=== PATIENT | male | born 1970 | race Caucasian/White ===

== ENCOUNTER 2016-10-04 16:53 | Inpatient (IN) | payer SELFPAY ==
[~2016-10-04] VITALS: Ht 177.8 cm; Wt 76.5 kg
[~2016-10-04 16:53] MED LIST: LISI20 PO
[2016-10-04 17:05] VITALS: PULSE 91; RESP 19; TEMP 97.4; O2SAT 97
--- NOTE | 2016-10-04 17:16 | PD ---
HPI Chief Complaint: Pain: Acute or Chronic Time Seen by Provider: 17:10 Travel History International Travel<30 days: No Contact w/Intl Traveler<30days: No History of Present Illness HPI 45yo M with PMH of HTN presents to the ED with c/o back pain, dark color urine, dysuria, foul smelling urine for a few days. Denies any fever, chest pain, sob , n/v, focal weakness or numbness. State the pain is bilateral, lower back, squeezing like and nonradiating. Pt took percocet yesterday without improvement. Pt states he did have chills and used to do IV drugs although he states it has been a few years since he did IV drugs. PFSH Past Medical History Arthritis: No Asthma: No Autoimmune Disease: No Blood Disorders: No Anxiety: Yes Depression: Yes Heart Rhythm Problems: No Cancer: No Cardiovascular Problems: Yes (HTN--NOT TAKING MED) High Cholesterol: No Congestive Heart Failure: No Cerebrovascular Accident: Yes Diabetes: No Diminished Hearing: No Endocrine: No Gastrointestinal Disorders: No GERD: No Genitourinary: No Headaches: Yes Hiatal Hernia: No Hypertension: Yes Immune Disorder: No Implanted Vascular Access Dvce: No Kidney Stones: No Musculoskeletal: No Neurologic: Yes (July 2014 Cerebral Hemorrhage) Psychiatric: Yes Reproductive: No Respiratory: No Immunizations Current: Yes Migraines: Yes Renal Failure: No Seizures: Yes Sleep Apnea: No Ulcer: No Past Surgical History Abdominal Surgery: No Cardiac Surgery: No Ear Surgery: Yes (RIGHT EAR) Endocrine Surgery: No Eye Surgery: No Genitourinary Surgery: No Gynecologic Surgery: No Neurologic Surgery: No Oral Surgery: No Thoracic Surgery: No Tonsillectomy: Yes Other Surgery: Yes (right ear) Social History Alcohol Use: Yes Tobacco Use: Yes (1 PACK A DAY) Substance Use: Yes (crack, heroin, meth, dilaudid, thc) Allergies-Medications (Allergen,Severity, Reaction): Coded Allergies: No Known Allergies (Verified , 10/04/16) Reported Meds & Prescriptions Reported Meds & Active Scripts Active Reported Lisinopril 20 Mg Tab 20 Mg PO BID Review of Systems Except as stated in HPI: all other systems reviewed are Neg Physical Exam Narrative GENERAL: 45yo M in moderate distress. SKIN: Focused skin assessment warm/dry. HEAD: Atraumatic. Normocephalic. EYES: Pupils equal and round. No scleral icterus. No injection or drainage. ENT: No nasal bleeding or discharge. Mucous membranes pink and moist. NECK: Trachea midline. No JVD. CARDIOVASCULAR: Regular rate and rhythm. No murmur appreciated. RESPIRATORY: No accessory muscle use. Clear to auscultation. Breath sounds equal bilaterally. GASTROINTESTINAL: Abdomen soft, non-tender, nondistended. No rebound tenderness or guarding. BACK: +Diffuse TTP TT11-L5. No erythema. Mild swelling in lower back. Tenderness is more on paraspinal muscles. MUSCULOSKELETAL: No obvious deformities. No clubbing. No cyanosis. No edema. NEUROLOGICAL: Awake and alert. No obvious cranial nerve deficits. Motor grossly within normal limits. Sensation equal in bilateral lower extremities. Normal speech. PSYCHIATRIC: Appropriate mood and affect; insight and judgment normal. Data Data Last Documented VS Vital Signs Date Time Temp Pulse Resp B/P Pulse Ox O2 Delivery O2 Flow Rate FiO2 10/04/16 19:39 Room Air 10/04/16 19:19 72 22 153/105 99 10/04/16 17:24 97.4 Orders Basic Metabolic Panel (Bmp) (10/04/16 17:16) Complete Blood Count With Diff (10/04/16 17:16) Prothrombin Time / Inr (Pt) (10/04/16 17:16) Act Partial Throm Time (Ptt) (10/04/16 17:16) Urinalysis - C+S If Indicated (10/04/16 17:16) Ct Abd/Pel W Iv Contrast(Rout) (10/04/16 17:16) Iv Access Insert/Monitor (10/04/16 17:16) Ecg Monitoring (10/04/16 17:16) Oximetry (10/04/16 17:16) Sodium Chloride 0.9% Flush (Ns Flush) (10/04/16 17:30) Morphine Inj (Morphine Inj) (10/04/16 17:30) Hydralazine Inj (Apresoline Inj) (10/04/16 18:15) Iohexol 350 Inj (Omnipaque 350 Inj) (10/04/16 18:58) Mri L Spine W&W/O Contrast (10/04/16 ) Morphine Inj (Morphine Inj) (10/04/16 19:45) Gadodiamide Pf Inj (Omniscan Pf Inj) (10/04/16 20:16) Lactic Acid Sepsis Protocol (10/04/16 21:28) Blood Culture (10/04/16 21:28) Vancomycin Inj (Vancomycin Inj) (10/04/16 21:28) Piperacil-Tazo 4.5 Gm Premix (Zosyn 4.5 (10/04/16 21:28) Consult Neurosurgery (10/04/16 ) (Hub Use Only)Inp Phy Cons/Ref (10/04/16 ) Admit Order (Ed Use Only) (10/04/16 21:49) Labs Laboratory Tests Test 10/04/16 10/04/16 17:20 17:50 White Blood Count 13.0 TH/MM3 Red Blood Count 4.85 MIL/MM3 Hemoglobin 14.2 GM/DL Hematocrit 41.9 % Mean Corpuscular Volume 86.3 FL Mean Corpuscular Hemoglobin 29.3 PG Mean Corpuscular Hemoglobin 34.0 % Concent Red Cell Distribution Width 13.4 % Platelet Count 310 TH/MM3 Mean Platelet Volume 9.1 FL Neutrophils (%) (Auto) 68.8 % Lymphocytes (%) (Auto) 20.8 % Monocytes (%) (Auto) 8.6 % Eosinophils (%) (Auto) 0.9 % Basophils (%) (Auto) 0.9 % Neutrophils # (Auto) 8.9 TH/MM3 Lymphocytes # (Auto) 2.7 TH/MM3 Monocytes # (Auto) 1.1 TH/MM3 Eosinophils # (Auto) 0.1 TH/MM3 Basophils # (Auto) 0.1 TH/MM3 CBC Comment DIFF FINAL Differential Comment Prothrombin Time 11.1 SEC Prothromb Time International 1.0 RATIO Ratio Activated Partial 28.2 SEC Thromboplast Time Sodium Level 136 MEQ/L Potassium Level 4.1 MEQ/L Chloride Level 102 MEQ/L Carbon Dioxide Level 26.8 MEQ/L Anion Gap 7 MEQ/L Blood Urea Nitrogen 15 MG/DL Creatinine 1.20 MG/DL Estimat Glomerular Filtration 65 ML/MIN Rate Random Glucose 115 MG/DL Calcium Level 8.9 MG/DL Urine Color DARK-YELLOW Urine Turbidity HAZY Urine pH 5.5 Urine Specific [place] 1.039 Urine Protein 30 mg/dL Urine Glucose (UA) NEG mg/dL Urine Ketones NEG mg/dL Urine Occult Blood NEG Urine Nitrite NEG Urine Bilirubin SMALL Urine Urobilinogen 4.0 MG/DL Urine Leukocyte Esterase NEG Urine WBC 3 /hpf Urine Mucus MOD /lpf Microscopic Urinalysis Comment CULT NOT INDICATED MDM Medical Decision Making Medical Screen Exam Complete: Yes Emergency Medical Condition: Yes Differential Diagnosis Nephrolithiasis vs. pyelonephritis vs. UTI vs. epidural abscess (unlikely but since pt was an IVDA and in a lot of pain, will do MRI) Narrative Course 45yo M with urinary complaints and back pain. He is in a lot of pain so morphine 4mg IV given. Pt reevaluated and still in pain so another dose of morphine ordered Labs reviewed, mild leukocytosis at 13. BMP unremarkable. UA showed no leukocyte or blood. Sign out to next team to follow up CT a/p and MRI LS. Diagnosis Primary Impression: Back pain Qualified Code: M54.5 - Acute bilateral low back pain without sciatica Mary Mora DO Oct 04, 2016 17:16
[2016-10-04 17:18] VITALS: BP 175/118; PULSE 90; RESP 19; TEMP 97.4; O2SAT 97
[2016-10-04] MEDS ORDERED: LISI-515 PO (17:18)
[2016-10-04 17:24] VITALS: BP 175/118; PULSE 90; RESP 19; TEMP 97.4; O2SAT 97
[2016-10-04] MEDS ORDERED: SODIUM CHLORIDE 0.9% FLUSH 10 ML FLUSH IV FLUSH PRN (17:30)
[2016-10-04] MEDS ORDERED: MORPHINE SULFATE 4 MG/ML INJ IV PUSH ONE ×2 (17:30→19:45)
[2016-10-04 18:03] LABS: APTT (PATIENT) 28.2 SEC (24.3-30.1); PROTHROMBIN TIME - PATIENT 11.1 SEC (9.8-11.6)
[2016-10-04 18:15] LABS: AUTOMATED NEUTROPHIL # 8.9 TH/MM3 (1.8-7.7); BASOPHIL # 0.1 TH/MM3 (0-0.2); BASOPHIL % 0.9 % (0.0-2.0); EOSINOPHIL # 0.1 TH/MM3 (0-0.4); EOSINOPHIL % 0.9 % (0.0-4.0); HEMATOCRIT 41.9 % (39.0-51.0); HEMO FLAGS DIFF FINAL; LYMPH % 20.8 % (9.0-44.0); LYMPHOCYTE # 2.7 TH/MM3 (1.0-4.8); MEAN CELL VOLUME 86.3 FL (80.0-100.0); MEAN CORPUSCULAR HEMOGLOBIN 29.3 PG (27.0-34.0); MONO % 8.6 % (0.0-8.0); NEUT % 68.8 % (16.0-70.0); PLATELET COUNT 310 TH/MM3 (150-450); RED BLOOD COUNT 4.85 MIL/MM3 (4.50-5.90); RED CELL DISTRIBUTION WIDTH 13.4 % (11.6-17.2)
[2016-10-04] MEDS ORDERED: hydrALAZINE HCL 20 MG/ML VIAL IV PUSH ONE (18:15)
[2016-10-04 18:16] LABS: BICARBONATE 26.8 MEQ/L (21.0-32.0); POTASSIUM 4.1 MEQ/L (3.5-5.1)
[2016-10-04 18:29] LABS: BLOOD, URINE NEG (NEG); COMMENT (UR) CULT NOT INDICATED; CULTURE IF INDICATED CULT NOT INDICATED; GLUCOSE,URINE NEG (NEG); KETONE, URINE NEG (NEG); MUCUS URINE MOD /lpf (OCC); NITRITE,URINE NEG (NEG); PH, URINE 5.5 (5.0-8.5)
[2016-10-04 18:33] LABS: URINE COLOR DARK-YELLOW (YELLW/STRAW)
[2016-10-04 18:40] VITALS: BP 160/103
[2016-10-04] MEDS ORDERED: IOHEXOL 350 MG/ML 10 ML VIAL (for RAD DIAG) IV ONE (18:58)
[2016-10-04 19:19] VITALS: BP 153/105; PULSE 72; RESP 22; O2SAT 99
--- NOTE | 2016-10-04 19:20 | RADRPT ---
EXAM DATE/TIME: 10/04/2016 18:49 [facility] COMPARISON: No previous studies available for comparison. INDICATIONS : Severe back pain, dicoloration of urine IV CONTRAST: 96 cc IV ORAL CONTRAST: No oral contrast ingested. RADIATION DOSE: 7.81 CTDIvol (mGy) ; Patient positioning MEDICAL HISTORY : Cerebrovascular disease. Seizures. Hypertension. SURGICAL HISTORY : ENCOUNTER: Initial ACUITY: 1 day PAIN SCALE: 10/10 LOCATION: Bilateral lower back TECHNIQUE: Volumetric scanning of the abdomen and pelvis was performed. Using automated exposure control and ad justment of the mA and/or kV according to patient size, radiation dose was kept as low as reasonably achievable to obtain optimal diagnostic quality images. DICOM format image data is available electro nically for review and comparison. FINDINGS: There is atelectasis at both lung bases. No significant abnormality in the liver, spleen, adrenals, k idneys or pancreas. There is mild biliary ductal dilatation. There is no bowel obstruction. No free air or significant free fluid. Bladder wall is thickened somew hat diffusely which could be characteristic of a cystitis. No pelvic mass or adenopathy. No acute bon y abnormality. CONCLUSION: Diffuse thickening of the bladder wall. Differential diagnosis includes cystitis. Otherwise no acute findings within the abdomen and pelvis. Leroy Quintero MD on October 04, 2016 at 19:11 Board Certified Radiologist. This report was verified electronically.
[2016-10-04] MEDS ORDERED: GADODIAMIDE PF 287 MG/ML 20 ML VIAL (for RAD MRI) IV ONE (20:16)
--- NOTE | 2016-10-04 21:11 | RADRPT ---
EXAM DATE/TIME: 10/04/2016 19:56 [facility] COMPARISON: No previous studies available for comparison. INDICATIONS : Lumbar spine tenderness. CONTRAST: 15 cc Omniscan (gadodiamide) IV MEDICAL HISTORY : Hypertension. CVA SURGICAL HISTORY : None. ENCOUNTER: Initial ACUITY: 1 day PAIN SCORE: 7/10 LOCATION: Paraspinal TECHNIQUE: Multiplanar multisequence MRI of the lumbar spine was performed with and without contrast. FINDINGS: There is abnormal enhancing soft tissue around the spinous process of L3 and L4 but predominantly at L3. The enhancing and edematous soft tissue has an AP diameter of up to about 4 cm and a transverse d iameter of about 12 mm on each side of the spinous process. There is no significant loculated fluid t o suggest significant abscess or drainable abscess formation. This is presumably an inflammatory phle gmonous mass and possibly an early paraspinous abscess. There is also some associated dural enhanceme nt on the dorsal aspect of L3-4 with no epidural abscess or compression on the thecal sac is present at this time. The patient would be at risk of developing epidural abscess should be inflammatory proc ess worsen or continue. There are edematous changes in the overlying subcutaneous tissues as well luis enrique racteristic of a cellulitis. No significant abnormality at Q18-H2-Q7-Y6-R1 to the disc interspaces. At L4-5 there is a mild broad-based posterior disc protrusion and facet arthropathy with mild central canal and lateral recess stenosis and mild foraminal encroachment. At L5-S1 there is a broad-based disc bulge and mild protrusion. Conus intact. No fracture or spondylolisthesis. CONCLUSION: 1. Abnormal enhancing and edematous tissue around the spinous processes of L3 and L4 extending into t he subcutaneous tissues. There is also some enhancement of the dorsal dural surface at L3-4 but witho ut epidural abscess or thecal sac compression at this time. The findings probably represent a phlegmo nous mass and could represent early changes of a paraspinous abscess. 2. Mild central canal stenosis at L4-5 secondary to disc protrusion and facet arthropathy. 3. Mild disc bulge or protrusion at L5-S1 without significant stenosis. Leroy Quintero MD on October 04, 2016 at 20:55 Board Certified Radiologist. This report was verified electronically.
[2016-10-04] MEDS ORDERED: VANCOMYCIN INJ 1,000 MG in SODIUM CHLOR 0.9% 250 ML INJ 250 ML IV STA (21:28)
[2016-10-04] MEDS ORDERED: PIPERACIL-TAZO 4.5 GM PREMIX 100 ML IV STA (21:28)
--- NOTE | 2016-10-04 21:58 | PD ---
Physical Exam Date Seen by Provider: Oct 04, 2016 Time Seen by Provider: 19:00 Narrative Case is signed out to me by Dr. Mora at 7 PM, please see previous notes for further details. Awaiting MRI for evaluation of back pain. Laboratory Tests Test 10/04/16 10/04/16 17:20 17:50 White Blood Count 13.0 TH/MM3 (4.0-11.0) Monocytes (%) (Auto) 8.6 % (0.0-8.0) Neutrophils # (Auto) 8.9 TH/MM3 (1.8-7.7) Monocytes # (Auto) 1.1 TH/MM3 (0-0.9) Estimat Glomerular Filtration 65 ML/MIN (>89) Rate Random Glucose 115 MG/DL (74-106) Urine Color DARK-YELLOW (YELLW/STRAW) Urine Turbidity HAZY (CLEAR) Urine Specific [place] 1.039 (1.002-1.035) Urine Protein 30 mg/dL (NEG-TRACE) Urine Bilirubin SMALL (NEG) Urine Urobilinogen 4.0 MG/DL (LESS THAN 2.0) Urine Mucus MOD /lpf (OCC) Last 24 hours Impressions Abdomen/Pelvis CT 10/04/16 1716 Signed Impressions: Service Date/Time: Tuesday, October 04, 2016 18:49 - CONCLUSION: Diffuse thickening of the bladder wall. Differential diagnosis includes cystitis. Otherwise no acute findings within the abdomen and pelvis. Leroy Quintero MD Lumbar Spine MRI 10/04/16 0000 Signed Impressions: Service Date/Time: Tuesday, October 04, 2016 19:56 - CONCLUSION: 1. Abnormal enhancing and edematous tissue around the spinous processes of L3 and L4 extending into the subcutaneous tissues. There is also some enhancement of the dorsal dural surface at L3-4 but without epidural abscess or thecal sac compression at this time. The findings probably represent a phlegmonous mass and could represent early changes of a paraspinous abscess. 2. Mild central canal stenosis at L4-5 secondary to disc protrusion and facet arthropathy. 3. Mild disc bulge or protrusion at L5-S1 without significant stenosis. Leroy Quintero MD MRI is showing signs of a possible paraspinous abscess. At this point, IV antibiotics was initiated after cultures was done. Case was discussed with neurosurgery Dr. Machuca who states that he does not feel that the patient needs neurosurgical treatment at this time but will consult on the patient. He also recommends ID consultation for this patient and medical admission. Case was discussed with Dr. Frost for admission. Data Data Last Documented VS Vital Signs Date Time Temp Pulse Resp B/P Pulse Ox O2 Delivery O2 Flow Rate FiO2 10/04/16 19:39 Room Air 10/04/16 19:19 72 22 153/105 99 10/04/16 17:24 97.4 Orders Basic Metabolic Panel (Bmp) (10/04/16 17:16) Complete Blood Count With Diff (10/04/16 17:16) Prothrombin Time / Inr (Pt) (10/04/16 17:16) Act Partial Throm Time (Ptt) (10/04/16 17:16) Urinalysis - C+S If Indicated (10/04/16 17:16) Ct Abd/Pel W Iv Contrast(Rout) (10/04/16 17:16) Iv Access Insert/Monitor (10/04/16 17:16) Ecg Monitoring (10/04/16 17:16) Oximetry (10/04/16 17:16) Sodium Chloride 0.9% Flush (Ns Flush) (10/04/16 17:30) Morphine Inj (Morphine Inj) (10/04/16 17:30) Hydralazine Inj (Apresoline Inj) (10/04/16 18:15) Iohexol 350 Inj (Omnipaque 350 Inj) (10/04/16 18:58) Mri L Spine W&W/O Contrast (10/04/16 ) Morphine Inj (Morphine Inj) (10/04/16 19:45) Gadodiamide Pf Inj (Omniscan Pf Inj) (10/04/16 20:16) Lactic Acid Sepsis Protocol (10/04/16 21:28) Blood Culture (10/04/16 21:28) Vancomycin Inj (Vancomycin Inj) (10/04/16 21:28) Piperacil-Tazo 4.5 Gm Premix (Zosyn 4.5 (10/04/16 21:28) Consult Neurosurgery (10/04/16 ) (Hub Use Only)Inp Phy Cons/Ref (10/04/16 ) Admit Order (Ed Use Only) (10/04/16 21:49) Labs Laboratory Tests Test 10/04/16 10/04/16 17:20 17:50 White Blood Count 13.0 TH/MM3 Red Blood Count 4.85 MIL/MM3 Hemoglobin 14.2 GM/DL Hematocrit 41.9 % Mean Corpuscular Volume 86.3 FL Mean Corpuscular Hemoglobin 29.3 PG Mean Corpuscular Hemoglobin 34.0 % Concent Red Cell Distribution Width 13.4 % Platelet Count 310 TH/MM3 Mean Platelet Volume 9.1 FL Neutrophils (%) (Auto) 68.8 % Lymphocytes (%) (Auto) 20.8 % Monocytes (%) (Auto) 8.6 % Eosinophils (%) (Auto) 0.9 % Basophils (%) (Auto) 0.9 % Neutrophils # (Auto) 8.9 TH/MM3 Lymphocytes # (Auto) 2.7 TH/MM3 Monocytes # (Auto) 1.1 TH/MM3 Eosinophils # (Auto) 0.1 TH/MM3 Basophils # (Auto) 0.1 TH/MM3 CBC Comment DIFF FINAL Differential Comment Prothrombin Time 11.1 SEC Prothromb Time International 1.0 RATIO Ratio Activated Partial 28.2 SEC Thromboplast Time Sodium Level 136 MEQ/L Potassium Level 4.1 MEQ/L Chloride Level 102 MEQ/L Carbon Dioxide Level 26.8 MEQ/L Anion Gap 7 MEQ/L Blood Urea Nitrogen 15 MG/DL Creatinine 1.20 MG/DL Estimat Glomerular Filtration 65 ML/MIN Rate Random Glucose 115 MG/DL Calcium Level 8.9 MG/DL Urine Color DARK-YELLOW Urine Turbidity HAZY Urine pH 5.5 Urine Specific [place] 1.039 Urine Protein 30 mg/dL Urine Glucose (UA) NEG mg/dL Urine Ketones NEG mg/dL Urine Occult Blood NEG Urine Nitrite NEG Urine Bilirubin SMALL Urine Urobilinogen 4.0 MG/DL Urine Leukocyte Esterase NEG Urine WBC 3 /hpf Urine Mucus MOD /lpf Microscopic Urinalysis Comment CULT NOT INDICATED MDM Medical Record Reviewed: Yes Supervised Visit with TOYIN: No Diagnosis Primary Impression: Abscess of paraspinous muscles Admitting Information Admitting Physician Requests: Admit Myesha Cardenas MD Oct 04, 2016 21:58
[2016-10-04] MEDS ORDERED: LACTULOSE SYRUP 20 GM/30 ML CUP PO PRN (22:00)
[2016-10-04] MEDS ORDERED: NALOXONE HCL 0.4 MG/ML AMP IV PRN (22:00)
[2016-10-04] MEDS ORDERED: MAGNESIUM HYDROXIDE SUSP 30 ML CUP PO PRN (22:00)
[2016-10-04] MEDS ORDERED: BISACODYL 10 MG SUPP RECTAL PRN (22:00)
[2016-10-04] MEDS ORDERED: SENNOSIDES 8.6 MG TAB PO PRN (22:00)
[2016-10-04] MEDS ORDERED: Vancomycin Consult Pharmacy 1 EA OTHER SCH (22:00)
[2016-10-04] MEDS ORDERED: ONDANSETRON HCL 4 MG/2 ML VIAL IVP PRN (22:00)
[2016-10-04] MEDS: HEPARIN SODIUM - SQ 10,000 UNITS/ML VIAL SQ SCH (22:00)
[2016-10-04] MEDS ORDERED: ACETAMINOPHEN 325 MG TAB PO PRN (22:00)
[2016-10-04] MEDS: ACETAMINOPHEN/HYDROcodone 325 MG/10 MG TAB PO PRN (22:14)
[2016-10-05] MEDS: SODIUM CHLOR 0.9% 1000 ML INJ 1,000 ML IV SCH ×3 (01:38→21:24)
[2016-10-05 02:46] VITALS: BP 130/79; PULSE 69; RESP 20; TEMP 98.6; O2SAT 100
[2016-10-05] MEDS: ACETAMINOPHEN/HYDROcodone 325 MG/10 MG TAB PO PRN ×2 (03:17→08:08)
[2016-10-05] MEDS ORDERED: MORPHINE SULFATE 4 MG/ML INJ IV PRN (04:00)
[2016-10-05] MEDS: PIPERACIL-TAZO 3.375 GM PREMIX 50 ML IV SCH ×4 (05:34→23:58)
[2016-10-05 08:00] VITALS: BP 133/83; PULSE 68; RESP 16; TEMP 98.5; O2SAT 96
[2016-10-05] MEDS: DOCUSATE SODIUM 50 MG/SENNA 8.6 MG TAB PO SCH ×2 (08:08→21:14)
[2016-10-05] MEDS: SODIUM CHLORIDE 0.9% FLUSH 10 ML FLUSH IV FLUSH SCH ×2 (09:00→21:00)
[2016-10-05] MEDS: VANCOMYCIN INJ 1,250 MG in SODIUM CHLOR 0.9% 250 ML INJ 250 ML IV SCH ×2 (09:13→21:15)
[2016-10-05] MEDS: HEPARIN SODIUM - SQ 10,000 UNITS/ML VIAL SQ SCH ×2 (09:41→21:14)
[2016-10-05 11:31] LABS: AUTOMATED NEUTROPHIL # 6.7 TH/MM3 (1.8-7.7); BASOPHIL # 0.1 TH/MM3 (0-0.2); BASOPHIL % 0.8 % (0.0-2.0); EOSINOPHIL # 0.2 TH/MM3 (0-0.4); EOSINOPHIL % 2.2 % (0.0-4.0); HEMATOCRIT 37.4 % (39.0-51.0); HEMO FLAGS DIFF FINAL; LYMPH % 21.2 % (9.0-44.0); LYMPHOCYTE # 2.2 TH/MM3 (1.0-4.8); MEAN CELL VOLUME 86.1 FL (80.0-100.0); MEAN CORPUSCULAR HEMOGLOBIN 29.5 PG (27.0-34.0); MEAN CORPUSCULAR HGB CONC 34.2 % (32.0-36.0); MONO % 10.5 % (0.0-8.0); NEUT % 65.3 % (16.0-70.0); PLATELET COUNT 252 TH/MM3 (150-450); RED BLOOD COUNT 4.34 MIL/MM3 (4.50-5.90); RED CELL DISTRIBUTION WIDTH 13.6 % (11.6-17.2); WHITE BLOOD COUNT 10.3 TH/MM3 (4.0-11.0)
[2016-10-05] MEDS: MORPHINE SULFATE 4 MG/ML INJ IV PRN ×2 (11:48→14:40)
[2016-10-05 11:54] LABS: BICARBONATE 30.7 MEQ/L (21.0-32.0); POTASSIUM 3.8 MEQ/L (3.5-5.1)
[2016-10-05 12:00] VITALS: BP 134/78; PULSE 65; RESP 20; TEMP 99.1; O2SAT 96
--- NOTE | 2016-10-05 13:37 | MH ---
cc: PRAMOD GOODMAN DATE OF ADMISSION: 10/04/2016 DATE OF 1970 RECENT TRAVEL: Travel in the last 30 days, none. HISTORY OF PRESENT ILLNESS This is a pleasant 45-year-old white male who had been in his usual state of health up until about a week ago. He started noticing some lower back pain that was uncontrolled to the point that he could not sleep and was having trouble with any daily activities. He has swelling and edema very painful to light touch but no obvious sore or deformity noted. He describes pain as a squeezing sensation, non radiating and one of the most painful things that he has ever experienced. The patient has not been able to complete his daily activities. He has noted some fevers, chills and sweats, that have worsened over the past few days. The patient has no shortness of breath. No headaches has not eaten or drank very much fluids and has had a decreased appetite over the past few days. MEDICAL HISTORY Anxiety, hypertension, although not taking medication now. Cerebrovascular accident a year and half ago Headaches. PAST SURGICAL HISTORY Right ear tonsillectomy. ALLERGIES None known MEDICATIONS Lisinopril SOCIAL HISTORY Previous alcohol use but has quit approximately 6 years ago, tobacco a pack a day since his young teenage years. SUBSTANCE ABUSE Currently smokes a little marijuana has had a polysubstance abuse in the past but states he has not used any of those medications or smoke any medications in a few years. He says he currently lives with a girl friend that he has been with for nine years. 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 REVIEW OF SYSTEMS A 12-point review was obtained positives noted in history of present illness which chiefly are his lower back pain. There is swelling and edema but no open sore noted. PHYSICAL EXAMINATION: VITAL SIGNS: Temperature is 98.5, Pulse 68, respirations 20, blood pressure 130/79 and 133/83. O2 sat high blood pressure on his initial admission was 175/118 but has come down over the last 12 hours. O2 sat 96 currently on room air. PHYSICAL EXAMINATION IN GENERAL: Slim but well nourished, white male looks a little older than his stated age, resting in the bed. He does have positive facial grimace and is actively having pain in his lower back. SKIN: Skin is warm and dry. HEAD, EYES, EARS, NOSE, AND THROAT: Atraumatic, normocephalic. Pupils equal, round, reactive to light and accommodation, no scleral icterus, no drainage. NECK: The neck is supple. Oral cavity is pink and moist. CARDIOVASCULAR SYSTEM: Rhythm is regular. No murmurs, rubs or gallops. RESPIRATORY: Essentially clear to auscultation. No wheezes or rhonchi. ABDOMEN: The abdomen is flat, soft, nontender, nondistended. BACK: Diffuse edema. No erythema. There is obvious swelling in the lumbar area. NEUROLOGICALLY: He is awake, alert, mildly nervous over his current condition and pain. Speech is clear hand clipper machine are equal PSYCHIATRIC: Appropriate mood and affect. Insight and judgment normal. DIAGNOSTIC DATA/ LABORATORY DATA WBC count 13, hemoglobin of 14.2, hematocrit 41.9 diff shows positive monocyte percentage at 8.6, PT/INR is one. Chemistry sodium 136, potassium 4.1, chloride 102, carbon dioxide 26.8, amnion gap seven, BUN 15, creatinine 1.2, GFR of 65, random glucose 115, lactic acid 1.5, calcium 8.9. His urine shows dark yellow hazy Urine 5.5, pH specific gravity 1.039, positive for proteins 30, positive for small amount of bilirubin, urobilinogen is 4, leukocyte esterase is negative along with glucose, ketones, occult blood and nitrites. There is a moderate amount of the mucous, culture is not indicated. IMAGING STUDIES: The imaging studies show a lumbar spine MRI to have abnormal enhancing and edematous tissue around the L3-L4 extending into the subcutaneous Tissue. There is some enhancement in the dorsal dural space of L3 and L4, but without epidural abscess or thecal sac compression. These findings represent some type of Phlegmonous mass and could represent early changes of a paraspinous abscess. Mild central canal stenosis at L4, l5 secondary to disc protrusion, mild disc bulge, or protrusion at L5, S1 without significant stenosis. Abdomen pelvic CT, diffuse thickening of the bladder wall. Differential includes discitis. No other acute findings. ASSESSMENT: 1. Possible abscess of the paraspinal muscles. 2. Cystitis 3. Hypertension 4. Hypertensive urgency on admission which is now resolved. 5. History of intracerebral hemorrhage. 6. Depressive disorder. 7. Anxiety. 8. Leukocytosis. PLAN: 1. Our plan is to monitor his vital signs q. four and as needed 2. IV access for any medications 3. p.r.n. medications if his blood pressure is above 180/95. Patient has been started on Vancomycin and Zosyn IV. 4. Blood cultures are pending. 5. Pain management. 6. We consulted neurosurgery for their expert opinion. 7. Bowel regimen will be monitored and we will continue to follow. Katiana Goodman MD DICTATED BY: MING Patel/dianelys /10:55 AM /1:16 PM
--- NOTE | 2016-10-05 14:30 | MB ---
cc: PRAMOD GOODMAN DATE OF CONSULTATION: 10/05/2016 REQUESTING PHYSICIAN: Dr. Goodman. REASON FOR CONSULTATION: 45-year-old gentleman who presented to the emergency room yesterday with back pain as well as dark foul smelling urine for the past several days. Per emergency room history and had no complaints of fever, chest pain or shortness of breath at the time of admission. No complaints of lower extremity pain or weakness. No bowel dysfunction. The patient does have chronic hesitancy in urinating from a prostate enlargement. The patient does have history in the past of IV drug abuse but states he has not used IV drugs and several years. Workup included MRI of the lumbar spine which I reviewed. This study shows signal changes in the paraspinal musculature around the L3 spinous process consistent with probable evolving infectious process. No large fluid collection noted which would be amendable to drainage. There does appear to be some cellulitic change within the left paraspinal muscle consistent with Phlegmon and early abscess formation. No evidence of epidural fluid or abscess. No canal stenosis. PAST MEDICAL HISTORY: The patient's past medical history significant for history of depression, hypertension, history of previous CVA. SOCIAL HISTORY The patient smokes a pack of cigarettes per day, has history of illicit drug use including crack cocaine, heroin, crystal meth dilaudid, and marijuana. He does admits to frequent and daily alcohol use. CURRENT MEDICATIONS Lisinopril. ALLERGIES None known. REVIEW OF SYSTEMS Review of systems is pertinent as stated in HPI, otherwise negative. PHYSICAL EXAMINATION: IN GENERAL: Well-developed male who is lying in bed in mild distress even without movements. HEAD, EYES, EARS, NOSE, AND THROAT: Head is atraumatic, normocephalic. Pupils are equal, reactive to light. Extraocular movements are intact. NECK: Neck is supple. Full range of motion. No posterior tenderness. The patient has diffuse tenderness in the lumbosacral region and evidence of redness and swelling consistent with cellulitis of the paraspinal musculature mid lumbar region. NEUROLOGIC EXAMINATION Mental status is normal all he is oriented x3. Speech is intact. Cranial nerves II-XII intact. Motor function 5/5 throughout. Sensory intact to light touch and pain sensation throughout. Reflexes hypoactive and symmetric. Gait was not tested. ASSESSMENT Lumbar paraspinal soft tissue infection with evidence of early phlegmon abscess formation. RECOMMENDATIONS Blood cultures should have been performed in the emergency room and it is not will need to be performed now. Although the patient's urine. Dark and fall smelling his initial UA showed no white count. Infectious disease; should be consulted for the soft tissue infection. No indication for neurosurgical intervention at this time. Neurosurgery will sign off. Please reconsult as needed. Thank you MD CHARLOTTE Flowers/dianelys /10:44 AM /2:12 PM
[2016-10-05 16:00] VITALS: BP 136/94; PULSE 80; RESP 20; TEMP 99; O2SAT 97
--- NOTE | 2016-10-05 16:48 | HHI.PR ---
Objective Objective Results - Vital Signs Date Time Temp Pulse Resp B/P Pulse Ox O2 Delivery O2 Flow Rate FiO2 10/05/16 16:00 99.0 80 20 136/94 97 10/05/16 12:00 99.1 65 20 134/78 96 10/05/16 08:00 98.5 68 16 133/83 96 10/05/16 02:46 98.6 69 20 130/79 100 10/04/16 19:39 Room Air 10/04/16 19:19 72 22 153/105 99 Room Air 10/04/16 18:40 160/103 10/04/16 17:24 97.4 90 19 175/118 97 Room Air 10/04/16 17:18 97.4 90 19 175/118 97 Room Air 10/04/16 17:12 90 19 10/04/16 17:05 97.4 91 19 97 Result Diagram: 10/05/16 1029 10/05/16 1029 Other Results Laboratory Tests Test 10/04/16 10/04/16 10/04/16 10/05/16 17:20 17:50 23:10 10:29 White Blood Count 13.0 10.3 Red Blood Count 4.85 4.34 Hemoglobin 14.2 12.8 Hematocrit 41.9 37.4 Mean Corpuscular Volume 86.3 86.1 Mean Corpuscular Hemoglobin 29.3 29.5 Mean Corpuscular Hemoglobin 34.0 34.2 Concent Red Cell Distribution Width 13.4 13.6 Platelet Count 310 252 Mean Platelet Volume 9.1 9.1 Neutrophils (%) (Auto) 68.8 65.3 Lymphocytes (%) (Auto) 20.8 21.2 Monocytes (%) (Auto) 8.6 10.5 Eosinophils (%) (Auto) 0.9 2.2 Basophils (%) (Auto) 0.9 0.8 Neutrophils # (Auto) 8.9 6.7 Lymphocytes # (Auto) 2.7 2.2 Monocytes # (Auto) 1.1 1.1 Eosinophils # (Auto) 0.1 0.2 Basophils # (Auto) 0.1 0.1 CBC Comment DIFF FINAL DIFF FINAL Differential Comment Prothrombin Time 11.1 Prothromb Time International 1.0 Ratio Activated Partial 28.2 Thromboplast Time Sodium Level 136 139 Potassium Level 4.1 3.8 Chloride Level 102 103 Carbon Dioxide Level 26.8 30.7 Anion Gap 7 5 Blood Urea Nitrogen 15 12 Creatinine 1.20 0.83 Estimat Glomerular Filtration 65 100 Rate Random Glucose 115 87 Calcium Level 8.9 8.5 Urine Color DARK-YELLOW Urine Turbidity HAZY Urine pH 5.5 Urine Specific [place] 1.039 Urine Protein 30 Urine Glucose (UA) NEG Urine Ketones NEG Urine Occult Blood NEG Urine Nitrite NEG Urine Bilirubin SMALL Urine Urobilinogen 4.0 Urine Leukocyte Esterase NEG Urine WBC 3 Urine Mucus MOD Microscopic Urinalysis Comment CULT NOT INDICATED Lactic Acid Level 1.5 Date/Time Procedure Status Source Growth 10/04/16 23:10 Aerobic Blood Culture - Preliminary Resulted Blood Peripheral NO GROWTH IN 1 DAY 10/04/16 23:10 Anaerobic Blood Culture - Preliminary Resulted Blood Peripheral NO GROWTH IN 1 DAY Physical Exam Physical Exam PHYSICAL EXAMINATION GENERAL: This is a well-developed, well-nourished male who appears to be in no acute distress. He is alert and awake, []. HEAD: Normocephalic without any lesion or mass noted. Facial features appear symmetric. EYES: Perrla, Normal eye movement, [] Icterus. [] Conj congestion. OROPHARYNGEAL: Oropharynx without erythema or edema. MOUTH/THROAT: Tongue midline []. Buccal mucosa is moist []. NECK: Supple. No nuchal rigidity or lymphadenopathy. Trachea midline without deviation. Thyroid not palpable, no bruits appreciated. CARDIAC: Regular rhythm, regular rate, S1 and S2 are heard. Murmur []; no gallops or rubs. LUNGS: Clear to auscultation bilaterally. [] wheeze, [] rhonchi or [] rale. No use of accessory muscles on inspiration or expiration. ABDOMEN: Soft, nontender, no organomegaly or masses. Bowel sounds are heard in all four quadrants. No rebound. No guarding. EXTREMITIES: [] edema. Pulses equal bilateral. [] cyanosis. NEUROLOGICAL: Patient mood and affect appropriate. Cranial nerves II through XII grossly intact. Muscle strength 5/5 in the upper and lower extremities bilaterally. Deep tendon reflexes are 2+ in the upper and lower extremities bilaterally. SKIN:Warm and moist PSYCH: Mood and affect appropriate A/P Assessment and Plan patient seen and examined Please refer to admission H & P for details check urine drug screen Appreciate NSR input, no plan for surgery continue vanco, Zosyn, consult ID, monitor cultures pain control: d/c Morphine (per patient not helping), switch to scheduled percocet and prn dilaudid 1 mg i/v q3H prn pain h/o drug abuse. Admits to daily marijuana, but no IVDA in last 1 year labs in am plan of care discussed with patient and nursing staff no family at bedside discussed with Katiana Vásquez MD Oct 05, 2016 16:48
[2016-10-05] MEDS: HYDROmorphone HCL PF 1 MG/ML VIAL IV PUSH PRN ×2 (17:32→22:47)
[2016-10-05] MEDS: ACETAMINOPHEN/HYDROcodone 325 MG/10 MG TAB PO SCH ×2 (18:00→21:16)
[2016-10-05 20:18] LABS: AMPHETAMINE, URINE NEG (NEG); BARBITURATES, URINE NEG (NEG); COCAINE, URINE POS (NEG)
[2016-10-05 20:59] VITALS: BP 232/115; PULSE 89; RESP 18; TEMP 98.8; O2SAT 100
[2016-10-05] MEDS: REMOVE OLD NICODERM (NICOTINE) PATCH T-DERMAL SCH (21:00)
[2016-10-05 21:12] VITALS: BP 168/96
[2016-10-05] MEDS: LISINOPRIL 20 MG TAB PO SCH (21:14)
[2016-10-05] MEDS: ZOLPIDEM TARTRATE 5 MG TAB PO PRN (23:57)
[2016-10-06] VITALS (7 sets, daily range): BP systolic 100–196; BP diastolic 58–95; PULSE 52–89; RESP 18; TEMP 97.3–98.2; O2SAT 92–100
[2016-10-06] MEDS: ACETAMINOPHEN/HYDROcodone 325 MG/10 MG TAB PO SCH ×6 (01:42→22:00)
[2016-10-06] MEDS: SODIUM CHLOR 0.9% 1000 ML INJ 1,000 ML IV SCH ×2 (03:19→23:37)
[2016-10-06] MEDS: HYDROmorphone HCL PF 1 MG/ML VIAL IV PUSH PRN ×4 (03:20→19:44)
[2016-10-06] MEDS: PIPERACIL-TAZO 3.375 GM PREMIX 50 ML IV SCH ×2 (05:50→12:02)
[2016-10-06 07:34] LABS: AUTOMATED NEUTROPHIL # 5.3 TH/MM3 (1.8-7.7); BASOPHIL # 0.1 TH/MM3 (0-0.2); BASOPHIL % 1.1 % (0.0-2.0); EOSINOPHIL # 0.2 TH/MM3 (0-0.4); EOSINOPHIL % 2.1 % (0.0-4.0); HEMATOCRIT 36.7 % (39.0-51.0); HEMO FLAGS DIFF FINAL; LYMPH % 31.6 % (9.0-44.0); MEAN CELL VOLUME 88.3 FL (80.0-100.0); MEAN CORPUSCULAR HEMOGLOBIN 29.4 PG (27.0-34.0); MEAN CORPUSCULAR HGB CONC 33.3 % (32.0-36.0); MONO % 9.4 % (0.0-8.0); NEUT % 55.8 % (16.0-70.0); PLATELET COUNT 272 TH/MM3 (150-450); RED BLOOD COUNT 4.16 MIL/MM3 (4.50-5.90); RED CELL DISTRIBUTION WIDTH 13.7 % (11.6-17.2); WHITE BLOOD COUNT 9.5 TH/MM3 (4.0-11.0)
[2016-10-06 07:55] LABS: POTASSIUM 4.2 MEQ/L (3.5-5.1)
[2016-10-06] MEDS ORDERED: PHARMACY ORDERED LAB ONE (08:45)
[2016-10-06] MEDS: VANCOMYCIN INJ 1,250 MG in SODIUM CHLOR 0.9% 250 ML INJ 250 ML IV SCH (08:55)
[2016-10-06] MEDS: NICOTINE 14 MG/24 HR PATCH T-DERMAL SCH (08:55)
[2016-10-06] MEDS: DOCUSATE SODIUM 50 MG/SENNA 8.6 MG TAB PO SCH ×2 (08:56→19:44)
[2016-10-06] MEDS: SODIUM CHLORIDE 0.9% FLUSH 10 ML FLUSH IV FLUSH SCH ×2 (08:57→19:46)
[2016-10-06] MEDS: HEPARIN SODIUM - SQ 10,000 UNITS/ML VIAL SQ SCH ×2 (09:07→19:45)
[2016-10-06 09:08] LABS: INDIRECT BILIRUBIN 0.4 MG/DL (0.0-0.8); TOTAL BILIRUBIN ADULT 0.5 MG/DL (0.2-1.0)
--- NOTE | 2016-10-06 09:49 | HHI.PR ---
Subjective Remarks Awake anxious sitting up in bed Planning constant pain Still has edematous tissue lower right back region (Lee Ann Mcneal) Objective Objective Results - Vital Signs Date Time Temp Pulse Resp B/P Pulse Ox O2 Delivery O2 Flow Rate FiO2 10/06/16 08:00 98.1 52 18 100/58 92 Manual Cuff/Palpation 10/06/16 04:00 97.9 60 18 124/69 96 10/06/16 00:40 97.9 89 18 139/79 100 10/05/16 21:12 168/96 10/05/16 20:59 98.8 89 18 232/115 100 10/05/16 16:00 99.0 80 20 136/94 97 10/05/16 12:00 99.1 65 20 134/78 96 I/O 10/05/16 10/05/16 10/05/16 10/06/16 10/06/16 10/06/16 07:00 15:00 23:00 07:00 15:00 23:00 Intake Total 858 ml Balance 858 ml Intake IV Total 858 ml # Voids 3 5 # Bowel Movements 0 (Lee Ann Mcneal) Result Diagram: 10/06/16 0644 10/06/16 0644 ROS General: Fatigue, Weakness, Other (10 point ROS done positives noted) Neuro/MS: Other (anxiety complained of increased pain) Skin: Other (soft tissue swelling lower back right side) (Lee Ann Mcneal ) Physical Exam Physical Exam PHYSICAL EXAMINATION GENERAL: This is a well-developed, well-nourished male who appears to be in no acute distress. He is alert and awake, anxious HEAD: Normocephalic without any lesion or mass noted. Facial features appear symmetric. OROPHARYNGEAL: Oropharynx without erythema or edema. NECK: Supple. No nuchal rigidity or lymphadenopathy. Trachea midline without deviation. CARDIAC: Regular rhythm, regular rate, S1 and S2 are heard. LUNGS: Clear to auscultation bilaterally No use of accessory muscles on inspiration or expiration. ABDOMEN: Soft, nontender, no organomegaly or masses. Bowel sounds are heard in all four quadrants. No rebound. No guarding. EXTREMITIES: no edema. Pulses equal bilateral. NEUROLOGICAL: Patient mood and affect appropriate. No focal deficit SKIN:Warm and moist (Lee Ann Mcneal) A/P Assessment and Plan Vital signs reviewed, temp 99, pulse labile between 50s and 80s, no complaints of dizziness or symptoms, BP labile systolic 100 at 8:00 this morning, back up within normal range Labs reviewed, leukocytosis resolved, hemoglobin 12.2 stable, CRP positive 1. Possible abscess of the paraspinal muscles. Continues to complain of constant pain in the lower lumbar region right side , very sore to touch, continue Zosyn antibiotic therapy 2. Cystitis No complaints of burning on urination, and tinea monitor labs 3. Hypertension 4. Hypertensive urgency on admission which is now resolved. 5. History of intracerebral hemorrhage. Patient is alert and oriented, monitor for any acute changes 6. Depressive disorder. Anxiety now secondary to pain Drug screen positive for cocaine, appears very anxious today, seizure precautions could be secondary to cocaine withdrawal 7. Anxiety. Supportive care, medical management 8. Leukocytosis. Resolved, continue to monitor labs, and pain IV fluids at 100 cc an hour for now (Lee Ann Mcneal) Assessment and Plan patient seen and examined decrease i/v dilaudid to q6h prn pain continue po percocet q4h as needed discussed with Dr Slater: d/c Zosyn, ? wbc scan monitor cultures discussed with patient and nursing staff discussed with Lee Ann LAI (Katiana Robison MD) Lee Ann Mcneal Oct 06, 2016 09:49 Katiana Robison MD Oct 06, 2016 15:56
[2016-10-06] MEDS: LISINOPRIL 20 MG TAB PO SCH ×2 (12:00→19:44)
--- NOTE | 2016-10-06 15:30 | PD.ID.CON ---
History of Present Illness Service ID Consult Requested By Reason for Consult Evaluation and Mment of possible paraspinal abscess and infectious myositis. Primary Care Physician Simone Corley, Diagnoses: History of Present Illness is a 45 y/o CM with PMHx of drug abuse (denies IVDA), HTN not on meds , ? CVA a year back who now presents with lower back pain which started a week prior to admission. He started noticing some lower back pain that was uncontrolled to the point that he could not sleep and was having trouble with any daily activities. He has swelling and edema very painful to light touch but no obvious sore or deformity noted. He describes pain as a squeezing sensation, non radiating and one of the most painful things that he has ever experienced. The patient has not been able to complete his daily activities. He has noted some fevers, chills and sweats, that have worsened over the past few days. The patient has no shortness of breath. No headaches has not eaten or drank very much fluids and has had a decreased appetite over the past few days. Denies IVDA Denies any trauma to the back. Reports skin lesions. ID consulted for evaluation and Mment of possible paraspinal abscess and infectious myositis. Review of Systems ROS Limitations: Poor Historian Constitutional: COMPLAINS OF: Fever, Chills Past Family Social History Allergies: Coded Allergies: No Known Allergies (Verified , 10/04/16) Past Medical History Anxiety, hypertension Cerebrovascular accident a year and half ago Headaches. Past Surgical History Right ear tonsillectomy. Reported Medications Reported Meds & Active Scripts Active Reported Lisinopril 20 Mg Tab 20 Mg PO BID Active Ordered Medications Current Medications Medications (Trade) Dose Ordered Sig/Emerita Route Start Time Stop Time Status Last Admin (NS 1000 ml Inj) 1,000 ml @ 100 mls/hr Q10H IV 10/04/16 22:00 10/06/16 03:19 (NS Flush) 2 ml UNSCH PRN IV FLUSH 10/04/16 22:00 (NS Flush) 2 ml BID IV FLUSH 10/05/16 09:00 10/06/16 08:57 (Tylenol) 650 mg Q4H PRN PO 10/04/16 22:00 (Zofran Inj) 4 mg Q6H PRN IVP 10/04/16 22:00 (Heparin Inj) 5,000 units Q12H SQ 10/04/16 22:00 10/06/16 09:07 (Narcan Inj) 0.4 mg UNSCH PRN IV 10/04/16 22:00 (Maribel-Colace) 1 tab BID PO 10/05/16 09:00 10/06/16 08:56 (Milk Of Magnesia Liq) 30 ml Q12H PRN PO 10/04/16 22:00 (Senokot) 17.2 mg Q12H PRN PO 10/04/16 22:00 (Dulcolax Supp) 10 mg DAILY PRN RECTAL 10/04/16 22:00 Lactulose 30 ml 30 ml DAILY PRN PO 10/04/16 22:00 (Vancomycin Consult Pharmacy) 0 ml @ 0 mls/hr UNSCH OTHER 10/04/16 22:00 (Prinivil) 20 mg BID PO 10/05/16 21:00 10/06/16 12:00 ([place] 10-325 Mg) 1 tab Q4H PO 10/05/16 18:00 10/06/16 12:04 (Ambien) 5 mg HS PRN PO 10/05/16 16:45 10/05/16 23:57 (Habitrol 14 Mg Patch.24 Hr) 1 patch DAILY T-DERMAL 10/06/16 09:00 10/06/16 08:55 Miscellaneous Information 1 HS T-DERMAL 10/05/16 21:00 Hydromorphone HCl 1 mg 1 mg Q4HR PRN IV PUSH 10/06/16 12:00 10/06/16 13:33 (Vancomycin Inj/ NS 500 ml Inj) 515 ml @ 257.5 mls/ hr Q12H IV 10/06/16 21:00 Miscellaneous Information SPECIFIC LAB TO BE ... ONCE ONCE .XX 10/08/16 08:45 10/08/16 08:46 Family History reviewed and NC to current problems. Social History Previous alcohol use but has quit approximately 6 years ago, tobacco a pack a day since his young teenage years. Currently smokes a little marijuana has had a polysubstance abuse in the past but states he has not used any of those medications or smoke any medications in a few years. He says he currently lives with a girl friend that he has been with for nine years. He does work and assist with a wedding planning republican, and set up. Physical Exam Vital Signs Vital Signs Date Time Temp Pulse Resp B/P Pulse Ox O2 Delivery O2 Flow Rate FiO2 10/06/16 13:44 162/85 10/06/16 12:00 97.5 52 18 136/84 99 10/06/16 08:00 98.1 52 18 100/58 92 Manual Cuff/Palpation 10/06/16 04:00 97.9 60 18 124/69 96 10/06/16 00:40 97.9 89 18 139/79 100 10/05/16 21:12 168/96 10/05/16 20:59 98.8 89 18 232/115 100 10/05/16 16:00 99.0 80 20 136/94 97 Physical Exam GENERAL: This is a well-nourished, well-developed patient, in no apparent distress. SKIN: Multiple skin lesions all over the body. HEAD: Atraumatic. Normocephalic. No temporal or scalp tenderness. EYES: Pupils equal round and reactive. Extraocular motions intact. No scleral icterus. No injection or drainage. ENT: Nose without bleeding, purulent drainage or septal hematoma. Throat without erythema, tonsillar hypertrophy or exudate. Uvula midline. Airway patent. NECK: Trachea midline. Supple, nontender, no meningeal signs. CARDIOVASCULAR: Regular rate and rhythm without murmurs, gallops, or rubs. RESPIRATORY: Clear to auscultation. Breath sounds equal bilaterally. No wheezes , rales, or rhonchi. GASTROINTESTINAL: Abdomen soft, non-tender, nondistended. Paraspinal and midline tenderness in lower lumbar region. MUSCULOSKELETAL: Extremities without clubbing, cyanosis, or edema. NEUROLOGICAL: Awake and alert. Grossly non focal Psych: cooperative IV line sites with no e.o infection. Laboratory Laboratory Tests Test 10/05/16 10/06/16 10/06/16 18:30 06:44 09:26 Urine Opiates Screen POS Urine Barbiturates Screen NEG Urine Amphetamines Screen NEG Urine Benzodiazepines Screen NEG Urine Cocaine Screen POS Urine Cannabinoids Screen POS White Blood Count 9.5 Red Blood Count 4.16 Hemoglobin 12.2 Hematocrit 36.7 Mean Corpuscular Volume 88.3 Mean Corpuscular Hemoglobin 29.4 Mean Corpuscular Hemoglobin 33.3 Concent Red Cell Distribution Width 13.7 Platelet Count 272 Mean Platelet Volume 8.6 Neutrophils (%) (Auto) 55.8 Lymphocytes (%) (Auto) 31.6 Monocytes (%) (Auto) 9.4 Eosinophils (%) (Auto) 2.1 Basophils (%) (Auto) 1.1 Neutrophils # (Auto) 5.3 Lymphocytes # (Auto) 3.0 Monocytes # (Auto) 0.9 Eosinophils # (Auto) 0.2 Basophils # (Auto) 0.1 CBC Comment DIFF FINAL Differential Comment Sodium Level 139 Potassium Level 4.2 Chloride Level 105 Carbon Dioxide Level 29.0 Anion Gap 5 Blood Urea Nitrogen 7 Creatinine 0.85 Estimat Glomerular Filtration 97 Rate Random Glucose 82 Calcium Level 8.5 Total Bilirubin 0.5 Direct Bilirubin 0.1 Indirect Bilirubin 0.4 Aspartate Amino Transf 20 (AST/SGOT) Alanine Aminotransferase 35 (ALT/SGPT) Alkaline Phosphatase 77 C-Reactive Protein 5.05 Total Protein 6.7 Albumin 2.5 Vancomycin Level Trough 8.3 Date/Time Procedure Status Source Growth 10/04/16 23:10 Aerobic Blood Culture - Preliminary Resulted Blood Peripheral NO GROWTH IN 2 DAYS 10/04/16 23:10 Anaerobic Blood Culture - Preliminary Resulted Blood Peripheral NO GROWTH IN 2 DAYS Result Diagram: 10/06/16 0644 10/06/16 0644 Imaging Reported Meds & Active Scripts Active Reported Lisinopril 20 Mg Tab 20 Mg PO BID Assessment and Plan Assessment and Plan ? Paraspinal abscess ? Infectious Myositis. H/o Drug abuse but denies IVDA Consented to HIV and Hepatitis testing. HTN not compliant with meds. Counseled to be compliant. Recs will d.w Radiology WBC Ceretec Scan ordered. DC Zosyn IV Continue Vanco IV Follow cultures Follow clinically. 2D ECHO Hepatitis profile HIV antibody screen. d.w and pt. Will likely need IV antibiotics on discharge. Zena Slater MD Oct 06, 2016 15:30
[2016-10-06] MEDS: REMOVE OLD NICODERM (NICOTINE) PATCH T-DERMAL SCH (19:45)
[2016-10-06] MEDS: VANCOMYCIN 1,500 MG/NS 500 ML IV SCH ×2 (19:48)
[2016-10-06] MEDS: ZOLPIDEM TARTRATE 5 MG TAB PO PRN (21:44)
[2016-10-07] VITALS (9 sets, daily range): BP systolic 158–194; BP diastolic 88–111; PULSE 55–89; RESP 16–20; TEMP 97.6–99.6; O2SAT 78–100
[2016-10-07] MEDS: ACETAMINOPHEN/HYDROcodone 325 MG/10 MG TAB PO SCH ×5 (00:32→22:15)
[2016-10-07] MEDS: HYDROmorphone HCL PF 1 MG/ML VIAL IV PUSH PRN ×4 (02:15→22:13)
[2016-10-07] MEDS: DOCUSATE SODIUM 50 MG/SENNA 8.6 MG TAB PO SCH ×2 (08:32→22:52)
[2016-10-07] MEDS: LISINOPRIL 20 MG TAB PO SCH ×2 (08:33→22:15)
[2016-10-07] MEDS: SODIUM CHLORIDE 0.9% FLUSH 10 ML FLUSH IV FLUSH SCH ×2 (08:34→22:17)
[2016-10-07] MEDS: NICOTINE 14 MG/24 HR PATCH T-DERMAL SCH (08:34)
[2016-10-07] MEDS: VANCOMYCIN 1,500 MG/NS 500 ML IV SCH ×4 (08:38→22:18)
[2016-10-07] MEDS: HEPARIN SODIUM - SQ 10,000 UNITS/ML VIAL SQ SCH ×2 (08:46→22:15)
[2016-10-07] MEDS: SODIUM CHLOR 0.9% 1000 ML INJ 1,000 ML IV SCH ×2 (08:51→22:15)
--- NOTE | 2016-10-07 12:35 | HHI.PR ---
Subjective Subjective Remarks c/o significant back pain, 12/17 Dilaudid only helping for 1 hour and PO not decreasing pain no fever no paresthesia c/o urinary hesitancy and weak urine stream, has enlarged prostrate but not on meds no cp no sob very anxious, tearful, concerned about diagnosis and asking if he will be out of hospital by Review of Systems Constitutional Constitutional Remarks 12 point ros completed, negative except as noted above Vitals/Results Intake & Output 10/06/16 10/06/16 10/07/16 14:59 22:59 06:59 Intake Total 640 ml 585 ml Output Total 350 ml Balance 640 ml 235 ml Intake IV Total 640 ml 585 ml Output Urine Total 350 ml Vital Signs Vital Signs Date Time Temp Pulse Resp B/P Pulse Ox O2 Delivery O2 Flow Rate FiO2 10/07/16 12:29 98.0 72 18 175/98 99 10/07/16 08:19 98.3 57 18 158/93 100 10/07/16 06:34 18 10/07/16 04:00 99.6 89 18 168/88 78 10/07/16 02:56 18 10/07/16 00:42 98.0 59 16 169/103 99 10/07/16 00:30 98.1 55 18 179/92 99 10/06/16 20:00 98.2 75 18 196/94 96 10/06/16 16:00 97.3 69 18 164/95 99 10/06/16 13:44 162/85 CBC/BMP: 10/06/16 0644 10/06/16 0644 Physical Exam General General Appearance: Well Developed, Well Nourished, Anxious, Painful Eyes Eye Exam: Pupils Equal, Pupils Reactive Ears & Nose Ears & Nose Exam: Nasal Mucosa [place] Throat Throat Exam: Oral Mucosa [place] & Moist Neck Neck Exam: Neck Supple, Trachea Midline Pulmonary Resp Exam: Clear Bilaterally, No Distress Cardiology CV Exam: Regular, Good Perfusion Gastrointestinal/Abdomen GI Exam: Soft, Non-Tender, Bowel Sounds Present, Non-Distended Musculoskeletal MS Remarks lumbar area noted with mild swelling, tender to palpation Integumentary Skin Exam: Warm, Dry Extremeties Extremities Exam: No Edema, Pedal Pulses Palpable Neurologic Neuro Exam: Alert, Awake, Oriented, Speech Clear, Moving All Extremities, No Focal Deficits Psychiatric Psych Exam: Appropriate Responses VTE Prophylaxis VTE Prophylaxis Device: SCDs Assessment/Plan Problem List: (1) Back pain (2) Abscess of paraspinous muscles (3) Hypertension (4) Polysubstance dependence (5) Hypertensive urgency (6) Depressive disorder Assessment/Plan Possible abscess of the paraspinal muscles Leukocytosis, WBC trending down, no fever continue with abx appreciate ID input poss ? Paraspinal abscess vs ? Infectious Myositis. H/o Drug abuse but denies IVDA Consented to HIV and Hepatitis testing, currently pending, f/u results WBC Ceretec Scan ordered. neurosurgery following as well, no interventions planned at this time HTN, non compliant, initially uncontrolled still not optimal, continue Lisinopril PRN Clonidine HR 50-60's asymptomatic Hx IVDU Polysubstance abuse, denies recent IVDU Cystitis c/o urinary hesitancy, weak stream, poss Hx enlarged prostrate-no OP treatment continue abx add Flomax 0.4 mg po daily Remains with significant back pain on [place] 10/325 q 4PRN and Dilaudid may need to change PO Dilaudid History of intracerebral hemorrhage avoid anticoagulation for DVT prophylaxis Depressive disorder anxious, concerned about dx and no insurance will add Xanax PRN SCDs for DVT prophylaxis continue with present tx D/W RN D/W pt D/W Dr. Pino This patient was seen by myself and Dr. Pino, this note is written on his behalf. Problem Qualifiers (1) Back pain: Qualified Code: M54.5 - Acute bilateral low back pain without sciatica (2) Hypertension: Qualified Code: I10 - Essential hypertension Yulissa Arora [facility] Oct 07, 2016 12:35
[2016-10-07] MEDS ORDERED: TAMSULOSIN HCL 0.4 MG CAP PO ONE (13:00)
--- NOTE | 2016-10-07 18:32 | ECHRPT ---
Indication: endocarditis CONCLUSIONS The left ventricular systolic function is low normal with an estimated ejection fraction in the rang e of 50- 55%. Mild concentric left ventricular hypertrophy. One view in the subcostal shows a possible echodensity with non-cardiac motion, can not rule out vegetation. There is mild tricuspid valve regurgitation. BP: / HR: Rhythm: MEASUREMENTS (Male / Female) Normal Values Technical Quality: 2D ECHO LV Diastolic Diameter PLAX 4.4 cm 4.2 - 5.9 / 3.9 - 5.3 cm LV Systolic Diameter PLAX 3.4 cm IVS Diastolic Thickness 1.5 cm 0.6 - 1.0 / 0.6 - 0.9 cm LVPW Diastolic Thickness 1.4 cm 0.6 - 1.0 / 0.6 - 0.9 cm LV Relative Wall Thickness 0.7 RV Internal Dim ED PLAX 2.5 cm M-MODE Aortic Root Diameter MM 3.3 cm LA Systolic Diameter MM 3.5 cm LA Ao Ratio MM 1.1 AV Cusp Separation MM 2.5 cm DOPPLER Mitral E Point Velocity 80.5 cm/s Mitral A Point Velocity 73.1 cm/s Mitral E to A Ratio 1.1 LV E' Lateral Velocity 7.6 cm/s Mitral E to LV E' Lateral Ratio 10.6 LV E' Septal Velocity 7.8 cm/s Mitral E to LV E' Septal Ratio 10.3 TR Peak Velocity 251.0 cm/s TR Peak Gradient 25.2 mmHg FINDINGS LEFT VENTRICLE Normal left ventricular size. Mild concentric left ventricular hypertrophy. The left ventricular systolic function is low normal with an estimated ejection fraction in the rang e of 50- 55%. RIGHT VENTRICLE The right ventricular size is normal. LEFT ATRIUM The left atrial size is normal. RIGHT ATRIUM The right atrial size is normal. ATRIAL SEPTUM The interatrial septum not well visualized. AORTA The aortic root and proximal ascending aorta are not well visualized. MITRAL VALVE Structurally normal mitral valve. No mitral valve regurgitation. No mitral valve stenosis. AORTIC VALVE Probably trileaflet aortic valve. No aortic valve regurgitation. No aortic valve stenosis. TRICUSPID VALVE Structurally normal tricuspid valve. One view in the subcostal shows a possible echodensity with non-cardiac motion, can not rule out vegetation. There is mild tricuspid valve regurgitation. The estimated pulmonary arterial pressure is 25__ mmHg. PULMONARY VALVE The pulmonary valve is not well visualized. Vincent G. Atkins DO (Electronically Signed) Final Date:07 October 2016 18:32
[2016-10-07] MEDS: REMOVE OLD NICODERM (NICOTINE) PATCH T-DERMAL SCH (21:00)
[2016-10-07] MEDS: ZOLPIDEM TARTRATE 5 MG TAB PO PRN (22:52)
[2016-10-08] VITALS (9 sets, daily range): BP systolic 145–183; BP diastolic 78–105; PULSE 53–80; RESP 17–20; TEMP 95.3–98.7; O2SAT 96–100
[2016-10-08] MEDS: ACETAMINOPHEN/HYDROcodone 325 MG/10 MG TAB PO SCH ×6 (02:05→23:36)
[2016-10-08] MEDS: HYDROmorphone HCL PF 1 MG/ML VIAL IV PUSH PRN ×4 (05:07→23:37)
[2016-10-08] MEDS: SODIUM CHLOR 0.9% 1000 ML INJ 1,000 ML IV SCH ×2 (06:00→16:42)
[2016-10-08] MEDS: HEPARIN SODIUM - SQ 10,000 UNITS/ML VIAL SQ SCH ×2 (08:43→22:29)
[2016-10-08] MEDS: NICOTINE 14 MG/24 HR PATCH T-DERMAL SCH (08:43)
[2016-10-08] MEDS: TAMSULOSIN HCL 0.4 MG CAP PO SCH (08:43)
[2016-10-08] MEDS: LISINOPRIL 20 MG TAB PO SCH ×2 (08:43→22:29)
[2016-10-08] MEDS ORDERED: PHARMACY ORDERED LAB ONE (08:45)
[2016-10-08] MEDS: SODIUM CHLORIDE 0.9% FLUSH 10 ML FLUSH IV FLUSH SCH ×2 (08:49→22:30)
[2016-10-08] MEDS: DOCUSATE SODIUM 50 MG/SENNA 8.6 MG TAB PO SCH ×2 (09:00→22:29)
--- NOTE | 2016-10-08 10:12 | RADRPT ---
EXAM DATE/TIME: 10/07/2016 12:40 [facility] COMPARISON: No previous studies available for comparison. INDICATIONS : Abscess in back and fever for 10 days. DOSE: 20.2 mCi Tc99m Ceretec labeled white blood cells IV PLANAR IMAGIN min, 3 hrs, 20 hrs MEDICAL HISTORY : Hypertension. Stroke Smoker. SURGICAL HISTORY : Ear reattached. ENCOUNTER: Initial ACUITY: 1 week PAIN SCALE: 4/10 LOCATION: Back. TECHNIQUE: Following the in vitro labeling of autologous white cells and reinjection, whole body scan was perfor med at specified times. FINDINGS: There is no abnormal biodistribution of radiotracer. CONCLUSION: Normal examination. Leroy Quintero MD on October 08, 2016 at 10:06 Board Certified Radiologist. This report was verified electronically.
[2016-10-08] MEDS: VANCOMYCIN 1,500 MG/NS 500 ML IV SCH ×4 (10:51→22:30)
--- NOTE | 2016-10-08 14:02 | HHI.IDPN ---
Subjective Subjective Remarks is a 45 y/o CM with PMHx of drug abuse (denies IVDA), HTN not on meds , ? CVA a year back who now presents with lower back pain which started a week prior to admission. He started noticing some lower back pain that was uncontrolled to the point that he could not sleep and was having trouble with any daily activities. He has swelling and edema very painful to light touch but no obvious sore or deformity noted. He describes pain as a squeezing sensation, non radiating and one of the most painful things that he has ever experienced. The patient has not been able to complete his daily activities. He has noted some fevers, chills and sweats, that have worsened over the past few days. The patient has no shortness of breath. No headaches has not eaten or drank very much fluids and has had a decreased appetite over the past few days. Denies IVDA Denies any trauma to the back. Reports skin lesions. ID consulted for evaluation and Mment of possible paraspinal abscess and infectious myositis. Antibiotics Vanco IV Lines Line sites with no e/o infection Past Medical History Anxiety, hypertension Cerebrovascular accident a year and half ago Headaches. Right ear tonsillectomy. Allergies: Coded Allergies: No Known Allergies (Verified , 10/04/16) Objective . Vital Signs Date Time Temp Pulse Resp B/P Pulse Ox O2 Delivery O2 Flow Rate FiO2 10/08/16 12:44 97.6 78 18 166/93 100 10/08/16 12:06 13 10/08/16 08:08 98.0 53 17 148/87 98 10/08/16 05:49 18 10/08/16 04:00 95.3 65 18 151/100 99 10/08/16 00:00 98.7 80 18 163/104 98 10/07/16 22:09 98.1 75 18 170/109 97 10/07/16 22:00 75 194/111 10/07/16 20:00 97.6 63 20 179/103 98 10/07/16 10/07/16 10/08/16 15:00 23:00 07:00 Output Total 1500 ml Balance -1500 ml Output Urine Total 1500 ml # Bowel Movements 1 Imaging Last Impressions Tumor Localization 10/07/16 0000 Signed Impressions: Service Date/Time: Friday, October 07, 2016 12:40 - CONCLUSION: Normal examination. Leroy Quintero MD Abdomen/Pelvis CT 10/04/16 1716 Signed Impressions: Service Date/Time: Tuesday, October 04, 2016 18:49 - CONCLUSION: Diffuse thickening of the bladder wall. Differential diagnosis includes cystitis. Otherwise no acute findings within the abdomen and pelvis. Leroy Quintero MD Lumbar Spine MRI 10/04/16 0000 Signed Impressions: Service Date/Time: Tuesday, October 04, 2016 19:56 - CONCLUSION: 1. Abnormal enhancing and edematous tissue around the spinous processes of L3 and L4 extending into the subcutaneous tissues. There is also some enhancement of the dorsal dural surface at L3-4 but without epidural abscess or thecal sac compression at this time. The findings probably represent a phlegmonous mass and could represent early changes of a paraspinous abscess. 2. Mild central canal stenosis at L4-5 secondary to disc protrusion and facet arthropathy. 3. Mild disc bulge or protrusion at L5-S1 without significant stenosis. Leroy Quintero MD Physical Exam GENERAL: This is a well-nourished, well-developed patient, in no apparent distress. SKIN: Multiple skin lesions all over the body. HEAD: Atraumatic. Normocephalic. No temporal or scalp tenderness. EYES: Pupils equal round and reactive. Extraocular motions intact. No scleral icterus. No injection or drainage. ENT: Nose without bleeding, purulent drainage or septal hematoma. Throat without erythema, tonsillar hypertrophy or exudate. Uvula midline. Airway patent. NECK: Trachea midline. Supple, nontender, no meningeal signs. CARDIOVASCULAR: Regular rate and rhythm without murmurs, gallops, or rubs. RESPIRATORY: Clear to auscultation. Breath sounds equal bilaterally. No wheezes , rales, or rhonchi. GASTROINTESTINAL: Abdomen soft, non-tender, nondistended. Paraspinal and midline tenderness in lower lumbar region. MUSCULOSKELETAL: Extremities without clubbing, cyanosis, or edema. NEUROLOGICAL: Awake and alert. Grossly non focal Psych: cooperative IV line sites with no e.o infection. Assessment & Plan Remarks MRSA bacteremia likely secondary to possible endocarditis and paraspinal abscess. Paraspinal abscess Infectious Myositis. Hep B and C positive H/o Drug abuse but denies IVDA Consented to HIV and Hepatitis testing. HTN not compliant with meds. Counseled to be compliant. Recs WBC Ceretec Scan negative but was on antibiotics. Continue Vanco IV (target 15-20) Follow cultures. Follow clinically. 2D ECHO. olga CURTIS. Will likely need IV antibiotics on discharge. Plan on Telavancin IV in infusion clinic. Will provide DC recs in am with plan for first infusion in clinic tomorrow. d/w . Zena Slater MD Oct 08, 2016 14:01
--- NOTE | 2016-10-08 14:13 | HHI.PR ---
Subjective Subjective Remarks pain not relieved wants more pain medicine no fever no cp no sob no diarrhea (Ho Aroraana Tien. PICKING TABLE WORKER) Review of Systems Constitutional Constitutional Remarks 12 point ros completed, negative except as noted above (Yulissa Arora PICKING TABLE WORKER) Vitals/Results Intake & Output 10/07/16 10/07/16 10/08/16 15:00 23:00 07:00 Output Total 1500 ml Balance -1500 ml Output Urine Total 1500 ml # Bowel Movements 1 Vital Signs Vital Signs Date Time Temp Pulse Resp B/P Pulse Ox O2 Delivery O2 Flow Rate FiO2 10/08/16 12:44 97.6 78 18 166/93 100 10/08/16 12:06 13 10/08/16 08:08 98.0 53 17 148/87 98 10/08/16 05:49 18 10/08/16 04:00 95.3 65 18 151/100 99 10/08/16 00:00 98.7 80 18 163/104 98 10/07/16 22:09 98.1 75 18 170/109 97 10/07/16 22:00 75 194/111 10/07/16 20:00 97.6 63 20 179/103 98 (Ho Aroraana Tien. PICKING TABLE WORKER) CBC/BMP: 10/06/16 0644 10/06/16 0644 Lab Results Laboratory Tests Test 10/08/16 09:45 Vancomycin Level Trough 15.6 MCG/ML (Ho Aroraana G. PICKING TABLE WORKER) Physical Exam General General Appearance: Well Developed, Well Nourished, Anxious, Painful (Yulissa Arora G. PICKING TABLE WORKER) Eyes Eye Exam: Pupils Equal, Pupils Reactive (Yulissa Arora G. PICKING TABLE WORKER) Ears & Nose Ears & Nose Exam: Nasal Mucosa Wye (Yulissa Arora G. PICKING TABLE WORKER) Throat Throat Exam: Oral Mucosa Wye & Moist (Yulissa Arora G. PICKING TABLE WORKER) Neck Neck Exam: Neck Supple, Trachea Midline (Yulissa Arora G. PICKING TABLE WORKER) Pulmonary Resp Exam: Clear Bilaterally, No Distress (Yulissa Arora G. PICKING TABLE WORKER) Cardiology CV Exam: Regular, Good Perfusion (Yulissa Arora G. PICKING TABLE WORKER) Gastrointestinal/Abdomen GI Exam: Soft, Non-Tender, Bowel Sounds Present, Non-Distended (Yulissa Arora G. PICKING TABLE WORKER) Musculoskeletal MS Remarks lumbar area noted with mild swelling, tender to palpation (Yulissa Arora ) Integumentary Skin Exam: Warm, Dry (Yulissa Arora) Extremeties Extremities Exam: No Edema, Pedal Pulses Palpable (Yulissa Arora) Neurologic Neuro Exam: Alert, Awake, Oriented, Speech Clear, Moving All Extremities, No Focal Deficits (Yulissa Arora) Psychiatric Psych Exam: Appropriate Responses (Yulissa Arora) VTE Prophylaxis VTE Prophylaxis Device: SCDs (Yulissa Arora) Assessment/Plan Problem List: (1) Back pain (2) Abscess of paraspinous muscles (3) Hypertension (4) Polysubstance dependence (5) Hypertensive urgency (6) Depressive disorder Assessment/Plan Possible abscess of the paraspinal muscles Leukocytosis, WBC trending down, no fever continue with abx appreciate ID input poss ? Paraspinal abscess vs ? Infectious Myositis. H/o Drug abuse but denies IVDA. Consented to HIV and Hepatitis testing, currently pending, f/u results neurosurgery following as well, no interventions planned at this time Echo done + vegetation, card consulted WBC scan neg. pt. was on abx further rec per ID HTN, non compliant, initially uncontrolled still not optimal, continue Lisinopril PRN Clonidine HR 50-60's asymptomatic Hx IVDU Polysubstance abuse, denies recent IVDU Cystitis c/o urinary hesitancy, weak stream, poss Hx enlarged prostrate-no OP treatment continue abx conitnue Flomax 0.4 mg po daily Remains with significant back pain continue Littcarr 10/325 q 4PRN and Dilaudid History of intracerebral hemorrhage avoid anticoagulation for DVT prophylaxis Depressive disorder, anxiety continuE Xanax PRN SCDs for DVT prophylaxis continue with present tx D/W RN D/W pt D/W Dr. Pino D/W Dr. Slater This patient was seen by myself and Dr. Pino, this note is written on his behalf. (Yulissa Arora) Assessment/Plan pt seen and examined as above labs reviewed dw pt \dw ID dw gill net stringer about plan of care (Elkin Pino MD) Problem Qualifiers (1) Back pain: Qualified Code: M54.5 - Acute bilateral low back pain without sciatica (2) Hypertension: Qualified Code: I10 - Essential hypertension Yulissa Arora Oct 08, 2016 14:13 Elkin Pino MD Oct 08, 2016 14:25
--- NOTE | 2016-10-08 16:42 | MB ---
cc: DOLORES COOL MD DATE OF CONSULTATION 10/08/16 REASON FOR CONSULTATION Echo density on surface echo HISTORY OF PRESENT ILLNESS Mr. Lewis is a 45-year-old man who presented with back pain and was found to have a paraspinal abscess. Echocardiogram was obtained and showed an EF of 50-55%. There was will also a possible echo density with noncardiac motion. Cardiology was subsequently requested to evaluate the patient. The patient today does complain of ongoing back pain. He has no cardiac complaints at this time. PAST MEDICAL HISTORY 1. Polysubstance abuse, 2. Hypertension 3. Cerebrovascular accident. ALLERGIES NO KNOWN DRUG ALLERGIES. MEDICATIONS Current per record. Outpatient - The patient was not taking. SOCIAL HISTORY The patient does have a history of polysubstance abuse. REVIEW OF SYSTEMS Except as mentioned in the HPI, all 12 systems are negative. FAMILY HISTORY Noncontributory. PHYSICAL EXAMINATION VITAL SIGNS: On physical examination vital signs 97.6, 78, 18, 166/93. GENERAL: He is a thin man who is in no apparent distress. NECK: Free from JVD. LUNGS: Bilaterally clear to auscultation. CARDIOVASCULAR: He has a normal S1-S2. No rubs or gallops are appreciated. ABDOMEN: The abdomen is soft. EXTREMITIES: Free from edema. CARDIOLOGY STUDIES Echocardiogram - I did review the echo. There is a 1-2 mm mobile echo density on the mitral leaflet. I do believe this is consistent with endocarditis. IMPRESSION 1. Echo density - The reading physician did indicate an echo density, possibly consistent with endocarditis. With my review, I do believe that this is consistent with endocarditis. Given his clinical history and after discussion with Dr. Slater, the patient will be treated for endocarditis and she does not believe a BERNICE is warranted at this time. I concur as the patient is stable and there is no signs of any significant valvular dysfunction. I will be available on a p.r.n. basis. 2. IV drug use - the patient was counseled to abstain. Melissa Pulido/ /1:42 PM /4:34 PM
[2016-10-08] MEDS: cloNIDine HCL 0.1 MG TAB PO PRN (18:45)
[2016-10-08] MEDS: REMOVE OLD NICODERM (NICOTINE) PATCH T-DERMAL SCH (21:00)
[2016-10-08] MEDS: ALPRAZolam 0.25 MG TAB PO PRN (22:29)
[2016-10-08] MEDS: ZOLPIDEM TARTRATE 5 MG TAB PO PRN (23:36)
[2016-10-09] VITALS (7 sets, daily range): BP systolic 143–183; BP diastolic 75–91; PULSE 46–75; RESP 18; TEMP 97.3–98.1; O2SAT 95–99
[2016-10-09] MEDS: SODIUM CHLOR 0.9% 1000 ML INJ 1,000 ML IV SCH ×2 (02:00→13:03)
[2016-10-09] MEDS: ACETAMINOPHEN/HYDROcodone 325 MG/10 MG TAB PO SCH ×3 (03:29→13:03)
[2016-10-09] MEDS: HYDROmorphone HCL PF 1 MG/ML VIAL IV PUSH PRN ×3 (06:02→21:28)
[2016-10-09] MEDS: TAMSULOSIN HCL 0.4 MG CAP PO SCH (08:42)
[2016-10-09] MEDS: NICOTINE 14 MG/24 HR PATCH T-DERMAL SCH (08:42)
[2016-10-09] MEDS: LISINOPRIL 20 MG TAB PO SCH ×2 (08:42→21:20)
[2016-10-09] MEDS: ALPRAZolam 0.25 MG TAB PO PRN ×2 (08:42→21:28)
[2016-10-09] MEDS: DOCUSATE SODIUM 50 MG/SENNA 8.6 MG TAB PO SCH ×2 (08:43→21:19)
[2016-10-09] MEDS: VANCOMYCIN 1,500 MG/NS 500 ML IV SCH ×4 (08:46→21:33)
[2016-10-09] MEDS: SODIUM CHLORIDE 0.9% FLUSH 10 ML FLUSH IV FLUSH SCH ×2 (09:00→21:33)
[2016-10-09] MEDS: HEPARIN SODIUM - SQ 10,000 UNITS/ML VIAL SQ SCH ×2 (10:00→21:20)
--- NOTE | 2016-10-09 13:31 | HHI.PR ---
Subjective Remarks Patient continues to complain of posterior back pain. No erythema at site but there is edema. Imaging had shown indurated tissue but no focal abscess at that point. Echocardiogram suggests infective endocarditis and cardiology and infectious disease physicians agree with this diagnosis. Patient is being set up for IV antibiotic treatments. He still complains of lower back pain. Objective Vital Signs Date Time Temp Pulse Resp B/P Pulse Ox O2 Delivery O2 Flow Rate FiO2 10/09/16 12:09 97.7 72 18 145/88 99 10/09/16 08:10 97.3 53 18 143/75 98 Manual Cuff/Auscultation 10/09/16 06:39 18 10/09/16 06:02 58 10/09/16 04:29 18 10/09/16 04:15 53 146/90 10/09/16 04:00 97.7 46 18 146/88 95 10/08/16 23:49 97.7 55 19 145/90 98 10/08/16 20:00 97.6 68 18 155/90 96 10/08/16 19:41 160/100 10/08/16 16:38 160/78 Automatic Cuff 10/08/16 16:26 98.7 69 20 183/105 99 I/O 10/08/16 10/08/16 10/08/16 10/09/16 10/09/16 10/09/16 07:00 15:00 23:00 07:00 15:00 23:00 Intake Total 1250 ml Output Total 1 ml Balance 1250 ml -1 ml Intake Oral 1250 ml Stool Total 1 ml # Voids 3 3 Result Diagram: 10/06/16 0644 10/09/16 0822 Objective Remarks GENERAL: NAD, A&Ox3 HEAD: Normocephalic. NECK: Supple, trachea midline. No lymphadenopathy. EYES: No scleral icterus. No injection or drainage. CARDIOVASCULAR: Regular rate and rhythm without murmurs, gallops, or rubs. RESPIRATORY: Breath sounds equal bilaterally. No accessory muscle use. GASTROINTESTINAL: Abdomen soft, non-tender, nondistended. MUSCULOSKELETAL: No cyanosis, or edema. Edematous bulge at lumbar spine that is tender. No erythema. SKIN: Warm and dry. NEURO: No focal neurological deficitis. 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 Infective endocarditis History of IV drug abuse Patient counseled to abstain from IV drug abuse Infectious disease following IV antibiotic treatments in planning phase Hypertension Likely in part secondary to drug withdrawal and pain Monitor Presently stabilized Lumbar spine edema Cellulitis versus abscess Continue antibiotics Follow clinically for improvement DVT prophylaxis Lovenox Discharge planning Possible discharge with PICC line for outpatient IV antibiotics Carlitos Ryan MD Oct 09, 2016 13:31
[2016-10-09] MEDS: ACETAMINOPHEN/HYDROcodone 325 MG/10 MG TAB PO PRN ×2 (17:39→23:36)
[2016-10-09] MEDS ORDERED: SOLU250I IV PUSH (19:52)
[2016-10-09] MEDS ORDERED: EPIN1INJ21 IV PUSH (19:52)
[2016-10-09] MEDS ORDERED: EPIN1INJ21 SQ (19:52)
[2016-10-09] MEDS ORDERED: VIBA750I IV (19:53)
--- NOTE | 2016-10-09 20:06 | HHI.FF ---
cc: Brittany Lindo MD Infusion Therapy Location of Infusion Therapy: Ambulatory Infusion Therapy Order Patient Information Appointment Date: Oct 10, 2016 Patient Weight 74.1 kg Diagnosis: Diagnosis Endocarditis Infective Myositis Suspect MRSA as patient treated with IV antibiotics and oral Bactrim prior to admission. Coded Allergies: No Known Allergies (Verified , 10/04/16) Administer Medication Telavancin 10 mg/kg IV every 24 hours Start Treatment: Oct 10, 2016 Stop Treatment: Nov 19, 2016 Additional Information Venous access: PICC Line Additional Instructions [x] Peripheral flush and dressing changes per protocol [x] Implanted port and central transfer and line up worker: * Implanted port: 10 ml Normal Saline followed by 5 ml Heparin 100 units/ml Heparin flush after each use and monthly to maintain. [] May leave port accessed during therapy. [] May leave peripheral site accessed for duration of therapy. [x] If patient has SOB or respiratory distress, check oxygen saturation. If less than 90% or clinical signs of respiratory distress, administer oxygen at 2 L/min. via nasal cannula and notify physician. [x] Anaphylaxis/Reaction orders: * Stop infusion. * Keep IV line open with saline flush. * Notify physician. * Monitor vital signs every 15 minutes until symptoms resolve. * Check Oxygen saturation; Oxygen at 2 L/min. via nasal cannula if less than 90% or clinical signs of respiratory distress. * Administer diphenhydramine (Benadryl) 25 mg IV STAT, (unless patient has received as pre-med). May repeat once, if necessary. * Solu-Cortef 250 mg IVP over 30-60 seconds, use 100 mg vials for each dissolution. * Epinephrine (1mg/1 ml) 0.3 mg subcutaneously or IVP now with any signs of respiratory distress. * Check with physician for new additional pre-med orders if patient is re- challenged or re-treated. [x] May remove PICC line when treatment complete, after confirming with Physician. [x] If the patient is admitted to the hospital, the ED, or transferred via [facility] , complete transfer form including medication reconciliation order sheet. Laboratory Tests Weekly Labs: CBC w/diff, Creatinine (Two times a week Mon, Fridays.), CRP, LFT' s (Hepatic function test) Additional Information Please draw weekly labs, fax to numbers below ad call with abnormals, change in clinical condition or problems to: Dr.Reba Lindo or or covering ID Physician Follow up appt: Patient to schedule follow up appt with Dr.Reba Lindo within 2 weeks post discharge. Follow up with PCP Follow up with other MDs as planned. Counseling: Counseled about medication side effects Counseled about PICC line care and hand hygiene. Zena Slater MD Oct 09, 2016 20:06
[2016-10-09] MEDS: REMOVE OLD NICODERM (NICOTINE) PATCH T-DERMAL SCH (21:00)
[2016-10-09] MEDS: MORPHINE SULFATE 15 MG CONTROLLED RELEASE TAB PO SCH (21:20)
[2016-10-09] MEDS: ZOLPIDEM TARTRATE 5 MG TAB PO PRN (23:36)
[2016-10-10] VITALS (7 sets, daily range): BP systolic 138–178; BP diastolic 69–108; PULSE 56–83; RESP 16–20; TEMP 97.2–98.1; O2SAT 97–99
[2016-10-10] MEDS: HYDROmorphone HCL PF 1 MG/ML VIAL IV PUSH PRN ×5 (02:47→22:57)
[2016-10-10] MEDS: SODIUM CHLORIDE 0.9% FLUSH 10 ML FLUSH IV FLUSH PRN ×2 (02:47→06:30)
[2016-10-10] MEDS: SODIUM CHLOR 0.9% 1000 ML INJ 1,000 ML IV SCH ×3 (04:11→17:43)
[2016-10-10] MEDS: DOCUSATE SODIUM 50 MG/SENNA 8.6 MG TAB PO SCH ×2 (08:06→21:43)
[2016-10-10] MEDS: TAMSULOSIN HCL 0.4 MG CAP PO SCH (08:06)
[2016-10-10] MEDS: LISINOPRIL 20 MG TAB PO SCH ×2 (08:06→21:43)
[2016-10-10] MEDS: MORPHINE SULFATE 15 MG CONTROLLED RELEASE TAB PO SCH ×2 (08:06→21:43)
[2016-10-10] MEDS: VANCOMYCIN 1,500 MG/NS 500 ML IV SCH ×4 (08:09→21:53)
[2016-10-10] MEDS: ALPRAZolam 0.25 MG TAB PO PRN ×2 (08:10→21:43)
[2016-10-10 08:56] LABS: AUTOMATED NEUTROPHIL # 2.7 TH/MM3 (1.8-7.7); BASOPHIL # 0.3 TH/MM3 (0-0.2); BASOPHIL % 4.6 % (0.0-2.0); EOSINOPHIL # 0.2 TH/MM3 (0-0.4); EOSINOPHIL % 3.3 % (0.0-4.0); HEMATOCRIT 38.8 % (39.0-51.0); HEMO FLAGS DIFF FINAL; LYMPH % 36.9 % (9.0-44.0); LYMPHOCYTE # 2.1 TH/MM3 (1.0-4.8); MEAN CELL VOLUME 87.6 FL (80.0-100.0); MEAN CORPUSCULAR HEMOGLOBIN 29.2 PG (27.0-34.0); MEAN CORPUSCULAR HGB CONC 33.4 % (32.0-36.0); MONO % 6.9 % (0.0-8.0); NEUT % 48.3 % (16.0-70.0); PLATELET COUNT 334 TH/MM3 (150-450); RED BLOOD COUNT 4.43 MIL/MM3 (4.50-5.90); RED CELL DISTRIBUTION WIDTH 13.7 % (11.6-17.2); WHITE BLOOD COUNT 5.7 TH/MM3 (4.0-11.0)
[2016-10-10] MEDS: SODIUM CHLORIDE 0.9% FLUSH 10 ML FLUSH IV FLUSH SCH ×2 (09:00→21:00)
[2016-10-10 09:31] LABS: ALT (GPT) 53 U/L (12-78); ANION GAP 7 MEQ/L (5-15); AST (GOT) 26 U/L (15-37); BICARBONATE 29.1 MEQ/L (21.0-32.0); BLOOD UREA NITROGEN 7 MG/DL (7-18); CHLORIDE 105 MEQ/L (98-107); GLOMERULAR FILTRATION RATE 126 ML/MIN (>89); POTASSIUM 4.1 MEQ/L (3.5-5.1); SODIUM (NA) 141 MEQ/L (136-145)
[2016-10-10 09:45] LABS: ALKALINE PHOSPHATASE 88 U/L (45-117); TOTAL BILIRUBIN ADULT 0.2 MG/DL (0.2-1.0)
[2016-10-10] MEDS: NICOTINE 14 MG/24 HR PATCH T-DERMAL SCH (10:27)
[2016-10-10] MEDS: HEPARIN SODIUM - SQ 10,000 UNITS/ML VIAL SQ SCH ×2 (10:30→21:43)
[2016-10-10] MEDS: cloNIDine HCL 0.1 MG TAB PO PRN (12:58)
--- NOTE | 2016-10-10 13:09 | HHI.PR ---
Subjective Remarks Pain control is improved with long-acting morphine. Today we discussed potential options for discharge. Patient is apprehensive about discharge as he doesn't trust himself to not relapsed back into IV drug abuse. Patient PICC line may be a risk. Additionally discharge with narcotics would be a risk. He is presently on narcotics and needs them to treat infection of his lower back any cessation of narcotics will need to be weaned to prevent withdrawals as patient is narcotic dependent. Objective Vital Signs Date Time Temp Pulse Resp B/P Pulse Ox O2 Delivery O2 Flow Rate FiO2 10/10/16 12:57 178/108 10/10/16 12:00 97.5 70 16 169/104 97 10/10/16 08:00 98.1 60 16 149/87 97 10/10/16 04:00 97.3 56 20 172/96 99 10/10/16 00:00 97.4 83 18 167/76 98 10/09/16 20:00 98.1 75 18 183/91 99 10/09/16 16:00 97.6 73 18 158/90 98 I/O 10/09/16 10/09/16 10/09/16 10/10/16 10/10/16 10/10/16 07:00 15:00 23:00 07:00 15:00 23:00 Intake Total 960 ml Balance 960 ml Intake Oral 960 ml # Voids 3 4 8 # Bowel Movements 0 Result Diagram: 10/10/1682210/10/1623 Objective Remarks GENERAL: NAD, A&Ox3 HEAD: Normocephalic. NECK: Supple, trachea midline. No lymphadenopathy. EYES: No scleral icterus. No injection or drainage. CARDIOVASCULAR: Regular rate and rhythm without murmurs, gallops, or rubs. RESPIRATORY: Breath sounds equal bilaterally. No accessory muscle use. GASTROINTESTINAL: Abdomen soft, non-tender, nondistended. MUSCULOSKELETAL: No cyanosis, or edema. Edematous bulge at lumbar spine that is tender. No erythema. SKIN: Warm and dry. NEURO: No focal neurological deficitis. 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 Monitor lower back for signs of any worsening infection. Follow CBC and BMP. Monitor for any fevers. Infective endocarditis History of IV drug abuse Patient counseled to abstain from IV drug abuse Infectious disease following IV antibiotic treatments in planning phase Hypertension Likely in part secondary to drug withdrawal and pain Monitor Presently stabilized Lumbar spine edema Cellulitis versus abscess Continue antibiotics Follow clinically for improvement DVT prophylaxis Lovenox Discharge planning Possible discharge with PICC line for outpatient IV antibiotics Carlitos Ryan MD Oct 10, 2016 13:09
[2016-10-10] MEDS: REMOVE OLD NICODERM (NICOTINE) PATCH T-DERMAL SCH (21:00)
--- NOTE | 2016-10-10 21:03 | HHI.IDPN ---
Subjective Subjective Remarks is a 45 y/o CM with PMHx of drug abuse (denies IVDA), HTN not on meds , ? CVA a year back who now presents with lower back pain which started a week prior to admission. He started noticing some lower back pain that was uncontrolled to the point that he could not sleep and was having trouble with any daily activities. He has swelling and edema very painful to light touch but no obvious sore or deformity noted. He describes pain as a squeezing sensation, non radiating and one of the most painful things that he has ever experienced. The patient has not been able to complete his daily activities. He has noted some fevers, chills and sweats, that have worsened over the past few days. The patient has no shortness of breath. No headaches has not eaten or drank very much fluids and has had a decreased appetite over the past few days. Denies IVDA Denies any trauma to the back. Reports skin lesions. ID consulted for evaluation and Mment of possible paraspinal abscess and infectious myositis. Antibiotics Vanco IV Lines Line sites with no e/o infection Past Medical History Anxiety, hypertension Cerebrovascular accident a year and half ago Headaches. Right ear tonsillectomy. Allergies: Coded Allergies: No Known Allergies (Verified , 10/04/16) Objective . Vital Signs Date Time Temp Pulse Resp B/P Pulse Ox O2 Delivery O2 Flow Rate FiO2 10/10/16 16:00 97.3 64 16 139/69 98 10/10/16 12:57 178/108 10/10/16 12:00 97.5 70 16 169/104 97 10/10/16 08:00 98.1 60 16 149/87 97 10/10/16 04:00 97.3 56 20 172/96 99 10/10/16 00:00 97.4 83 18 167/76 98 10/09/16 10/09/16 10/10/16 15:00 23:00 07:00 Intake Total 960 ml Balance 960 ml Intake Oral 960 ml # Voids 4 8 # Bowel Movements 0 . Laboratory Tests Test 10/10/16 08:23 White Blood Count 5.7 TH/MM3 Red Blood Count 4.43 MIL/MM3 Hemoglobin 12.9 GM/DL Hematocrit 38.8 % Mean Corpuscular Volume 87.6 FL Mean Corpuscular Hemoglobin 29.2 PG Mean Corpuscular Hemoglobin 33.4 % Concent Red Cell Distribution Width 13.7 % Platelet Count 334 TH/MM3 Mean Platelet Volume 8.4 FL Neutrophils (%) (Auto) 48.3 % Lymphocytes (%) (Auto) 36.9 % Monocytes (%) (Auto) 6.9 % Eosinophils (%) (Auto) 3.3 % Basophils (%) (Auto) 4.6 % Neutrophils # (Auto) 2.7 TH/MM3 Lymphocytes # (Auto) 2.1 TH/MM3 Monocytes # (Auto) 0.4 TH/MM3 Eosinophils # (Auto) 0.2 TH/MM3 Basophils # (Auto) 0.3 TH/MM3 CBC Comment DIFF FINAL Differential Comment Laboratory Tests Test 10/09/16 10/10/16 08:22 08:23 Creatinine 0.61 MG/DL 0.68 MG/DL Estimat Glomerular Filtration 143 ML/MIN 126 ML/MIN Rate Sodium Level 141 MEQ/L Potassium Level 4.1 MEQ/L Chloride Level 105 MEQ/L Carbon Dioxide Level 29.1 MEQ/L Anion Gap 7 MEQ/L Blood Urea Nitrogen 7 MG/DL Random Glucose 83 MG/DL Calcium Level 8.8 MG/DL Total Bilirubin 0.2 MG/DL Aspartate Amino Transf 26 U/L (AST/SGOT) Alanine Aminotransferase 53 U/L (ALT/SGPT) Alkaline Phosphatase 88 U/L Total Protein 7.2 GM/DL Albumin 2.6 GM/DL Imaging Last Impressions Tumor Localization 10/07/16 0000 Signed Impressions: Service Date/Time: Friday, October 07, 2016 12:40 - CONCLUSION: Normal examination. Leroy Quintero MD Abdomen/Pelvis CT 10/04/16 1716 Signed Impressions: Service Date/Time: Tuesday, October 04, 2016 18:49 - CONCLUSION: Diffuse thickening of the bladder wall. Differential diagnosis includes cystitis. Otherwise no acute findings within the abdomen and pelvis. Leroy Quintero MD Lumbar Spine MRI 10/04/16 0000 Signed Impressions: Service Date/Time: Tuesday, October 04, 2016 19:56 - CONCLUSION: 1. Abnormal enhancing and edematous tissue around the spinous processes of L3 and L4 extending into the subcutaneous tissues. There is also some enhancement of the dorsal dural surface at L3-4 but without epidural abscess or thecal sac compression at this time. The findings probably represent a phlegmonous mass and could represent early changes of a paraspinous abscess. 2. Mild central canal stenosis at L4-5 secondary to disc protrusion and facet arthropathy. 3. Mild disc bulge or protrusion at L5-S1 without significant stenosis. Leroy Quintero MD Physical Exam GENERAL: This is a well-nourished, well-developed patient, in no apparent distress. SKIN: Multiple skin lesions all over the body. HEAD: Atraumatic. Normocephalic. No temporal or scalp tenderness. EYES: Pupils equal round and reactive. Extraocular motions intact. No scleral icterus. No injection or drainage. ENT: Nose without bleeding, purulent drainage or septal hematoma. Throat without erythema, tonsillar hypertrophy or exudate. Uvula midline. Airway patent. NECK: Trachea midline. Supple, nontender, no meningeal signs. CARDIOVASCULAR: Regular rate and rhythm without murmurs, gallops, or rubs. RESPIRATORY: Clear to auscultation. Breath sounds equal bilaterally. No wheezes , rales, or rhonchi. GASTROINTESTINAL: Abdomen soft, non-tender, nondistended. Paraspinal and midline tenderness in lower lumbar region. MUSCULOSKELETAL: Extremities without clubbing, cyanosis, or edema. NEUROLOGICAL: Awake and alert. Grossly non focal Psych: cooperative IV line sites with no e.o infection. Assessment & Plan Remarks MRSA bacteremia likely secondary to possible endocarditis and paraspinal abscess. Paraspinal abscess Infectious Myositis. Hep B and C positive H/o Drug abuse but denies IVDA Consented to HIV and Hepatitis testing. HTN not compliant with meds. Counseled to be compliant. Recs WBC Ceretec Scan negative but was on antibiotics. Continue Vanco IV (target 15-20) Follow cultures. Follow clinically. 2D ECHO. olga Arora [employer]. Will likely need IV antibiotics on discharge. Plan on Telavancin IV in infusion clinic. Will provide DC recs in am with plan for first infusion in clinic. d/w . Zena Slater MD Oct 10, 2016 21:03
[2016-10-10] MEDS: ACETAMINOPHEN/HYDROcodone 325 MG/10 MG TAB PO PRN (22:56)
[2016-10-10] MEDS: ZOLPIDEM TARTRATE 5 MG TAB PO PRN (22:57)
[2016-10-11] VITALS: BP_SYST 116; BP_SYST 139; BP_DIAS 67; BP_DIAS 71; PULSE 63; RESP 18; TEMP 98; O2SAT 90; O2SAT 98
[2016-10-11 04:00] VITALS: BP 146/86; PULSE 65; RESP 18; TEMP 97.2; O2SAT 99
[2016-10-11] MEDS: SODIUM CHLOR 0.9% 1000 ML INJ 1,000 ML IV SCH ×2 (04:00→14:04)
[2016-10-11] MEDS: HYDROmorphone HCL PF 1 MG/ML VIAL IV PUSH PRN ×3 (05:23→18:06)
[2016-10-11] MEDS: ALPRAZolam 0.25 MG TAB PO PRN ×3 (05:23→21:18)
[2016-10-11 08:00] VITALS: BP 154/89; PULSE 54; RESP 16; TEMP 97.5; O2SAT 99
[2016-10-11] MEDS ORDERED: PHARMACY ORDERED LAB ONE (08:45)
[2016-10-11] MEDS: MORPHINE SULFATE 15 MG CONTROLLED RELEASE TAB PO SCH (08:56)
[2016-10-11] MEDS: LISINOPRIL 20 MG TAB PO SCH ×2 (08:56→21:20)
[2016-10-11] MEDS: DOCUSATE SODIUM 50 MG/SENNA 8.6 MG TAB PO SCH ×2 (08:56→21:18)
[2016-10-11] MEDS: TAMSULOSIN HCL 0.4 MG CAP PO SCH (08:57)
[2016-10-11] MEDS: NICOTINE 14 MG/24 HR PATCH T-DERMAL SCH (08:57)
[2016-10-11] MEDS: HEPARIN SODIUM - SQ 10,000 UNITS/ML VIAL SQ SCH ×2 (08:57→21:20)
[2016-10-11] MEDS: SODIUM CHLORIDE 0.9% FLUSH 10 ML FLUSH IV FLUSH SCH ×2 (08:58→21:00)
[2016-10-11] MEDS: VANCOMYCIN 1,500 MG/NS 500 ML IV SCH ×4 (09:43→21:21)
[2016-10-11 12:00] VITALS: BP 150/77; PULSE 71; RESP 18; TEMP 97.8; O2SAT 97
[2016-10-11] MEDS: ACETAMINOPHEN/HYDROcodone 325 MG/10 MG TAB PO PRN ×2 (12:30→16:43)
--- NOTE | 2016-10-11 14:18 | HHI.IDPN ---
Subjective Subjective Remarks is a 45 y/o CM with PMHx of drug abuse (denies IVDA), HTN not on meds , ? CVA a year back who now presents with lower back pain which started a week prior to admission. He started noticing some lower back pain that was uncontrolled to the point that he could not sleep and was having trouble with any daily activities. He has swelling and edema very painful to light touch but no obvious sore or deformity noted. He describes pain as a squeezing sensation, non radiating and one of the most painful things that he has ever experienced. The patient has not been able to complete his daily activities. He has noted some fevers, chills and sweats, that have worsened over the past few days. The patient has no shortness of breath. No headaches has not eaten or drank very much fluids and has had a decreased appetite over the past few days. Notes reviewed C/O back pain, some improvement with pain meds No rash No diarrhea No N/V temps ok Antibiotics Vanco IV Lines Line sites with no e/o infection Past Medical History Anxiety, hypertension Cerebrovascular accident a year and half ago Headaches. Right ear tonsillectomy. Allergies: Coded Allergies: No Known Allergies (Verified , 10/04/16) Objective . Vital Signs Date Time Temp Pulse Resp B/P Pulse Ox O2 Delivery O2 Flow Rate FiO2 10/11/16 12:00 97.8 71 18 150/77 97 10/11/16 08:00 97.5 54 16 154/89 99 10/11/16 04:00 97.2 65 18 146/86 99 10/11/16 00:00 98.0 63 18 139/67 98 10/10/16 20:00 97.2 71 18 138/78 97 10/10/16 16:00 97.3 64 16 139/69 98 10/10/16 10/10/16 10/11/16 15:00 23:00 07:00 Intake Total 960 ml Output Total 300 ml Balance 660 ml Intake Oral 960 ml Output Urine Total 300 ml # Voids 5 # Bowel Movements 0 . Laboratory Tests Test 10/10/16 08:23 White Blood Count 5.7 TH/MM3 Red Blood Count 4.43 MIL/MM3 Hemoglobin 12.9 GM/DL Hematocrit 38.8 % Mean Corpuscular Volume 87.6 FL Mean Corpuscular Hemoglobin 29.2 PG Mean Corpuscular Hemoglobin 33.4 % Concent Red Cell Distribution Width 13.7 % Platelet Count 334 TH/MM3 Mean Platelet Volume 8.4 FL Neutrophils (%) (Auto) 48.3 % Lymphocytes (%) (Auto) 36.9 % Monocytes (%) (Auto) 6.9 % Eosinophils (%) (Auto) 3.3 % Basophils (%) (Auto) 4.6 % Neutrophils # (Auto) 2.7 TH/MM3 Lymphocytes # (Auto) 2.1 TH/MM3 Monocytes # (Auto) 0.4 TH/MM3 Eosinophils # (Auto) 0.2 TH/MM3 Basophils # (Auto) 0.3 TH/MM3 CBC Comment DIFF FINAL Differential Comment Laboratory Tests Test 10/10/16 10/11/16 08:23 09:00 Sodium Level 141 MEQ/L Potassium Level 4.1 MEQ/L Chloride Level 105 MEQ/L Carbon Dioxide Level 29.1 MEQ/L Anion Gap 7 MEQ/L Blood Urea Nitrogen 7 MG/DL Creatinine 0.68 MG/DL 0.75 MG/DL Estimat Glomerular Filtration 126 ML/MIN 113 ML/MIN Rate Random Glucose 83 MG/DL Calcium Level 8.8 MG/DL Total Bilirubin 0.2 MG/DL Aspartate Amino Transf 26 U/L (AST/SGOT) Alanine Aminotransferase 53 U/L (ALT/SGPT) Alkaline Phosphatase 88 U/L Total Protein 7.2 GM/DL Albumin 2.6 GM/DL Imaging Last Impressions Tumor Localization 10/07/16 0000 Signed Impressions: Service Date/Time: Friday, October 07, 2016 12:40 - CONCLUSION: Normal examination. Leroy Quintero MD Abdomen/Pelvis CT 10/04/16 1716 Signed Impressions: Service Date/Time: Tuesday, October 04, 2016 18:49 - CONCLUSION: Diffuse thickening of the bladder wall. Differential diagnosis includes cystitis. Otherwise no acute findings within the abdomen and pelvis. Leroy Quintero MD Lumbar Spine MRI 10/04/16 0000 Signed Impressions: Service Date/Time: Tuesday, October 04, 2016 19:56 - CONCLUSION: 1. Abnormal enhancing and edematous tissue around the spinous processes of L3 and L4 extending into the subcutaneous tissues. There is also some enhancement of the dorsal dural surface at L3-4 but without epidural abscess or thecal sac compression at this time. The findings probably represent a phlegmonous mass and could represent early changes of a paraspinous abscess. 2. Mild central canal stenosis at L4-5 secondary to disc protrusion and facet arthropathy. 3. Mild disc bulge or protrusion at L5-S1 without significant stenosis. Leroy Quintero MD Physical Exam GENERAL: This is a well-nourished, well-developed patient, in no apparent distress. SKIN: Multiple skin lesions all over the body. HEAD: Atraumatic. Normocephalic. No temporal or scalp tenderness. EYES: Pupils equal round and reactive. Extraocular motions intact. No scleral icterus. No injection or drainage. ENT: Nose without bleeding, purulent drainage or septal hematoma. Throat without erythema, tonsillar hypertrophy or exudate. Uvula midline. Airway patent. NECK: Trachea midline. Supple, nontender, no meningeal signs. CARDIOVASCULAR: Regular rate and rhythm without murmurs, gallops, or rubs. RESPIRATORY: Clear to auscultation. Breath sounds equal bilaterally. No wheezes , rales, or rhonchi. GASTROINTESTINAL: Abdomen soft, non-tender, nondistended. Paraspinal and midline tenderness in lower lumbar region. MUSCULOSKELETAL: Extremities without clubbing, cyanosis, or edema. NEUROLOGICAL: Awake and alert. Grossly non focal Psych: cooperative IV line sites with no e.o infection. Assessment & Plan Remarks MRSA bacteremia likely secondary to possible endocarditis and paraspinal abscess. Paraspinal abscess Infectious Myositis. Hep B and C positive H/o Drug abuse but denies IVDA Consented to HIV and Hepatitis testing. HTN not compliant with meds. Counseled to be compliant. Recs WBC Ceretec Scan negative but was on antibiotics. Continue Vanco IV (target 15-20) Follow cultures. Follow clinically. Monitor progress Current plan regarding Telavancin - put on hold Spoke with [facility]OUT Spoke with Mary Ledesma MD Oct 11, 2016 14:18
--- NOTE | 2016-10-11 14:50 | HHI.PR ---
Subjective Remarks No new complaints from the patient. Pain control improved with long-acting treatment. Plan to transition to long-acting treatments as his primary pain treatment. An wintertime. Objective Vital Signs Date Time Temp Pulse Resp B/P Pulse Ox O2 Delivery O2 Flow Rate FiO2 10/11/16 12:00 97.8 71 18 150/77 97 10/11/16 08:00 97.5 54 16 154/89 99 10/11/16 04:00 97.2 65 18 146/86 99 10/11/16 00:00 98.0 63 18 139/67 98 10/10/16 20:00 97.2 71 18 138/78 97 10/10/16 16:00 97.3 64 16 139/69 98 I/O 10/10/16 10/10/16 10/10/16 10/11/16 10/11/16 10/11/16 06:59 14:59 22:59 06:59 14:59 22:59 Intake Total 960 ml 960 ml Output Total 300 ml Balance 660 ml 960 ml Intake Oral 960 ml 960 ml Output Urine Total 300 ml # Voids 8 5 3 # Bowel Movements 0 Result Diagram: 10/10/16 0823 10/11/16 0900 Objective Remarks GENERAL: NAD, A&Ox3 HEAD: Normocephalic. NECK: Supple, trachea midline. No lymphadenopathy. EYES: No scleral icterus. No injection or drainage. CARDIOVASCULAR: Regular rate and rhythm without murmurs, gallops, or rubs. RESPIRATORY: Breath sounds equal bilaterally. No accessory muscle use. GASTROINTESTINAL: Abdomen soft, non-tender, nondistended. MUSCULOSKELETAL: No cyanosis, or edema. Edematous bulge at lumbar spine that is tender. No erythema. SKIN: Warm and dry. NEURO: No focal neurological deficitis. 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 Monitor lower back for signs of any worsening infection. No acute distress when seen. Pain control improved with long-acting treatments. Infective endocarditis History of IV drug abuse Patient counseled to abstain from IV drug abuse Infectious disease following IV antibiotic treatments in planning phase Hypertension Likely in part secondary to drug withdrawal and pain Monitor Presently stabilized Lumbar spine edema Cellulitis versus abscess Continue antibiotics Follow clinically for improvement DVT prophylaxis Lovenox Discharge planning Possible discharge with PICC line for outpatient IV antibiotics Carlitos Ryan MD Oct 11, 2016 14:50
[2016-10-11 16:00] VITALS: BP 143/94; PULSE 71; RESP 18; TEMP 98.3; O2SAT 97
[2016-10-11 20:00] VITALS: BP_SYST 165; BP_SYST 191; BP_DIAS 91; BP_DIAS 96; PULSE 72; PULSE 81; RESP 18; TEMP 97.3; TEMP 98.1; O2SAT 97; O2SAT 98
[2016-10-11] MEDS: REMOVE OLD NICODERM (NICOTINE) PATCH T-DERMAL SCH (21:00)
[2016-10-11] MEDS: MORPHINE SULFATE 30 MG CONTROLLED RELEASE TAB PO SCH (21:27)
[2016-10-11] MEDS: ZOLPIDEM TARTRATE 5 MG TAB PO PRN (21:27)
[2016-10-12] VITALS: BP 156/84; PULSE 68; RESP 18; TEMP 97; O2SAT 98
[2016-10-12] MEDS ORDERED: HYDROmorphone HCL PF 1 MG/ML VIAL IV PUSH ONE (03:00)
[2016-10-12 04:00] VITALS: BP 131/75; PULSE 56; RESP 18; TEMP 97.8; O2SAT 99
[2016-10-12 08:00] VITALS: BP 182/120; PULSE 72; RESP 16; TEMP 98.1; O2SAT 100
[2016-10-12] MEDS: SODIUM CHLORIDE 0.9% FLUSH 10 ML FLUSH IV FLUSH SCH ×2 (09:00→21:00)
[2016-10-12] MEDS: TAMSULOSIN HCL 0.4 MG CAP PO SCH (09:28)
[2016-10-12] MEDS: MORPHINE SULFATE 30 MG CONTROLLED RELEASE TAB PO SCH ×2 (09:29→21:25)
[2016-10-12] MEDS: DOCUSATE SODIUM 50 MG/SENNA 8.6 MG TAB PO SCH ×2 (09:29→21:25)
[2016-10-12] MEDS: LISINOPRIL 20 MG TAB PO SCH ×2 (09:29→21:25)
[2016-10-12] MEDS: NICOTINE 14 MG/24 HR PATCH T-DERMAL SCH (09:44)
[2016-10-12] MEDS: HEPARIN SODIUM - SQ 10,000 UNITS/ML VIAL SQ SCH ×2 (09:46→21:26)
[2016-10-12] MEDS: VANCOMYCIN 1,500 MG/NS 500 ML IV SCH ×4 (09:49→21:31)
[2016-10-12 12:00] VITALS: BP 182/105; PULSE 76; RESP 16; TEMP 98.6; O2SAT 96
[2016-10-12] MEDS: ALPRAZolam 0.25 MG TAB PO PRN ×2 (12:31→20:05)
--- NOTE | 2016-10-12 13:41 | HHI.PR ---
Subjective Remarks Patient weaned from Dilaudid, [place], and 50 mg MS Contin twice a day to 30 mg MS Contin twice a day. This is not holding his pain. Part of this may be pain and part of this may be withdrawal. Short-acting when necessary for breakthrough added back. Patient has no new complaints. No fevers. Objective Vital Signs Date Time Temp Pulse Resp B/P Pulse Ox O2 Delivery O2 Flow Rate FiO2 10/12/16 08:00 98.1 72 16 182/120 100 10/12/16 04:00 97.8 56 18 131/75 99 10/12/16 00:00 97.0 68 18 156/84 98 10/11/16 20:00 97.3 72 18 165/91 97 10/11/16 16:00 98.3 71 18 143/94 97 I/O 10/11/16 10/11/16 10/11/16 10/12/16 10/12/16 10/12/16 06:59 14:59 22:59 06:59 14:59 22:59 Intake Total 960 ml 600 ml Balance 960 ml 600 ml Intake Oral 960 ml 600 ml # Voids 3 5 Result Diagram: 10/10/16 0823 10/11/16 0900 Objective Remarks GENERAL: NAD, A&Ox3 HEAD: Normocephalic. NECK: Supple, trachea midline. No lymphadenopathy. EYES: No scleral icterus. No injection or drainage. CARDIOVASCULAR: Regular rate and rhythm without murmurs, gallops, or rubs. RESPIRATORY: Breath sounds equal bilaterally. No accessory muscle use. GASTROINTESTINAL: Abdomen soft, non-tender, nondistended. MUSCULOSKELETAL: No cyanosis, or edema. Edematous bulge at lumbar spine that is tender. No erythema. SKIN: Warm and dry. NEURO: No focal neurological deficitis. 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 No worsening signs of infection of lower back. Pain medications adjusted. Patient is now on MS Contin 30 mg by mouth twice a day. She is on Percocet 5 mg by mouth every 4 hours when necessary for breakthrough pain. Infective endocarditis History of IV drug abuse Patient counseled to abstain from IV drug abuse Infectious disease following IV antibiotic treatments in planning phase Hypertension Likely in part secondary to drug withdrawal and pain Monitor Presently stabilized Lumbar spine edema Cellulitis versus abscess Continue antibiotics Follow clinically for improvement DVT prophylaxis Lovenox Discharge planning Possible discharge with PICC line for outpatient IV antibiotics Carlitos Ryan MD Oct 12, 2016 13:41
[2016-10-12] MEDS: oxyCODONE/ACETAMINOPHEN 5 MG/325 MG TAB PO PRN ×2 (15:18→20:05)
[2016-10-12] MEDS: cloNIDine HCL 0.1 MG TAB PO PRN (15:23)
[2016-10-12 16:00] VITALS: BP 187/106; PULSE 71; RESP 16; TEMP 99.3; O2SAT 97
[2016-10-12 20:00] VITALS: BP 177/97; PULSE 60; RESP 20; TEMP 97.3; O2SAT 98
[2016-10-12] MEDS: SODIUM CHLOR 0.9% 1000 ML INJ 1,000 ML IV SCH ×2 (20:00)
[2016-10-12] MEDS: REMOVE OLD NICODERM (NICOTINE) PATCH T-DERMAL SCH (21:00)
[2016-10-12] MEDS: ZOLPIDEM TARTRATE 5 MG TAB PO PRN (21:25)
[2016-10-13] VITALS (7 sets, daily range): BP systolic 137–184; BP diastolic 87–102; PULSE 53–71; RESP 17–18; TEMP 97.6–99; O2SAT 97–99
[2016-10-13] MEDS: oxyCODONE/ACETAMINOPHEN 5 MG/325 MG TAB PO PRN ×5 (00:38→18:03)
[2016-10-13] MEDS: SODIUM CHLOR 0.9% 1000 ML INJ 1,000 ML IV SCH (00:38)
[2016-10-13] MEDS: SODIUM CHLORIDE 0.9% FLUSH 10 ML FLUSH IV FLUSH SCH ×2 (09:00→20:26)
[2016-10-13] MEDS: VANCOMYCIN 1,500 MG/NS 500 ML IV SCH ×4 (09:40→20:27)
[2016-10-13] MEDS: NICOTINE 14 MG/24 HR PATCH T-DERMAL SCH (09:41)
[2016-10-13] MEDS: DOCUSATE SODIUM 50 MG/SENNA 8.6 MG TAB PO SCH ×2 (09:43→20:26)
[2016-10-13] MEDS: ALPRAZolam 0.25 MG TAB PO PRN ×2 (09:43→16:17)
[2016-10-13] MEDS: TAMSULOSIN HCL 0.4 MG CAP PO SCH (09:43)
[2016-10-13] MEDS: LISINOPRIL 20 MG TAB PO SCH ×2 (09:43→20:26)
[2016-10-13] MEDS: MORPHINE SULFATE 30 MG CONTROLLED RELEASE TAB PO SCH ×2 (09:43→20:26)
[2016-10-13] MEDS: HEPARIN SODIUM - SQ 10,000 UNITS/ML VIAL SQ SCH ×2 (09:57→20:25)
--- NOTE | 2016-10-13 10:12 | HHI.PR ---
Subjective Remarks Pain better controlled with breakthrough pain treatments. No new complaints. No fevers. Objective Vital Signs Date Time Temp Pulse Resp B/P Pulse Ox O2 Delivery O2 Flow Rate FiO2 10/13/16 08:20 98.2 66 18 159/91 98 10/13/16 05:33 97.6 64 17 138/90 97 10/13/16 01:11 97.8 53 17 156/99 97 10/12/16 20:00 97.3 60 20 177/97 98 10/12/16 16:00 99.3 71 16 187/106 97 10/12/16 12:00 98.6 76 16 182/105 96 I/O 10/12/16 10/12/16 10/12/16 10/13/16 10/13/16 10/13/16 07:00 15:00 23:00 07:00 15:00 23:00 Intake Total 600 ml 480 ml 1746 ml 1062 ml Balance 600 ml 480 ml 1746 ml 1062 ml Intake Oral 600 ml 480 ml 300 ml 240 ml IV Total 1446 ml 822 ml # Voids 5 5 1 2 Result Diagram: 10/10/16 0823 10/11/16 0900 Objective Remarks GENERAL: NAD, A&Ox3 HEAD: Normocephalic. NECK: Supple, trachea midline. No lymphadenopathy. EYES: No scleral icterus. No injection or drainage. CARDIOVASCULAR: Regular rate and rhythm without murmurs, gallops, or rubs. RESPIRATORY: Breath sounds equal bilaterally. No accessory muscle use. GASTROINTESTINAL: Abdomen soft, non-tender, nondistended. MUSCULOSKELETAL: No cyanosis, or edema. Edematous bulge at lumbar spine that is tender. No erythema. SKIN: Warm and dry. NEURO: No focal neurological deficitis. 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 No worsening signs of infection of lower back. Better pain control today. Patient is on 30 mg of MS Contin twice a day and 5 mg Percocets every 4 hours for breakthrough. Weaned from narcotics is planned for every 3-4 days. Step one his Percocet will be weaned from every 4 hours to every 6 hours. Next step Percocet will be discontinued. For the next step MS Contin will be changed to 15 mg every 8 hours, followed by 15 mg every 12 hours followed by 50 mg every 24 hours followed by cessation of all narcotics. Infective endocarditis History of IV drug abuse Patient counseled to abstain from IV drug abuse Infectious disease following IV antibiotic treatments in planning phase Hypertension Likely in part secondary to drug withdrawal and pain Monitor Presently stabilized Lumbar spine edema Cellulitis versus abscess Continue antibiotics Follow clinically for improvement DVT prophylaxis Lovenox Discharge planning Possible discharge with PICC line for outpatient IV antibiotics Carlitos Ryan MD Oct 13, 2016 10:12 am
[2016-10-13] MEDS: REMOVE OLD NICODERM (NICOTINE) PATCH T-DERMAL SCH (20:32)
[2016-10-14] MEDS: ALPRAZolam 0.25 MG TAB PO PRN ×3 (00:20→16:39)
[2016-10-14] MEDS: ZOLPIDEM TARTRATE 5 MG TAB PO PRN ×2 (00:20→21:52)
[2016-10-14] MEDS: oxyCODONE/ACETAMINOPHEN 5 MG/325 MG TAB PO PRN ×4 (00:21→14:55)
[2016-10-14 00:30] VITALS: BP 151/87; PULSE 67; RESP 17; TEMP 97.7; O2SAT 97
[2016-10-14 04:25] VITALS: BP 147/93; PULSE 65; RESP 17; TEMP 97.7; O2SAT 97
[2016-10-14 08:00] VITALS: BP 153/94; PULSE 63; RESP 18; TEMP 97.5; O2SAT 99
[2016-10-14] MEDS: SODIUM CHLORIDE 0.9% FLUSH 10 ML FLUSH IV FLUSH SCH ×2 (09:00→21:52)
[2016-10-14] MEDS: NICOTINE 14 MG/24 HR PATCH T-DERMAL SCH (09:34)
[2016-10-14] MEDS: VANCOMYCIN 1,500 MG/NS 500 ML IV SCH ×4 (09:34→21:58)
[2016-10-14] MEDS: TAMSULOSIN HCL 0.4 MG CAP PO SCH (09:37)
[2016-10-14] MEDS: LISINOPRIL 20 MG TAB PO SCH ×2 (09:38→21:52)
[2016-10-14] MEDS: MORPHINE SULFATE 30 MG CONTROLLED RELEASE TAB PO SCH ×2 (09:39→21:52)
[2016-10-14] MEDS: HEPARIN SODIUM - SQ 10,000 UNITS/ML VIAL SQ SCH ×2 (09:40→21:53)
[2016-10-14] MEDS: DOCUSATE SODIUM 50 MG/SENNA 8.6 MG TAB PO SCH ×2 (09:40→21:00)
[2016-10-14 12:00] VITALS: BP 130/85; PULSE 68; RESP 18; TEMP 97.7; O2SAT 97
[2016-10-14 16:00] VITALS: BP 130/74; PULSE 67; RESP 17; TEMP 97.4; O2SAT 97
--- NOTE | 2016-10-14 17:45 | HHI.PR ---
Subjective Remarks No new complaints today. Pain control. He thinks that his spinal abscess/ cellulitis inflammation is shrinking. Objective Vital Signs Date Time Temp Pulse Resp B/P Pulse Ox O2 Delivery O2 Flow Rate FiO2 10/14/16 16:00 97.4 67 17 130/74 97 10/14/16 12:00 97.7 68 18 130/85 97 10/14/16 08:00 97.5 63 18 153/94 99 10/14/16 04:25 97.7 65 17 147/93 97 10/14/16 00:30 97.7 67 17 151/87 97 10/13/16 20:30 98.6 70 17 184/90 98 10/13/16 18:00 160/88 I/O 10/13/16 10/13/16 10/13/16 10/14/16 10/14/16 10/14/16 07:00 15:00 23:00 07:00 15:00 23:00 Intake Total 1062 ml 917 ml 980 ml 1200 ml Output Total 500 ml Balance 1062 ml -500 ml 917 ml 980 ml 1200 ml Intake Oral 240 ml 480 ml 1200 ml IV Total 822 ml 917 ml 500 ml Output Urine Total 500 ml # Voids 2 5 6 # Bowel Movements 1 1 0 Result Diagram: 10/10/16 0823 10/13/16 1116 Objective Remarks GENERAL: NAD, A&Ox3 HEAD: Normocephalic. NECK: Supple, trachea midline. No lymphadenopathy. EYES: No scleral icterus. No injection or drainage. CARDIOVASCULAR: Regular rate and rhythm without murmurs, gallops, or rubs. RESPIRATORY: Breath sounds equal bilaterally. No accessory muscle use. GASTROINTESTINAL: Abdomen soft, non-tender, nondistended. MUSCULOSKELETAL: No cyanosis, or edema. Edematous bulge at lumbar spine that is tender. No erythema. SKIN: Warm and dry. NEURO: No focal neurological deficitis. 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 No worsening signs of infection of lower back. Better pain control today. Patient is on 30 mg of MS Contin twice a day and 5 mg Percocets every 4 hours for breakthrough. Wean Plan: 10/16/16 - Percocet will be weaned from every 4 hours to every 6 hours. 10/19/16 - Percocet will be discontinued. On MS Contin 30mg Q12 hours 10/22/16 - MS Contin will be changed to 15 mg every 8 hours 10/25/16 - MS Contin will be changed to 15 mg every 12 hours 10/28/16 - MS Contin will be changed to 15 mg every 24 hours 10/31/16 - Cessation of all narcotics. Infective endocarditis History of IV drug abuse Patient counseled to abstain from IV drug abuse Infectious disease following IV antibiotic treatments in planning phase Hypertension Likely in part secondary to drug withdrawal and pain Monitor Presently stabilized Lumbar spine edema Cellulitis versus abscess Continue antibiotics Follow clinically for improvement DVT prophylaxis Lovenox Discharge planning Possible discharge with PICC line for outpatient IV antibiotics Carlitos Ryan MD Oct 14, 2016 17:45
[2016-10-14 20:00] VITALS: BP 148/95; PULSE 69; RESP 18; TEMP 97.9; O2SAT 97
[2016-10-14] MEDS: REMOVE OLD NICODERM (NICOTINE) PATCH T-DERMAL SCH (21:00)
[2016-10-15] VITALS: BP 165/87; PULSE 65; RESP 18; TEMP 97.4; O2SAT 98
[2016-10-15] MEDS: oxyCODONE/ACETAMINOPHEN 5 MG/325 MG TAB PO PRN ×4 (03:38→18:04)
[2016-10-15 04:00] VITALS: BP 139/72; PULSE 54; RESP 18; TEMP 97.4; O2SAT 95
[2016-10-15 08:00] VITALS: BP 147/79; PULSE 53; RESP 20; TEMP 97.6; O2SAT 99
[2016-10-15] MEDS: VANCOMYCIN 1,500 MG/NS 500 ML IV SCH ×4 (08:40→23:18)
[2016-10-15] MEDS: DOCUSATE SODIUM 50 MG/SENNA 8.6 MG TAB PO SCH ×2 (08:40→23:12)
[2016-10-15] MEDS: TAMSULOSIN HCL 0.4 MG CAP PO SCH (08:40)
[2016-10-15] MEDS: MORPHINE SULFATE 30 MG CONTROLLED RELEASE TAB PO SCH ×2 (08:41→23:12)
[2016-10-15] MEDS: LISINOPRIL 20 MG TAB PO SCH ×2 (08:41→23:12)
[2016-10-15] MEDS: NICOTINE 14 MG/24 HR PATCH T-DERMAL SCH (08:41)
[2016-10-15] MEDS: SODIUM CHLORIDE 0.9% FLUSH 10 ML FLUSH IV FLUSH SCH ×2 (08:41→23:18)
[2016-10-15] MEDS: ALPRAZolam 0.25 MG TAB PO PRN ×3 (09:16→23:12)
[2016-10-15] MEDS: HEPARIN SODIUM - SQ 10,000 UNITS/ML VIAL SQ SCH ×2 (09:16→23:13)
[2016-10-15 12:45] VITALS: BP 139/86; PULSE 56; RESP 20; TEMP 97.7; O2SAT 97
[2016-10-15 16:29] VITALS: BP 143/76; PULSE 60; RESP 20; TEMP 97.9; O2SAT 98
--- NOTE | 2016-10-15 16:32 | HHI.PR ---
Subjective Remarks No new complaints. No diarrhea. No nausea. Objective Vital Signs Date Time Temp Pulse Resp B/P Pulse Ox O2 Delivery O2 Flow Rate FiO2 10/15/16 16:29 97.9 60 20 143/76 98 10/15/16 12:45 97.7 56 20 139/86 97 10/15/16 08:00 97.6 53 20 147/79 99 10/15/16 04:00 97.4 54 18 139/72 95 10/15/16 00:00 97.4 65 18 165/87 98 10/14/16 20:00 97.9 69 18 148/95 97 I/O 10/14/16 10/14/16 10/14/16 10/15/16 10/15/16 10/15/16 07:00 15:00 23:00 07:00 15:00 23:00 Intake Total 980 ml 1200 ml 500 ml Balance 980 ml 1200 ml 500 ml Intake Oral 480 ml 1200 ml IV Total 500 ml 500 ml # Voids 5 6 11 # Bowel Movements 1 0 1 Result Diagram: 10/13/16 1116 Objective Remarks GENERAL: NAD, A&Ox3 HEAD: Normocephalic. NECK: Supple, trachea midline. No lymphadenopathy. EYES: No scleral icterus. No injection or drainage. CARDIOVASCULAR: Regular rate and rhythm without murmurs, gallops, or rubs. RESPIRATORY: Breath sounds equal bilaterally. No accessory muscle use. GASTROINTESTINAL: Abdomen soft, non-tender, nondistended. MUSCULOSKELETAL: No cyanosis, or edema. Edematous bulge at lumbar spine that is tender. No erythema. SKIN: Warm and dry. NEURO: No focal neurological deficitis. 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 No worsening signs of infection of lower back. Better pain control present through time. Patient is on 30 mg of MS Contin twice a day and 5 mg Percocets every 4 hours for breakthrough. Wean Plan: 10/16/16 - Percocet will be weaned from every 4 hours to every 6 hours. 10/19/16 - Percocet will be discontinued. On MS Contin 30mg Q12 hours 10/22/16 - MS Contin will be changed to 15 mg every 8 hours 10/25/16 - MS Contin will be changed to 15 mg every 12 hours 10/28/16 - MS Contin will be changed to 15 mg every 24 hours 10/31/16 - Cessation of all narcotics. Infective endocarditis History of IV drug abuse Patient counseled to abstain from IV drug abuse Infectious disease following IV antibiotic treatments in planning phase Hypertension Likely in part secondary to drug withdrawal and pain Monitor Presently stabilized Lumbar spine edema Cellulitis versus abscess Continue antibiotics Follow clinically for improvement DVT prophylaxis Lovenox Discharge planning Possible discharge with PICC line for outpatient IV antibiotics Carlitos Ryan MD Oct 15, 2016 16:32
[2016-10-15 20:00] VITALS: BP 141/89; PULSE 72; RESP 18; TEMP 97.5; O2SAT 96
[2016-10-15] MEDS: REMOVE OLD NICODERM (NICOTINE) PATCH T-DERMAL SCH (23:13)
[2016-10-16 00:30] VITALS: BP 151/96; PULSE 68; RESP 17; TEMP 97.9; O2SAT 99
[2016-10-16] MEDS: oxyCODONE/ACETAMINOPHEN 5 MG/325 MG TAB PO PRN ×5 (00:54→23:57)
[2016-10-16] MEDS: ZOLPIDEM TARTRATE 5 MG TAB PO PRN ×2 (00:54→20:36)
[2016-10-16 04:30] VITALS: BP 149/90; PULSE 64; RESP 18; TEMP 98.8; O2SAT 99
[2016-10-16] MEDS: ALPRAZolam 0.25 MG TAB PO PRN ×3 (06:42→18:10)
[2016-10-16 08:00] VITALS: BP 130/64; PULSE 56; RESP 18; TEMP 97.5; O2SAT 97
[2016-10-16] MEDS: NICOTINE 14 MG/24 HR PATCH T-DERMAL SCH (08:20)
[2016-10-16] MEDS: DOCUSATE SODIUM 50 MG/SENNA 8.6 MG TAB PO SCH ×2 (08:20→20:36)
[2016-10-16] MEDS: VANCOMYCIN 1,500 MG/NS 500 ML IV SCH ×4 (08:20→20:36)
[2016-10-16] MEDS: LISINOPRIL 20 MG TAB PO SCH ×2 (08:20→20:36)
[2016-10-16] MEDS: MORPHINE SULFATE 30 MG CONTROLLED RELEASE TAB PO SCH ×2 (08:20→20:36)
[2016-10-16] MEDS: TAMSULOSIN HCL 0.4 MG CAP PO SCH (08:20)
[2016-10-16] MEDS: SODIUM CHLORIDE 0.9% FLUSH 10 ML FLUSH IV FLUSH SCH ×2 (08:21→20:38)
[2016-10-16] MEDS: HEPARIN SODIUM - SQ 10,000 UNITS/ML VIAL SQ SCH ×3 (10:00→20:37)
[2016-10-16 10:47] LABS: MEAN CELL VOLUME 87.7 FL (80.0-100.0); MEAN CORPUSCULAR HEMOGLOBIN 29.4 PG (27.0-34.0); MEAN CORPUSCULAR HGB CONC 33.5 % (32.0-36.0); PLATELET COUNT 310 TH/MM3 (150-450); RED BLOOD COUNT 4.34 MIL/MM3 (4.50-5.90); RED CELL DISTRIBUTION WIDTH 14.2 % (11.6-17.2); REVIEW FLAG FINAL; WHITE BLOOD COUNT 5.4 TH/MM3 (4.0-11.0)
[2016-10-16 11:18] LABS: BICARBONATE 29.3 MEQ/L (21.0-32.0); POTASSIUM 3.8 MEQ/L (3.5-5.1)
[2016-10-16 12:00] VITALS: BP 131/74; PULSE 68; RESP 18; TEMP 98.1; O2SAT 99
--- NOTE | 2016-10-16 12:48 | HHI.IDPN ---
Subjective Subjective Remarks is a 45 y/o CM with PMHx of drug abuse (denies IVDA), HTN not on meds , ? CVA a year back who now presents with lower back pain which started a week prior to admission. He started noticing some lower back pain that was uncontrolled to the point that he could not sleep and was having trouble with any daily activities. He has swelling and edema very painful to light touch but no obvious sore or deformity noted. He describes pain as a squeezing sensation, non radiating and one of the most painful things that he has ever experienced. The patient has not been able to complete his daily activities. He has noted some fevers, chills and sweats, that have worsened over the past few days. The patient has no shortness of breath. No headaches has not eaten or drank very much fluids and has had a decreased appetite over the past few days. Notes reviewed Temps ok No other complaint except his back pain - pain meds being decreased and he is getting more pain especially when he moves around, ok when in bed No rash No diarrhea No N/V Labs ok Antibiotics Vanco IV Lines Line sites with no e/o infection Past Medical History Anxiety, hypertension Cerebrovascular accident a year and half ago Headaches. Right ear tonsillectomy. Allergies: Coded Allergies: No Known Allergies (Verified , 10/04/16) Objective . Vital Signs Date Time Temp Pulse Resp B/P Pulse Ox O2 Delivery O2 Flow Rate FiO2 10/16/16 12:00 98.1 68 18 131/74 99 10/16/16 08:00 97.5 56 18 130/64 97 10/16/16 04:30 98.8 64 18 149/90 99 10/16/16 00:30 97.9 68 17 151/96 99 10/15/16 20:00 97.5 72 18 141/89 96 10/15/16 16:29 97.9 60 20 143/76 98 10/15/16 10/15/16 10/16/16 15:00 23:00 07:00 Intake Total 1060 ml 900 ml 2000 ml Balance 1060 ml 900 ml 2000 ml Intake Oral 560 ml 900 ml 2000 ml IV Total 500 ml # Voids 3 0 6 # Bowel Movements 0 0 . Laboratory Tests Test 10/16/16 10:00 White Blood Count 5.4 TH/MM3 Red Blood Count 4.34 MIL/MM3 Hemoglobin 12.7 GM/DL Hematocrit 38.0 % Mean Corpuscular Volume 87.7 FL Mean Corpuscular Hemoglobin 29.4 PG Mean Corpuscular Hemoglobin 33.5 % Concent Red Cell Distribution Width 14.2 % Platelet Count 310 TH/MM3 Mean Platelet Volume 8.4 FL Laboratory Tests Test 10/16/16 10:00 Sodium Level 138 MEQ/L Potassium Level 3.8 MEQ/L Chloride Level 102 MEQ/L Carbon Dioxide Level 29.3 MEQ/L Anion Gap 7 MEQ/L Blood Urea Nitrogen 13 MG/DL Creatinine 0.76 MG/DL Estimat Glomerular Filtration 111 ML/MIN Rate Random Glucose 110 MG/DL Calcium Level 8.8 MG/DL Imaging Last Impressions Tumor Localization 10/07/16 0000 Signed Impressions: Service Date/Time: Friday, October 07, 2016 12:40 - CONCLUSION: Normal examination. Leroy Quintero MD Abdomen/Pelvis CT 10/04/16 1716 Signed Impressions: Service Date/Time: Tuesday, October 04, 2016 18:49 - CONCLUSION: Diffuse thickening of the bladder wall. Differential diagnosis includes cystitis. Otherwise no acute findings within the abdomen and pelvis. Leroy Quintero MD Lumbar Spine MRI 10/04/16 0000 Signed Impressions: Service Date/Time: Tuesday, October 04, 2016 19:56 - CONCLUSION: 1. Abnormal enhancing and edematous tissue around the spinous processes of L3 and L4 extending into the subcutaneous tissues. There is also some enhancement of the dorsal dural surface at L3-4 but without epidural abscess or thecal sac compression at this time. The findings probably represent a phlegmonous mass and could represent early changes of a paraspinous abscess. 2. Mild central canal stenosis at L4-5 secondary to disc protrusion and facet arthropathy. 3. Mild disc bulge or protrusion at L5-S1 without significant stenosis. Leroy Quintero MD Physical Exam GENERAL: awake and alert, NAD SKIN: No rash HEAD: Atraumatic. Normocephalic. No temporal or scalp tenderness. EYES: Pupils equal round and reactive. Extraocular motions intact. No scleral icterus. No injection or drainage. ENT: Nose without bleeding, purulent drainage or septal hematoma. Throat without erythema. NECK: Trachea midline. Supple, nontender, no meningeal signs. CARDIOVASCULAR: Regular rate and rhythm without murmurs, gallops, or rubs. RESPIRATORY: Clear to auscultation. Breath sounds equal bilaterally. No wheezes , rales, or rhonchi. GASTROINTESTINAL: Abdomen soft, non-tender, nondistended. Paraspinal and midline tenderness in lower lumbar region, and there is a prominent area, not red or indurated MUSCULOSKELETAL: Extremities without clubbing, cyanosis, or edema. NEUROLOGICAL: Awake and alert. Grossly non focal Psych: cooperative IV line sites with no e.o infection. Assessment & Plan Remarks MRSA bacteremia likely secondary to possible endocarditis and paraspinal abscess. Paraspinal abscess Infectious Myositis. Hep B and C positive H/o Drug abuse but denies IVDA Consented to HIV and Hepatitis testing. HTN not compliant with meds. Counseled to be compliant. Recs Continue Vanco IV (target 15-20) Follow clinically. Monitor progress Current plan regarding Telavancin - put on hold Main issue is pain control Explained plan with patient D/W RN D/W Mary Zamora MD Oct 16, 2016 12:48
--- NOTE | 2016-10-16 13:41 | HHI.PR ---
Subjective Remarks Patient reports he continues to have back pain but admits it has not gotten worse. We discussed the need to continue to wean off Narcotics for eventual discharge. He is agreeable. Objective Vitals Vital Signs Date Time Temp Pulse Resp B/P Pulse Ox O2 Delivery O2 Flow Rate FiO2 10/16/16 12:00 98.1 68 18 131/74 99 10/16/16 08:00 97.5 56 18 130/64 97 10/16/16 04:30 98.8 64 18 149/90 99 10/16/16 00:30 97.9 68 17 151/96 99 10/15/16 20:00 97.5 72 18 141/89 96 10/15/16 16:29 97.9 60 20 143/76 98 I/O 10/15/16 10/15/16 10/15/16 10/16/16 10/16/16 10/16/16 07:00 15:00 23:00 07:00 15:00 23:00 Intake Total 1060 ml 900 ml 2000 ml Balance 1060 ml 900 ml 2000 ml Intake Oral 560 ml 900 ml 2000 ml IV Total 500 ml # Voids 11 3 0 6 # Bowel Movements 1 0 0 Result Diagram: 10/16/16 1000 10/16/16 1000 Objective Remarks GENERAL: This is a well-nourished, well-developed patient, in no apparent distress. CARDIOVASCULAR: Regular rate and rhythm without murmurs, gallops, or rubs. RESPIRATORY: Clear to auscultation. Breath sounds equal bilaterally. No wheezes , rales, or rhonchi. GASTROINTESTINAL: Abdomen soft, non-tender, nondistended. Normal active bowel sounds MUSCULOSKELETAL: No cyanosis, or edema. Edematous bulge at lumbar spine that is tender. 1/2 original size per the patient. No erythema. NEURO: No focal neurological deficitis. A/P Problem List: (1) Back pain ICD Code: M54.9 Status: Acute (2) Abscess of paraspinous muscles ICD Code: M62.89 Status: Acute (3) Hypertension ICD Code: I10 Status: Acute (4) Polysubstance dependence ICD Code: F19.20 Status: Chronic (5) Hypertensive urgency ICD Code: I10 Status: Acute (6) Depressive disorder ICD Code: F32.9 Status: Acute Assessment and Plan 45-year-old male admitted secondary to lower back pain and possible abscess diagnosed with infective endocarditis based on echocardiogram findings and leukocytosis. No worsening signs of infection of lower back. Better pain control present through time. Patient is on 30 mg of MS Contin twice a day and 5 mg Percocets every 4 hours for breakthrough. Wean Plan: May change based on response and eventual timing of discharge. Patient aware of this. 10/16/16 - Percocet will be weaned from every 4 hours to every 6 hours. Done today 10/19/16 - Percocet will be discontinued. On MS Contin 30mg Q12 hours 10/22/16 - MS Contin will be changed to 15 mg every 8 hours 10/25/16 - MS Contin will be changed to 15 mg every 12 hours 10/28/16 - MS Contin will be changed to 15 mg every 24 hours 10/31/16 - Cessation of all narcotics. Infective endocarditis History of IV drug abuse Patient counseled to abstain from IV drug abuse Infectious disease following, considering outpatient treatment with [facility]. Hypertension Likely in part secondary to drug withdrawal and pain Monitor Presently stable Lumbar spine edema: Improving Cellulitis versus abscess Continue antibiotics Follow clinically for improvement DVT prophylaxis Lovenox Problem Qualifiers (1) Back pain: Qualified Code: M54.5 - Acute bilateral low back pain without sciatica (2) Hypertension: Qualified Code: I10 - Essential hypertension Robyn Smith MD Oct 16, 2016 13:41
[2016-10-16 16:00] VITALS: BP 128/76; PULSE 72; RESP 17; TEMP 98; O2SAT 100
[2016-10-16 20:00] VITALS: BP 165/95; PULSE 75; RESP 20; TEMP 100.3; O2SAT 93
[2016-10-16] MEDS: REMOVE OLD NICODERM (NICOTINE) PATCH T-DERMAL SCH (20:37)
[2016-10-17] VITALS: BP 191/94; PULSE 64; RESP 20; TEMP 97.6; O2SAT 96
[2016-10-17] MEDS: ALPRAZolam 0.25 MG TAB PO PRN ×2 (00:04→07:59)
[2016-10-17 04:00] VITALS: BP 132/81; PULSE 58; RESP 20; TEMP 98; O2SAT 97
[2016-10-17] MEDS: oxyCODONE/ACETAMINOPHEN 5 MG/325 MG TAB PO PRN (07:59)
[2016-10-17] MEDS ORDERED: ALPR.25 PO (12:56)
== END 2016-10-17 09:22 | disposition left against medical advice (07) | DRG 94 ==
LOC: NEPE 16:53 → NEDA 21:51 → N05B 10-05 00:47
PROVIDERS: ADMIT Family Medicine; ATTEND Family Medicine
DX: G06.1 Intraspinal abscess and granuloma (principal); I33.0 Acute and subacute infective endocarditis; F19.239 Other psychoactive substance dependence with withdrawal, unspecified; M60.08 Infective myositis, other site; I10 Essential (primary) hypertension; F41.9 Anxiety disorder, unspecified; F12.90 Cannabis use, unspecified, uncomplicated; I16.0 Hypertensive urgency; F32.9 Major depressive disorder, single episode, unspecified; R39.11 Hesitancy of micturition; F17.210 Nicotine dependence, cigarettes, uncomplicated; N40.1 Benign prostatic hyperplasia with lower urinary tract symptoms; B95.62 Methicillin resistant Staphylococcus aureus infection as the cause of diseases classified elsewhere; Z91.14 Patient's other noncompliance with medication regimen; Z86.73 Personal history of transient ischemic attack (TIA), and cerebral infarction without residual deficits
CPT/HCPCS: 72158; 74177; 76937; 78806; 80048; 80053; 80074; 80076; 80202; 80307; 81001; 82565; 83605; 85025; 85027; 85610; 85730; 86140; 86703; 87040; 93306; 96374; 96375; 96376; A9569; A9579; J0360; J1170; J1644; J2270; J2543; J3370; J7030; J7040; J7050; Q9967

== ENCOUNTER 2016-10-17 12:35 | Inpatient (IN) | payer SELFPAY ==
[~2016-10-17] VITALS: Ht 177.8 cm; Wt 82.0 kg
[~2016-10-17 12:35] MED LIST changes: +EPIN1INJ21 IV PUSH; +EPIN1INJ21 SQ; +LISI-515 PO; -LISI20 PO; +SOLU250I IV PUSH; +VIBA750I IV
[2016-10-17 12:37] VITALS: BP 136/98; PULSE 83; RESP 20; TEMP 97.5; O2SAT 97
[2016-10-17] MEDS ORDERED: ALPR.25 PO (12:56)
[2016-10-17 12:59] VITALS: BP 126/84; PULSE 76; RESP 19; O2SAT 96
[2016-10-17] MEDS ORDERED: VANCOMYCIN INJ 1,150 MG in SODIUM CHLOR 0.9% 250 ML INJ 250 ML IV ONE (13:00)
[2016-10-17] MEDS ORDERED: ONDANSETRON HCL 4 MG/2 ML VIAL IVP PRN (13:45)
[2016-10-17] MEDS ORDERED: ACETAMINOPHEN 325 MG TAB PO PRN (13:45)
[2016-10-17] MEDS ORDERED: NALOXONE HCL 0.4 MG/ML AMP IV PRN (13:45)
[2016-10-17] MEDS ORDERED: BISACODYL 10 MG SUPP RECTAL PRN (13:45)
[2016-10-17] MEDS ORDERED: SENNOSIDES 8.6 MG TAB PO PRN (13:45)
[2016-10-17] MEDS ORDERED: Vancomycin Consult Pharmacy 1 EA OTHER SCH (13:45)
[2016-10-17] MEDS ORDERED: MAGNESIUM HYDROXIDE SUSP 30 ML CUP PO PRN (13:45)
[2016-10-17 13:55] LABS: AUTOMATED NEUTROPHIL # 4.9 TH/MM3 (1.8-7.7); BASOPHIL # 0.1 TH/MM3 (0-0.2); BASOPHIL % 1.3 % (0.0-2.0); EOSINOPHIL # 0.1 TH/MM3 (0-0.4); EOSINOPHIL % 1.4 % (0.0-4.0); HEMATOCRIT 41.8 % (39.0-51.0); HEMO FLAGS DIFF FINAL; LYMPH % 27.8 % (9.0-44.0); LYMPHOCYTE # 2.2 TH/MM3 (1.0-4.8); MEAN CELL VOLUME 87.5 FL (80.0-100.0); MEAN CORPUSCULAR HGB CONC 33.2 % (32.0-36.0); MONO % 8.4 % (0.0-8.0); NEUT % 61.1 % (16.0-70.0); PLATELET COUNT 361 TH/MM3 (150-450); RED BLOOD COUNT 4.78 MIL/MM3 (4.50-5.90); RED CELL DISTRIBUTION WIDTH 14.1 % (11.6-17.2); WHITE BLOOD COUNT 7.9 TH/MM3 (4.0-11.0)
[2016-10-17 14:00] LABS: BICARBONATE 28.9 MEQ/L (21.0-32.0); POTASSIUM 4.4 MEQ/L (3.5-5.1)
--- NOTE | 2016-10-17 14:12 | PD ---
HPI Chief Complaint: Cardiac Complaint Time Seen by Provider: 12:46 Travel History International Travel<30 days: No Contact w/Intl Traveler<30days: No Traveled to known affect area: No History of Present Illness HPI 45-year-old male who returns to emergency room for admission and for abscess the paraspinous muscle, infective endocarditis with history of IVDA. Patient was admitted to the hospital on October 04, 2016 for treatment of endocarditis as well as paraspinous muscle abscess. He left the hospital AGAINST MEDICAL ADVICE today as he told me that he was being evicted from his apartment and needed to move his belongings. Reports that he did tell staff that he would return to the hospital immediately after he took care of his apartment. Patient reports that he did not receive his dose of IV antibiotics this morning. Patient here for readmission to the hospital. PFSH Past Medical History Arthritis: No Asthma: No Autoimmune Disease: No Blood Disorders: No Anxiety: Yes Depression: No Heart Rhythm Problems: No Cancer: No Cardiovascular Problems: Yes High Cholesterol: No Congestive Heart Failure: No Cerebrovascular Accident: Yes (2X HEM STROKE JULY 2014) Diabetes: No Diminished Hearing: No Endocrine: No Gastrointestinal Disorders: No GERD: No Genitourinary: No Headaches: Yes Hiatal Hernia: No Hypertension: Yes Immune Disorder: No Implanted Vascular Access Dvce: No Kidney Stones: No Musculoskeletal: No Neurologic: Yes (July 2014 Cerebral Hemorrhage) Psychiatric: Yes Reproductive: No Respiratory: No Immunizations Current: Yes Migraines: Yes (FELL OUT OF A TREE 1985) Renal Failure: No Seizures: Yes (JULY 2016) Sleep Apnea: No Ulcer: No Past Surgical History Abdominal Surgery: No Cardiac Surgery: No Ear Surgery: Yes (RIGHT EAR) Endocrine Surgery: No Eye Surgery: No Genitourinary Surgery: No Gynecologic Surgery: No Neurologic Surgery: No Oral Surgery: Yes (TONSILECTOMY 1976) Thoracic Surgery: No Tonsillectomy: Yes Other Surgery: Yes (EAR REATTACHED 1991) Social History Alcohol Use: Yes Tobacco Use: Yes (1 PACK A DAY) Substance Use: Yes Allergies-Medications (Allergen,Severity, Reaction): Coded Allergies: No Known Allergies (Verified , 10/17/16) Reported Meds & Prescriptions Reported Meds & Active Scripts Active Vibativ Inj (Telavancin) 750 Mg Inj 750 Mg IV Q24H 42 Days Epinephrine Inj 1 Mg/Ml Inj 0.3 Mg SQ ONCE PRN Give with any signs of respiratory distress. Epinephrine Inj 1 Mg/Ml Inj 0.3 Mg IV PUSH ONCE PRN Solu-Cortef Inj (Hydrocortisone Sodium Succinate) 250 Mg Inj 250 Mg IV PUSH ONCE PRN Give over 30-60 seconds. Reported Xanax (Alprazolam) 0.25 Mg Tab 0.25 Mg PO Q6H PRN Lisinopril 20 Mg Tab 20 Mg PO BID Review of Systems General / Constitutional: No: Fever Eyes: No: Visual changes HENT: No: Headaches Cardiovascular: No: Chest Pain or Discomfort Respiratory: No: Shortness of Breath Gastrointestinal: No: Abdominal Pain Genitourinary: No: Dysuria Musculoskeletal: Positive: Pain (back pain) Skin: No Rash Neurologic: No: Weakness Psychiatric: No: Depression Endocrine: No: Polydipsia Hematologic/Lymphatic: No: Easy Bruising Physical Exam Narrative GENERAL: NAD, nontoxic SKIN: Focused skin assessment warm/dry. HEAD: Atraumatic. Normocephalic. EYES: Pupils equal and round. No scleral icterus. No injection or drainage. ENT: No nasal bleeding or discharge. Mucous membranes pink and moist. NECK: Trachea midline. No JVD. CARDIOVASCULAR: Regular rate and rhythm. No murmur appreciated. RESPIRATORY: No accessory muscle use. Clear to auscultation. Breath sounds equal bilaterally. GASTROINTESTINAL: Abdomen soft, non-tender, nondistended. Hepatic and splenic margins not palpable. MUSCULOSKELETAL: No obvious deformities. No clubbing. No cyanosis. No edema. NEUROLOGICAL: Awake and alert. No obvious cranial nerve deficits. Motor grossly within normal limits. Normal speech. PSYCHIATRIC: Appropriate mood and affect; insight and judgment normal. Data Data Last Documented VS Vital Signs Date Time Temp Pulse Resp B/P Pulse Ox O2 Delivery O2 Flow Rate FiO2 10/17/16 12:59 76 19 126/84 96 Room Air 10/17/16 12:37 97.5 Orders Vancomycin Inj (Vancomycin Inj) (10/17/16 13:00) Basic Metabolic Panel (Bmp) (10/17/16 12:55) Complete Blood Count With Diff (10/17/16 12:55) Iv Access Insert/Monitor (10/17/16 12:55) Drug Screen, Random Urine (10/17/16 12:55) Admit Order (Ed Use Only) (10/17/16 13:23) Labs Laboratory Tests Test 10/17/16 13:15 White Blood Count 7.9 TH/MM3 Red Blood Count 4.78 MIL/MM3 Hemoglobin 13.9 GM/DL Hematocrit 41.8 % Mean Corpuscular Volume 87.5 FL Mean Corpuscular Hemoglobin 29.0 PG Mean Corpuscular Hemoglobin 33.2 % Concent Red Cell Distribution Width 14.1 % Platelet Count 361 TH/MM3 Mean Platelet Volume 8.0 FL Neutrophils (%) (Auto) 61.1 % Lymphocytes (%) (Auto) 27.8 % Monocytes (%) (Auto) 8.4 % Eosinophils (%) (Auto) 1.4 % Basophils (%) (Auto) 1.3 % Neutrophils # (Auto) 4.9 TH/MM3 Lymphocytes # (Auto) 2.2 TH/MM3 Monocytes # (Auto) 0.7 TH/MM3 Eosinophils # (Auto) 0.1 TH/MM3 Basophils # (Auto) 0.1 TH/MM3 CBC Comment DIFF FINAL Differential Comment Sodium Level 138 MEQ/L Potassium Level 4.4 MEQ/L Chloride Level 103 MEQ/L Carbon Dioxide Level 28.9 MEQ/L Anion Gap 6 MEQ/L Blood Urea Nitrogen 18 MG/DL Creatinine 0.85 MG/DL Estimat Glomerular Filtration 97 ML/MIN Rate Random Glucose 83 MG/DL Calcium Level 9.1 MG/DL [facility] Medical Decision Making Medical Screen Exam Complete: Yes Emergency Medical Condition: Yes Interpretation(s) Vital Signs Date Time Temp Pulse Resp B/P Pulse Ox O2 Delivery O2 Flow Rate FiO2 10/17/16 12:59 76 19 126/84 96 Room Air 10/17/16 12:48 19 Room Air 10/17/16 12:37 97.5 83 20 136/98 97 Room Air Differential Diagnosis differential includes paraspinous muscle abscess, IVDA, infective endocarditis Narrative Course Patient returns to the ER for readmission to the hospital for treatment of endocarditis and paraspinous muscle abscess. IV dose of vancomycin administered patient in ER. Case reviewed with Dr. Smith who accepts pt to service Diagnosis Primary Impression: Abscess of paraspinous muscles Additional Impressions: Infective endocarditis Qualified Code: I33.0 - Bacterial endocarditis, unspecified chronicity IVDU (intravenous drug user) Admitting Information Admitting Physician Requests: Admit Loretta Palma DO Oct 17, 2016 14:12
[2016-10-17] MEDS: HEPARIN SODIUM - SQ 10,000 UNITS/ML VIAL SQ SCH ×2 (14:15→20:32)
[2016-10-17] MEDS: oxyCODONE/ACETAMINOPHEN 5 MG/325 MG TAB PO PRN ×2 (16:30→21:13)
[2016-10-17 16:39] VITALS: BP 132/75; PULSE 88; RESP 16; O2SAT 98
[2016-10-17] MEDS ORDERED: ENOXAPARIN SODIUM 40 MG/0.4 ML SYRINGE SQ SCH (16:45)
--- NOTE | 2016-10-17 16:45 | HHI.HP ---
[facility] Simone Corley, DO Admission Diagnosis Endocarditis, paraspinal muscle abscess Diagnoses: Chief Complaint: Back pain, left AMA this morning. 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 Patient was being treated with IV vancomycin. He left the hospital AGAINST MEDICAL ADVICE earlier this morning. He reports he had to leave to take out his belongings from his residence because he was getting evicted. He came back with complaint of persistent low back pain. He denies any drug use since leaving the hospital. Review of Systems Constitutional: DENIES: Fever, Chills Musculoskeletal: COMPLAINS OF: Back pain Integumentary: DENIES: Rash Except as stated in HPI: all other systems reviewed are Neg Past Family Social History Past Medical History Anxiety Hypertension but does not take any medications IV drug use ? History of hemorrhagic stroke Past Surgical History Right ear surgery Tonsillectomy Reported Medications Reported Meds & Active Scripts Active Vibativ Inj (Telavancin) 750 Mg Inj 750 Mg IV Q24H 42 Days Epinephrine Inj 1 Mg/Ml Inj 0.3 Mg SQ ONCE PRN Give with any signs of respiratory distress. Epinephrine Inj 1 Mg/Ml Inj 0.3 Mg IV PUSH ONCE PRN Solu-Cortef Inj (Hydrocortisone Sodium Succinate) 250 Mg Inj 250 Mg IV PUSH ONCE PRN Give over 30-60 seconds. Reported Xanax (Alprazolam) 0.25 Mg Tab 0.25 Mg PO Q6H PRN Lisinopril 20 Mg Tab 20 Mg PO BID Allergies: Coded Allergies: No Known Allergies (Verified , 10/17/16) Family History Reviewed and noncontributory. Social History Patient smoked marijuana and one pack of cigarettes per day. Known history of IV drug use. He denies any use since he was admitted to the hospital. Occasional alcohol. Physical Exam Vital Signs Vital Signs Date Time Temp Pulse Resp B/P Pulse Ox O2 Delivery O2 Flow Rate FiO2 10/17/16 12:59 76 19 126/84 96 Room Air 10/17/16 12:48 19 Room Air 10/17/16 12:37 97.5 83 20 136/98 97 Room Air Physical Exam GENERAL: This is a well-nourished, well-developed patient, in no apparent distress. SKIN: No rashes, ecchymoses or lesions. Cool and dry. HEAD: Atraumatic. Normocephalic. No temporal or scalp tenderness. EYES: Pupils equal round and reactive. Extraocular motions intact. No scleral icterus. No injection or drainage. ENT: Nose without bleeding, purulent drainage or septal hematoma. Throat without erythema, tonsillar hypertrophy or exudate. Uvula midline. Airway patent. NECK: Trachea midline. No JVD or lymphadenopathy. Supple, nontender, no meningeal signs. CARDIOVASCULAR: Regular rate and rhythm without murmurs, gallops, or rubs. RESPIRATORY: Clear to auscultation. Breath sounds equal bilaterally. No wheezes , rales, or rhonchi. GASTROINTESTINAL: Abdomen soft, non-tender, nondistended. No hepato-splenomegaly , or palpable masses. No guarding. MUSCULOSKELETAL: Complains of tenderness to palpation over the paraspinal muscles in the lumbar region. NEUROLOGICAL: Awake and alert. Cranial nerves II through XII intact. Motor and sensory grossly within normal limits. Five out of 5 muscle strength in all muscle groups. Normal speech. Laboratory Laboratory Tests Test 10/17/16 10/17/16 13:15 14:00 White Blood Count 7.9 Red Blood Count 4.78 Hemoglobin 13.9 Hematocrit 41.8 Mean Corpuscular Volume 87.5 Mean Corpuscular Hemoglobin 29.0 Mean Corpuscular Hemoglobin 33.2 Concent Red Cell Distribution Width 14.1 Platelet Count 361 Mean Platelet Volume 8.0 Neutrophils (%) (Auto) 61.1 Lymphocytes (%) (Auto) 27.8 Monocytes (%) (Auto) 8.4 Eosinophils (%) (Auto) 1.4 Basophils (%) (Auto) 1.3 Neutrophils # (Auto) 4.9 Lymphocytes # (Auto) 2.2 Monocytes # (Auto) 0.7 Eosinophils # (Auto) 0.1 Basophils # (Auto) 0.1 CBC Comment DIFF FINAL Differential Comment Sodium Level 138 Potassium Level 4.4 Chloride Level 103 Carbon Dioxide Level 28.9 Anion Gap 6 Blood Urea Nitrogen 18 Creatinine 0.85 Estimat Glomerular Filtration 97 Rate Random Glucose 83 Calcium Level 9.1 Urine Opiates Screen POS Urine Barbiturates Screen NEG Urine Amphetamines Screen NEG Urine Benzodiazepines Screen POS Urine Cocaine Screen NEG Urine Cannabinoids Screen NEG Result Diagram: 10/17/16 1315 10/17/16 1315 Assessment and Plan Assessment and Plan 45-year-old male admitted secondary to lower back pain and paraspinal abscess diagnosed with infective endocarditis based on echocardiogram findings and leukocytosis. No worsening signs of infection of lower back. Better pain control present through time. Patient was on 30 mg of MS Contin twice a day and 5 mg Percocets every 6 hours for breakthrough. He left the hospital AGAINST MEDICAL ADVICE this morning and return this afternoon because he reportedly had 2 take out his belongings from the residence he was being evicted from. Infective endocarditis History of IV drug abuse - Reconsult infectious disease. Previously was considering outpatient treatment with dominance. Patient counseled to abstain from IV drug abuse - Restart vancomycin. Wean Plan: May change based on response and eventual timing of discharge. Patient aware of this. 10/17/16 - Percocet every 6 hours as needed for breakthrough. 10/19/16 - Percocet will be discontinued. On MS Contin 30mg Q12 hours 10/22/16 - MS Contin will be changed to 15 mg every 8 hours 10/25/16 - MS Contin will be changed to 15 mg every 12 hours 10/28/16 - MS Contin will be changed to 15 mg every 24 hours 10/31/16 - Cessation of all narcotics. Hypertension Noncompliant. Stable Continue lisinopril Lumbar spine edema: Improving Continue antibiotics Follow clinically for improvement Noncompliance: - Patient left the hospital AMA on 10/17 in the morning and returned the same day in the afternoon. He denies using drugs during that time. She was strongly counseled to comply with medical treatment. DVT prophylaxis Lovenox Discussed Condition With Dr. Palma Physician Certification 2 Midnight Certification Type: Admission for Inpatient Services Order for Inpatient Services The services are ordered in accordance with Medicare regulations or non- Medicare payer requirements, as applicable. In the case of services not specified as inpatient-only, they are appropriately provided as inpatient services in accordance with the 2-midnight benchmark. Estimated LOS (days): 5 days is the estimated time the patient will need to remain in the hospital, assuming treatment plan goals are met and no additional complications. Post-Hospital Plan: Home Robyn Smith MD Oct 17, 2016 16:45
[2016-10-17 18:50] VITALS: BP 138/72; PULSE 86; RESP 16; O2SAT 98
[2016-10-17 19:42] VITALS: BP 152/74
[2016-10-17 20:00] VITALS: BP 161/90; PULSE 60; RESP 20; TEMP 97.4; O2SAT 96
[2016-10-17] MEDS: LISINOPRIL 20 MG TAB PO SCH (20:32)
[2016-10-17] MEDS: ALPRAZolam 0.25 MG TAB PO PRN (20:32)
[2016-10-17] MEDS: DOCUSATE SODIUM 50 MG/SENNA 8.6 MG TAB PO SCH (20:32)
[2016-10-17] MEDS: MORPHINE SULFATE 30 MG CONTROLLED RELEASE TAB PO SCH (20:32)
[2016-10-17] MEDS: SODIUM CHLORIDE 0.9% FLUSH 10 ML FLUSH IV FLUSH SCH (20:33)
[2016-10-17] MEDS ORDERED: VANCOMYCIN INJ 1,500 MG in SODIUM CHLORID 0.9% 500 ML INJ 500 ML IV SCH (21:00)
[2016-10-17] MEDS: ZOLPIDEM TARTRATE 5 MG TAB PO PRN (21:13)
[2016-10-17] MEDS: VANCOMYCIN INJ 1,500 MG in SODIUM CHLORID 0.9% 500 ML INJ 500 ML IV SCH (23:56)
[2016-10-18] VITALS: BP 142/77; PULSE 59; RESP 20; TEMP 97.7; O2SAT 98
[2016-10-18] MEDS: oxyCODONE/ACETAMINOPHEN 5 MG/325 MG TAB PO PRN ×4 (03:36→22:24)
[2016-10-18] MEDS: ALPRAZolam 0.25 MG TAB PO PRN ×4 (03:39→22:24)
[2016-10-18] MEDS: HEPARIN SODIUM - SQ 10,000 UNITS/ML VIAL SQ SCH ×3 (05:07→22:27)
[2016-10-18 08:00] VITALS: BP 162/102; PULSE 57; RESP 20; TEMP 97.8; O2SAT 95
[2016-10-18] MEDS: DOCUSATE SODIUM 50 MG/SENNA 8.6 MG TAB PO SCH ×2 (09:45→21:31)
[2016-10-18] MEDS: LISINOPRIL 20 MG TAB PO SCH ×2 (09:45→21:31)
[2016-10-18] MEDS: SODIUM CHLORIDE 0.9% FLUSH 10 ML FLUSH IV FLUSH SCH ×2 (09:46→21:27)
[2016-10-18] MEDS: TAMSULOSIN HCL 0.4 MG CAP PO SCH (09:46)
[2016-10-18] MEDS: MORPHINE SULFATE 30 MG CONTROLLED RELEASE TAB PO SCH ×2 (09:46→21:31)
--- NOTE | 2016-10-18 09:50 | HHI.PR ---
Subjective Remarks Patient seen with infectious disease Dr. Slater. He Continues to complain of lower back pain but admits the lower back swelling has improved. No fevers or chills. Objective Vitals Vital Signs Date Time Temp Pulse Resp B/P Pulse Ox O2 Delivery O2 Flow Rate FiO2 10/18/16 08:00 97.8 57 20 162/102 95 10/18/16 00:00 97.7 59 20 142/77 98 10/17/16 20:00 97.4 60 20 161/90 96 10/17/16 19:42 95 16 152/74 100 10/17/16 18:50 86 16 138/72 98 10/17/16 16:39 88 16 132/75 98 Room Air 10/17/16 12:59 76 19 126/84 96 Room Air 10/17/16 12:48 19 Room Air 10/17/16 12:37 97.5 83 20 136/98 97 Room Air I/O 10/17/16 10/17/16 10/17/16 10/18/16 10/18/16 10/18/16 07:00 15:00 23:00 07:00 15:00 23:00 Intake Total 240 ml 240 ml Output Total 0 ml Balance 240 ml 240 ml Intake Oral 240 ml 240 ml Output Urine Total 0 ml # Voids 2 Result Diagram: 10/17/16 1315 10/17/16 1315 Objective Remarks GENERAL: This is a well-nourished, well-developed patient, in no apparent distress. CARDIOVASCULAR: Normal rate and regular rhythm without murmurs, gallops, or rubs. RESPIRATORY: Good respiratory efforts. Breath sounds equal and clear to auscultation bilaterally. GASTROINTESTINAL: Abdomen soft, non-tender, non-distended. Normal active bowel sounds MUSCULOSKELETAL: Patient complains of tenderness to palpation over the lumbar paraspinal region. NEURO: Alert & Oriented x4 to person, place, time, situation. Moves all ext x4 PSYCH: Irritable A/P Assessment and Plan 45-year-old male admitted secondary to lower back pain and paraspinal abscess diagnosed with infective endocarditis based on echocardiogram findings and leukocytosis. No worsening signs of infection of lower back. Better pain control present through time. Patient was on 30 mg of MS Contin twice a day and 5 mg Percocets every 6 hours for breakthrough. He left the hospital AGAINST MEDICAL ADVICE the morning of 10/18/16 and returned the same afternoon because he reportedly had 2 take out his belongings from the residence he was being evicted from. Infective endocarditis History of IV drug abuse Pain medication seeking behavior - Infectious disease following. Continue Vanco - Discussed with ID. Plan to repeat lumbar MRI today, CRP and LFTs. If clinically the patient is improving, will consider transitioning to outpatient telavancin once daily. - Patient does exhibit pain medication seeking behavior. Plan to wean him off all narcotics. Weaning plan will be based on objective findings and clinical indicators - Patient is currently on MS Contin 30 mg every 12 hours and Percocet every 6 hours as needed. Plan to discontinue alcohol down Percocet tomorrow. Hypertension Noncompliant. Stable Continue lisinopril Lumbar spine edema: Improving Continue antibiotics Follow clinically for improvement Noncompliance: - Patient left the hospital AMA on 10/17 in the morning and returned the same day in the afternoon. He denies using drugs during that time. He was strongly counseled to comply with medical treatment. DVT prophylaxis Lovenox Discussed Condition With Robyn Richmond MD Oct 18, 2016 09:50
[2016-10-18 09:51] LABS: BASOPHIL # 0.2 TH/MM3 (0-0.2); BASOPHIL % 3.8 % (0.0-2.0); EOSINOPHIL # 0.2 TH/MM3 (0-0.4); EOSINOPHIL % 2.9 % (0.0-4.0); HEMATOCRIT 39.8 % (39.0-51.0); HEMO FLAGS DIFF FINAL; LYMPH % 35.1 % (9.0-44.0); LYMPHOCYTE # 2.1 TH/MM3 (1.0-4.8); MEAN CELL VOLUME 87.1 FL (80.0-100.0); MEAN CORPUSCULAR HEMOGLOBIN 29.8 PG (27.0-34.0); MEAN CORPUSCULAR HGB CONC 34.2 % (32.0-36.0); MONO % 7.9 % (0.0-8.0); NEUT % 50.3 % (16.0-70.0); PLATELET COUNT 307 TH/MM3 (150-450); RED BLOOD COUNT 4.56 MIL/MM3 (4.50-5.90); WHITE BLOOD COUNT 6.1 TH/MM3 (4.0-11.0)
[2016-10-18 10:21] LABS: BICARBONATE 28.8 MEQ/L (21.0-32.0); POTASSIUM 3.7 MEQ/L (3.5-5.1)
--- NOTE | 2016-10-18 10:59 | PD.ID.CON ---
History of Present Illness Service ID Consult Requested By Reason for Consult Evaluation and Mment of Paraspinal lumbar spinal abscess. Primary Care Physician Simone Corley, DO Diagnoses: History of Present Illness is a 45 y/o CM with PMHx significant for anxiety, hypertension but not on medications, h/o IV drug abuse who was being treated in the hospital for probable infectious endocarditis and treatment of paraspinal abscess. Patient had been treated at another hospital with IV Vanco and then oral bactrim few weeks [employer] per patient account. Patient was being treated with IV vancomycin while in hospital. All BCX were negative then. Plan was to repeat MRI and if improving to discharge him on IV Telavancin once a day in clinic. He left the hospital AGAINST MEDICAL ADVICE. He reports he had to leave to take out his belongings from his residence because he was getting evicted. He came back with complaint of persistent low back pain. He denies any drug use since leaving the hospital. Patient denies any fevers or night sweats after signing off AMA from hospital. Review of Systems ROS Limitations: Poor Historian Past Family Social History Allergies: Coded Allergies: No Known Allergies (Verified , 10/17/16) Past Medical History Anxiety Hypertension but does not take any medications IV drug use ? History of hemorrhagic stroke Past Surgical History Right ear surgery Tonsillectomy Reported Medications Reported Meds & Active Scripts Active Vibativ Inj (Telavancin) 750 Mg Inj 750 Mg IV Q24H 42 Days Epinephrine Inj 1 Mg/Ml Inj 0.3 Mg SQ ONCE PRN Give with any signs of respiratory distress. Epinephrine Inj 1 Mg/Ml Inj 0.3 Mg IV PUSH ONCE PRN Solu-Cortef Inj (Hydrocortisone Sodium Succinate) 250 Mg Inj 250 Mg IV PUSH ONCE PRN Give over 30-60 seconds. Reported Xanax (Alprazolam) 0.25 Mg Tab 0.25 Mg PO Q6H PRN Lisinopril 20 Mg Tab 20 Mg PO BID Active Ordered Medications Current Medications Medications (Trade) Dose Ordered Sig/Emerita Route Start Time Stop Time Status Last Admin (Xanax) 0.25 mg Q6H PRN PO 10/17/16 13:30 10/18/16 09:45 (Prinivil) 20 mg BID PO 10/17/16 21:00 10/18/16 09:45 (Flomax) 0.4 mg DAILY PO 10/18/16 09:00 10/18/16 09:46 (Percocet 5-325 Mg) 1 tab Q6H PRN PO 10/17/16 13:30 10/18/16 09:46 (Oramorph Sr) 30 mg Q12HR PO 10/17/16 21:00 10/18/16 09:46 (Ambien) 5 mg HS PRN PO 10/17/16 13:30 10/17/16 21:13 (Maribel-Colace) 1 tab BID PO 10/17/16 21:00 10/18/16 09:45 (NS Flush) 2 ml UNSCH PRN IV FLUSH 10/17/16 13:45 (NS Flush) 2 ml BID IV FLUSH 10/17/16 21:00 10/18/16 09:46 (Tylenol) 650 mg Q4H PRN PO 10/17/16 13:45 (Zofran Inj) 4 mg Q6H PRN IVP 10/17/16 13:45 (Heparin Inj) 5,000 units Q8H SQ 10/17/16 14:00 10/17/16 20:32 (Narcan Inj) 0.4 mg UNSCH PRN IV 10/17/16 13:45 (Milk Of Magnesia Liq) 30 ml Q12H PRN PO 10/17/16 13:45 (Senokot) 17.2 mg Q12H PRN PO 10/17/16 13:45 (Dulcolax Supp) 10 mg DAILY PRN RECTAL 10/17/16 13:45 Lactulose 30 ml 30 ml DAILY PRN PO 10/17/16 13:45 Pharmacy Profile Note 0 ml @ 0 mls/hr UNSCH OTHER 10/17/16 13:45 (Vancomycin Inj/ NS 500 ml Inj) 515 ml @ 250 mls/hr Q12H IV 10/18/16 00:00 10/17/16 23:56 Miscellaneous Information SPECIFIC LAB TO BE DRAWN:VANCOMYCIN TROUGH DATE TO... ONCE ONCE .XX 10/19/16 11:45 10/19/16 11:46 Family History reviewed and NC Social History No smoking, no alcohol. Lives in an apt at present time but lost job and could be homeless soon. Physical Exam Vital Signs Vital Signs Date Time Temp Pulse Resp B/P Pulse Ox O2 Delivery O2 Flow Rate FiO2 10/18/16 08:00 97.8 57 20 162/102 95 10/18/16 00:00 97.7 59 20 142/77 98 10/17/16 20:00 97.4 60 20 161/90 96 10/17/16 19:42 95 16 152/74 100 10/17/16 18:50 86 16 138/72 98 10/17/16 16:39 88 16 132/75 98 Room Air 10/17/16 12:59 76 19 126/84 96 Room Air 10/17/16 12:48 19 Room Air 10/17/16 12:37 97.5 83 20 136/98 97 Room Air Physical Exam GENERAL: This is a well-nourished, well-developed patient, in no apparent distress. SKIN: No rashes, ecchymoses or lesions. Cool and dry. HEAD: Atraumatic. Normocephalic. No temporal or scalp tenderness. EYES: Pupils equal round and reactive. Extraocular motions intact. No scleral icterus. No injection or drainage. ENT: Nose without bleeding, purulent drainage or septal hematoma. Throat without erythema, tonsillar hypertrophy or exudate. Uvula midline. Airway patent. NECK: Trachea midline. No JVD or lymphadenopathy. Supple, nontender, no meningeal signs. CARDIOVASCULAR: Regular rate and rhythm without murmurs, gallops, or rubs. RESPIRATORY: Clear to auscultation. Breath sounds equal bilaterally. No wheezes , rales, or rhonchi. GASTROINTESTINAL: Abdomen soft, non-tender, nondistended. No hepato-splenomegaly , or palpable masses. No guarding. MUSCULOSKELETAL: Extremities without clubbing, cyanosis, or edema. No joint tenderness, effusion, or edema noted. No calf tenderness. Negative Homans sign bilaterally. NEUROLOGICAL: Awake and alert. Cranial nerves II through XII intact. Motor and sensory grossly within normal limits. Five out of 5 muscle strength in all muscle groups. Normal speech. Psych cooperative IV line sites with no e.o infection Laboratory Laboratory Tests Test 10/17/16 10/17/16 10/18/16 13:15 14:00 09:14 White Blood Count 7.9 6.1 Red Blood Count 4.78 4.56 Hemoglobin 13.9 13.6 Hematocrit 41.8 39.8 Mean Corpuscular Volume 87.5 87.1 Mean Corpuscular Hemoglobin 29.0 29.8 Mean Corpuscular Hemoglobin 33.2 34.2 Concent Red Cell Distribution Width 14.1 14.0 Platelet Count 361 307 Mean Platelet Volume 8.0 8.4 Neutrophils (%) (Auto) 61.1 50.3 Lymphocytes (%) (Auto) 27.8 35.1 Monocytes (%) (Auto) 8.4 7.9 Eosinophils (%) (Auto) 1.4 2.9 Basophils (%) (Auto) 1.3 3.8 Neutrophils # (Auto) 4.9 3.0 Lymphocytes # (Auto) 2.2 2.1 Monocytes # (Auto) 0.7 0.5 Eosinophils # (Auto) 0.1 0.2 Basophils # (Auto) 0.1 0.2 CBC Comment DIFF FINAL DIFF FINAL Differential Comment Sodium Level 138 137 Potassium Level 4.4 3.7 Chloride Level 103 102 Carbon Dioxide Level 28.9 28.8 Anion Gap 6 6 Blood Urea Nitrogen 18 17 Creatinine 0.85 0.77 Estimat Glomerular Filtration 97 109 Rate Random Glucose 83 101 Calcium Level 9.1 8.9 Urine Opiates Screen POS Urine Barbiturates Screen NEG Urine Amphetamines Screen NEG Urine Benzodiazepines Screen POS Urine Cocaine Screen NEG Urine Cannabinoids Screen NEG Result Diagram: 10/18/1691310/18/16913 Assessment and Plan Assessment and Plan Culture negative endocarditis. Lumbar paraspinal abscess. Possible MSSA, MRSA or Strep. pain medicine seeking behavior. Recs: Continue Vanco IV (target 15-20) Repeat MRI L spine today. CRP and LFTs today. If MRI L spine and CRP improve will consider transitioning to outpatient Telavancin once a day. olga Luis, pt and significant other. Follow cultures Follow clinically. covering this weekend Zena Slater MD Oct 18, 2016 10:59
[2016-10-18] MEDS: VANCOMYCIN INJ 1,500 MG in SODIUM CHLORID 0.9% 500 ML INJ 500 ML IV SCH (11:53)
[2016-10-18 12:00] VITALS: BP 151/75; PULSE 65; RESP 22; TEMP 97.9; O2SAT 96
[2016-10-18 14:52] LABS: INDIRECT BILIRUBIN 0.2 MG/DL (0.0-0.8); TOTAL BILIRUBIN ADULT 0.3 MG/DL (0.2-1.0)
[2016-10-18 16:00] VITALS: BP 127/67; PULSE 80; RESP 20; TEMP 98.2; O2SAT 97
[2016-10-18 19:00] VITALS: PULSE 76
[2016-10-18] MEDS ORDERED: GADODIAMIDE PF 287 MG/ML 20 ML VIAL (for RAD MRI) IV ONE (19:36)
[2016-10-18 20:00] VITALS: BP 124/85; PULSE 115; RESP 16; TEMP 99.1; O2SAT 100
--- NOTE | 2016-10-18 20:30 | RADRPT ---
EXAM DATE/TIME: 10/18/2016 19:16 [place] COMPARISON: No previous studies available for comparison. INDICATIONS : Abscess. Paraspinal abscess. CONTRAST: 15 cc Omniscan (gadodiamide) IV MEDICAL HISTORY : Endocarditis. SURGICAL HISTORY : Tonsillectomy. ENCOUNTER: Initial ACUITY: 1 day PAIN SCORE: 0/10 LOCATION: Paraspinal TECHNIQUE: Multiplanar multisequence MRI of the lumbar spine was performed with and without contrast. FINDINGS: Comparison is October 04. Again seen is abnormal enhancing soft tissue around the spinous processes of L 3 and L4. Measurements to the left of the spinous process at L3-4 is about 2.7 x 0.9 cm which is slig htly decreased from prior measurement. Enhancement persists into the dorsal dural region at L3-4 but no discrete epidural abscess is identified at this time. No drainable fluid collections. There is some marrow edema and enhancement in the spinous processes of L3 and L4. Differential diagno sis includes reactive change but cannot exclude osteomyelitis. There is stable disc disease at L4-5-S1 with small disc protrusions. There is some facet arthropathy and mild central canal lateral recess stenosis at L4-5. CONCLUSION: 1. Slight decrease in abnormal enhancing and edematous tissues around the spinous processes of L3 and L4. Enhancement extends into the dorsal dural surface of L3 and L4 but without epidural abscess or s ignificant thecal sac compression. Persistent mild canal stenosis at L4-5 and no evidence for disciti s. 2. There are some edematous changes and enhancement in the marrow of the spinous processes of L3 and L4. Differential diagnosis includes reactive change. Cannot exclude osteomyelitis dorsally. Leroy Quintero MD on October 18, 2016 at 20:18 Board Certified Radiologist. This report was verified electronically.
[2016-10-18] MEDS: ZOLPIDEM TARTRATE 5 MG TAB PO PRN (21:35)
[2016-10-19] VITALS (8 sets, daily range): BP systolic 119–159; BP diastolic 68–100; PULSE 52–79; RESP 16–20; TEMP 97.4–98.1; O2SAT 95–98
[2016-10-19] MEDS: VANCOMYCIN INJ 1,500 MG in SODIUM CHLORID 0.9% 500 ML INJ 500 ML IV SCH ×3 (00:31→23:42)
[2016-10-19] MEDS: oxyCODONE/ACETAMINOPHEN 5 MG/325 MG TAB PO PRN ×4 (04:18→23:42)
[2016-10-19] MEDS: ALPRAZolam 0.25 MG TAB PO PRN ×4 (04:18→23:41)
[2016-10-19] MEDS: HEPARIN SODIUM - SQ 10,000 UNITS/ML VIAL SQ SCH ×3 (06:00→20:48)
[2016-10-19] MEDS: TAMSULOSIN HCL 0.4 MG CAP PO SCH (08:32)
[2016-10-19] MEDS: SODIUM CHLORIDE 0.9% FLUSH 10 ML FLUSH IV FLUSH SCH ×2 (08:33→20:49)
[2016-10-19] MEDS: DOCUSATE SODIUM 50 MG/SENNA 8.6 MG TAB PO SCH ×2 (08:33→20:49)
[2016-10-19] MEDS: MORPHINE SULFATE 30 MG CONTROLLED RELEASE TAB PO SCH ×2 (08:33→20:48)
[2016-10-19] MEDS: LISINOPRIL 20 MG TAB PO SCH ×2 (10:49→20:48)
[2016-10-19] MEDS ORDERED: PHARMACY ORDERED LAB ONE (11:45)
--- NOTE | 2016-10-19 14:29 | HHI.PR ---
Subjective Remarks Patient is requesting a Nicotine patch. No new complaints. Objective Vitals Vital Signs Date Time Temp Pulse Resp B/P Pulse Ox O2 Delivery O2 Flow Rate FiO2 10/19/16 08:05 54 10/19/16 08:00 98.1 61 20 143/73 96 10/19/16 04:00 98.1 73 18 126/68 98 10/19/16 00:35 97.6 68 16 119/75 95 10/18/16 20:00 99.1 115 16 124/85 100 10/18/16 19:00 76 10/18/16 17:47 18 10/18/16 16:00 98.2 80 20 127/67 97 I/O 10/18/16 10/18/16 10/18/16 10/19/16 10/19/16 10/19/16 07:00 15:00 23:00 07:00 15:00 23:00 Intake Total 240 ml 1680 ml 431 ml Balance 240 ml 1680 ml 431 ml Intake Oral 240 ml 1680 ml IV Total 431 ml # Voids 2 8 2 2 # Bowel Movements 2 Result Diagram: 10/18/16 0914 10/18/16 0914 Imaging Last Impressions Lumbar Spine MRI 10/18/16 0000 Signed Impressions: Service Date/Time: Tuesday, October 18, 2016 19:16 - CONCLUSION: 1. Slight decrease in abnormal enhancing and edematous tissues around the spinous processes of L3 and L4. Enhancement extends into the dorsal dural surface of L3 and L4 but without epidural abscess or significant thecal sac compression. Persistent mild canal stenosis at L4-5 and no evidence for discitis. 2. There are some edematous changes and enhancement in the marrow of the spinous processes of L3 and L4. Differential diagnosis includes reactive change. Cannot exclude osteomyelitis dorsally. Leroy Quintero MD Objective Remarks GENERAL: This is a well-nourished, well-developed patient, in no apparent distress. CARDIOVASCULAR: Normal rate and regular rhythm without murmurs, gallops, or rubs. RESPIRATORY: Good respiratory efforts. Breath sounds equal and clear to auscultation bilaterally. GASTROINTESTINAL: Abdomen soft, non-tender, non-distended. Normal active bowel sounds MUSCULOSKELETAL: Patient complains of tenderness to palpation over the lumbar paraspinal region. NEURO: Alert & Oriented x4 to person, place, time, situation. Moves all ext x4 PSYCH: Irritable A/P Assessment and Plan 45-year-old male admitted secondary to lower back pain and paraspinal abscess diagnosed with infective endocarditis based on echocardiogram findings and leukocytosis. No worsening signs of infection of lower back. Better pain control present through time. Patient was on 30 mg of MS Contin twice a day and 5 mg Percocets every 6 hours for breakthrough. He left the hospital AGAINST MEDICAL ADVICE the morning of 10/18/16 and returned the same afternoon because he reportedly had 2 take out his belongings from the residence he was being evicted from. Infective endocarditis History of IV drug abuse Pain medication seeking behavior - Infectious disease following. Continue Vanco - Repeat MRI "1. Slight decrease in abnormal enhancing and edematous tissues around the spinous processes of L3 and L4. Persistent mild canal stenosis at L4- 5 and no evidence for discitis. 2. There are some edematous changes and enhancement in the marrow of the spinous processes of L3 and L4. Differential diagnosis includes reactive change. Cannot exclude osteomyelitis dorsally. - ID will will follow up and consider transitioning to outpatient telavancin once daily. - Patient does exhibit pain medication seeking behavior. Plan to wean him off all narcotics. Weaning plan will be based on objective findings and clinical indicators - Patient is currently on MS Contin 30 mg every 12 hours and Percocet every 6 hours as needed. Decrease MS Contin to 15 mg BID. - Plan is to continue to wean the patient off all Narcotics. Hypertension Noncompliant. Stable Continue lisinopril Lumbar spine edema: Improving Continue antibiotics Follow clinically for improvement Noncompliance: - Patient left the hospital AMA on 10/17 in the morning and returned the same day in the afternoon. He denies using drugs during that time. He was strongly counseled to comply with medical treatment. DVT prophylaxis Lovenox Discharge Planning ID following with tentative plan to DC home on Telavancin through the infusion center. Continue current treatment through the weekend and continue to wean off Narcotics. Robyn Smith MD Oct 19, 2016 2:29 pm
[2016-10-19] MEDS: NICOTINE 21 MG/24 HR PATCH T-DERMAL SCH (17:48)
[2016-10-19] MEDS: ZOLPIDEM TARTRATE 5 MG TAB PO PRN (20:53)
[2016-10-20] VITALS (7 sets, daily range): BP systolic 128–188; BP diastolic 76–119; PULSE 63–98; RESP 20; TEMP 97.5–98; O2SAT 96–98
[2016-10-20] MEDS: HEPARIN SODIUM - SQ 10,000 UNITS/ML VIAL SQ SCH ×3 (05:10→21:52)
[2016-10-20] MEDS: ALPRAZolam 0.25 MG TAB PO PRN ×3 (05:26→18:45)
[2016-10-20] MEDS: oxyCODONE/ACETAMINOPHEN 5 MG/325 MG TAB PO PRN ×3 (05:27→18:45)
[2016-10-20] MEDS: SODIUM CHLORIDE 0.9% FLUSH 10 ML FLUSH IV FLUSH SCH ×2 (08:39→21:51)
[2016-10-20] MEDS: DOCUSATE SODIUM 50 MG/SENNA 8.6 MG TAB PO SCH ×2 (08:40→21:51)
[2016-10-20] MEDS: LISINOPRIL 20 MG TAB PO SCH ×2 (08:40→21:50)
[2016-10-20] MEDS: MORPHINE SULFATE 30 MG CONTROLLED RELEASE TAB PO SCH ×2 (08:40→21:51)
[2016-10-20] MEDS: TAMSULOSIN HCL 0.4 MG CAP PO SCH (08:40)
[2016-10-20] MEDS: REMOVE OLD PATCH T-DERMAL SCH (09:00)
[2016-10-20] MEDS: VANCOMYCIN INJ 1,500 MG in SODIUM CHLORID 0.9% 500 ML INJ 500 ML IV SCH (11:37)
[2016-10-20] MEDS: NICOTINE 21 MG/24 HR PATCH T-DERMAL SCH (11:38)
--- NOTE | 2016-10-20 11:39 | HHI.PR ---
Subjective Remarks Overnight. Afebrile, vital signs stable. Patient continues to complain of uncontrolled pain. States the long-acting morphine "does nothing for him." He is tearful during our interview this morning claiming that he cannot find his girlfriend because they had a fight. Objective Vitals Vital Signs Date Time Temp Pulse Resp B/P Pulse Ox O2 Delivery O2 Flow Rate FiO2 10/20/16 08:57 97.5 63 157/102 98 10/20/16 06:00 97.8 76 20 128/76 97 10/20/16 05:00 Room Air 10/20/16 00:00 98.0 80 20 137/85 97 10/20/16 00:00 Room Air 10/19/16 21:54 71 10/19/16 20:00 97.8 79 20 157/100 97 10/19/16 20:00 Room Air 10/19/16 16:00 Room Air 10/19/16 16:00 97.8 52 20 159/85 97 10/19/16 12:00 97.4 66 20 132/83 96 I/O 10/19/16 10/19/16 10/19/16 10/20/16 10/20/16 10/20/16 07:00 15:00 23:00 07:00 15:00 23:00 Intake Total 1391 ml 255 ml 745 ml Balance 1391 ml 255 ml 745 ml Intake Oral 960 ml 240 ml IV Total 431 ml 255 ml 505 ml # Voids 2 4 3 # Bowel Movements 0 Result Diagram: 10/18/1691310/18/16913 Objective Remarks GENERAL: This is a well-nourished, well-developed patient, in no apparent distress. CARDIOVASCULAR: Normal rate and regular rhythm without murmurs, gallops, or rubs. RESPIRATORY: Good respiratory efforts. Breath sounds equal and clear to auscultation bilaterally. GASTROINTESTINAL: Abdomen soft, non-tender, non-distended. Normal active bowel sounds MUSCULOSKELETAL: Patient complains of tenderness to palpation over the lumbar paraspinal region. NEURO: Alert & Oriented x4 to person, place, time, situation. Moves all ext x4 PSYCH: Irritable. At times tearful. Becomes agitated when told he cannot have an increase in pain medication. A/P Assessment and Plan 45-year-old male admitted secondary to lower back pain and paraspinal abscess diagnosed with infective endocarditis based on echocardiogram findings and leukocytosis. No worsening signs of infection of lower back. Better pain control present through time. Patient was on 30 mg of MS Contin twice a day and 5 mg Percocets every 6 hours for breakthrough. He left the hospital AGAINST MEDICAL ADVICE the morning of 10/18/16 and returned the same afternoon because he reportedly had 2 take out his belongings from the residence he was being evicted from. Infective endocarditis History of IV drug abuse Pain medication seeking behavior - Infectious disease following. Continue Vanco - Repeat MRI "1. Slight decrease in abnormal enhancing and edematous tissues around the spinous processes of L3 and L4. Persistent mild canal stenosis at L4- 5 and no evidence for discitis. 2. There are some edematous changes and enhancement in the marrow of the spinous processes of L3 and L4. Differential diagnosis includes reactive change. Cannot exclude osteomyelitis dorsally. - ID will will follow up and consider transitioning to outpatient telavancin once daily. - Patient does exhibit pain medication seeking behavior. Plan to wean him off all narcotics. Weaning plan will be based on objective findings and clinical indicators - Patient is currently on MS Contin 30 mg every 12 hours and Percocet every 6 hours as needed. Continue MS Contin at 15 mg BID. - Plan is to continue to wean the patient off all Narcotics. Hypertension Noncompliant. Stable Continue lisinopril Lumbar spine edema: Improving Continue antibiotics Follow clinically for improvement Noncompliance: - Patient left the hospital AMA on 10/17 in the morning and returned the same day in the afternoon. He denies using drugs during that time. He was strongly counseled to comply with medical treatment. DVT prophylaxis Lovenox Discharge Planning ID following with tentative plan to DC home on Telavancin through the infusion center. Continue current treatment through the weekend and continue to wean off Narcotics. Loretta Dee MD R3 Oct 20, 2016 11:39
[2016-10-20] MEDS ORDERED: cloNIDine HCL 0.1 MG TAB PO ONE (19:30)
[2016-10-20] MEDS: ZOLPIDEM TARTRATE 5 MG TAB PO PRN (21:49)
[2016-10-21] VITALS (7 sets, daily range): BP systolic 120–174; BP diastolic 80–93; PULSE 54–72; RESP 18–20; TEMP 97.2–98.1; O2SAT 97–99
[2016-10-21] MEDS: VANCOMYCIN INJ 1,500 MG in SODIUM CHLORID 0.9% 500 ML INJ 500 ML IV SCH ×3 (00:40→23:01)
[2016-10-21] MEDS: ALPRAZolam 0.25 MG TAB PO PRN ×4 (01:38→22:30)
[2016-10-21] MEDS: oxyCODONE/ACETAMINOPHEN 5 MG/325 MG TAB PO PRN ×4 (01:38→22:30)
[2016-10-21] MEDS: HEPARIN SODIUM - SQ 10,000 UNITS/ML VIAL SQ SCH ×4 (05:20→22:30)
[2016-10-21] MEDS: TAMSULOSIN HCL 0.4 MG CAP PO SCH (08:16)
[2016-10-21] MEDS: DOCUSATE SODIUM 50 MG/SENNA 8.6 MG TAB PO SCH ×2 (08:16→20:08)
[2016-10-21] MEDS: LISINOPRIL 20 MG TAB PO SCH ×2 (08:16→20:09)
[2016-10-21] MEDS: MORPHINE SULFATE 30 MG CONTROLLED RELEASE TAB PO SCH ×2 (08:16→20:09)
[2016-10-21] MEDS: NICOTINE 21 MG/24 HR PATCH T-DERMAL SCH (08:16)
[2016-10-21] MEDS: SODIUM CHLORIDE 0.9% FLUSH 10 ML FLUSH IV FLUSH SCH ×2 (08:17→20:09)
[2016-10-21] MEDS: REMOVE OLD PATCH T-DERMAL SCH (08:23)
--- NOTE | 2016-10-21 10:03 | HHI.PR ---
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 Patient was being treated with IV vancomycin. He left the hospital AGAINST MEDICAL ADVICE earlier this morning. He reports he had to leave to take out his belongings from his residence because he was getting evicted. He came back with complaint of persistent low back pain. He denies any drug use since leaving the hospital. 10-21 patient complains of pain and states we are not controlling his pain States that we have adjusted his pain medications and adjust them as needed Discussed with patient and RN and family in the room Objective Vitals Vital Signs Date Time Temp Pulse Resp B/P Pulse Ox O2 Delivery O2 Flow Rate FiO2 10/21/16 08:00 97.2 54 18 143/93 98 10/21/16 04:00 97.3 62 20 120/80 99 10/21/16 00:00 97.2 60 20 150/90 97 10/20/16 20:00 97.6 66 20 179/109 97 155/100 10/20/16 20:00 71 10/20/16 19:00 Room Air 10/20/16 17:31 97.9 98 188/119 98 10/20/16 12:43 98.0 65 151/92 96 I/O 10/20/16 10/20/16 10/20/16 10/21/16 10/21/16 10/21/16 06:59 14:59 22:59 06:59 14:59 22:59 Intake Total 745 ml 4 ml 1680 ml 720 ml Balance 745 ml 4 ml 1680 ml 720 ml Intake Oral 240 ml 1680 ml 720 ml IV Total 505 ml 4 ml # Voids 3 5 3 Result Diagram: 10/18/16 0914 10/18/16 0914 Imaging Last Impressions Lumbar Spine MRI 10/18/16 0000 Signed Impressions: Service Date/Time: Tuesday, October 18, 2016 19:16 - CONCLUSION: 1. Slight decrease in abnormal enhancing and edematous tissues around the spinous processes of L3 and L4. Enhancement extends into the dorsal dural surface of L3 and L4 but without epidural abscess or significant thecal sac compression. Persistent mild canal stenosis at L4-5 and no evidence for discitis. 2. There are some edematous changes and enhancement in the marrow of the spinous processes of L3 and L4. Differential diagnosis includes reactive change. Cannot exclude osteomyelitis dorsally. Leroy Quintero MD Objective Remarks GENERAL: Awake alert and oriented talkative and cooperative SKIN: Warm and dry. Multiple tattoos upper extremity and lower extremity HEAD: Atraumatic. Normocephalic. EYES: Pupils equal and round. No scleral icterus. No injection or drainage. Extraocular muscles grossly intact ENT: No nasal bleeding or discharge. Mucous membranes pink and moist. Tongue is midline NECK: Trachea midline. No JVD. CARDIOVASCULAR: Regular rate and rhythm. S1 and S2 no S3 or S4 no heave or thrill or rub or gallop RESPIRATORY: No accessory muscle use. Clear to auscultation. Breath sounds equal bilaterally. GASTROINTESTINAL: Abdomen soft, non-tender, nondistended. Hepatic and splenic margins not palpable. MUSCULOSKELETAL: Extremities without clubbing, cyanosis, or edema. No obvious deformities. NEUROLOGICAL: Awake and alert. No obvious cranial nerve deficits. Motor grossly within normal limits. Five out of 5 muscle strength in the arms and legs. Normal speech. PSYCHIATRIC: Appropriate mood and affect; insight and judgment normal. Drug seeking behavior Medications and IVs Current Medications Vancomycin HCl/ Sodium Chloride (Vancomycin Inj/ NS 250 ml Inj) 261.5 ml @ 250 mls/hr ONCE ONCE IV Last administered on 10/17/16 14:14; Start 10/17/16 at 13 :00; Stop 10/17/16 at 14:05; Status DC Alprazolam (Xanax) 0.25 mg Q6H PRN PO ANXIETY Last administered on 10/21/16 08 :17; Start 10/17/16 at 13:30 Lisinopril (Prinivil) 20 mg BID PO Last administered on 10/21/16 08:16; Start 10/17/16 at 21:00 Tamsulosin HCl (Flomax) 0.4 mg DAILY PO Last administered on 10/21/16 08:16; Start 10/18/16 at 09:00 Oxycodone/ Acetaminophen (Percocet 5-325 Mg) 1 tab Q6H PRN PO BREAKTHROUGH PAIN Last administered on 10/21/16 01:38; Start 10/17/16 at 13:30 Morphine Sulfate (Oramorph Sr) 30 mg Q12HR PO Last administered on 10/21/16 08 :16; Start 10/17/16 at 21:00 Zolpidem Tartrate (Ambien) 5 mg HS PRN PO INSOMNIA Last administered on 21:49; Start 10/17/16 at 13:30 Senna/Docusate Sodium (Maribel-Colace) 1 tab BID PO Last administered on 08:16; Start 10/17/16 at 21:00 Sodium Chloride (NS Flush) 2 ml UNSCH PRN IV FLUSH FLUSH AFTER USING IV ACCESS ; Start 10/17/16 at 13:45 Sodium Chloride (NS Flush) 2 ml BID IV FLUSH Last administered on 10/21/16 08: 17; Start 10/17/16 at 21:00 Acetaminophen (Tylenol) 650 mg Q4H PRN PO TEMP > 100.4; Start 10/17/16 at 13:45 Ondansetron HCl (Zofran Inj) 4 mg Q6H PRN IVP NAUSEA OR VOMITING; Start at 13:45 Heparin Sodium (Porcine) (Heparin Inj) 5,000 units Q8H SQ Last administered on 10/20/16 21:52; Start 10/17/16 at 14:00 Naloxone HCl (Narcan Inj) 0.4 mg UNSCH PRN IV SEE LABEL COMMENTS; Start at 13:45 Magnesium Hydroxide (Milk Of Magnesia Liq) 30 ml Q12H PRN PO MILD - MODERATE CONSTIPATION; Start 10/17/16 at 13:45 Sennosides (Senokot) 17.2 mg Q12H PRN PO MODERATE - SEVERE CONSTIPATION; Start 10/17/16 at 13:45 Bisacodyl (Dulcolax Supp) 10 mg DAILY PRN RECTAL SEVERE CONSITIPATION; Start at 13:45 Lactulose 30 ml 30 ml DAILY PRN PO SEVERE CONSITIPATION; Start 10/17/16 at 13: 45 Vancomycin HCl 1500 mg/Sodium Chloride 515 ml @ 257.5 mls/ hr Q12H IV ; Start 10/17/16 at 21:00; Stop 10/17/16 at 21:00; Status DC Pharmacy Profile Note 0 ml @ 0 mls/hr UNSCH OTHER ; Start 10/17/16 at 13:45 Vancomycin HCl/ Sodium Chloride (Vancomycin Inj/ NS 500 ml Inj) 515 ml @ 250 mls/hr Q12H IV Last administered on 10/21/16 00:40; Start 10/18/16 at 00:00 Miscellaneous Information SPECIFIC LAB TO BE DRAWN:VANCOMYCIN TROUGH DATE TO... ONCE ONCE .XX Last administered on 10/19/16 11:45; Start 10/19/16 at 11:45; Stop 10/19/16 at 11:46; Status DC Enoxaparin Sodium (Lovenox Inj) 40 mg Q24H SQ ; Start 10/17/16 at 16:45; Stop at 17:04; Status DC Gadodiamide (Omniscan Pf Inj) 16 ml STK-MED ONCE IV Last administered on 19:36; Start 10/18/16 at 19:36; Stop 10/18/16 at 19:37; Status DC Nicotine (Habitrol 21 Mg Patch.24 Hr) 1 patch DAILY T-DERMAL Last administered on 10/21/16 08:16; Start 10/19/16 at 16:00 Miscellaneous Information 1 DAILY T-DERMAL Last administered on 10/21/16 08:23 ; Start 10/20/16 at 09:00 Clonidine (Catapres) 0.1 mg ONCE ONCE PO Last administered on 10/20/16 21:58 ; Start 10/20/16 at 19:30; Stop 10/20/16 at 19:31; Status DC Urinary Catheter: No Vascular Central Line Catheter: No A/P Problem List: (1) Tobacco use ICD Code: Z72.0 Status: Acute (2) IV drug abuse ICD Code: F19.10 Status: Chronic (3) IVDU (intravenous drug user) ICD Code: F19.90 Status: Chronic (4) Infective endocarditis ICD Code: I33.0 Status: Acute (5) Hypertension ICD Code: I10 Status: Acute (6) Depressive disorder ICD Code: F32.9 Status: Acute (7) Back pain ICD Code: M54.9 Status: Acute (8) Polysubstance dependence ICD Code: F19.20 Status: Chronic (9) Polysubstance (including opioids) dependence, daily use ICD Code: F19.20 Status: Chronic Assessment and Plan 45-year-old male admitted secondary to lower back pain and paraspinal abscess diagnosed with infective endocarditis based on echocardiogram findings and leukocytosis. No worsening signs of infection of lower back. Better pain control present through time. Patient was on 30 mg of MS Contin twice a day and 5 mg Percocets every 6 hours for breakthrough. He left the hospital AGAINST MEDICAL ADVICE the morning of 10/18/16 and returned the same afternoon because he reportedly had 2 take out his belongings from the residence he was being evicted from. Infective endocarditis History of IV drug abuse Pain medication seeking behavior - Infectious disease following. Continue Vanco - Repeat MRI "1. Slight decrease in abnormal enhancing and edematous tissues around the spinous processes of L3 and L4. Persistent mild canal stenosis at L4- 5 and no evidence for discitis. 2. There are some edematous changes and enhancement in the marrow of the spinous processes of L3 and L4. Differential diagnosis includes reactive change. Cannot exclude osteomyelitis dorsally. - ID will will follow up and consider transitioning to outpatient telavancin once daily. - Patient does exhibit pain medication seeking behavior. Plan to wean him off all narcotics. Weaning plan will be based on objective findings and clinical indicators - Patient is currently on MS Contin 30 mg every 12 hours and Percocet every 6 hours as needed. Continue MS Contin at 15 mg BID. - Plan is to continue to wean the patient off all Narcotics. Hypertension Noncompliant. Stable Continue lisinopril Lumbar spine edema: Improving Continue antibiotics Follow clinically for improvement Noncompliance: - Patient left the hospital AMA on 10/17 in the morning and returned the same day in the afternoon. He denies using drugs during that time. He was strongly counseled to comply with medical treatment. DVT prophylaxis Lovenox Discharge Planning ID following with tentative plan to DC home on Telavancin through the infusion center. Continue current treatment through the weekend and continue to wean off Narcotics. Discharge Planning Case management and infectious disease for possible discharge in future Problem Qualifiers (1) Infective endocarditis: Qualified Code: I33.0 - Bacterial endocarditis, unspecified chronicity Rafael Steinberg DO Oct 21, 2016 10:03
[2016-10-21 11:27] LABS: AUTOMATED NEUTROPHIL # 2.4 TH/MM3 (1.8-7.7); BASOPHIL # 0.1 TH/MM3 (0-0.2); BASOPHIL % 1.2 % (0.0-2.0); EOSINOPHIL # 0.1 TH/MM3 (0-0.4); EOSINOPHIL % 2.6 % (0.0-4.0); HEMATOCRIT 37.5 % (39.0-51.0); HEMO FLAGS DIFF FINAL; LYMPHOCYTE # 2.1 TH/MM3 (1.0-4.8); MEAN CELL VOLUME 86.8 FL (80.0-100.0); MEAN CORPUSCULAR HEMOGLOBIN 30.3 PG (27.0-34.0); MEAN CORPUSCULAR HGB CONC 34.9 % (32.0-36.0); MONO % 9.7 % (0.0-8.0); NEUT % 45.5 % (16.0-70.0); PLATELET COUNT 248 TH/MM3 (150-450); RED BLOOD COUNT 4.32 MIL/MM3 (4.50-5.90); WHITE BLOOD COUNT 5.2 TH/MM3 (4.0-11.0)
[2016-10-21 11:48] LABS: BICARBONATE 30.4 MEQ/L (21.0-32.0); POTASSIUM 3.9 MEQ/L (3.5-5.1)
--- NOTE | 2016-10-21 15:30 | HHI.IDPN ---
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 Patient had been treated at another hospital with IV Vanco and then oral bactrim few weeks [employer] per patient account. Patient was being treated with IV vancomycin while in hospital. All BCX were negative then. Plan was to repeat MRI and if improving to discharge him on IV Telavancin once a day in clinic. He left the hospital AGAINST MEDICAL ADVICE. He reports he had to leave to take out his belongings from his residence because he was getting evicted. He came back with complaint of persistent low back pain. He denies any drug use since leaving the hospital. Patient denies any fevers or night sweats after signing off AMA from hospital. Antibiotics Vanco IV Lines Line sites with no e.o infection Past Medical History Past Medical History Anxiety Hypertension but does not take any medications IV drug use ? History of hemorrhagic stroke Past Surgical History Right ear surgery Tonsillectomy Allergies: Coded Allergies: No Known Allergies (Verified , 10/17/16) Objective . Vital Signs Date Time Temp Pulse Resp B/P Pulse Ox O2 Delivery O2 Flow Rate FiO2 10/21/16 13:20 97.5 68 20 170/90 97 10/21/16 08:50 Room Air 10/21/16 08:50 54 10/21/16 08:00 97.2 54 18 143/93 98 10/21/16 04:00 97.3 62 20 120/80 99 10/21/16 00:00 97.2 60 20 150/90 97 10/20/16 20:00 97.6 66 20 179/109 97 155/100 10/20/16 20:00 71 10/20/16 19:00 Room Air 10/20/16 17:31 97.9 98 188/119 98 10/20/16 10/20/16 10/21/16 14:59 22:59 06:59 Intake Total 4 ml 1680 ml 720 ml Balance 4 ml 1680 ml 720 ml Intake Oral 1680 ml 720 ml IV Total 4 ml # Voids 5 3 . Laboratory Tests Test 10/21/16 10:28 White Blood Count 5.2 TH/MM3 Red Blood Count 4.32 MIL/MM3 Hemoglobin 13.1 GM/DL Hematocrit 37.5 % Mean Corpuscular Volume 86.8 FL Mean Corpuscular Hemoglobin 30.3 PG Mean Corpuscular Hemoglobin 34.9 % Concent Red Cell Distribution Width 14.0 % Platelet Count 248 TH/MM3 Mean Platelet Volume 8.6 FL Neutrophils (%) (Auto) 45.5 % Lymphocytes (%) (Auto) 41.0 % Monocytes (%) (Auto) 9.7 % Eosinophils (%) (Auto) 2.6 % Basophils (%) (Auto) 1.2 % Neutrophils # (Auto) 2.4 TH/MM3 Lymphocytes # (Auto) 2.1 TH/MM3 Monocytes # (Auto) 0.5 TH/MM3 Eosinophils # (Auto) 0.1 TH/MM3 Basophils # (Auto) 0.1 TH/MM3 CBC Comment DIFF FINAL Differential Comment Laboratory Tests Test 10/21/16 10:28 Sodium Level 137 MEQ/L Potassium Level 3.9 MEQ/L Chloride Level 101 MEQ/L Carbon Dioxide Level 30.4 MEQ/L Anion Gap 6 MEQ/L Blood Urea Nitrogen 12 MG/DL Creatinine 0.74 MG/DL Estimat Glomerular Filtration 114 ML/MIN Rate Random Glucose 97 MG/DL Calcium Level 8.8 MG/DL Imaging Last Impressions Lumbar Spine MRI 10/18/16 0000 Signed Impressions: Service Date/Time: Tuesday, October 18, 2016 19:16 - CONCLUSION: 1. Slight decrease in abnormal enhancing and edematous tissues around the spinous processes of L3 and L4. Enhancement extends into the dorsal dural surface of L3 and L4 but without epidural abscess or significant thecal sac compression. Persistent mild canal stenosis at L4-5 and no evidence for discitis. 2. There are some edematous changes and enhancement in the marrow of the spinous processes of L3 and L4. Differential diagnosis includes reactive change. Cannot exclude osteomyelitis dorsally. Leroy Quintero MD Physical Exam GENERAL: This is a well-nourished, well-developed patient, in no apparent distress. SKIN: No rashes, ecchymoses or lesions. Cool and dry. HEAD: Atraumatic. Normocephalic. No temporal or scalp tenderness. EYES: Pupils equal round and reactive. Extraocular motions intact. No scleral icterus. No injection or drainage. ENT: Nose without bleeding, purulent drainage or septal hematoma. Throat without erythema, tonsillar hypertrophy or exudate. Uvula midline. Airway patent. NECK: Trachea midline. No JVD or lymphadenopathy. Supple, nontender, no meningeal signs. CARDIOVASCULAR: Regular rate and rhythm without murmurs, gallops, or rubs. RESPIRATORY: Clear to auscultation. Breath sounds equal bilaterally. No wheezes , rales, or rhonchi. GASTROINTESTINAL: Abdomen soft, non-tender, nondistended. No hepato-splenomegaly , or palpable masses. No guarding. MUSCULOSKELETAL: Extremities without clubbing, cyanosis, or edema. No joint tenderness, effusion, or edema noted. No calf tenderness. Negative Homans sign bilaterally. NEUROLOGICAL: Awake and alert. Cranial nerves II through XII intact. Motor and sensory grossly within normal limits. Five out of 5 muscle strength in all muscle groups. Normal speech. Psych cooperative IV line sites with no e.o infection Assessment & Plan Remarks Culture negative endocarditis. Lumbar paraspinal abscess. Possible MSSA, MRSA or Strep. pain medicine seeking behavior. Recs: Continue Vanco IV (target 15-20) Repeat MRI L spine improved. Patient reports he is homeless at this point. Also he has reported to others that he will likely abuse his PICC line. He demonstrates pain medicine seeking behavior in hospital. High risk for in hospital IVDA as well as outpt. High risk for signing off AMA. olga Patient that at this point due to safety concerns will keep him in hospital till his home issue is resolved which seems like it wont be. I also d.w him that I will likely continue IV Vanco and repeat CT L spine in 2 weeks. If he shows remarkable improvement will then consider other options. olga RN, pt and significant other. Follow cultures Follow clinically. Zena Slater MD Oct 21, 2016 15:30
[2016-10-21] MEDS: ZOLPIDEM TARTRATE 5 MG TAB PO PRN (23:00)
[2016-10-22] VITALS: BP 145/85; PULSE 60; RESP 18; TEMP 97.8; O2SAT 97
[2016-10-22] MEDS: ALPRAZolam 0.25 MG TAB PO PRN ×3 (05:41→18:15)
[2016-10-22] MEDS: oxyCODONE/ACETAMINOPHEN 5 MG/325 MG TAB PO PRN ×3 (05:41→18:16)
[2016-10-22] MEDS: HEPARIN SODIUM - SQ 10,000 UNITS/ML VIAL SQ SCH ×3 (05:42→21:29)
[2016-10-22 08:00] VITALS: BP 183/97; PULSE 61; RESP 18; TEMP 97.5; O2SAT 98
[2016-10-22] MEDS: REMOVE OLD PATCH T-DERMAL SCH (09:00)
[2016-10-22] MEDS: TAMSULOSIN HCL 0.4 MG CAP PO SCH (09:00)
[2016-10-22] MEDS: LISINOPRIL 20 MG TAB PO SCH ×2 (09:21→21:29)
[2016-10-22] MEDS: NICOTINE 21 MG/24 HR PATCH T-DERMAL SCH (09:22)
[2016-10-22] MEDS: DOCUSATE SODIUM 50 MG/SENNA 8.6 MG TAB PO SCH ×2 (09:22→21:29)
[2016-10-22] MEDS: MORPHINE SULFATE 30 MG CONTROLLED RELEASE TAB PO SCH ×2 (09:23→21:29)
[2016-10-22] MEDS: SODIUM CHLORIDE 0.9% FLUSH 10 ML FLUSH IV FLUSH SCH ×2 (09:23→21:28)
[2016-10-22 09:35] LABS: AUTOMATED NEUTROPHIL # 2.5 TH/MM3 (1.8-7.7); BASOPHIL # 0.1 TH/MM3 (0-0.2); BASOPHIL % 2.2 % (0.0-2.0); EOSINOPHIL # 0.2 TH/MM3 (0-0.4); EOSINOPHIL % 3.3 % (0.0-4.0); HEMATOCRIT 41.2 % (39.0-51.0); HEMO FLAGS DIFF FINAL; LYMPH % 40.1 % (9.0-44.0); LYMPHOCYTE # 2.2 TH/MM3 (1.0-4.8); MONO % 8.6 % (0.0-8.0); NEUT % 45.8 % (16.0-70.0); PLATELET COUNT 255 TH/MM3 (150-450); RED BLOOD COUNT 4.68 MIL/MM3 (4.50-5.90); WHITE BLOOD COUNT 5.5 TH/MM3 (4.0-11.0)
--- NOTE | 2016-10-22 09:42 | HHI.PR ---
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 Patient was being treated with IV vancomycin. He left the hospital AGAINST MEDICAL ADVICE earlier this morning. He reports he had to leave to take out his belongings from his residence because he was getting evicted. He came back with complaint of persistent low back pain. He denies any drug use since leaving the hospital. 10-21 patient complains of pain and states we are not controlling his pain States that we have adjusted his pain medications and adjust them as needed Discussed with patient and RN and family in the room 10-22 WILL ADJUST BP MEDICATIONS ADD NORVASC 5 MG PO DAILY Objective Vitals Vital Signs Date Time Temp Pulse Resp B/P Pulse Ox O2 Delivery O2 Flow Rate FiO2 10/22/16 00:00 97.8 60 18 145/85 97 10/22/16 00:00 Room Air 10/21/16 20:00 98.1 66 18 174/92 97 10/21/16 20:00 Room Air 10/21/16 16:00 97.6 72 19 155/90 99 10/21/16 13:20 97.5 68 20 170/90 97 I/O 10/21/16 10/21/16 10/21/16 10/22/16 10/22/16 10/22/16 06:59 14:59 22:59 06:59 14:59 22:59 Intake Total 720 ml 960 ml 500 ml 537 ml Balance 720 ml 960 ml 500 ml 537 ml Intake Oral 720 ml 960 ml IV Total 500 ml 537 ml # Voids 3 5 3 Result Diagram: 10/21/16 1028 10/21/16 1028 Other Results Laboratory Tests Test 10/21/16 10:28 White Blood Count 5.2 TH/MM3 Red Blood Count 4.32 MIL/MM3 Hemoglobin 13.1 GM/DL Hematocrit 37.5 % Mean Corpuscular Volume 86.8 FL Mean Corpuscular Hemoglobin 30.3 PG Mean Corpuscular Hemoglobin 34.9 % Concent Red Cell Distribution Width 14.0 % Platelet Count 248 TH/MM3 Mean Platelet Volume 8.6 FL Neutrophils (%) (Auto) 45.5 % Lymphocytes (%) (Auto) 41.0 % Monocytes (%) (Auto) 9.7 % Eosinophils (%) (Auto) 2.6 % Basophils (%) (Auto) 1.2 % Neutrophils # (Auto) 2.4 TH/MM3 Lymphocytes # (Auto) 2.1 TH/MM3 Monocytes # (Auto) 0.5 TH/MM3 Eosinophils # (Auto) 0.1 TH/MM3 Basophils # (Auto) 0.1 TH/MM3 CBC Comment DIFF FINAL Differential Comment Sodium Level 137 MEQ/L Potassium Level 3.9 MEQ/L Chloride Level 101 MEQ/L Carbon Dioxide Level 30.4 MEQ/L Anion Gap 6 MEQ/L Blood Urea Nitrogen 12 MG/DL Creatinine 0.74 MG/DL Estimat Glomerular Filtration 114 ML/MIN Rate Random Glucose 97 MG/DL Calcium Level 8.8 MG/DL Imaging Last Impressions Lumbar Spine MRI 10/18/16 0000 Signed Impressions: Service Date/Time: Tuesday, October 18, 2016 19:16 - CONCLUSION: 1. Slight decrease in abnormal enhancing and edematous tissues around the spinous processes of L3 and L4. Enhancement extends into the dorsal dural surface of L3 and L4 but without epidural abscess or significant thecal sac compression. Persistent mild canal stenosis at L4-5 and no evidence for discitis. 2. There are some edematous changes and enhancement in the marrow of the spinous processes of L3 and L4. Differential diagnosis includes reactive change. Cannot exclude osteomyelitis dorsally. Leroy Quintero MD Objective Remarks GENERAL: Awake alert and oriented talkative and cooperative SKIN: Warm and dry. Multiple tattoos upper extremity and lower extremity HEAD: Atraumatic. Normocephalic. EYES: Pupils equal and round. No scleral icterus. No injection or drainage. Extraocular muscles grossly intact ENT: No nasal bleeding or discharge. Mucous membranes pink and moist. Tongue is midline NECK: Trachea midline. No JVD. CARDIOVASCULAR: Regular rate and rhythm. S1 and S2 no S3 or S4 no heave or thrill or rub or gallop RESPIRATORY: No accessory muscle use. Clear to auscultation. Breath sounds equal bilaterally. GASTROINTESTINAL: Abdomen soft, non-tender, nondistended. Hepatic and splenic margins not palpable. MUSCULOSKELETAL: Extremities without clubbing, cyanosis, or edema. No obvious deformities. NEUROLOGICAL: Awake and alert. No obvious cranial nerve deficits. Motor grossly within normal limits. Five out of 5 muscle strength in the arms and legs. Normal speech. PSYCHIATRIC: Appropriate mood and affect; insight and judgment normal. Drug seeking behavior Medications and IVs Current Medications Vancomycin HCl/ Sodium Chloride (Vancomycin Inj/ NS 250 ml Inj) 261.5 ml @ 250 mls/hr ONCE ONCE IV Last administered on 10/17/16 14:14; Start 10/17/16 at 13 :00; Stop 10/17/16 at 14:05; Status DC Alprazolam (Xanax) 0.25 mg Q6H PRN PO ANXIETY Last administered on 10/22/16 05 :41; Start 10/17/16 at 13:30 Lisinopril (Prinivil) 20 mg BID PO Last administered on 10/22/16 09:21; Start 10/17/16 at 21:00 Tamsulosin HCl (Flomax) 0.4 mg DAILY PO Last administered on 10/22/16 09:00; Start 10/18/16 at 09:00 Oxycodone/ Acetaminophen (Percocet 5-325 Mg) 1 tab Q6H PRN PO BREAKTHROUGH PAIN Last administered on 10/22/16 05:41; Start 10/17/16 at 13:30 Morphine Sulfate (Oramorph Sr) 30 mg Q12HR PO Last administered on 10/22/16 09 :23; Start 10/17/16 at 21:00 Zolpidem Tartrate (Ambien) 5 mg HS PRN PO INSOMNIA Last administered on 23:00; Start 10/17/16 at 13:30 Senna/Docusate Sodium (Maribel-Colace) 1 tab BID PO Last administered on 09:22; Start 10/17/16 at 21:00 Sodium Chloride (NS Flush) 2 ml UNSCH PRN IV FLUSH FLUSH AFTER USING IV ACCESS ; Start 10/17/16 at 13:45 Sodium Chloride (NS Flush) 2 ml BID IV FLUSH Last administered on 10/22/16 09: 23; Start 10/17/16 at 21:00 Acetaminophen (Tylenol) 650 mg Q4H PRN PO TEMP > 100.4; Start 10/17/16 at 13:45 Ondansetron HCl (Zofran Inj) 4 mg Q6H PRN IVP NAUSEA OR VOMITING; Start at 13:45 Heparin Sodium (Porcine) (Heparin Inj) 5,000 units Q8H SQ Last administered on 10/21/16 22:30; Start 10/17/16 at 14:00 Naloxone HCl (Narcan Inj) 0.4 mg UNSCH PRN IV SEE LABEL COMMENTS; Start at 13:45 Magnesium Hydroxide (Milk Of Magnrosales Liq) 30 ml Q12H PRN PO MILD - MODERATE CONSTIPATION; Start 10/17/16 at 13:45 Sennosides (Senokot) 17.2 mg Q12H PRN PO MODERATE - SEVERE CONSTIPATION; Start 10/17/16 at 13:45 Bisacodyl (Dulcolax Supp) 10 mg DAILY PRN RECTAL SEVERE CONSITIPATION; Start at 13:45 Lactulose 30 ml 30 ml DAILY PRN PO SEVERE CONSITIPATION; Start 10/17/16 at 13: 45 Vancomycin HCl 1500 mg/Sodium Chloride 515 ml @ 257.5 mls/ hr Q12H IV ; Start 10/17/16 at 21:00; Stop 10/17/16 at 21:00; Status DC Pharmacy Profile Note 0 ml @ 0 mls/hr UNSCH OTHER ; Start 10/17/16 at 13:45 Vancomycin HCl/ Sodium Chloride (Vancomycin Inj/ NS 500 ml Inj) 515 ml @ 250 mls/hr Q12H IV Last administered on 10/21/16 23:01; Start 10/18/16 at 00:00 Miscellaneous Information SPECIFIC LAB TO BE DRAWN:VANCOMYCIN TROUGH DATE TO... ONCE ONCE .XX Last administered on 10/19/16 11:45; Start 10/19/16 at 11:45; Stop 10/19/16 at 11:46; Status DC Enoxaparin Sodium (Lovenox Inj) 40 mg Q24H SQ ; Start 10/17/16 at 16:45; Stop at 17:04; Status DC Gadodiamide (Omniscan Pf Inj) 16 ml STK-MED ONCE IV Last administered on 19:36; Start 10/18/16 at 19:36; Stop 10/18/16 at 19:37; Status DC Nicotine (Habitrol 21 Mg Patch.24 Hr) 1 patch DAILY T-DERMAL Last administered on 10/22/16 09:22; Start 10/19/16 at 16:00 Miscellaneous Information 1 DAILY T-DERMAL Last administered on 10/22/16 09:00 ; Start 10/20/16 at 09:00 Clonidine (Catapres) 0.1 mg ONCE ONCE PO Last administered on 10/20/16 21:58 ; Start 10/20/16 at 19:30; Stop 10/20/16 at 19:31; Status DC Urinary Catheter: No Vascular Central Line Catheter: No A/P Problem List: (1) Tobacco use ICD Code: Z72.0 Status: Acute (2) IV drug abuse ICD Code: F19.10 Status: Chronic (3) IVDU (intravenous drug user) ICD Code: F19.90 Status: Chronic (4) Infective endocarditis ICD Code: I33.0 Status: Acute (5) Hypertension ICD Code: I10 Status: Acute (6) Depressive disorder ICD Code: F32.9 Status: Acute (7) Back pain ICD Code: M54.9 Status: Acute (8) Polysubstance dependence ICD Code: F19.20 Status: Chronic (9) Polysubstance (including opioids) dependence, daily use ICD Code: F19.20 Status: Chronic Assessment and Plan 45-year-old male admitted secondary to lower back pain and paraspinal abscess diagnosed with infective endocarditis based on echocardiogram findings and leukocytosis. No worsening signs of infection of lower back. Better pain control present through time. Patient was on 30 mg of MS Contin twice a day and 5 mg Percocets every 6 hours for breakthrough. He left the hospital AGAINST MEDICAL ADVICE the morning of 10/18/16 and returned the same afternoon because he reportedly had 2 take out his belongings from the residence he was being evicted from. Infective endocarditis History of IV drug abuse Pain medication seeking behavior - Infectious disease following. Continue Vanco - Repeat MRI "1. Slight decrease in abnormal enhancing and edematous tissues around the spinous processes of L3 and L4. Persistent mild canal stenosis at L4- 5 and no evidence for discitis. 2. There are some edematous changes and enhancement in the marrow of the spinous processes of L3 and L4. Differential diagnosis includes reactive change. Cannot exclude osteomyelitis dorsally. - ID will will follow up and consider transitioning to outpatient telavancin once daily. - Patient does exhibit pain medication seeking behavior. Plan to wean him off all narcotics. Weaning plan will be based on objective findings and clinical indicators - Patient is currently on MS Contin 30 mg every 12 hours and Percocet every 6 hours as needed. Continue MS Contin at 15 mg BID. - Plan is to continue to wean the patient off all Narcotics. Hypertension Noncompliant. Stable Continue lisinopril 20 MG BID NORVASC 5MG DAILY Lumbar spine edema: Improving Continue antibiotics Follow clinically for improvement Noncompliance: - Patient left the hospital AMA on 10/17 in the morning and returned the same day in the afternoon. He denies using drugs during that time. He was strongly counseled to comply with medical treatment. DVT prophylaxis Lovenox Discharge Planning ID following with tentative plan to DC home on Telavancin through the infusion center. Continue current treatment through the weekend and continue to wean off Narcotics. Discharge Planning Case management and infectious disease for possible discharge in future Problem Qualifiers (1) Infective endocarditis: Qualified Code: I33.0 - Bacterial endocarditis, unspecified chronicity Rafael Steinberg DO Oct 22, 2016 09:42
[2016-10-22] MEDS ORDERED: amLODIPine BESYLATE 5 MG TAB PO ONE (09:45)
[2016-10-22 09:55] LABS: ANION GAP 5 MEQ/L (5-15); AST (GOT) 52 U/L (15-37); BICARBONATE 29.9 MEQ/L (21.0-32.0); BLOOD UREA NITROGEN 15 MG/DL (7-18); CHLORIDE 103 MEQ/L (98-107); GLOMERULAR FILTRATION RATE 114 ML/MIN (>89); MAGNESIUM 2.1 MG/DL (1.5-2.5); SODIUM (NA) 138 MEQ/L (136-145)
[2016-10-22 09:57] LABS: ALKALINE PHOSPHATASE 110 U/L (45-117); ALT (GPT) 120 U/L (12-78); TOTAL BILIRUBIN ADULT 0.4 MG/DL (0.2-1.0)
[2016-10-22] MEDS: VANCOMYCIN INJ 1,500 MG in SODIUM CHLORID 0.9% 500 ML INJ 500 ML IV SCH (11:55)
[2016-10-22 12:00] VITALS: BP 154/93; PULSE 59; RESP 18; TEMP 97.8; O2SAT 99
[2016-10-22 16:00] VITALS: BP 138/85; PULSE 69; RESP 18; TEMP 97.4; O2SAT 98
[2016-10-22 20:00] VITALS: BP 116/77; PULSE 64; RESP 16; TEMP 98.6; O2SAT 97
[2016-10-22] MEDS: ZOLPIDEM TARTRATE 5 MG TAB PO PRN (21:28)
[2016-10-23] VITALS: BP 126/71; PULSE 60; RESP 17; TEMP 97.4; O2SAT 99
[2016-10-23] MEDS: VANCOMYCIN INJ 1,500 MG in SODIUM CHLORID 0.9% 500 ML INJ 500 ML IV SCH ×2 (00:18→13:03)
[2016-10-23] MEDS: ALPRAZolam 0.25 MG TAB PO PRN ×4 (00:18→18:45)
[2016-10-23] MEDS: oxyCODONE/ACETAMINOPHEN 5 MG/325 MG TAB PO PRN ×4 (00:18→18:45)
[2016-10-23 04:00] VITALS: BP 104/61; PULSE 52; RESP 16; TEMP 97.3; O2SAT 100
[2016-10-23] MEDS: HEPARIN SODIUM - SQ 10,000 UNITS/ML VIAL SQ SCH ×3 (06:00→22:00)
[2016-10-23 08:00] VITALS: BP 135/83; PULSE 57; RESP 16; TEMP 97.2; O2SAT 98
[2016-10-23] MEDS: REMOVE OLD PATCH T-DERMAL SCH (09:00)
[2016-10-23] MEDS: TAMSULOSIN HCL 0.4 MG CAP PO SCH (09:15)
[2016-10-23] MEDS: LISINOPRIL 20 MG TAB PO SCH ×2 (09:15→20:37)
[2016-10-23] MEDS: DOCUSATE SODIUM 50 MG/SENNA 8.6 MG TAB PO SCH ×2 (09:15→20:37)
[2016-10-23] MEDS: amLODIPine BESYLATE 5 MG TAB PO SCH (09:15)
[2016-10-23] MEDS: MORPHINE SULFATE 30 MG CONTROLLED RELEASE TAB PO SCH ×2 (09:16→20:37)
[2016-10-23] MEDS: NICOTINE 21 MG/24 HR PATCH T-DERMAL SCH (09:16)
[2016-10-23] MEDS: SODIUM CHLORIDE 0.9% FLUSH 10 ML FLUSH IV FLUSH SCH ×2 (09:16→20:38)
--- NOTE | 2016-10-23 10:59 | HHI.PR ---
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 Patient was being treated with IV vancomycin. He left the hospital AGAINST MEDICAL ADVICE earlier this morning. He reports he had to leave to take out his belongings from his residence because he was getting evicted. He came back with complaint of persistent low back pain. He denies any drug use since leaving the hospital. 814 patient complains of pain and states we are not controlling his pain States that we have adjusted his pain medications and adjust them as needed Discussed with patient and RN and family in the room 15 WILL ADJUST BP MEDICATIONS ADD NORVASC 5 MG PO DAILY 8-16 blood pressure better on norvasc Objective Vitals Vital Signs Date Time Temp Pulse Resp B/P Pulse Ox O2 Delivery O2 Flow Rate FiO2 10/23/16 08:00 97.2 57 16 135/83 98 10/23/16 04:00 Room Air 10/23/16 04:00 97.3 52 16 104/61 100 10/23/16 00:00 Room Air 10/23/16 00:00 97.4 60 17 126/71 99 10/22/16 20:00 98.6 64 16 116/77 97 10/22/16 20:00 Room Air 10/22/16 16:00 97.4 69 18 138/85 98 10/22/16 12:00 97.8 59 18 154/93 99 I/O 10/22/16 10/22/16 10/22/16 10/23/16 10/23/16 10/23/16 07:00 15:00 23:00 07:00 15:00 23:00 Intake Total 537 ml 960 ml 560 ml 560 ml Balance 537 ml 960 ml 560 ml 560 ml Intake Oral 960 ml 560 ml 560 ml IV Total 537 ml # Voids 2 3 5 # Bowel Movements 1 0 0 Result Diagram: 10/22/16 0810 10/22/16 0810 Imaging Last Impressions Lumbar Spine MRI 10/18/16 0000 Signed Impressions: Service Date/Time: Tuesday, October 18, 2016 19:16 - CONCLUSION: 1. Slight decrease in abnormal enhancing and edematous tissues around the spinous processes of L3 and L4. Enhancement extends into the dorsal dural surface of L3 and L4 but without epidural abscess or significant thecal sac compression. Persistent mild canal stenosis at L4-5 and no evidence for discitis. 2. There are some edematous changes and enhancement in the marrow of the spinous processes of L3 and L4. Differential diagnosis includes reactive change. Cannot exclude osteomyelitis dorsally. Leroy Quintero MD Objective Remarks GENERAL: Awake alert and oriented talkative and cooperative SKIN: Warm and dry. Multiple tattoos upper extremity and lower extremity HEAD: Atraumatic. Normocephalic. EYES: Pupils equal and round. No scleral icterus. No injection or drainage. Extraocular muscles grossly intact ENT: No nasal bleeding or discharge. Mucous membranes pink and moist. Tongue is midline NECK: Trachea midline. No JVD. CARDIOVASCULAR: Regular rate and rhythm. S1 and S2 no S3 or S4 no heave or thrill or rub or gallop RESPIRATORY: No accessory muscle use. Clear to auscultation. Breath sounds equal bilaterally. GASTROINTESTINAL: Abdomen soft, non-tender, nondistended. Hepatic and splenic margins not palpable. MUSCULOSKELETAL: Extremities without clubbing, cyanosis, or edema. No obvious deformities. NEUROLOGICAL: Awake and alert. No obvious cranial nerve deficits. Motor grossly within normal limits. Five out of 5 muscle strength in the arms and legs. Normal speech. PSYCHIATRIC: Appropriate mood and affect; insight and judgment normal. Drug seeking behavior Medications and IVs Current Medications Vancomycin HCl/ Sodium Chloride (Vancomycin Inj/ NS 250 ml Inj) 261.5 ml @ 250 mls/hr ONCE ONCE IV Last administered on 10/17/16 14:14; Start 10/17/16 at 13 :00; Stop 10/17/16 at 14:05; Status DC Alprazolam (Xanax) 0.25 mg Q6H PRN PO ANXIETY Last administered on 10/23/16 06 :22; Start 10/17/16 at 13:30 Lisinopril (Prinivil) 20 mg BID PO Last administered on 10/23/16 09:15; Start 10/17/16 at 21:00 Tamsulosin HCl (Flomax) 0.4 mg DAILY PO Last administered on 10/23/16 09:15; Start 10/18/16 at 09:00 Oxycodone/ Acetaminophen (Percocet 5-325 Mg) 1 tab Q6H PRN PO BREAKTHROUGH PAIN Last administered on 10/23/16 06:22; Start 10/17/16 at 13:30 Morphine Sulfate (Oramorph Sr) 30 mg Q12HR PO Last administered on 10/23/16 09 :16; Start 10/17/16 at 21:00 Zolpidem Tartrate (Ambien) 5 mg HS PRN PO INSOMNIA Last administered on 21:28; Start 10/17/16 at 13:30 Senna/Docusate Sodium (Maribel-Colace) 1 tab BID PO Last administered on 09:15; Start 10/17/16 at 21:00 Sodium Chloride (NS Flush) 2 ml UNSCH PRN IV FLUSH FLUSH AFTER USING IV ACCESS ; Start 10/17/16 at 13:45 Sodium Chloride (NS Flush) 2 ml BID IV FLUSH Last administered on 10/23/16 09: 16; Start 10/17/16 at 21:00 Acetaminophen (Tylenol) 650 mg Q4H PRN PO TEMP > 100.4; Start 10/17/16 at 13:45 Ondansetron HCl (Zofran Inj) 4 mg Q6H PRN IVP NAUSEA OR VOMITING; Start at 13:45 Heparin Sodium (Porcine) (Heparin Inj) 5,000 units Q8H SQ Last administered on 10/21/16 22:30; Start 10/17/16 at 14:00 Naloxone HCl (Narcan Inj) 0.4 mg UNSCH PRN IV SEE LABEL COMMENTS; Start at 13:45 Magnesium Hydroxide (Milk Of Magnesia Liq) 30 ml Q12H PRN PO MILD - MODERATE CONSTIPATION; Start 10/17/16 at 13:45 Sennosides (Senokot) 17.2 mg Q12H PRN PO MODERATE - SEVERE CONSTIPATION; Start 10/17/16 at 13:45 Bisacodyl (Dulcolax Supp) 10 mg DAILY PRN RECTAL SEVERE CONSITIPATION; Start at 13:45 Lactulose 30 ml 30 ml DAILY PRN PO SEVERE CONSITIPATION; Start 10/17/16 at 13: 45 Vancomycin HCl 1500 mg/Sodium Chloride 515 ml @ 257.5 mls/ hr Q12H IV ; Start 10/17/16 at 21:00; Stop 10/17/16 at 21:00; Status DC Pharmacy Profile Note 0 ml @ 0 mls/hr UNSCH OTHER ; Start 10/17/16 at 13:45 Vancomycin HCl/ Sodium Chloride (Vancomycin Inj/ NS 500 ml Inj) 515 ml @ 250 mls/hr Q12H IV Last administered on 10/23/16 00:18; Start 10/18/16 at 00:00 Miscellaneous Information SPECIFIC LAB TO BE DRAWN:VANCOMYCIN TROUGH DATE TO... ONCE ONCE .XX Last administered on 10/19/16 11:45; Start 10/19/16 at 11:45; Stop 10/19/16 at 11:46; Status DC Enoxaparin Sodium (Lovenox Inj) 40 mg Q24H SQ ; Start 10/17/16 at 16:45; Stop at 17:04; Status DC Gadodiamide (Omniscan Pf Inj) 16 ml STK-MED ONCE IV Last administered on 19:36; Start 10/18/16 at 19:36; Stop 10/18/16 at 19:37; Status DC Nicotine (Habitrol 21 Mg Patch.24 Hr) 1 patch DAILY T-DERMAL Last administered on 10/23/16 09:16; Start 10/19/16 at 16:00 Miscellaneous Information 1 DAILY T-DERMAL Last administered on 10/23/16 09:00 ; Start 10/20/16 at 09:00 Clonidine (Catapres) 0.1 mg ONCE ONCE PO Last administered on 10/20/16 21:58 ; Start 10/20/16 at 19:30; Stop 10/20/16 at 19:31; Status DC Amlodipine Besylate (Norvasc) 5 mg ONCE ONCE PO Last administered on 11:54; Start 10/22/16 at 09:45; Stop 10/22/16 at 09:46; Status DC Amlodipine Besylate (Norvasc) 5 mg DAILY PO Last administered on 10/23/16 09: 15; Start 10/23/16 at 09:00 Urinary Catheter: No Vascular Central Line Catheter: No A/P Problem List: (1) Tobacco use ICD Code: Z72.0 Status: Acute (2) IV drug abuse ICD Code: F19.10 Status: Chronic (3) IVDU (intravenous drug user) ICD Code: F19.90 Status: Chronic (4) Infective endocarditis ICD Code: I33.0 Status: Acute (5) Hypertension ICD Code: I10 Status: Acute (6) Depressive disorder ICD Code: F32.9 Status: Acute (7) Back pain ICD Code: M54.9 Status: Acute (8) Polysubstance dependence ICD Code: F19.20 Status: Chronic (9) Polysubstance (including opioids) dependence, daily use ICD Code: F19.20 Status: Chronic Assessment and Plan 45-year-old male admitted secondary to lower back pain and paraspinal abscess diagnosed with infective endocarditis based on echocardiogram findings and leukocytosis. No worsening signs of infection of lower back. Better pain control present through time. Patient was on 30 mg of MS Contin twice a day and 5 mg Percocets every 6 hours for breakthrough. He left the hospital AGAINST MEDICAL ADVICE the morning of 10/18/16 and returned the same afternoon because he reportedly had 2 take out his belongings from the residence he was being evicted from. Infective endocarditis History of IV drug abuse Pain medication seeking behavior - Infectious disease following. Continue Vanco - Repeat MRI "1. Slight decrease in abnormal enhancing and edematous tissues around the spinous processes of L3 and L4. Persistent mild canal stenosis at L4- 5 and no evidence for discitis. 2. There are some edematous changes and enhancement in the marrow of the spinous processes of L3 and L4. Differential diagnosis includes reactive change. Cannot exclude osteomyelitis dorsally. - ID will will follow up and consider transitioning to outpatient telavancin once daily. - Patient does exhibit pain medication seeking behavior. Plan to wean him off all narcotics. Weaning plan will be based on objective findings and clinical indicators - Patient is currently on MS Contin 30 mg every 12 hours and Percocet every 6 hours as needed. Continue MS Contin at 15 mg BID. - Plan is to continue to wean the patient off all Narcotics. Hypertension Noncompliant. Stable Continue lisinopril 20 MG BID NORVASC 5MG DAILY Lumbar spine edema: Improving Continue antibiotics Follow clinically for improvement Noncompliance: - Patient left the hospital AMA on 10/17 in the morning and returned the same day in the afternoon. He denies using drugs during that time. He was strongly counseled to comply with medical treatment. DVT prophylaxis Lovenox Discharge Planning ID following with tentative plan to DC home on Telavancin through the infusion center. Continue current treatment through the weekend and continue to wean off Narcotics. Discharge Planning Case management and infectious disease for possible discharge in future Problem Qualifiers (1) Infective endocarditis: Qualified Code: I33.0 - Bacterial endocarditis, unspecified chronicity Rafael Steinberg DO Oct 23, 2016 10:59
[2016-10-23 12:00] VITALS: BP 149/91; PULSE 64; RESP 18; TEMP 97.6; O2SAT 96
[2016-10-23 16:00] VITALS: BP 122/75; PULSE 71; RESP 16; TEMP 98.2; O2SAT 96
[2016-10-23 20:00] VITALS: BP 154/94; PULSE 72; RESP 18; TEMP 97.8; O2SAT 97
[2016-10-23] MEDS: ZOLPIDEM TARTRATE 5 MG TAB PO PRN (22:42)
[2016-10-24] VITALS: BP 152/90; PULSE 69; RESP 18; TEMP 97.3; O2SAT 96
[2016-10-24] MEDS: ALPRAZolam 0.25 MG TAB PO PRN ×4 (00:53→23:28)
[2016-10-24] MEDS: oxyCODONE/ACETAMINOPHEN 5 MG/325 MG TAB PO PRN ×4 (00:53→23:28)
[2016-10-24] MEDS: VANCOMYCIN INJ 1,500 MG in SODIUM CHLORID 0.9% 500 ML INJ 500 ML IV SCH ×2 (00:54→11:14)
[2016-10-24 04:00] VITALS: BP 145/82; PULSE 65; RESP 20; TEMP 97.2; O2SAT 96
[2016-10-24] MEDS: HEPARIN SODIUM - SQ 10,000 UNITS/ML VIAL SQ SCH ×3 (06:00→21:43)
[2016-10-24 08:00] VITALS: BP 123/79; PULSE 58; RESP 20; TEMP 97.5; O2SAT 99
[2016-10-24] MEDS: amLODIPine BESYLATE 5 MG TAB PO SCH (08:13)
[2016-10-24] MEDS: LISINOPRIL 20 MG TAB PO SCH ×2 (08:13→21:43)
[2016-10-24] MEDS: NICOTINE 21 MG/24 HR PATCH T-DERMAL SCH (08:13)
[2016-10-24] MEDS: DOCUSATE SODIUM 50 MG/SENNA 8.6 MG TAB PO SCH ×2 (08:13→21:43)
[2016-10-24] MEDS: TAMSULOSIN HCL 0.4 MG CAP PO SCH (08:14)
[2016-10-24] MEDS: SODIUM CHLORIDE 0.9% FLUSH 10 ML FLUSH IV FLUSH SCH ×2 (08:14→21:00)
[2016-10-24] MEDS: MORPHINE SULFATE 30 MG CONTROLLED RELEASE TAB PO SCH ×2 (08:14→21:43)
[2016-10-24] MEDS: REMOVE OLD PATCH T-DERMAL SCH (08:15)
[2016-10-24] MEDS: LACTULOSE SYRUP 20 GM/30 ML CUP PO PRN (09:39)
--- NOTE | 2016-10-24 10:59 | HHI.PR ---
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 Patient was being treated with IV vancomycin. He left the hospital AGAINST MEDICAL ADVICE earlier this morning. He reports he had to leave to take out his belongings from his residence because he was getting evicted. He came back with complaint of persistent low back pain. He denies any drug use since leaving the hospital. 8 patient complains of pain and states we are not controlling his pain States that we have adjusted his pain medications and adjust them as needed Discussed with patient and RN and family in the room 10-22 WILL ADJUST BP MEDICATIONS ADD NORVASC 5 MG PO DAILY 10-23 blood pressure better on norvasc 10-24 no new complaints CONTINUE ON ANTIBIOTICS PER ID RECOMMENDATIONS Objective Vitals Vital Signs Date Time Temp Pulse Resp B/P Pulse Ox O2 Delivery O2 Flow Rate FiO2 10/24/16 04:00 97.2 65 20 145/82 96 10/24/16 00:00 97.3 69 18 152/90 96 10/23/16 20:57 Room Air 10/23/16 20:00 97.8 72 18 154/94 97 10/23/16 16:00 98.2 71 16 122/75 96 10/23/16 12:00 97.6 64 18 149/91 96 I/O 10/23/16 10/23/16 10/23/16 10/24/16 10/24/16 10/24/16 07:00 15:00 23:00 07:00 15:00 23:00 Intake Total 560 ml 960 ml 1440 ml 480 ml Balance 560 ml 960 ml 1440 ml 480 ml Intake Oral 560 ml 960 ml 1440 ml 480 ml # Voids 5 4 2 1 # Bowel Movements 0 0 Result Diagram: 10/22/16 0810 10/22/16 0810 Other Results Laboratory Tests Test 10/22/16 08:10 White Blood Count 5.5 TH/MM3 Red Blood Count 4.68 MIL/MM3 Hemoglobin 13.6 GM/DL Hematocrit 41.2 % Mean Corpuscular Volume 88.0 FL Mean Corpuscular Hemoglobin 29.0 PG Mean Corpuscular Hemoglobin 33.0 % Concent Red Cell Distribution Width 14.0 % Platelet Count 255 TH/MM3 Mean Platelet Volume 8.5 FL Neutrophils (%) (Auto) 45.8 % Lymphocytes (%) (Auto) 40.1 % Monocytes (%) (Auto) 8.6 % Eosinophils (%) (Auto) 3.3 % Basophils (%) (Auto) 2.2 % Neutrophils # (Auto) 2.5 TH/MM3 Lymphocytes # (Auto) 2.2 TH/MM3 Monocytes # (Auto) 0.5 TH/MM3 Eosinophils # (Auto) 0.2 TH/MM3 Basophils # (Auto) 0.1 TH/MM3 CBC Comment DIFF FINAL Differential Comment Sodium Level 138 MEQ/L Potassium Level 4.0 MEQ/L Chloride Level 103 MEQ/L Carbon Dioxide Level 29.9 MEQ/L Anion Gap 5 MEQ/L Blood Urea Nitrogen 15 MG/DL Creatinine 0.74 MG/DL Estimat Glomerular Filtration 114 ML/MIN Rate Random Glucose 81 MG/DL Calcium Level 8.7 MG/DL Phosphorus Level 3.2 MG/DL Magnesium Level 2.1 MG/DL Total Bilirubin 0.4 MG/DL Aspartate Amino Transf 52 U/L (AST/SGOT) Alanine Aminotransferase 120 U/L (ALT/SGPT) Alkaline Phosphatase 110 U/L Total Protein 7.7 GM/DL Albumin 3.1 GM/DL Imaging Last Impressions Lumbar Spine MRI 10/18/16 0000 Signed Impressions: Service Date/Time: Tuesday, October 18, 2016 19:16 - CONCLUSION: 1. Slight decrease in abnormal enhancing and edematous tissues around the spinous processes of L3 and L4. Enhancement extends into the dorsal dural surface of L3 and L4 but without epidural abscess or significant thecal sac compression. Persistent mild canal stenosis at L4-5 and no evidence for discitis. 2. There are some edematous changes and enhancement in the marrow of the spinous processes of L3 and L4. Differential diagnosis includes reactive change. Cannot exclude osteomyelitis dorsally. Leroy Quintero MD Objective Remarks GENERAL: Awake alert and oriented talkative and cooperative SKIN: Warm and dry. Multiple tattoos upper extremity and lower extremity HEAD: Atraumatic. Normocephalic. EYES: Pupils equal and round. No scleral icterus. No injection or drainage. Extraocular muscles grossly intact ENT: No nasal bleeding or discharge. Mucous membranes pink and moist. Tongue is midline NECK: Trachea midline. No JVD. CARDIOVASCULAR: Regular rate and rhythm. S1 and S2 no S3 or S4 no heave or thrill or rub or gallop RESPIRATORY: No accessory muscle use. Clear to auscultation. Breath sounds equal bilaterally. GASTROINTESTINAL: Abdomen soft, non-tender, nondistended. Hepatic and splenic margins not palpable. MUSCULOSKELETAL: Extremities without clubbing, cyanosis, or edema. No obvious deformities. NEUROLOGICAL: Awake and alert. No obvious cranial nerve deficits. Motor grossly within normal limits. Five out of 5 muscle strength in the arms and legs. Normal speech. PSYCHIATRIC: Appropriate mood and affect; insight and judgment normal. Drug seeking behavior Medications and IVs Current Medications Vancomycin HCl/ Sodium Chloride (Vancomycin Inj/ NS 250 ml Inj) 261.5 ml @ 250 mls/hr ONCE ONCE IV Last administered on 10/17/16 14:14; Start 10/17/16 at 13 :00; Stop 10/17/16 at 14:05; Status DC Alprazolam (Xanax) 0.25 mg Q6H PRN PO ANXIETY Last administered on 10/24/16 08 :13; Start 10/17/16 at 13:30 Lisinopril (Prinivil) 20 mg BID PO Last administered on 10/24/16 08:13; Start 10/17/16 at 21:00 Tamsulosin HCl (Flomax) 0.4 mg DAILY PO Last administered on 10/24/16 08:14; Start 10/18/16 at 09:00 Oxycodone/ Acetaminophen (Percocet 5-325 Mg) 1 tab Q6H PRN PO BREAKTHROUGH PAIN Last administered on 10/24/16 09:39; Start 10/17/16 at 13:30 Morphine Sulfate (Oramorph Sr) 30 mg Q12HR PO Last administered on 10/24/16 08 :14; Start 10/17/16 at 21:00 Zolpidem Tartrate (Ambien) 5 mg HS PRN PO INSOMNIA Last administered on 22:42; Start 10/17/16 at 13:30 Senna/Docusate Sodium (Maribel-Colace) 1 tab BID PO Last administered on 08:13; Start 10/17/16 at 21:00 Sodium Chloride (NS Flush) 2 ml UNSCH PRN IV FLUSH FLUSH AFTER USING IV ACCESS ; Start 10/17/16 at 13:45 Sodium Chloride (NS Flush) 2 ml BID IV FLUSH Last administered on 10/24/16 08: 14; Start 10/17/16 at 21:00 Acetaminophen (Tylenol) 650 mg Q4H PRN PO TEMP > 100.4; Start 10/17/16 at 13:45 Ondansetron HCl (Zofran Inj) 4 mg Q6H PRN IVP NAUSEA OR VOMITING; Start at 13:45 Heparin Sodium (Porcine) (Heparin Inj) 5,000 units Q8H SQ Last administered on 10/23/16 13:03; Start 10/17/16 at 14:00 Naloxone HCl (Narcan Inj) 0.4 mg UNSCH PRN IV SEE LABEL COMMENTS; Start at 13:45 Magnesium Hydroxide (Milk Of Magnrosales Liq) 30 ml Q12H PRN PO MILD - MODERATE CONSTIPATION; Start 10/17/16 at 13:45 Sennosides (Senokot) 17.2 mg Q12H PRN PO MODERATE - SEVERE CONSTIPATION; Start 10/17/16 at 13:45 Bisacodyl (Dulcolax Supp) 10 mg DAILY PRN RECTAL SEVERE CONSITIPATION; Start at 13:45 Lactulose 30 ml 30 ml DAILY PRN PO SEVERE CONSITIPATION Last administered on 09:39; Start 10/17/16 at 13:45 Vancomycin HCl 1500 mg/Sodium Chloride 515 ml @ 257.5 mls/ hr Q12H IV ; Start 10/17/16 at 21:00; Stop 10/17/16 at 21:00; Status DC Pharmacy Profile Note 0 ml @ 0 mls/hr UNSCH OTHER ; Start 10/17/16 at 13:45 Vancomycin HCl/ Sodium Chloride (Vancomycin Inj/ NS 500 ml Inj) 515 ml @ 250 mls/hr Q12H IV Last administered on 10/24/16 00:54; Start 10/18/16 at 00:00 Miscellaneous Information SPECIFIC LAB TO BE DRAWN:VANCOMYCIN TROUGH DATE TO... ONCE ONCE .XX Last administered on 10/19/16 11:45; Start 10/19/16 at 11:45; Stop 10/19/16 at 11:46; Status DC Enoxaparin Sodium (Lovenox Inj) 40 mg Q24H SQ ; Start 10/17/16 at 16:45; Stop at 17:04; Status DC Gadodiamide (Omniscan Pf Inj) 16 ml STK-MED ONCE IV Last administered on 19:36; Start 10/18/16 at 19:36; Stop 10/18/16 at 19:37; Status DC Nicotine (Habitrol 21 Mg Patch.24 Hr) 1 patch DAILY T-DERMAL Last administered on 10/24/16 08:13; Start 10/19/16 at 16:00 Miscellaneous Information 1 DAILY T-DERMAL Last administered on 10/24/16 08:15 ; Start 10/20/16 at 09:00 Clonidine (Catapres) 0.1 mg ONCE ONCE PO Last administered on 10/20/16 21:58 ; Start 10/20/16 at 19:30; Stop 10/20/16 at 19:31; Status DC Amlodipine Besylate (Norvasc) 5 mg ONCE ONCE PO Last administered on 11:54; Start 10/22/16 at 09:45; Stop 10/22/16 at 09:46; Status DC Amlodipine Besylate (Norvasc) 5 mg DAILY PO Last administered on 10/24/16 08: 13; Start 10/23/16 at 09:00 Urinary Catheter: No Vascular Central Line Catheter: No A/P Problem List: (1) Tobacco use ICD Code: Z72.0 Status: Acute (2) IV drug abuse ICD Code: F19.10 Status: Chronic (3) IVDU (intravenous drug user) ICD Code: F19.90 Status: Chronic (4) Infective endocarditis ICD Code: I33.0 Status: Acute (5) Hypertension ICD Code: I10 Status: Acute (6) Depressive disorder ICD Code: F32.9 Status: Acute (7) Back pain ICD Code: M54.9 Status: Acute (8) Polysubstance dependence ICD Code: F19.20 Status: Chronic (9) Polysubstance (including opioids) dependence, daily use ICD Code: F19.20 Status: Chronic Assessment and Plan 45-year-old male admitted secondary to lower back pain and paraspinal abscess diagnosed with infective endocarditis based on echocardiogram findings and leukocytosis. No worsening signs of infection of lower back. Better pain control present through time. Patient was on 30 mg of MS Contin twice a day and 5 mg Percocets every 6 hours for breakthrough. He left the hospital AGAINST MEDICAL ADVICE the morning of 10/18/16 and returned the same afternoon because he reportedly had 2 take out his belongings from the residence he was being evicted from. Infective endocarditis History of IV drug abuse Pain medication seeking behavior - Infectious disease following. Continue Vanco - Repeat MRI "1. Slight decrease in abnormal enhancing and edematous tissues around the spinous processes of L3 and L4. Persistent mild canal stenosis at L4- 5 and no evidence for discitis. 2. There are some edematous changes and enhancement in the marrow of the spinous processes of L3 and L4. Differential diagnosis includes reactive change. Cannot exclude osteomyelitis dorsally. - ID will will follow up and consider transitioning to outpatient telavancin once daily. - Patient does exhibit pain medication seeking behavior. Plan to wean him off all narcotics. Weaning plan will be based on objective findings and clinical indicators - Patient is currently on MS Contin 30 mg every 12 hours and Percocet every 6 hours as needed. Continue MS Contin at 15 mg BID. - Plan is to continue to wean the patient off all Narcotics. Hypertension Noncompliant. Stable Continue lisinopril 20 MG BID NORVASC 5MG DAILY Lumbar spine edema: Improving Continue antibiotics Follow clinically for improvement Noncompliance: - Patient left the hospital AMA on 10/17 in the morning and returned the same day in the afternoon. He denies using drugs during that time. He was strongly counseled to comply with medical treatment. DVT prophylaxis Lovenox Discharge Planning ID following with tentative plan to DC home on Telavancin through the infusion center. Continue current treatment through the weekend and continue to wean off Narcotics. Discharge Planning Case management and infectious disease for possible discharge in future Problem Qualifiers (1) Infective endocarditis: Qualified Code: I33.0 - Bacterial endocarditis, unspecified chronicity Rafael Steinberg DO Oct 24, 2016 10:59
[2016-10-24 12:00] VITALS: BP 131/86; PULSE 71; RESP 20; TEMP 98; O2SAT 98
[2016-10-24 16:00] VITALS: BP 151/90; PULSE 71; RESP 20; TEMP 97.8; O2SAT 97
--- NOTE | 2016-10-24 16:27 | HHI.IDPN ---
Note Infectious Disease Note Chart review documentation Blas RN for pt. No new events NO fevers No rash No diarrhea Continue Vanco IV (dosing per pharmacy target trough 15-20) Follow weekly CBC with diff, CMP, CRP. Will follow up in ~ 2 weeks. Will need repeat imaging then to assess if transition to oral possible. Vital Signs Date Time Temp Pulse Resp B/P Pulse Ox O2 Delivery O2 Flow Rate FiO2 10/24/16 12:00 98.0 71 20 131/86 98 10/24/16 08:00 97.5 58 20 123/79 99 10/24/16 04:00 97.2 65 20 145/82 96 10/24/16 00:00 97.3 69 18 152/90 96 10/23/16 20:57 Room Air 10/23/16 20:00 97.8 72 18 154/94 97 Laboratory Tests Test 10/24/16 12:14 Creatinine 0.76 MG/DL Estimat Glomerular Filtration 111 ML/MIN Rate Zena Slater MD Oct 24, 2016 16:27
[2016-10-24 20:00] VITALS: PULSE 66; RESP 16; TEMP 97.4; O2SAT 98
[2016-10-24] MEDS: ZOLPIDEM TARTRATE 5 MG TAB PO PRN (21:43)
[2016-10-25] VITALS: BP 153/84; PULSE 64; RESP 16; TEMP 97.4; O2SAT 98
[2016-10-25] MEDS: VANCOMYCIN INJ 1,500 MG in SODIUM CHLORID 0.9% 500 ML INJ 500 ML IV SCH ×3 (00:15→22:15)
[2016-10-25 04:00] VITALS: BP 125/79; PULSE 69; RESP 16; TEMP 97.2; O2SAT 99
[2016-10-25] MEDS: HEPARIN SODIUM - SQ 10,000 UNITS/ML VIAL SQ SCH ×3 (04:34→22:00)
[2016-10-25] MEDS: ALPRAZolam 0.25 MG TAB PO PRN ×3 (06:12→18:27)
[2016-10-25] MEDS: oxyCODONE/ACETAMINOPHEN 5 MG/325 MG TAB PO PRN ×3 (06:13→18:28)
[2016-10-25 08:00] VITALS: BP 139/85; PULSE 55; RESP 18; TEMP 97.1; O2SAT 97
--- NOTE | 2016-10-25 08:59 | HHI.PR ---
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 Patient was being treated with IV vancomycin. He left the hospital AGAINST MEDICAL ADVICE earlier this morning. He reports he had to leave to take out his belongings from his residence because he was getting evicted. He came back with complaint of persistent low back pain. He denies any drug use since leaving the hospital. 8-14 patient complains of pain and states we are not controlling his pain States that we have adjusted his pain medications and adjust them as needed Discussed with patient and RN and family in the room 815 WILL ADJUST BP MEDICATIONS ADD NORVASC 5 MG PO DAILY -16 blood pressure better on norvasc 10-24 no new complaints CONTINUE ON ANTIBIOTICS PER ID RECOMMENDATIONS 10-25 patient wants vanco dosing times adjusted wants a skilled nursing line- explained up to ID NO SOB, NO CP , NO PALPITATIONS, NO NAUSEA, NO VOMITING Objective Vitals Vital Signs Date Time Temp Pulse Resp B/P Pulse Ox O2 Delivery O2 Flow Rate FiO2 10/25/16 04:00 97.2 69 16 125/79 99 10/25/16 00:00 97.4 64 16 153/84 98 10/24/16 21:45 Room Air 10/24/16 20:00 97.4 66 16 98 10/24/16 16:00 Room Air 10/24/16 16:00 97.8 71 20 151/90 97 10/24/16 12:00 98.0 71 20 131/86 98 10/24/16 12:00 Room Air I/O 10/24/16 10/24/16 10/24/16 10/25/16 10/25/16 10/25/16 07:00 15:00 23:00 07:00 15:00 23:00 Intake Total 480 ml 1384 ml 480 ml 860 ml Output Total 800 ml Balance 480 ml 584 ml 480 ml 860 ml Intake Oral 480 ml 960 ml 480 ml 360 ml IV Total 424 ml 500 ml Output Urine Total 800 ml # Voids 1 4 3 # Bowel Movements 1 1 0 Result Diagram: 10/22/16 0810 10/24/16 1214 Other Results Laboratory Tests Test 10/24/16 12:14 Creatinine 0.76 MG/DL Estimat Glomerular Filtration 111 ML/MIN Rate Imaging Last Impressions Lumbar Spine MRI 10/18/16 0000 Signed Impressions: Service Date/Time: Tuesday, October 18, 2016 19:16 - CONCLUSION: 1. Slight decrease in abnormal enhancing and edematous tissues around the spinous processes of L3 and L4. Enhancement extends into the dorsal dural surface of L3 and L4 but without epidural abscess or significant thecal sac compression. Persistent mild canal stenosis at L4-5 and no evidence for discitis. 2. There are some edematous changes and enhancement in the marrow of the spinous processes of L3 and L4. Differential diagnosis includes reactive change. Cannot exclude osteomyelitis dorsally. Leroy Quintero MD Objective Remarks GENERAL: Awake alert and oriented talkative and cooperative SKIN: Warm and dry. Multiple tattoos upper extremity and lower extremity HEAD: Atraumatic. Normocephalic. EYES: Pupils equal and round. No scleral icterus. No injection or drainage. Extraocular muscles grossly intact ENT: No nasal bleeding or discharge. Mucous membranes pink and moist. Tongue is midline NECK: Trachea midline. No JVD. CARDIOVASCULAR: Regular rate and rhythm. S1 and S2 no S3 or S4 no heave or thrill or rub or gallop RESPIRATORY: No accessory muscle use. Clear to auscultation. Breath sounds equal bilaterally. GASTROINTESTINAL: Abdomen soft, non-tender, nondistended. Hepatic and splenic margins not palpable. MUSCULOSKELETAL: Extremities without clubbing, cyanosis, or edema. No obvious deformities. NEUROLOGICAL: Awake and alert. No obvious cranial nerve deficits. Motor grossly within normal limits. Five out of 5 muscle strength in the arms and legs. Normal speech. PSYCHIATRIC: Appropriate mood and affect; insight and judgment normal. Drug seeking behavior Medications and IVs Current Medications Vancomycin HCl/ Sodium Chloride (Vancomycin Inj/ NS 250 ml Inj) 261.5 ml @ 250 mls/hr ONCE ONCE IV Last administered on 10/17/16 14:14; Start 10/17/16 at 13 :00; Stop 10/17/16 at 14:05; Status DC Alprazolam (Xanax) 0.25 mg Q6H PRN PO ANXIETY Last administered on 10/25/16 06 :12; Start 10/17/16 at 13:30 Lisinopril (Prinivil) 20 mg BID PO Last administered on 10/24/16 21:43; Start 10/17/16 at 21:00 Tamsulosin HCl (Flomax) 0.4 mg DAILY PO Last administered on 10/24/16 08:14; Start 10/18/16 at 09:00 Oxycodone/ Acetaminophen (Percocet 5-325 Mg) 1 tab Q6H PRN PO BREAKTHROUGH PAIN Last administered on 10/25/16 06:13; Start 10/17/16 at 13:30 Morphine Sulfate (Oramorph Sr) 30 mg Q12HR PO Last administered on 10/24/16 21 :43; Start 10/17/16 at 21:00 Zolpidem Tartrate (Ambien) 5 mg HS PRN PO INSOMNIA Last administered on 21:43; Start 10/17/16 at 13:30 Senna/Docusate Sodium (Maribel-Colace) 1 tab BID PO Last administered on 21:43; Start 10/17/16 at 21:00 Sodium Chloride (NS Flush) 2 ml UNSCH PRN IV FLUSH FLUSH AFTER USING IV ACCESS ; Start 10/17/16 at 13:45 Sodium Chloride (NS Flush) 2 ml BID IV FLUSH Last administered on 10/24/16 21: 00; Start 10/17/16 at 21:00 Acetaminophen (Tylenol) 650 mg Q4H PRN PO TEMP > 100.4; Start 10/17/16 at 13:45 Ondansetron HCl (Zofran Inj) 4 mg Q6H PRN IVP NAUSEA OR VOMITING; Start at 13:45 Heparin Sodium (Porcine) (Heparin Inj) 5,000 units Q8H SQ Last administered on 10/24/16 21:43; Start 10/17/16 at 14:00 Naloxone HCl (Narcan Inj) 0.4 mg UNSCH PRN IV SEE LABEL COMMENTS; Start at 13:45 Magnesium Hydroxide (Milk Of Magnesia Liq) 30 ml Q12H PRN PO MILD - MODERATE CONSTIPATION; Start 10/17/16 at 13:45 Sennosides (Senokot) 17.2 mg Q12H PRN PO MODERATE - SEVERE CONSTIPATION; Start 10/17/16 at 13:45 Bisacodyl (Dulcolax Supp) 10 mg DAILY PRN RECTAL SEVERE CONSITIPATION; Start at 13:45 Lactulose 30 ml 30 ml DAILY PRN PO SEVERE CONSITIPATION Last administered on 09:39; Start 10/17/16 at 13:45 Vancomycin HCl 1500 mg/Sodium Chloride 515 ml @ 257.5 mls/ hr Q12H IV ; Start 10/17/16 at 21:00; Stop 10/17/16 at 21:00; Status DC Pharmacy Profile Note 0 ml @ 0 mls/hr UNSCH OTHER ; Start 10/17/16 at 13:45 Vancomycin HCl/ Sodium Chloride (Vancomycin Inj/ NS 500 ml Inj) 515 ml @ 250 mls/hr Q12H IV Last administered on 10/25/16 00:15; Start 10/18/16 at 00:00 Miscellaneous Information SPECIFIC LAB TO BE DRAWN:VANCOMYCIN TROUGH DATE TO... ONCE ONCE .XX Last administered on 10/19/16 11:45; Start 10/19/16 at 11:45; Stop 10/19/16 at 11:46; Status DC Enoxaparin Sodium (Lovenox Inj) 40 mg Q24H SQ ; Start 10/17/16 at 16:45; Stop at 17:04; Status DC Gadodiamide (Omniscan Pf Inj) 16 ml STK-MED ONCE IV Last administered on 19:36; Start 10/18/16 at 19:36; Stop 10/18/16 at 19:37; Status DC Nicotine (Habitrol 21 Mg Patch.24 Hr) 1 patch DAILY T-DERMAL Last administered on 10/24/16 08:13; Start 10/19/16 at 16:00 Miscellaneous Information 1 DAILY T-DERMAL Last administered on 10/24/16 08:15 ; Start 10/20/16 at 09:00 Clonidine (Catapres) 0.1 mg ONCE ONCE PO Last administered on 10/20/16 21:58 ; Start 10/20/16 at 19:30; Stop 10/20/16 at 19:31; Status DC Amlodipine Besylate (Norvasc) 5 mg ONCE ONCE PO Last administered on 11:54; Start 10/22/16 at 09:45; Stop 10/22/16 at 09:46; Status DC Amlodipine Besylate (Norvasc) 5 mg DAILY PO Last administered on 10/24/16t 08: 13; Start 10/23/16 at 09:00 Miscellaneous Information SPECIFIC LAB TO BE DRAWN:VANCOMYCIN TROUGH DATE TO... ONCE ONCE .XX ; Start 10/25/16 at 11:45; Stop 10/25/16 at 11:46 Urinary Catheter: No Vascular Central Line Catheter: No A/P Problem List: (1) Tobacco use ICD Code: Z72.0 Status: Acute (2) IV drug abuse ICD Code: F19.10 Status: Chronic (3) IVDU (intravenous drug user) ICD Code: F19.90 Status: Chronic (4) Infective endocarditis ICD Code: I33.0 Status: Acute (5) Hypertension ICD Code: I10 Status: Acute (6) Depressive disorder ICD Code: F32.9 Status: Acute (7) Back pain ICD Code: M54.9 Status: Acute (8) Polysubstance dependence ICD Code: F19.20 Status: Chronic (9) Polysubstance (including opioids) dependence, daily use ICD Code: F19.20 Status: Chronic Assessment and Plan 45-year-old male admitted secondary to lower back pain and paraspinal abscess diagnosed with infective endocarditis based on echocardiogram findings and leukocytosis. No worsening signs of infection of lower back. Better pain control present through time. Patient was on 30 mg of MS Contin twice a day and 5 mg Percocets every 6 hours for breakthrough. He left the hospital AGAINST MEDICAL ADVICE the morning of 10/18/16 and returned the same afternoon because he reportedly had 2 take out his belongings from the residence he was being evicted from. Infective endocarditis History of IV drug abuse Pain medication seeking behavior - Infectious disease following. Continue Vanco - Repeat MRI "1. Slight decrease in abnormal enhancing and edematous tissues around the spinous processes of L3 and L4. Persistent mild canal stenosis at L4- 5 and no evidence for discitis. 2. There are some edematous changes and enhancement in the marrow of the spinous processes of L3 and L4. Differential diagnosis includes reactive change. Cannot exclude osteomyelitis dorsally. - ID will will follow up and consider transitioning to outpatient telavancin once daily. - Patient does exhibit pain medication seeking behavior. Plan to wean him off all narcotics. Weaning plan will be based on objective findings and clinical indicators - Patient is currently on MS Contin 30 mg every 12 hours and Percocet every 6 hours as needed. Continue MS Contin at 15 mg BID. - Plan is to continue to wean the patient off all Narcotics. Hypertension Noncompliant. Stable Continue lisinopril 20 MG BID NORVASC 5MG DAILY Lumbar spine edema: Improving Continue antibiotics Follow clinically for improvement Noncompliance: - Patient left the hospital AMA on 10/17 in the morning and returned the same day in the afternoon. He denies using drugs during that time. He was strongly counseled to comply with medical treatment. DVT prophylaxis Lovenox Discharge Planning ID following with tentative plan to DC home on Telavancin through the infusion center. Continue current treatment through the weekend and continue to wean off Narcotics. CONTINUE CURRENT TREATMENTS- WANTS VANCO DOSING SCHEDULE ADJUSTED Discharge Planning Case management and infectious disease for possible discharge in future Problem Qualifiers (1) Infective endocarditis: Qualified Code: I33.0 - Bacterial endocarditis, unspecified chronicity Rafael Steinberg DO Oct 25, 2016 08:59
[2016-10-25] MEDS: REMOVE OLD PATCH T-DERMAL SCH (09:00)
[2016-10-25] MEDS: amLODIPine BESYLATE 5 MG TAB PO SCH (09:31)
[2016-10-25] MEDS: LISINOPRIL 20 MG TAB PO SCH ×2 (09:31→20:15)
[2016-10-25] MEDS: TAMSULOSIN HCL 0.4 MG CAP PO SCH (09:31)
[2016-10-25] MEDS: SODIUM CHLORIDE 0.9% FLUSH 10 ML FLUSH IV FLUSH SCH ×2 (09:32→20:14)
[2016-10-25] MEDS: DOCUSATE SODIUM 50 MG/SENNA 8.6 MG TAB PO SCH ×2 (09:32→20:15)
[2016-10-25] MEDS: MORPHINE SULFATE 30 MG CONTROLLED RELEASE TAB PO SCH ×2 (09:32→20:14)
[2016-10-25] MEDS: NICOTINE 21 MG/24 HR PATCH T-DERMAL SCH (09:33)
[2016-10-25] MEDS ORDERED: PHARMACY ORDERED LAB ONE (11:45)
[2016-10-25 12:00] VITALS: BP 126/80; PULSE 77; RESP 18; TEMP 97.4; O2SAT 95
[2016-10-25 16:00] VITALS: BP 132/80; PULSE 63; RESP 18; TEMP 98; O2SAT 98
[2016-10-25] MEDS: ZOLPIDEM TARTRATE 5 MG TAB PO PRN (22:15)
[2016-10-25 22:32] VITALS: BP 119/87; PULSE 68; RESP 18; TEMP 97.2; O2SAT 96
[2016-10-26] MEDS: ALPRAZolam 0.25 MG TAB PO PRN ×4 (00:11→18:24)
[2016-10-26] MEDS: oxyCODONE/ACETAMINOPHEN 5 MG/325 MG TAB PO PRN ×4 (00:11→18:24)
[2016-10-26 01:05] VITALS: BP 175/102; PULSE 61; RESP 18; TEMP 98.1; O2SAT 95
[2016-10-26] MEDS: HEPARIN SODIUM - SQ 10,000 UNITS/ML VIAL SQ SCH ×3 (05:12→21:18)
[2016-10-26 09:30] VITALS: BP 159/100; PULSE 62; RESP 20; TEMP 97.8; O2SAT 97
[2016-10-26] MEDS: LISINOPRIL 20 MG TAB PO SCH ×2 (09:43→21:19)
[2016-10-26] MEDS: TAMSULOSIN HCL 0.4 MG CAP PO SCH (09:43)
[2016-10-26] MEDS: amLODIPine BESYLATE 5 MG TAB PO SCH (09:43)
[2016-10-26] MEDS: DOCUSATE SODIUM 50 MG/SENNA 8.6 MG TAB PO SCH ×2 (09:43→21:19)
[2016-10-26] MEDS: REMOVE OLD PATCH T-DERMAL SCH (09:44)
[2016-10-26] MEDS: SODIUM CHLORIDE 0.9% FLUSH 10 ML FLUSH IV FLUSH SCH ×2 (09:44→21:19)
[2016-10-26] MEDS: NICOTINE 21 MG/24 HR PATCH T-DERMAL SCH (09:44)
[2016-10-26] MEDS: MORPHINE SULFATE 30 MG CONTROLLED RELEASE TAB PO SCH ×2 (09:44→21:19)
--- NOTE | 2016-10-26 12:19 | HHI.PR ---
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 Patient was being treated with IV vancomycin. He left the hospital AGAINST MEDICAL ADVICE earlier this morning. He reports he had to leave to take out his belongings from his residence because he was getting evicted. He came back with complaint of persistent low back pain. He denies any drug use since leaving the hospital. 8-14 patient complains of pain and states we are not controlling his pain States that we have adjusted his pain medications and adjust them as needed Discussed with patient and RN and family in the room 8-15 WILL ADJUST BP MEDICATIONS ADD NORVASC 5 MG PO DAILY 8-16 blood pressure better on norvasc 8-17 no new complaints CONTINUE ON ANTIBIOTICS PER ID RECOMMENDATIONS 8-18 patient wants vanco dosing times adjusted wants a custodial line- explained up to ID NO SOB, NO CP , NO PALPITATIONS, NO NAUSEA, NO VOMITING 10-26 CONTINUE ANTIBIOTICS COMPLAINS OF NECK PAIN- WILL TRY SOME MUSCLE RELAXERS Objective Vitals Vital Signs Date Time Temp Pulse Resp B/P Pulse Ox O2 Delivery O2 Flow Rate FiO2 10/26/16 09:50 Room Air 10/26/16 09:30 97.8 62 20 159/100 97 10/26/16 04:35 Room Air 10/26/16 01:05 98.1 61 18 175/102 95 10/26/16 00:00 Room Air 10/25/16 22:32 97.2 68 18 119/87 96 10/25/16 20:00 Room Air 10/25/16 16:00 98.0 63 18 132/80 98 I/O 10/25/16 10/25/16 10/25/16 10/26/16 10/26/16 10/26/16 07:00 15:00 23:00 07:00 15:00 23:00 Intake Total 860 ml 650 ml 1204 ml 750 ml Balance 860 ml 650 ml 1204 ml 750 ml Intake Oral 360 ml 650 ml 1200 ml 240 ml IV Total 500 ml 4 ml 510 ml # Voids 3 3 5 3 # Bowel Movements 0 0 0 0 Result Diagram: 10/22/16 0810 10/26/16 0941 Other Results Laboratory Tests Test 10/24/16 10/25/1617 12:14 12:05 09:41 Creatinine 0.76 MG/DL 0.80 MG/DL Estimat Glomerular Filtration 111 ML/MIN 105 ML/MIN Rate Vancomycin Level Trough 16.5 MCG/ML Imaging Last Impressions Lumbar Spine MRI 10/18/16 0000 Signed Impressions: Service Date/Time: Tuesday, October 18, 2016 19:16 - CONCLUSION: 1. Slight decrease in abnormal enhancing and edematous tissues around the spinous processes of L3 and L4. Enhancement extends into the dorsal dural surface of L3 and L4 but without epidural abscess or significant thecal sac compression. Persistent mild canal stenosis at L4-5 and no evidence for discitis. 2. There are some edematous changes and enhancement in the marrow of the spinous processes of L3 and L4. Differential diagnosis includes reactive change. Cannot exclude osteomyelitis dorsally. Leroy Quintero MD Objective Remarks GENERAL: Awake alert and oriented talkative and cooperative SKIN: Warm and dry. Multiple tattoos upper extremity and lower extremity HEAD: Atraumatic. Normocephalic. EYES: Pupils equal and round. No scleral icterus. No injection or drainage. Extraocular muscles grossly intact ENT: No nasal bleeding or discharge. Mucous membranes pink and moist. Tongue is midline NECK: Trachea midline. No JVD. CARDIOVASCULAR: Regular rate and rhythm. S1 and S2 no S3 or S4 no heave or thrill or rub or gallop RESPIRATORY: No accessory muscle use. Clear to auscultation. Breath sounds equal bilaterally. GASTROINTESTINAL: Abdomen soft, non-tender, nondistended. Hepatic and splenic margins not palpable. MUSCULOSKELETAL: Extremities without clubbing, cyanosis, or edema. No obvious deformities. NEUROLOGICAL: Awake and alert. No obvious cranial nerve deficits. Motor grossly within normal limits. Five out of 5 muscle strength in the arms and legs. Normal speech. PSYCHIATRIC: Appropriate mood and affect; insight and judgment normal. Drug seeking behavior Medications and IVs Current Medications Vancomycin HCl/ Sodium Chloride (Vancomycin Inj/ NS 250 ml Inj) 261.5 ml @ 250 mls/hr ONCE ONCE IV Last administered on 10/17/16 14:14; Start 10/17/16 at 13 :00; Stop 10/17/16 at 14:05; Status DC Alprazolam (Xanax) 0.25 mg Q6H PRN PO ANXIETY Last administered on 10/26/16 05 :54; Start 10/17/16 at 13:30 Lisinopril (Prinivil) 20 mg BID PO Last administered on 10/26/16 09:43; Start 10/17/16 at 21:00 Tamsulosin HCl (Flomax) 0.4 mg DAILY PO Last administered on 10/26/16 09:43; Start 10/18/16 at 09:00 Oxycodone/ Acetaminophen (Percocet 5-325 Mg) 1 tab Q6H PRN PO BREAKTHROUGH PAIN Last administered on 10/26/16 05:54; Start 10/17/16 at 13:30 Morphine Sulfate (Oramorph Sr) 30 mg Q12HR PO Last administered on 10/26/16 09 :44; Start 10/17/16 at 21:00 Zolpidem Tartrate (Ambien) 5 mg HS PRN PO INSOMNIA Last administered on 22:15; Start 10/17/16 at 13:30 Senna/Docusate Sodium (Maribel-Colace) 1 tab BID PO Last administered on 09:43; Start 10/17/16 at 21:00 Sodium Chloride (NS Flush) 2 ml UNSCH PRN IV FLUSH FLUSH AFTER USING IV ACCESS ; Start 10/17/16 at 13:45 Sodium Chloride (NS Flush) 2 ml BID IV FLUSH Last administered on 10/26/16 09: 44; Start 10/17/16 at 21:00 Acetaminophen (Tylenol) 650 mg Q4H PRN PO TEMP > 100.4; Start 10/17/16 at 13:45 Ondansetron HCl (Zofran Inj) 4 mg Q6H PRN IVP NAUSEA OR VOMITING; Start at 13:45 Heparin Sodium (Porcine) (Heparin Inj) 5,000 units Q8H SQ Last administered on 10/25/16 14:00; Start 10/17/16 at 14:00 Naloxone HCl (Narcan Inj) 0.4 mg UNSCH PRN IV SEE LABEL COMMENTS; Start at 13:45 Magnesium Hydroxide (Milk Of Magnesia Liq) 30 ml Q12H PRN PO MILD - MODERATE CONSTIPATION; Start 10/17/16 at 13:45 Sennosides (Senokot) 17.2 mg Q12H PRN PO MODERATE - SEVERE CONSTIPATION; Start 10/17/16 at 13:45 Bisacodyl (Dulcolax Supp) 10 mg DAILY PRN RECTAL SEVERE CONSITIPATION; Start at 13:45 Lactulose 30 ml 30 ml DAILY PRN PO SEVERE CONSITIPATION Last administered on 09:39; Start 10/17/16 at 13:45 Vancomycin HCl 1500 mg/Sodium Chloride 515 ml @ 257.5 mls/ hr Q12H IV ; Start 10/17/16 at 21:00; Stop 10/17/16 at 21:00; Status DC Pharmacy Profile Note 0 ml @ 0 mls/hr UNSCH OTHER ; Start 10/17/16 at 13:45 Vancomycin HCl/ Sodium Chloride (Vancomycin Inj/ NS 500 ml Inj) 515 ml @ 250 mls/hr Q12H IV Last administered on 10/25/16 22:15; Start 10/18/16 at 00:00 Miscellaneous Information SPECIFIC LAB TO BE DRAWN:VANCOMYCIN TROUGH DATE TO... ONCE ONCE .XX Last administered on 10/19/16 11:45; Start 10/19/16 at 11:45; Stop 10/19/16 at 11:46; Status DC Enoxaparin Sodium (Lovenox Inj) 40 mg Q24H SQ ; Start 10/17/16 at 16:45; Stop at 17:04; Status DC Gadodiamide (Omniscan Pf Inj) 16 ml STK-MED ONCE IV Last administered on 19:36; Start 10/18/16 at 19:36; Stop 10/18/16 at 19:37; Status DC Nicotine (Habitrol 21 Mg Patch.24 Hr) 1 patch DAILY T-DERMAL Last administered on 10/26/16 09:44; Start 10/19/16 at 16:00 Miscellaneous Information 1 DAILY T-DERMAL Last administered on 10/26/16 09:44 ; Start 10/20/16 at 09:00 Clonidine (Catapres) 0.1 mg ONCE ONCE PO Last administered on 10/20/16 21:58 ; Start 10/20/16 at 19:30; Stop 10/20/16 at 19:31; Status DC Amlodipine Besylate (Norvasc) 5 mg ONCE ONCE PO Last administered on 11:54; Start 10/22/16 at 09:45; Stop 10/22/16 at 09:46; Status DC Amlodipine Besylate (Norvasc) 5 mg DAILY PO Last administered on 10/26/16 09: 43; Start 10/23/16 at 09:00 Miscellaneous Information SPECIFIC LAB TO BE DRAWN:VANCOMYCIN TROUGH DATE TO... ONCE ONCE .XX Last administered on 10/25/16 11:45; Start 10/25/16 at 11:45; Stop 10/25/16 at 11:46; Status DC A/P Problem List: (1) Tobacco use ICD Code: Z72.0 Status: Acute (2) IV drug abuse ICD Code: F19.10 Status: Chronic (3) IVDU (intravenous drug user) ICD Code: F19.90 Status: Chronic (4) Infective endocarditis ICD Code: I33.0 Status: Acute (5) Hypertension ICD Code: I10 Status: Acute (6) Depressive disorder ICD Code: F32.9 Status: Acute (7) Back pain ICD Code: M54.9 Status: Acute (8) Polysubstance dependence ICD Code: F19.20 Status: Chronic (9) Polysubstance (including opioids) dependence, daily use ICD Code: F19.20 Status: Chronic Assessment and Plan 45-year-old male admitted secondary to lower back pain and paraspinal abscess diagnosed with infective endocarditis based on echocardiogram findings and leukocytosis. No worsening signs of infection of lower back. Better pain control present through time. Patient was on 30 mg of MS Contin twice a day and 5 mg Percocets every 6 hours for breakthrough. He left the hospital AGAINST MEDICAL ADVICE the morning of 10/18/16 and returned the same afternoon because he reportedly had 2 take out his belongings from the residence he was being evicted from. Infective endocarditis History of IV drug abuse Pain medication seeking behavior - Infectious disease following. Continue Vanco - Repeat MRI "1. Slight decrease in abnormal enhancing and edematous tissues around the spinous processes of L3 and L4. Persistent mild canal stenosis at L4- 5 and no evidence for discitis. 2. There are some edematous changes and enhancement in the marrow of the spinous processes of L3 and L4. Differential diagnosis includes reactive change. Cannot exclude osteomyelitis dorsally. - ID will will follow up and consider transitioning to outpatient telavancin once daily. - Patient does exhibit pain medication seeking behavior. Plan to wean him off all narcotics. Weaning plan will be based on objective findings and clinical indicators - Patient is currently on MS Contin 30 mg every 12 hours and Percocet every 6 hours as needed. Continue MS Contin at 15 mg BID. - Plan is to continue to wean the patient off all Narcotics. Hypertension Noncompliant. Stable Continue lisinopril 20 MG BID NORVASC 5MG DAILY Lumbar spine edema: Improving Continue antibiotics Follow clinically for improvement Noncompliance: - Patient left the hospital AMA on 10/17 in the morning and returned the same day in the afternoon. He denies using drugs during that time. He was strongly counseled to comply with medical treatment. DVT prophylaxis Lovenox Discharge Planning ID following with tentative plan to DC home on Telavancin through the infusion center. Continue current treatment through the weekend and continue to wean off Narcotics. CONTINUE CURRENT TREATMENTS- WANTS VANCO DOSING SCHEDULE ADJUSTED BACK/NECK SPASMS ROBAXIN Discharge Planning Case management and infectious disease for possible discharge in future Problem Qualifiers (1) Infective endocarditis: Qualified Code: I33.0 - Bacterial endocarditis, unspecified chronicity Rafael Steinberg DO Oct 26, 2016 12:19
[2016-10-26 12:30] VITALS: BP 142/82; PULSE 76; RESP 20; TEMP 97.6; O2SAT 98
[2016-10-26] MEDS: VANCOMYCIN INJ 1,500 MG in SODIUM CHLORID 0.9% 500 ML INJ 500 ML IV SCH (12:57)
[2016-10-26] MEDS: METHOCARBAMOL 500 MG TAB PO PRN (12:59)
[2016-10-26 16:00] VITALS: BP 108/64; PULSE 62; RESP 20; TEMP 97.4; O2SAT 96
[2016-10-26 20:00] VITALS: BP 128/81; PULSE 72; RESP 18; TEMP 97.5; O2SAT 98
[2016-10-27] VITALS: BP 151/83; PULSE 65; RESP 18; TEMP 97.3; O2SAT 97
[2016-10-27] MEDS: VANCOMYCIN INJ 1,500 MG in SODIUM CHLORID 0.9% 500 ML INJ 500 ML IV SCH ×2 (00:23→13:21)
[2016-10-27] MEDS: ZOLPIDEM TARTRATE 5 MG TAB PO PRN ×3 (00:23→21:07)
[2016-10-27] MEDS: ALPRAZolam 0.25 MG TAB PO PRN ×4 (00:24→19:28)
[2016-10-27] MEDS: oxyCODONE/ACETAMINOPHEN 5 MG/325 MG TAB PO PRN ×4 (00:24→19:28)
[2016-10-27] MEDS: HEPARIN SODIUM - SQ 10,000 UNITS/ML VIAL SQ SCH ×3 (05:59→21:07)
[2016-10-27 08:00] VITALS: BP 167/94; PULSE 60; RESP 18; TEMP 97.7; O2SAT 100
[2016-10-27] MEDS: NICOTINE 21 MG/24 HR PATCH T-DERMAL SCH (08:07)
[2016-10-27] MEDS: LISINOPRIL 20 MG TAB PO SCH ×2 (08:07→21:07)
[2016-10-27] MEDS: DOCUSATE SODIUM 50 MG/SENNA 8.6 MG TAB PO SCH ×2 (08:07→21:07)
[2016-10-27] MEDS: amLODIPine BESYLATE 5 MG TAB PO SCH (08:07)
[2016-10-27] MEDS: MORPHINE SULFATE 30 MG CONTROLLED RELEASE TAB PO SCH ×2 (08:07→21:06)
[2016-10-27] MEDS: REMOVE OLD PATCH T-DERMAL SCH (08:07)
[2016-10-27] MEDS: TAMSULOSIN HCL 0.4 MG CAP PO SCH (08:07)
[2016-10-27] MEDS: SODIUM CHLORIDE 0.9% FLUSH 10 ML FLUSH IV FLUSH SCH ×2 (08:07→21:06)
[2016-10-27] MEDS: METHOCARBAMOL 500 MG TAB PO PRN ×2 (08:07→21:07)
[2016-10-27 12:00] VITALS: BP 146/93; PULSE 62; RESP 18; TEMP 98.1; O2SAT 96
--- NOTE | 2016-10-27 15:22 | HHI.PR ---
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 Patient was being treated with IV vancomycin. He left the hospital AGAINST MEDICAL ADVICE earlier this morning. He reports he had to leave to take out his belongings from his residence because he was getting evicted. He came back with complaint of persistent low back pain. He denies any drug use since leaving the hospital. 8-14 patient complains of pain and states we are not controlling his pain States that we have adjusted his pain medications and adjust them as needed Discussed with patient and RN and family in the room 8-15 WILL ADJUST BP MEDICATIONS ADD NORVASC 5 MG PO DAILY 8-16 blood pressure better on norvasc 8-17 no new complaints CONTINUE ON ANTIBIOTICS PER ID RECOMMENDATIONS 8-18 patient wants vanco dosing times adjusted wants a skilled nursing line- explained up to ID NO SOB, NO CP , NO PALPITATIONS, NO NAUSEA, NO VOMITING 8-19 CONTINUE ANTIBIOTICS COMPLAINS OF NECK PAIN- WILL TRY SOME MUSCLE RELAXERS 8-20 no new complaints today Had some anxiety. But all questions have been answered discussed with patient and RN and family Objective Vitals Vital Signs Date Time Temp Pulse Resp B/P (MAP) Pulse Ox O2 Delivery O2 Flow Rate FiO2 10/27/16 12:00 98.1 62 18 146/93 (110) 96 10/27/16 12:00 Room Air 10/27/16 08:00 97.7 60 18 167/94 (118) 100 10/27/16 07:33 Room Air 10/27/16 04:00 Room Air 10/27/16 00:00 97.3 65 18 151/83 (105) 97 10/27/16 00:00 Room Air 10/26/16 20:00 97.5 72 18 128/81 (97) 98 10/26/16 20:00 Room Air 10/26/16 16:00 Room Air 10/26/16 16:00 97.4 62 20 108/64 (79) 96 I/O 10/26/16 10/26/16 10/26/16 10/27/16 10/27/16 10/27/16 07:00 15:00 23:00 07:00 15:00 23:00 Intake Total 750 ml 1200 ml 1080 ml 720 ml Output Total 400 ml Balance 750 ml 1200 ml 1080 ml 320 ml Intake Oral 240 ml 1200 ml 1080 ml 720 ml IV Total 510 ml Output Urine Total 400 ml # Voids 3 3 3 # Bowel Movements 0 0 0 Result Diagram: 10/27/16 1409 Other Results Laboratory Tests Test 10/25/16 12:05 10/26/16 09:41 10/27/16 14:09 Vancomycin Level Trough 16.5 MCG/ML Creatinine 0.80 MG/DL 0.86 MG/DL Estimat Glomerular Filtration Rate 105 ML/MIN 96 ML/MIN Imaging Last Impressions Lumbar Spine MRI 10/18/16 0000 Signed Impressions: Service Date/Time: Tuesday, October 18, 2016 19:16 - CONCLUSION: 1. Slight decrease in abnormal enhancing and edematous tissues around the spinous processes of L3 and L4. Enhancement extends into the dorsal dural surface of L3 and L4 but without epidural abscess or significant thecal sac compression. Persistent mild canal stenosis at L4-5 and no evidence for discitis. 2. There are some edematous changes and enhancement in the marrow of the spinous processes of L3 and L4. Differential diagnosis includes reactive change. Cannot exclude osteomyelitis dorsally. Leroy Quintero MD Objective Remarks GENERAL: Awake alert and oriented talkative and cooperative SKIN: Warm and dry. Multiple tattoos upper extremity and lower extremity HEAD: Atraumatic. Normocephalic. EYES: Pupils equal and round. No scleral icterus. No injection or drainage. Extraocular muscles grossly intact ENT: No nasal bleeding or discharge. Mucous membranes pink and moist. Tongue is midline NECK: Trachea midline. No JVD. CARDIOVASCULAR: Regular rate and rhythm. S1 and S2 no S3 or S4 no heave or thrill or rub or gallop RESPIRATORY: No accessory muscle use. Clear to auscultation. Breath sounds equal bilaterally. GASTROINTESTINAL: Abdomen soft, non-tender, nondistended. Hepatic and splenic margins not palpable. MUSCULOSKELETAL: Extremities without clubbing, cyanosis, or edema. No obvious deformities. NEUROLOGICAL: Awake and alert. No obvious cranial nerve deficits. Motor grossly within normal limits. Five out of 5 muscle strength in the arms and legs. Normal speech. PSYCHIATRIC: Appropriate mood and affect; insight and judgment normal. Drug seeking behavior Medications and IVs Current Medications Medications (Trade) Dose Ordered Sig/Emerita Route PRN Reason Start Time Stop Time Status Last Admin Dose Admin Alprazolam (Xanax) 0.25 mg Q6H PRN PO ANXIETY 10/17/16 13:30 10/27/16 08:07 Lisinopril (Prinivil) 20 mg BID PO 10/17/16 21:00 10/27/16 08:07 Tamsulosin HCl (Flomax) 0.4 mg DAILY PO 10/18/16 09:00 10/27/16 08:07 Oxycodone/ Acetaminophen (Percocet 5-325 Mg) 1 tab Q6H PRN PO BREAKTHROUGH PAIN 10/17/16 13:30 10/27/16 08:07 Morphine Sulfate (Oramorph Sr) 30 mg Q12HR PO 10/17/16 21:00 10/27/16 08:07 Zolpidem Tartrate (Ambien) 5 mg HS PRN PO INSOMNIA 10/17/16 13:30 10/27/16 00:24 Senna/Docusate Sodium (Maribel-Colace) 1 tab BID PO 10/17/16 21:00 10/27/16 08:07 Sodium Chloride (NS Flush) 2 ml UNSCH PRN IV FLUSH FLUSH AFTER USING IV ACCESS 10/17/16 13:45 Sodium Chloride (NS Flush) 2 ml BID IV FLUSH 10/17/16 21:00 10/27/16 08:07 Acetaminophen (Tylenol) 650 mg Q4H PRN PO TEMP > 100.4 10/17/16 13:45 Ondansetron HCl (Zofran Inj) 4 mg Q6H PRN IVP NAUSEA OR VOMITING 10/17/16 13:45 Heparin Sodium (Porcine) (Heparin Inj) 5,000 units Q8H SQ 10/17/16 14:00 10/25/16 14:00 Naloxone HCl (Narcan Inj) 0.4 mg UNSCH PRN IV SEE LABEL COMMENTS 10/17/16 13:45 Magnesium Hydroxide (Milk Of Magnesia Liq) 30 ml Q12H PRN PO MILD - MODERATE CONSTIPATION 10/17/16 13:45 Sennosides (Senokot) 17.2 mg Q12H PRN PO MODERATE - SEVERE CONSTIPATION 10/17/16 13:45 Bisacodyl (Dulcolax Supp) 10 mg DAILY PRN RECTAL SEVERE CONSITIPATION 10/17/16 13:45 Lactulose (Lactulose Liq) 30 ml DAILY PRN PO SEVERE CONSITIPATION 10/17/16 13:45 10/24/16 09:39 Pharmacy Profile Note 0 ml @ 0 mls/hr UNSCH OTHER 10/17/16 13:45 Vancomycin HCl 1500 mg/Sodium Chloride 515 ml @ 250 mls/hr Q12H IV 10/18/16 00:00 10/27/16 13:21 Nicotine (Habitrol 21 Mg Patch.24 Hr) 1 patch DAILY T-DERMAL 10/19/16 16:00 10/27/16 08:07 Miscellaneous Information 1 DAILY T-DERMAL 10/20/16 09:00 10/27/16 08:07 Amlodipine Besylate (Norvasc) 5 mg DAILY PO 10/23/16 09:00 10/27/16 08:07 Methocarbamol (Robaxin) 1,000 mg Q8HR PRN PO SPASMS 10/26/16 12:30 10/27/16 08:07 Urinary Catheter: No Vascular Central Line Catheter: No A/P Problem List: (1) Tobacco use ICD Code: Z72.0 - Tobacco use Status: Acute (2) IV drug abuse ICD Code: F19.10 - Intravenous drug abuse Status: Chronic (3) IVDU (intravenous drug user) ICD Code: F19.90 - Other psychoactive substance use, unspecified, uncomplicated Status: Chronic (4) Infective endocarditis ICD Code: I33.0 - Acute and subacute infective endocarditis Status: Acute (5) Hypertension ICD Code: I10 - Essential (primary) hypertension Status: Acute (6) Depressive disorder ICD Code: F32.9 - Depressive disorder Status: Acute (7) Back pain ICD Code: M54.9 - Dorsalgia, unspecified Status: Acute (8) Polysubstance dependence ICD Code: F19.20 - Polysubstance dependence Status: Chronic (9) Polysubstance (including opioids) dependence, daily use ICD Code: F19.20 - Other psychoactive substance dependence, uncomplicated Status: Chronic Assessment and Plan 45-year-old male admitted secondary to lower back pain and paraspinal abscess diagnosed with infective endocarditis based on echocardiogram findings and leukocytosis. No worsening signs of infection of lower back. Better pain control present through time. Patient was on 30 mg of MS Contin twice a day and 5 mg Percocets every 6 hours for breakthrough. He left the hospital AGAINST MEDICAL ADVICE the morning of 10/18/16 and returned the same afternoon because he reportedly had 2 take out his belongings from the residence he was being evicted from. Infective endocarditis History of IV drug abuse Pain medication seeking behavior - Infectious disease following. Continue Vanco - Repeat MRI "1. Slight decrease in abnormal enhancing and edematous tissues around the spinous processes of L3 and L4. Persistent mild canal stenosis at L4- 5 and no evidence for discitis. 2. There are some edematous changes and enhancement in the marrow of the spinous processes of L3 and L4. Differential diagnosis includes reactive change. Cannot exclude osteomyelitis dorsally. - ID will will follow up and consider transitioning to outpatient telavancin once daily. - Patient does exhibit pain medication seeking behavior. Plan to wean him off all narcotics. Weaning plan will be based on objective findings and clinical indicators - Patient is currently on MS Contin 30 mg every 12 hours and Percocet every 6 hours as needed. Continue MS Contin at 15 mg BID. - Plan is to continue to wean the patient off all Narcotics. Hypertension Noncompliant. Stable Continue lisinopril 20 MG BID NORVASC 5MG DAILY Lumbar spine edema: Improving Continue antibiotics Follow clinically for improvement Noncompliance: - Patient left the hospital AMA on 10/17 in the morning and returned the same day in the afternoon. He denies using drugs during that time. He was strongly counseled to comply with medical treatment. DVT prophylaxis Lovenox Discharge Planning ID following with tentative plan to DC home on Telavancin through the infusion center. Continue current treatment through the weekend and continue to wean off Narcotics. CONTINUE CURRENT TREATMENTS- WANTS VANCO DOSING SCHEDULE ADJUSTED BACK/NECK SPASMS ROBAXIN Continue current treatments Discharge Planning Case management and infectious disease for possible discharge in future Problem Qualifiers (1) Infective endocarditis: Rafael Steinberg DO Oct 27, 2016 15:22
[2016-10-27 16:00] VITALS: BP 134/76; PULSE 73; RESP 16; TEMP 97.6; O2SAT 96
[2016-10-27 20:00] VITALS: BP_SYST 138; BP_SYST 141; BP_DIAS 103; BP_DIAS 92; PULSE 76; RESP 18; TEMP 98.8; O2SAT 99
[2016-10-28] VITALS: BP 125/79; PULSE 62; RESP 18; TEMP 97.9; O2SAT 98
[2016-10-28] MEDS: VANCOMYCIN INJ 1,500 MG in SODIUM CHLORID 0.9% 500 ML INJ 500 ML IV SCH ×2 (00:18→12:25)
[2016-10-28] MEDS: oxyCODONE/ACETAMINOPHEN 5 MG/325 MG TAB PO PRN ×4 (01:58→20:54)
[2016-10-28] MEDS: ALPRAZolam 0.25 MG TAB PO PRN ×4 (01:58→20:54)
[2016-10-28] MEDS: HEPARIN SODIUM - SQ 10,000 UNITS/ML VIAL SQ SCH ×3 (06:23→20:54)
[2016-10-28 08:00] VITALS: BP 178/107; PULSE 74; RESP 20; TEMP 98; O2SAT 99
[2016-10-28] MEDS: TAMSULOSIN HCL 0.4 MG CAP PO SCH (08:49)
[2016-10-28] MEDS: LISINOPRIL 20 MG TAB PO SCH ×2 (08:49→20:55)
[2016-10-28] MEDS: DOCUSATE SODIUM 50 MG/SENNA 8.6 MG TAB PO SCH ×2 (08:49→20:55)
[2016-10-28] MEDS: amLODIPine BESYLATE 5 MG TAB PO SCH (08:49)
[2016-10-28] MEDS: METHOCARBAMOL 500 MG TAB PO PRN (08:50)
[2016-10-28] MEDS: MORPHINE SULFATE 30 MG CONTROLLED RELEASE TAB PO SCH ×2 (08:50→20:54)
[2016-10-28] MEDS: NICOTINE 21 MG/24 HR PATCH T-DERMAL SCH (08:50)
[2016-10-28] MEDS: SODIUM CHLORIDE 0.9% FLUSH 10 ML FLUSH IV FLUSH SCH ×2 (08:51→20:54)
[2016-10-28] MEDS: REMOVE OLD PATCH T-DERMAL SCH (08:51)
[2016-10-28 12:00] VITALS: BP 141/85; PULSE 64; RESP 20; TEMP 97.6; O2SAT 98
--- NOTE | 2016-10-28 15:57 | HHI.PR ---
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 Patient was being treated with IV vancomycin. He left the hospital AGAINST MEDICAL ADVICE earlier this morning. He reports he had to leave to take out his belongings from his residence because he was getting evicted. He came back with complaint of persistent low back pain. He denies any drug use since leaving the hospital. 8-14 patient complains of pain and states we are not controlling his pain States that we have adjusted his pain medications and adjust them as needed Discussed with patient and RN and family in the room 8-15 WILL ADJUST BP MEDICATIONS ADD NORVASC 5 MG PO DAILY 8-16 blood pressure better on norvasc 8-17 no new complaints CONTINUE ON ANTIBIOTICS PER ID RECOMMENDATIONS 8-18 patient wants vanco dosing times adjusted wants a assisted line- explained up to ID NO SOB, NO CP , NO PALPITATIONS, NO NAUSEA, NO VOMITING 8-19 CONTINUE ANTIBIOTICS COMPLAINS OF NECK PAIN- WILL TRY SOME MUSCLE RELAXERS 8-20 no new complaints today Had some anxiety. But all questions have been answered discussed with patient and RN and family 8-21 NO NEW COMPLAINTS CONTINUE CURRENT ANTIBIOTICS Objective Vitals Vital Signs Date Time Temp Pulse Resp B/P (MAP) Pulse Ox O2 Delivery O2 Flow Rate FiO2 10/28/16 08:51 Room Air 10/28/16 08:00 98.0 74 20 178/107 (130) 99 10/28/16 04:00 Room Air 10/28/16 00:00 97.9 62 18 125/79 (94) 98 10/28/16 00:00 Room Air 10/27/16 20:00 98.8 76 18 141/103 (116) 99 138/92 (107) 10/27/16 20:00 Room Air 10/27/16 16:00 97.6 73 16 134/76 (95) 96 10/27/16 16:00 Room Air I/O 10/27/16 10/27/16 10/27/16 10/28/16 10/28/16 10/28/16 07:00 15:00 23:00 07:00 15:00 23:00 Intake Total 720 ml 1080 ml 500 ml 1205 ml Output Total 400 ml 850 ml Balance 320 ml 1080 ml 500 ml 355 ml Intake Oral 720 ml 1080 ml 680 ml IV Total 500 ml 525 ml Output Urine Total 400 ml 850 ml # Voids 3 # Bowel Movements 0 0 1 Result Diagram: 10/28/16 0825 Other Results Laboratory Tests Test 10/26/16 09:41 10/27/16 14:09 10/28/16 08:25 Creatinine 0.80 MG/DL 0.86 MG/DL 0.82 MG/DL Estimat Glomerular Filtration Rate 105 ML/MIN 96 ML/MIN 102 ML/MIN Imaging Last Impressions Lumbar Spine MRI 10/18/16 0000 Signed Impressions: Service Date/Time: Tuesday, October 18, 2016 19:16 - CONCLUSION: 1. Slight decrease in abnormal enhancing and edematous tissues around the spinous processes of L3 and L4. Enhancement extends into the dorsal dural surface of L3 and L4 but without epidural abscess or significant thecal sac compression. Persistent mild canal stenosis at L4-5 and no evidence for discitis. 2. There are some edematous changes and enhancement in the marrow of the spinous processes of L3 and L4. Differential diagnosis includes reactive change. Cannot exclude osteomyelitis dorsally. Leroy Quintero MD Objective Remarks GENERAL: Awake alert and oriented talkative and cooperative SKIN: Warm and dry. Multiple tattoos upper extremity and lower extremity HEAD: Atraumatic. Normocephalic. EYES: Pupils equal and round. No scleral icterus. No injection or drainage. Extraocular muscles grossly intact ENT: No nasal bleeding or discharge. Mucous membranes pink and moist. Tongue is midline NECK: Trachea midline. No JVD. CARDIOVASCULAR: Regular rate and rhythm. S1 and S2 no S3 or S4 no heave or thrill or rub or gallop RESPIRATORY: No accessory muscle use. Clear to auscultation. Breath sounds equal bilaterally. GASTROINTESTINAL: Abdomen soft, non-tender, nondistended. Hepatic and splenic margins not palpable. MUSCULOSKELETAL: Extremities without clubbing, cyanosis, or edema. No obvious deformities. NEUROLOGICAL: Awake and alert. No obvious cranial nerve deficits. Motor grossly within normal limits. Five out of 5 muscle strength in the arms and legs. Normal speech. PSYCHIATRIC: Appropriate mood and affect; insight and judgment normal. Drug seeking behavior Medications and IVs Current Medications Vancomycin HCl 1150 mg/Sodium Chloride 261.5 ml @ 250 mls/hr ONCE ONCE IV Last administered on 10/17/16 14:14; Start 10/17/16 at 13:00; Stop 10/17/16 at 14:05; Status DC Alprazolam (Xanax) 0.25 mg Q6H PRN PO ANXIETY Last administered on 10/28/16 14 :57; Start 10/17/16 at 13:30 Lisinopril (Prinivil) 20 mg BID PO Last administered on 10/28/16 08:49; Start 10/17/16 at 21:00 Tamsulosin HCl (Flomax) 0.4 mg DAILY PO Last administered on 10/28/16 08:49; Start 10/18/16 at 09:00 Oxycodone/ Acetaminophen (Percocet 5-325 Mg) 1 tab Q6H PRN PO BREAKTHROUGH PAIN Last administered on 10/28/16 14:57; Start 10/17/16 at 13:30 Morphine Sulfate (Oramorph Sr) 30 mg Q12HR PO Last administered on 10/28/16 08 :50; Start 10/17/16 at 21:00 Zolpidem Tartrate (Ambien) 5 mg HS PRN PO INSOMNIA Last administered on 21:07; Start 10/17/16 at 13:30 Senna/Docusate Sodium (Maribel-Colace) 1 tab BID PO Last administered on 08:49; Start 10/17/16 at 21:00 Sodium Chloride (NS Flush) 2 ml UNSCH PRN IV FLUSH FLUSH AFTER USING IV ACCESS ; Start 10/17/16 at 13:45 Sodium Chloride (NS Flush) 2 ml BID IV FLUSH Last administered on 10/28/16 08: 51; Start 10/17/16 at 21:00 Acetaminophen (Tylenol) 650 mg Q4H PRN PO TEMP > 100.4; Start 10/17/16 at 13:45 Ondansetron HCl (Zofran Inj) 4 mg Q6H PRN IVP NAUSEA OR VOMITING; Start at 13:45 Heparin Sodium (Porcine) (Heparin Inj) 5,000 units Q8H SQ Last administered on 10/28/16 06:23; Start 10/17/16 at 14:00 Naloxone HCl (Narcan Inj) 0.4 mg UNSCH PRN IV SEE LABEL COMMENTS; Start at 13:45 Magnesium Hydroxide (Milk Of Magnesia Liq) 30 ml Q12H PRN PO MILD - MODERATE CONSTIPATION; Start 10/17/16 at 13:45 Sennosides (Senokot) 17.2 mg Q12H PRN PO MODERATE - SEVERE CONSTIPATION; Start 10/17/16 at 13:45 Bisacodyl (Dulcolax Supp) 10 mg DAILY PRN RECTAL SEVERE CONSITIPATION; Start at 13:45 Lactulose (Lactulose Liq) 30 ml DAILY PRN PO SEVERE CONSITIPATION Last administered on 10/24/16 09:39; Start 10/17/16 at 13:45 Vancomycin HCl 1500 mg/Sodium Chloride 515 ml @ 257.5 mls/ hr Q12H IV ; Start 10/17/16 at 21:00; Stop 10/17/16 at 21:00; Status DC Pharmacy Profile Note 0 ml @ 0 mls/hr UNSCH OTHER ; Start 10/17/16 at 13:45 Vancomycin HCl 1500 mg/Sodium Chloride 515 ml @ 250 mls/hr Q12H IV Last administered on 10/28/16 12:25; Start 10/18/16 at 00:00 Miscellaneous Information SPECIFIC LAB TO BE DRAWN:VANCOMYCIN TROUGH DATE TO... ONCE ONCE .XX Last administered on 10/19/16 11:45; Start 10/19/16 at 11:45; Stop 10/19/16 at 11:46; Status DC Enoxaparin Sodium (Lovenox Inj) 40 mg Q24H SQ ; Start 10/17/16 at 16:45; Stop at 17:04; Status DC Gadodiamide (Omniscan Pf Inj) 16 ml STK-MED ONCE IV Last administered on 19:36; Start 10/18/16 at 19:36; Stop 10/18/16 at 19:37; Status DC Nicotine (Habitrol 21 Mg Patch.24 Hr) 1 patch DAILY T-DERMAL Last administered on 10/28/16 08:50; Start 10/19/16 at 16:00 Miscellaneous Information 1 DAILY T-DERMAL Last administered on 10/28/16 08:51 ; Start 10/20/16 at 09:00 Clonidine (Catapres) 0.1 mg ONCE ONCE PO Last administered on 10/20/16 21:58 ; Start 10/20/16 at 19:30; Stop 10/20/16 at 19:31; Status DC Amlodipine Besylate (Norvasc) 5 mg ONCE ONCE PO Last administered on 11:54; Start 10/22/16 at 09:45; Stop 10/22/16 at 09:46; Status DC Amlodipine Besylate (Norvasc) 5 mg DAILY PO Last administered on 10/28/16 08: 49; Start 10/23/16 at 09:00 Miscellaneous Information SPECIFIC LAB TO BE DRAWN:VANCOMYCIN TROUGH DATE TO... ONCE ONCE .XX Last administered on 10/25/16 11:45; Start 10/25/16 at 11:45; Stop 10/25/16 at 11:46; Status DC Methocarbamol (Robaxin) 1,000 mg Q8HR PRN PO SPASMS Last administered on 08:50; Start 10/26/16 at 12:30 Urinary Catheter: No Vascular Central Line Catheter: No A/P Problem List: (1) Tobacco use ICD Code: Z72.0 - Tobacco use Status: Acute (2) IV drug abuse ICD Code: F19.10 - Intravenous drug abuse Status: Chronic (3) IVDU (intravenous drug user) ICD Code: F19.90 - Other psychoactive substance use, unspecified, uncomplicated Status: Chronic (4) Infective endocarditis ICD Code: I33.0 - Acute and subacute infective endocarditis Status: Acute (5) Hypertension ICD Code: I10 - Essential (primary) hypertension Status: Acute (6) Depressive disorder ICD Code: F32.9 - Depressive disorder Status: Acute (7) Back pain ICD Code: M54.9 - Dorsalgia, unspecified Status: Acute (8) Polysubstance dependence ICD Code: F19.20 - Polysubstance dependence Status: Chronic (9) Polysubstance (including opioids) dependence, daily use ICD Code: F19.20 - Other psychoactive substance dependence, uncomplicated Status: Chronic Assessment and Plan 45-year-old male admitted secondary to lower back pain and paraspinal abscess diagnosed with infective endocarditis based on echocardiogram findings and leukocytosis. No worsening signs of infection of lower back. Better pain control present through time. Patient was on 30 mg of MS Contin twice a day and 5 mg Percocets every 6 hours for breakthrough. He left the hospital AGAINST MEDICAL ADVICE the morning of 10/18/16 and returned the same afternoon because he reportedly had 2 take out his belongings from the residence he was being evicted from. Infective endocarditis History of IV drug abuse Pain medication seeking behavior - Infectious disease following. Continue Vanco - Repeat MRI "1. Slight decrease in abnormal enhancing and edematous tissues around the spinous processes of L3 and L4. Persistent mild canal stenosis at L4- 5 and no evidence for discitis. 2. There are some edematous changes and enhancement in the marrow of the spinous processes of L3 and L4. Differential diagnosis includes reactive change. Cannot exclude osteomyelitis dorsally. - ID will will follow up and consider transitioning to outpatient telavancin once daily. - Patient does exhibit pain medication seeking behavior. Plan to wean him off all narcotics. Weaning plan will be based on objective findings and clinical indicators - Patient is currently on MS Contin 30 mg every 12 hours and Percocet every 6 hours as needed. Continue MS Contin at 15 mg BID. - Plan is to continue to wean the patient off all Narcotics. Hypertension Noncompliant. Stable Continue lisinopril 20 MG BID NORVASC 5MG DAILY Lumbar spine edema: Improving Continue antibiotics Follow clinically for improvement Noncompliance: - Patient left the hospital AMA on 10/17 in the morning and returned the same day in the afternoon. He denies using drugs during that time. He was strongly counseled to comply with medical treatment. DVT prophylaxis Lovenox Discharge Planning ID following with tentative plan to DC home on Telavancin through the infusion center. Continue current treatment through the weekend and continue to wean off Narcotics. CONTINUE CURRENT TREATMENTS- WANTS VANCO DOSING SCHEDULE ADJUSTED BACK/NECK SPASMS ROBAXIN Continue current treatments AM LABS Discharge Planning Case management and infectious disease for possible discharge in future Problem Qualifiers (1) Infective endocarditis: Rafael Steinberg DO Oct 28, 2016 15:57
[2016-10-28 16:00] VITALS: BP 187/94; PULSE 86; RESP 20; TEMP 98.2; O2SAT 95
[2016-10-28] MEDS: ZOLPIDEM TARTRATE 5 MG TAB PO PRN (21:07)
[2016-10-28 23:26] VITALS: BP 111/74; PULSE 60; RESP 18; TEMP 97.3; O2SAT 98
[2016-10-29] VITALS: BP 113/61; PULSE 63; RESP 18; TEMP 97.3; O2SAT 95
[2016-10-29] MEDS: VANCOMYCIN INJ 1,500 MG in SODIUM CHLORID 0.9% 500 ML INJ 500 ML IV SCH ×2 (00:11→12:09)
[2016-10-29] MEDS: ALPRAZolam 0.25 MG TAB PO PRN ×4 (03:19→22:22)
[2016-10-29] MEDS: oxyCODONE/ACETAMINOPHEN 5 MG/325 MG TAB PO PRN ×3 (03:20→22:22)
[2016-10-29] MEDS: HEPARIN SODIUM - SQ 10,000 UNITS/ML VIAL SQ SCH ×3 (04:24→22:00)
[2016-10-29 08:00] VITALS: BP 143/84; PULSE 64; RESP 18; TEMP 97.9; O2SAT 94
[2016-10-29] MEDS: REMOVE OLD PATCH T-DERMAL SCH (09:00)
[2016-10-29] MEDS: LISINOPRIL 20 MG TAB PO SCH ×2 (09:22→22:22)
[2016-10-29] MEDS: TAMSULOSIN HCL 0.4 MG CAP PO SCH (09:22)
[2016-10-29] MEDS: NICOTINE 21 MG/24 HR PATCH T-DERMAL SCH (09:22)
[2016-10-29] MEDS: amLODIPine BESYLATE 5 MG TAB PO SCH (09:23)
[2016-10-29] MEDS: DOCUSATE SODIUM 50 MG/SENNA 8.6 MG TAB PO SCH ×2 (09:23→22:23)
[2016-10-29] MEDS: MORPHINE SULFATE 30 MG CONTROLLED RELEASE TAB PO SCH ×2 (09:23→22:22)
[2016-10-29] MEDS: SODIUM CHLORIDE 0.9% FLUSH 10 ML FLUSH IV FLUSH SCH ×2 (09:24→22:23)
[2016-10-29 11:55] VITALS: BP 138/86; PULSE 86; RESP 18; TEMP 97.9; O2SAT 96
--- NOTE | 2016-10-29 14:31 | HHI.PR ---
Subjective Remarks Patient has no new complaints, reports back pain is the same. Hurts more with ambulation. Objective Vitals Vital Signs Date Time Temp Pulse Resp B/P (MAP) Pulse Ox O2 Delivery O2 Flow Rate FiO2 10/29/16 11:55 97.9 86 18 138/86 (103) 96 10/29/16 10:30 20 10/29/16 08:00 Room Air 10/29/16 08:00 97.9 64 18 143/84 (103) 94 10/29/16 00:00 97.3 63 18 113/61 (78) 95 10/28/16 23:26 97.3 60 18 111/74 (86) 98 10/28/16 20:30 Room Air 10/28/16 16:00 98.2 86 20 187/94 (125) 95 10/28/16 16:00 Room Air I/O 10/28/16 10/28/16 10/28/16 10/29/16 10/29/16 10/29/16 07:00 15:00 23:00 07:00 15:00 23:00 Intake Total 1205 ml 1460 ml 500 ml Output Total 850 ml Balance 355 ml 1460 ml 500 ml Intake Oral 680 ml 960 ml IV Total 525 ml 500 ml 500 ml Output Urine Total 850 ml # Voids 4 # Bowel Movements 1 2 Result Diagram: 10/28/16 0825 Objective Remarks GENERAL: This is a well-nourished, well-developed patient, in no apparent distress. CARDIOVASCULAR: Normal rate and regular rhythm without murmurs, gallops, or rubs. RESPIRATORY: Good respiratory efforts. Breath sounds equal and clear to auscultation bilaterally. GASTROINTESTINAL: Abdomen soft, non-tender, non-distended. Normal active bowel sounds MUSCULOSKELETAL: Patient complains of tenderness to palpation over the lumbar paraspinal region. NEURO: Alert & Oriented x4 to person, place, time, situation. Moves all ext x4 PSYCH: Irritable A/P Problem List: (1) Tobacco use ICD Code: Z72.0 - Tobacco use Status: Acute (2) IV drug abuse ICD Code: F19.10 - Intravenous drug abuse Status: Chronic (3) IVDU (intravenous drug user) ICD Code: F19.90 - Other psychoactive substance use, unspecified, uncomplicated Status: Chronic (4) Infective endocarditis ICD Code: I33.0 - Acute and subacute infective endocarditis Status: Acute (5) Hypertension ICD Code: I10 - Essential (primary) hypertension Status: Acute (6) Depressive disorder ICD Code: F32.9 - Depressive disorder Status: Acute (7) Back pain ICD Code: M54.9 - Dorsalgia, unspecified Status: Acute (8) Polysubstance dependence ICD Code: F19.20 - Polysubstance dependence Status: Chronic (9) Polysubstance (including opioids) dependence, daily use ICD Code: F19.20 - Other psychoactive substance dependence, uncomplicated Status: Chronic Assessment and Plan 45-year-old male admitted secondary to lower back pain and paraspinal abscess diagnosed with infective endocarditis based on echocardiogram findings and leukocytosis. No worsening signs of infection of lower back. Better pain control present through time. Patient was on 30 mg of MS Contin twice a day and 5 mg Percocets every 6 hours for breakthrough. He left the hospital AGAINST MEDICAL ADVICE the morning of 10/18/16 and returned the same afternoon because he reportedly had 2 take out his belongings from the residence he was being evicted from. Infective endocarditis History of IV drug abuse Pain medication seeking behavior - Infectious disease following. Continue Vanco - Repeat MRI on 10/18/16 "1. Slight decrease in abnormal enhancing and edematous tissues around the spinous processes of L3 and L4. Persistent mild canal stenosis at L4-5 and no evidence for discitis. 2. There are some edematous changes and enhancement in the marrow of the spinous processes of L3 and L4. Differential diagnosis includes reactive change. Cannot exclude osteomyelitis dorsally. - ID will will follow up in 2 weeks and consider transitioning to outpatient antibiotics. - Patient does exhibit pain medication seeking behavior. Continue with plan to wean him off all narcotics. Weaning plan will be based on objective findings and clinical indicators - Patient is currently on MS Contin 30 mg every 12 hours and Percocet every 6 hours as needed. - Plan is to continue to wean the patient off all Narcotics. Hypertension Noncompliant. Stable Continue lisinopril Lumbar spine edema: Improving Continue antibiotics Follow clinically for improvement Noncompliance: - Patient left the hospital AMA on 10/17 in the morning and returned the same day in the afternoon. He denies using drugs during that time. He was strongly counseled to comply with medical treatment. DVT prophylaxis Lovenox Discharge Planning ID following with tentative plan to DC home on outpatient antibiotics. Plan to repeat MRI. Continue to wean off Narcotics. Problem Qualifiers (1) Infective endocarditis: Robyn Smith MD Oct 29, 2016 14:31
[2016-10-29 16:00] VITALS: BP 132/87; PULSE 81; RESP 18; TEMP 97.8; O2SAT 95
[2016-10-29 20:00] VITALS: BP_SYST 110; BP_SYST 135; BP_DIAS 60; BP_DIAS 91; PULSE 20; PULSE 80; RESP 20; TEMP 97.2; TEMP 97.6; O2SAT 100; O2SAT 96
[2016-10-30] MEDS: ZOLPIDEM TARTRATE 5 MG TAB PO PRN ×2 (00:21→20:49)
[2016-10-30] MEDS: VANCOMYCIN INJ 1,500 MG in SODIUM CHLORID 0.9% 500 ML INJ 500 ML IV SCH ×3 (00:22→23:42)
[2016-10-30] MEDS: ALPRAZolam 0.25 MG TAB PO PRN ×4 (05:26→23:42)
[2016-10-30] MEDS: oxyCODONE/ACETAMINOPHEN 5 MG/325 MG TAB PO PRN ×4 (05:26→23:42)
[2016-10-30] MEDS: HEPARIN SODIUM - SQ 10,000 UNITS/ML VIAL SQ SCH ×3 (05:29→20:49)
[2016-10-30] MEDS: SODIUM CHLORIDE 0.9% FLUSH 10 ML FLUSH IV FLUSH SCH ×2 (07:28→20:49)
[2016-10-30] MEDS: amLODIPine BESYLATE 5 MG TAB PO SCH (08:14)
[2016-10-30] MEDS: MORPHINE SULFATE 30 MG CONTROLLED RELEASE TAB PO SCH (08:14)
[2016-10-30] MEDS: LISINOPRIL 20 MG TAB PO SCH ×2 (08:14→20:49)
[2016-10-30] MEDS: DOCUSATE SODIUM 50 MG/SENNA 8.6 MG TAB PO SCH ×2 (08:14→20:49)
[2016-10-30] MEDS: REMOVE OLD PATCH T-DERMAL SCH (08:15)
[2016-10-30] MEDS: NICOTINE 21 MG/24 HR PATCH T-DERMAL SCH (08:15)
[2016-10-30] MEDS: TAMSULOSIN HCL 0.4 MG CAP PO SCH (08:15)
[2016-10-30 08:23] VITALS: BP 160/97; PULSE 68; RESP 17; TEMP 97.4; O2SAT 100
[2016-10-30 08:33] LABS: AUTOMATED NEUTROPHIL # 2.4 TH/MM3 (1.8-7.7); BASOPHIL # 0.1 TH/MM3 (0-0.2); BASOPHIL % 1.3 % (0.0-2.0); EOSINOPHIL # 0.2 TH/MM3 (0-0.4); EOSINOPHIL % 4.1 % (0.0-4.0); HEMATOCRIT 40.8 % (39.0-51.0); HEMO FLAGS DIFF FINAL; LYMPH % 37.1 % (9.0-44.0); MEAN CELL VOLUME 88.1 FL (80.0-100.0); MEAN CORPUSCULAR HEMOGLOBIN 28.8 PG (27.0-34.0); MEAN CORPUSCULAR HGB CONC 32.6 % (32.0-36.0); NEUT % 44.5 % (16.0-70.0); PLATELET COUNT 211 TH/MM3 (150-450); RED BLOOD COUNT 4.63 MIL/MM3 (4.50-5.90); RED CELL DISTRIBUTION WIDTH 13.8 % (11.6-17.2); WHITE BLOOD COUNT 5.4 TH/MM3 (4.0-11.0)
[2016-10-30 08:51] LABS: ANION GAP 4 MEQ/L (5-15); AST (GOT) 44 U/L (15-37); BLOOD UREA NITROGEN 12 MG/DL (7-18); CHLORIDE 106 MEQ/L (98-107); GLOMERULAR FILTRATION RATE 108 ML/MIN (>89); POTASSIUM 4.4 MEQ/L (3.5-5.1); SODIUM (NA) 140 MEQ/L (136-145)
[2016-10-30 08:52] LABS: ALT (GPT) 105 U/L (12-78)
[2016-10-30 08:54] LABS: ALKALINE PHOSPHATASE 114 U/L (45-117); TOTAL BILIRUBIN ADULT 0.3 MG/DL (0.2-1.0)
[2016-10-30 12:10] VITALS: BP 147/88; PULSE 66; RESP 18; TEMP 97.4; O2SAT 98
--- NOTE | 2016-10-30 12:54 | HHI.PR ---
Subjective Remarks Patient has no new complaints. He is seen in the common area using the computer. Pain is about the same. Objective Vitals Vital Signs Date Time Temp Pulse Resp B/P (MAP) Pulse Ox O2 Delivery O2 Flow Rate FiO2 10/30/16 12:38 Room Air 10/30/16 08:23 97.4 68 17 160/97 (118) 100 10/29/16 22:30 Room Air 10/29/16 20:00 97.6 80 20 135/91 (106) 96 10/29/16 20:00 97.2 20 20 110/60 (77) 100 10/29/16 16:00 97.8 81 18 132/87 (102) 95 I/O 10/29/16 10/29/16 10/29/16 10/30/16 10/30/16 10/30/16 07:00 15:00 23:00 07:00 15:00 23:00 Intake Total 500 ml 500 ml 1050 ml 480 ml Output Total 800 ml Balance 500 ml 500 ml 1050 ml -320 ml Intake Oral 1050 ml 480 ml IV Total 500 ml 500 ml Output Urine Total 800 ml # Voids 3 2 # Bowel Movements 1 1 Result Diagram: 10/30/16 0811 10/30/16 0811 Objective Remarks GENERAL: This is a well-nourished, well-developed patient, in no apparent distress. CARDIOVASCULAR: Normal rate and regular rhythm without murmurs, gallops, or rubs. RESPIRATORY: Good respiratory efforts. Breath sounds equal and clear to auscultation bilaterally. GASTROINTESTINAL: Abdomen soft, non-tender, non-distended. Normal active bowel sounds MUSCULOSKELETAL: Patient complains of tenderness to palpation over the lumbar paraspinal region. NEURO: Alert & Oriented x4 to person, place, time, situation. Moves all ext x4 PSYCH: Irritable A/P Problem List: (1) Tobacco use ICD Code: Z72.0 - Tobacco use Status: Acute (2) IV drug abuse ICD Code: F19.10 - Intravenous drug abuse Status: Chronic (3) IVDU (intravenous drug user) ICD Code: F19.90 - Other psychoactive substance use, unspecified, uncomplicated Status: Chronic (4) Infective endocarditis ICD Code: I33.0 - Acute and subacute infective endocarditis Status: Acute (5) Hypertension ICD Code: I10 - Essential (primary) hypertension Status: Acute (6) Depressive disorder ICD Code: F32.9 - Depressive disorder Status: Acute (7) Back pain ICD Code: M54.9 - Dorsalgia, unspecified Status: Acute (8) Polysubstance dependence ICD Code: F19.20 - Polysubstance dependence Status: Chronic (9) Polysubstance (including opioids) dependence, daily use ICD Code: F19.20 - Other psychoactive substance dependence, uncomplicated Status: Chronic Assessment and Plan 45-year-old male admitted secondary to lower back pain and paraspinal abscess diagnosed with infective endocarditis based on echocardiogram findings and leukocytosis. No worsening signs of infection of lower back. Better pain control present through time. Patient was on 30 mg of MS Contin twice a day and 5 mg Percocets every 6 hours for breakthrough. He left the hospital AGAINST MEDICAL ADVICE the morning of 10/18/16 and returned the same afternoon because he reportedly had 2 take out his belongings from the residence he was being evicted from. Infective endocarditis History of IV drug abuse Pain medication seeking behavior - Infectious disease following. Continue Vanco - Repeat MRI on 10/18/16 "1. Slight decrease in abnormal enhancing and edematous tissues around the spinous processes of L3 and L4. Persistent mild canal stenosis at L4-5 and no evidence for discitis. 2. There are some edematous changes and enhancement in the marrow of the spinous processes of L3 and L4. Differential diagnosis includes reactive change. Cannot exclude osteomyelitis dorsally. - ID will will follow up in 2 weeks and consider transitioning to outpatient antibiotics. - Patient does exhibit pain medication seeking behavior. Continue with plan to wean him off all narcotics. Weaning plan will be based on objective findings and clinical indicators - Patient is currently on MS Contin 30 mg every 12 hours and Percocet every 6 hours as needed. Decrease Oramorph to 15 mg twice a day. - Plan is to continue to wean the patient off all Narcotics. Hypertension Noncompliant. Stable Continue lisinopril Lumbar spine edema: Improving Continue antibiotics Follow clinically for improvement Noncompliance: - Patient left the hospital AMA on 10/17 in the morning and returned the same day in the afternoon. He denies using drugs during that time. He was strongly counseled to comply with medical treatment. DVT prophylaxis Lovenox Discharge Planning ID following with tentative plan to DC home on outpatient antibiotics. Plan to repeat MRI. Continue to wean off Narcotics. Problem Qualifiers (1) Infective endocarditis: Robyn Smith MD Oct 30, 2016 12:54
[2016-10-30 16:15] VITALS: BP 133/89; PULSE 71; RESP 18; TEMP 97.9; O2SAT 97
[2016-10-30 20:45] VITALS: BP 148/89; PULSE 71; RESP 18; TEMP 98; O2SAT 99
[2016-10-30] MEDS: MORPHINE SULFATE 15 MG CONTROLLED RELEASE TAB PO SCH (20:49)
[2016-10-31 00:57] VITALS: BP 128/81; PULSE 70; RESP 18; TEMP 97.8; O2SAT 97
[2016-10-31] MEDS: oxyCODONE/ACETAMINOPHEN 5 MG/325 MG TAB PO PRN ×4 (05:57→23:42)
[2016-10-31] MEDS: ALPRAZolam 0.25 MG TAB PO PRN ×4 (05:57→23:42)
[2016-10-31] MEDS: HEPARIN SODIUM - SQ 10,000 UNITS/ML VIAL SQ SCH ×4 (05:58→20:51)
[2016-10-31 08:00] VITALS: BP 128/84; PULSE 68; RESP 16; TEMP 97.5; O2SAT 98
[2016-10-31] MEDS: REMOVE OLD PATCH T-DERMAL SCH (09:00)
[2016-10-31] MEDS: TAMSULOSIN HCL 0.4 MG CAP PO SCH (10:06)
[2016-10-31] MEDS: DOCUSATE SODIUM 50 MG/SENNA 8.6 MG TAB PO SCH ×2 (10:06→20:49)
[2016-10-31] MEDS: amLODIPine BESYLATE 5 MG TAB PO SCH (10:07)
[2016-10-31] MEDS: LISINOPRIL 20 MG TAB PO SCH ×2 (10:07→20:49)
[2016-10-31] MEDS: MORPHINE SULFATE 15 MG CONTROLLED RELEASE TAB PO SCH ×2 (10:07→20:49)
[2016-10-31] MEDS: NICOTINE 21 MG/24 HR PATCH T-DERMAL SCH (10:07)
[2016-10-31] MEDS: METHOCARBAMOL 500 MG TAB PO PRN (11:42)
[2016-10-31] MEDS ORDERED: PHARMACY ORDERED LAB ONE (11:45)
[2016-10-31 12:00] VITALS: BP 166/91; PULSE 73; RESP 20; TEMP 97.7; O2SAT 97
[2016-10-31] MEDS: VANCOMYCIN INJ 1,500 MG in SODIUM CHLORID 0.9% 500 ML INJ 500 ML IV SCH ×2 (12:51→23:41)
--- NOTE | 2016-10-31 14:26 | HHI.IDPN ---
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 Patient had been treated at another hospital with IV Vanco and then oral bactrim few weeks [employer] per patient account. Patient was being treated with IV vancomycin while in hospital. All BCX were negative then. Plan was to repeat MRI and if improving to discharge him on IV Telavancin once a day in clinic. He left the hospital AGAINST MEDICAL ADVICE. He reports he had to leave to take out his belongings from his residence because he was getting evicted. He came back with complaint of persistent low back pain. He denies any drug use since leaving the hospital. Patient denies any fevers or night sweats after signing off AMA from hospital. Overnight events reviewed. No fevers No rash No diarrhea Sitting up in chair appears comfortable. Antibiotics Vanco IV Lines Line sites with no e.o infection Past Medical History Past Medical History Anxiety Hypertension but does not take any medications IV drug use ? History of hemorrhagic stroke Past Surgical History Right ear surgery Tonsillectomy Allergies: Coded Allergies: No Known Allergies (Verified , 10/17/16) Objective . Vital Signs Date Time Temp Pulse Resp B/P (MAP) Pulse Ox O2 Delivery O2 Flow Rate FiO2 10/31/16 12:00 97.7 73 20 166/91 (116) 97 10/31/16 08:00 97.5 68 16 128/84 (99) 98 10/31/16 04:00 Room Air 10/31/16 00:57 97.8 70 18 128/81 (97) 97 10/30/16 23:45 Room Air 10/30/16 20:45 98.0 71 18 148/89 (108) 99 10/30/16 20:00 Room Air 10/30/16 16:15 97.9 71 18 133/89 (104) 97 . Laboratory Tests Test 10/30/16 08:11 White Blood Count 5.4 TH/MM3 Red Blood Count 4.63 MIL/MM3 Hemoglobin 13.3 GM/DL Hematocrit 40.8 % Mean Corpuscular Volume 88.1 FL Mean Corpuscular Hemoglobin 28.8 PG Mean Corpuscular Hemoglobin Concent 32.6 % Red Cell Distribution Width 13.8 % Platelet Count 211 TH/MM3 Mean Platelet Volume 8.0 FL Neutrophils (%) (Auto) 44.5 % Lymphocytes (%) (Auto) 37.1 % Monocytes (%) (Auto) 13.0 % Eosinophils (%) (Auto) 4.1 % Basophils (%) (Auto) 1.3 % Neutrophils # (Auto) 2.4 TH/MM3 Lymphocytes # (Auto) 2.0 TH/MM3 Monocytes # (Auto) 0.7 TH/MM3 Eosinophils # (Auto) 0.2 TH/MM3 Basophils # (Auto) 0.1 TH/MM3 CBC Comment DIFF FINAL Differential Comment Laboratory Tests Test 10/30/16 08:11 Blood Urea Nitrogen 12 MG/DL Creatinine 0.78 MG/DL Random Glucose 85 MG/DL Total Protein 7.2 GM/DL Albumin 3.1 GM/DL Calcium Level 9.3 MG/DL Phosphorus Level 3.9 MG/DL Magnesium Level 2.0 MG/DL Alkaline Phosphatase 114 U/L Aspartate Amino Transf (AST/SGOT) 44 U/L Alanine Aminotransferase (ALT/SGPT) 105 U/L Total Bilirubin 0.3 MG/DL Sodium Level 140 MEQ/L Potassium Level 4.4 MEQ/L Chloride Level 106 MEQ/L Carbon Dioxide Level 30.0 MEQ/L Anion Gap 4 MEQ/L Estimat Glomerular Filtration Rate 108 ML/MIN C-Reactive Protein 0.68 MG/DL Imaging Last Impressions Lumbar Spine MRI 10/18/16 0000 Signed Impressions: Service Date/Time: Tuesday, October 18, 2016 19:16 - CONCLUSION: 1. Slight decrease in abnormal enhancing and edematous tissues around the spinous processes of L3 and L4. Enhancement extends into the dorsal dural surface of L3 and L4 but without epidural abscess or significant thecal sac compression. Persistent mild canal stenosis at L4-5 and no evidence for discitis. 2. There are some edematous changes and enhancement in the marrow of the spinous processes of L3 and L4. Differential diagnosis includes reactive change. Cannot exclude osteomyelitis dorsally. Leroy Quintero MD Physical Exam GENERAL: This is a well-nourished, well-developed patient, in no apparent distress. SKIN: No rashes, ecchymoses or lesions. Cool and dry. HEAD: Atraumatic. Normocephalic. No temporal or scalp tenderness. EYES: Pupils equal round and reactive. Extraocular motions intact. No scleral icterus. No injection or drainage. ENT: Nose without bleeding, purulent drainage or septal hematoma. Throat without erythema, tonsillar hypertrophy or exudate. Uvula midline. Airway patent. NECK: Trachea midline. No JVD or lymphadenopathy. Supple, nontender, no meningeal signs. CARDIOVASCULAR: Regular rate and rhythm without murmurs, gallops, or rubs. RESPIRATORY: Clear to auscultation. Breath sounds equal bilaterally. No wheezes , rales, or rhonchi. GASTROINTESTINAL: Abdomen soft, non-tender, nondistended. No hepato-splenomegaly , or palpable masses. No guarding. MUSCULOSKELETAL: Extremities without clubbing, cyanosis, or edema. No joint tenderness, effusion, or edema noted. No calf tenderness. Negative Homans sign bilaterally. NEUROLOGICAL: Awake and alert. Cranial nerves II through XII intact. Motor and sensory grossly within normal limits. Five out of 5 muscle strength in all muscle groups. Normal speech. Psych cooperative IV line sites with no e.o infection Assessment & Plan Remarks Culture negative endocarditis. Lumbar paraspinal abscess. Possible MSSA, MRSA or Strep. pain medicine seeking behavior. Recs: Continue Vanco IV (target 15-20) Patient reports he is homeless at this point. Also he has reported to others that he will likely abuse his PICC line. CBC with diff, CR, LFTs to be ordered and followed by hospitalist. Vanco IV (target trough: 15-20) Follow cultures Follow clinically. Will order follow up CT spine next week. Zena Slater MD Oct 31, 2016 14:26
--- NOTE | 2016-10-31 14:44 | HHI.PR ---
Subjective Remarks Patient reports he is feeling tired today. Discussed with RN. He has been refusing heparin for DVT prophylaxis. Objective Vitals Vital Signs Date Time Temp Pulse Resp B/P (MAP) Pulse Ox O2 Delivery O2 Flow Rate FiO2 10/31/16 12:00 97.7 73 20 166/91 (116) 97 10/31/16 08:00 97.5 68 16 128/84 (99) 98 10/31/16 04:00 Room Air 10/31/16 00:57 97.8 70 18 128/81 (97) 97 10/30/16 23:45 Room Air 10/30/16 20:45 98.0 71 18 148/89 (108) 99 10/30/16 20:00 Room Air 10/30/16 16:15 97.9 71 18 133/89 (104) 97 I/O 10/30/16 10/30/16 10/30/16 10/31/16 10/31/16 10/31/16 06:59 14:59 22:59 06:59 14:59 22:59 Intake Total 480 ml 960 ml 995 ml Output Total 800 ml Balance -320 ml 960 ml 995 ml Intake Oral 480 ml 960 ml 480 ml IV Total 515 ml Output Urine Total 800 ml # Voids 2 3 2 # Bowel Movements 1 Result Diagram: 10/30/16 0811 10/30/16 0811 Objective Remarks GENERAL: This is a well-nourished, well-developed patient, in no apparent distress. CARDIOVASCULAR: Normal rate and regular rhythm without murmurs, gallops, or rubs. RESPIRATORY: Good respiratory efforts. Breath sounds equal and clear to auscultation bilaterally. GASTROINTESTINAL: Abdomen soft, non-tender, non-distended. Normal active bowel sounds MUSCULOSKELETAL: Patient complains of tenderness to palpation over the lumbar paraspinal region. NEURO: Alert & Oriented x4 to person, place, time, situation. Moves all ext x4 PSYCH: Irritable A/P Problem List: (1) Tobacco use ICD Code: Z72.0 - Tobacco use Status: Acute (2) IV drug abuse ICD Code: F19.10 - Intravenous drug abuse Status: Chronic (3) IVDU (intravenous drug user) ICD Code: F19.90 - Other psychoactive substance use, unspecified, uncomplicated Status: Chronic (4) Infective endocarditis ICD Code: I33.0 - Acute and subacute infective endocarditis Status: Acute (5) Hypertension ICD Code: I10 - Essential (primary) hypertension Status: Acute (6) Depressive disorder ICD Code: F32.9 - Depressive disorder Status: Acute (7) Back pain ICD Code: M54.9 - Dorsalgia, unspecified Status: Acute (8) Polysubstance dependence ICD Code: F19.20 - Polysubstance dependence Status: Chronic (9) Polysubstance (including opioids) dependence, daily use ICD Code: F19.20 - Other psychoactive substance dependence, uncomplicated Status: Chronic Assessment and Plan 45-year-old male admitted secondary to lower back pain and paraspinal abscess diagnosed with infective endocarditis based on echocardiogram findings and leukocytosis. No worsening signs of infection of lower back. Better pain control present through time. Patient was on 30 mg of MS Contin twice a day and 5 mg Percocets every 6 hours for breakthrough. He left the hospital AGAINST MEDICAL ADVICE the morning of 10/18/16 and returned the same afternoon because he reportedly had 2 take out his belongings from the residence he was being evicted from. Infective endocarditis History of IV drug abuse Pain medication seeking behavior - Infectious disease following. Continue Vanco - Repeat MRI on 10/18/16 "1. Slight decrease in abnormal enhancing and edematous tissues around the spinous processes of L3 and L4. Persistent mild canal stenosis at L4-5 and no evidence for discitis. 2. There are some edematous changes and enhancement in the marrow of the spinous processes of L3 and L4. Differential diagnosis includes reactive change. Cannot exclude osteomyelitis dorsally. - ID will will follow up in 2 weeks and consider transitioning to outpatient antibiotics. - Patient does exhibit pain medication seeking behavior. Continue with plan to wean him off all narcotics. Weaning plan will be based on objective findings and clinical indicators - Patient is currently on MS Contin 30 mg every 12 hours and Percocet every 6 hours as needed. Continue Oramorph to 15 mg twice a day. Dose was decreased on 10/30/16 - Plan is to continue to wean the patient off all Narcotics. Hypertension Noncompliant. Stable Continue lisinopril Lumbar spine edema: Improving Continue antibiotics Follow clinically for improvement Noncompliance: - Patient left the hospital AMA on 10/17 in the morning and returned the same day in the afternoon. He denies using drugs during that time. He was strongly counseled to comply with medical treatment. DVT prophylaxis Lovenox Discharge Planning ID following with tentative plan to DC home on outpatient antibiotics. Plan to repeat MRI. Continue to wean off Narcotics. Problem Qualifiers (1) Infective endocarditis: Robyn Smith MD Oct 31, 2016 14:43
[2016-10-31 16:28] VITALS: BP 147/83; PULSE 69; RESP 18; TEMP 97.6; O2SAT 98
[2016-10-31] MEDS: SODIUM CHLORIDE 0.9% FLUSH 10 ML FLUSH IV FLUSH SCH ×2 (17:37→23:42)
[2016-10-31 20:00] VITALS: BP 133/87; PULSE 70; RESP 16; TEMP 97.5; O2SAT 97
[2016-10-31] MEDS: ZOLPIDEM TARTRATE 5 MG TAB PO PRN (20:49)
[2016-10-31] MEDS: LACTULOSE SYRUP 20 GM/30 ML CUP PO PRN (20:56)
[2016-11-01] VITALS: BP 114/74; PULSE 82; RESP 20; TEMP 97.4; O2SAT 98
[2016-11-01] MEDS: HEPARIN SODIUM - SQ 10,000 UNITS/ML VIAL SQ SCH ×3 (06:00→21:17)
[2016-11-01] MEDS: ALPRAZolam 0.25 MG TAB PO PRN ×3 (06:31→19:37)
[2016-11-01] MEDS: oxyCODONE/ACETAMINOPHEN 5 MG/325 MG TAB PO PRN ×3 (06:31→19:37)
[2016-11-01 08:00] VITALS: BP 140/89; PULSE 73; RESP 16; TEMP 97.6; O2SAT 98
[2016-11-01] MEDS: REMOVE OLD PATCH T-DERMAL SCH (09:00)
[2016-11-01] MEDS: SODIUM CHLORIDE 0.9% FLUSH 10 ML FLUSH IV FLUSH SCH ×2 (09:00→21:00)
[2016-11-01] MEDS: TAMSULOSIN HCL 0.4 MG CAP PO SCH (09:26)
[2016-11-01] MEDS: LISINOPRIL 20 MG TAB PO SCH ×2 (09:26→21:16)
[2016-11-01] MEDS: DOCUSATE SODIUM 50 MG/SENNA 8.6 MG TAB PO SCH ×2 (09:27→21:00)
[2016-11-01] MEDS: METHOCARBAMOL 500 MG TAB PO PRN (09:27)
[2016-11-01] MEDS: NICOTINE 21 MG/24 HR PATCH T-DERMAL SCH (09:28)
[2016-11-01] MEDS: amLODIPine BESYLATE 5 MG TAB PO SCH (09:29)
[2016-11-01] MEDS: MORPHINE SULFATE 15 MG CONTROLLED RELEASE TAB PO SCH ×2 (09:29→21:16)
[2016-11-01 12:00] VITALS: BP 147/91; PULSE 96; RESP 16; TEMP 97.5; O2SAT 96
[2016-11-01] MEDS: VANCOMYCIN INJ 1,500 MG in SODIUM CHLORID 0.9% 500 ML INJ 500 ML IV SCH (13:29)
--- NOTE | 2016-11-01 13:36 | HHI.PR ---
Subjective Remarks Patient is ambulating freely in his room. He has no new complaints. No fevers or chills. Objective Vitals Vital Signs Date Time Temp Pulse Resp B/P (MAP) Pulse Ox O2 Delivery O2 Flow Rate FiO2 11/01/16 12:00 97.5 96 16 147/91 (109) 96 11/01/16 08:00 97.6 73 16 140/89 (106) 98 11/01/16 00:00 97.4 82 20 114/74 (87) 98 10/31/16 23:40 Room Air 10/31/16 20:00 97.5 70 16 133/87 (102) 97 10/31/16 20:00 Room Air 10/31/16 16:28 97.6 69 18 147/83 (104) 98 I/O 10/31/16 10/31/16 10/31/16 11/01/16 11/01/16 11/01/16 06:59 14:59 22:59 06:59 14:59 22:59 Intake Total 995 ml 1200 ml 1795 ml Output Total 800 ml Balance 995 ml 400 ml 1795 ml Intake Oral 480 ml 1200 ml 1280 ml IV Total 515 ml 515 ml Output Urine Total 800 ml # Voids 2 4 # Bowel Movements 0 0 Result Diagram: 10/30/16 0811 11/01/16 0816 Objective Remarks GENERAL: This is a well-nourished, well-developed patient, in no apparent distress. CARDIOVASCULAR: Normal rate and regular rhythm without murmurs, gallops, or rubs. RESPIRATORY: Good respiratory efforts. Breath sounds equal and clear to auscultation bilaterally. GASTROINTESTINAL: Abdomen soft, non-tender, non-distended. Normal active bowel sounds MUSCULOSKELETAL: Patient complains of tenderness to palpation over the lumbar paraspinal region. NEURO: Alert & Oriented x4 to person, place, time, situation. Moves all ext x4 PSYCH: Irritable A/P Problem List: (1) Tobacco use ICD Code: Z72.0 - Tobacco use Status: Acute (2) IV drug abuse ICD Code: F19.10 - Intravenous drug abuse Status: Chronic (3) IVDU (intravenous drug user) ICD Code: F19.90 - Other psychoactive substance use, unspecified, uncomplicated Status: Chronic (4) Infective endocarditis ICD Code: I33.0 - Acute and subacute infective endocarditis Status: Acute (5) Hypertension ICD Code: I10 - Essential (primary) hypertension Status: Acute (6) Depressive disorder ICD Code: F32.9 - Depressive disorder Status: Acute (7) Back pain ICD Code: M54.9 - Dorsalgia, unspecified Status: Acute (8) Polysubstance dependence ICD Code: F19.20 - Polysubstance dependence Status: Chronic (9) Polysubstance (including opioids) dependence, daily use ICD Code: F19.20 - Other psychoactive substance dependence, uncomplicated Status: Chronic Assessment and Plan 45-year-old male admitted secondary to lower back pain and paraspinal abscess diagnosed with infective endocarditis based on echocardiogram findings and leukocytosis. No worsening signs of infection of lower back. Better pain control present through time. Patient was on 30 mg of MS Contin twice a day and 5 mg Percocets every 6 hours for breakthrough. He left the hospital AGAINST MEDICAL ADVICE the morning of 10/18/16 and returned the same afternoon because he reportedly had 2 take out his belongings from the residence he was being evicted from. Infective endocarditis History of IV drug abuse Pain medication seeking behavior - Infectious disease following. Continue Vanco - Repeat MRI on 10/18/16 "1. Slight decrease in abnormal enhancing and edematous tissues around the spinous processes of L3 and L4. Persistent mild canal stenosis at L4-5 and no evidence for discitis. 2. There are some edematous changes and enhancement in the marrow of the spinous processes of L3 and L4. Differential diagnosis includes reactive change. Cannot exclude osteomyelitis dorsally. - ID following. Plan to repeat imaging next week. - Patient does exhibit pain medication seeking behavior. Continue with plan to wean him off all narcotics. Weaning plan will be based on objective findings and clinical indicators - Patient is currently on MS Contin 30 mg every 12 hours and Percocet every 6 hours as needed. Continue Oramorph to 15 mg twice a day. Dose was decreased on 10/30/16 - Plan is to continue to wean the patient off all Narcotics. Hypertension Noncompliant. Stable Continue lisinopril Lumbar spine edema: Improving Continue antibiotics Follow clinically for improvement Noncompliance: - Patient left the hospital AMA on 10/17 in the morning and returned the same day in the afternoon. He denies using drugs during that time. He was strongly counseled to comply with medical treatment. DVT prophylaxis Lovenox Discharge Planning ID following, plan to repeat imaging suite. Continue to wean off Narcotics. Problem Qualifiers (1) Infective endocarditis: Robyn Smith MD Nov 01, 2016 13:36
[2016-11-01 16:00] VITALS: BP 118/60; PULSE 93; RESP 16; TEMP 97.3; O2SAT 94
[2016-11-01 20:00] VITALS: BP 156/105; PULSE 80; RESP 21; TEMP 98.2; O2SAT 99
[2016-11-02] VITALS: BP 129/88; PULSE 74; RESP 20; TEMP 97.5; O2SAT 96
[2016-11-02] MEDS: VANCOMYCIN INJ 1,500 MG in SODIUM CHLORID 0.9% 500 ML INJ 500 ML IV SCH ×2 (00:40→12:20)
[2016-11-02] MEDS: ALPRAZolam 0.25 MG TAB PO PRN ×4 (01:38→21:12)
[2016-11-02] MEDS: oxyCODONE/ACETAMINOPHEN 5 MG/325 MG TAB PO PRN ×4 (01:39→21:11)
[2016-11-02] MEDS: HEPARIN SODIUM - SQ 10,000 UNITS/ML VIAL SQ SCH ×3 (05:25→21:48)
[2016-11-02 08:00] VITALS: BP 166/110; PULSE 67; RESP 16; TEMP 97.2; O2SAT 99
[2016-11-02] MEDS: REMOVE OLD PATCH T-DERMAL SCH (08:56)
[2016-11-02] MEDS: NICOTINE 21 MG/24 HR PATCH T-DERMAL SCH (08:56)
[2016-11-02] MEDS: amLODIPine BESYLATE 5 MG TAB PO SCH (08:57)
[2016-11-02] MEDS: MORPHINE SULFATE 15 MG CONTROLLED RELEASE TAB PO SCH ×2 (08:58→20:32)
[2016-11-02] MEDS: LISINOPRIL 20 MG TAB PO SCH ×2 (08:59→20:31)
[2016-11-02] MEDS: TAMSULOSIN HCL 0.4 MG CAP PO SCH (08:59)
[2016-11-02] MEDS: DOCUSATE SODIUM 50 MG/SENNA 8.6 MG TAB PO SCH ×2 (08:59→20:32)
[2016-11-02] MEDS: SODIUM CHLORIDE 0.9% FLUSH 10 ML FLUSH IV FLUSH SCH ×2 (11:00→20:32)
[2016-11-02 13:00] VITALS: BP 129/88; PULSE 72; RESP 16; TEMP 97.7; O2SAT 97
--- NOTE | 2016-11-02 14:48 | HHI.PR ---
Subjective Remarks No new issues. Pain is unchanged. Objective Vitals Vital Signs Date Time Temp Pulse Resp B/P (MAP) Pulse Ox O2 Delivery O2 Flow Rate FiO2 11/02/16 13:00 97.7 72 16 129/88 (102) 97 11/02/16 08:00 97.2 67 16 166/110 (128) 99 11/02/16 07:00 Room Air 11/02/16 00:00 97.5 74 20 129/88 (102) 96 11/01/16 20:00 98.2 80 21 156/105 (122) 99 11/01/16 19:38 Room Air 11/01/16 16:00 97.3 93 16 118/60 (79) 94 I/O 11/01/16 11/01/16 11/01/16 11/02/16 11/02/16 11/02/16 07:00 15:00 23:00 07:00 15:00 23:00 Intake Total 1795 ml 1595 ml Balance 1795 ml 1595 ml Intake Oral 1280 ml 1080 ml IV Total 515 ml 515 ml # Voids 4 4 # Bowel Movements 0 0 Result Diagram: 10/30/16 0811 11/01/16 0816 Objective Remarks GENERAL: This is a well-nourished, well-developed patient, in no apparent distress. CARDIOVASCULAR: Normal rate and regular rhythm without murmurs, gallops, or rubs. RESPIRATORY: Good respiratory efforts. Breath sounds equal and clear to auscultation bilaterally. GASTROINTESTINAL: Abdomen soft, non-tender, non-distended. Normal active bowel sounds MUSCULOSKELETAL: Patient complains of tenderness to palpation over the lumbar paraspinal region. NEURO: Alert & Oriented x4 to person, place, time, situation. Moves all ext x4 PSYCH: Irritable A/P Problem List: (1) Tobacco use ICD Code: Z72.0 - Tobacco use Status: Acute (2) IV drug abuse ICD Code: F19.10 - Intravenous drug abuse Status: Chronic (3) IVDU (intravenous drug user) ICD Code: F19.90 - Other psychoactive substance use, unspecified, uncomplicated Status: Chronic (4) Infective endocarditis ICD Code: I33.0 - Acute and subacute infective endocarditis Status: Acute (5) Hypertension ICD Code: I10 - Essential (primary) hypertension Status: Acute (6) Depressive disorder ICD Code: F32.9 - Depressive disorder Status: Acute (7) Back pain ICD Code: M54.9 - Dorsalgia, unspecified Status: Acute (8) Polysubstance dependence ICD Code: F19.20 - Polysubstance dependence Status: Chronic (9) Polysubstance (including opioids) dependence, daily use ICD Code: F19.20 - Other psychoactive substance dependence, uncomplicated Status: Chronic Assessment and Plan 45-year-old male admitted secondary to lower back pain and paraspinal abscess diagnosed with infective endocarditis based on echocardiogram findings and leukocytosis. No worsening signs of infection of lower back. Better pain control present through time. Patient was on 30 mg of MS Contin twice a day and 5 mg Percocets every 6 hours for breakthrough. He left the hospital AGAINST MEDICAL ADVICE the morning of 10/18/16 and returned the same afternoon because he reportedly had 2 take out his belongings from the residence he was being evicted from. Infective endocarditis History of IV drug abuse Pain medication seeking behavior - Infectious disease following. Continue Vanco - Repeat MRI on 10/18/16 "1. Slight decrease in abnormal enhancing and edematous tissues around the spinous processes of L3 and L4. Persistent mild canal stenosis at L4-5 and no evidence for discitis. 2. There are some edematous changes and enhancement in the marrow of the spinous processes of L3 and L4. Differential diagnosis includes reactive change. Cannot exclude osteomyelitis dorsally. - ID following. Plan to repeat imaging next week. - Patient does exhibit pain medication seeking behavior. Continue with plan to wean him off all narcotics. Weaning plan will be based on objective findings and clinical indicators - Patient is currently on MS Contin 30 mg every 12 hours and Percocet every 6 hours as needed. Continue Oramorph to 15 mg twice a day. Dose was decreased on 10/30/16 - Plan is to continue to wean the patient off all Narcotics. DW patient to continue wean off Narcotics. Unfortunately he has no motivation for this. Hypertension Noncompliant. Stable Continue lisinopril Lumbar spine edema: Improving Continue antibiotics Follow clinically for improvement Noncompliance: - Patient left the hospital AMA on 10/17 in the morning and returned the same day in the afternoon. He denies using drugs during that time. He was strongly counseled to comply with medical treatment. DVT prophylaxis Lovenox Discharge Planning ID following, plan to repeat imaging suite. Continue to wean off Narcotics. Problem Qualifiers (1) Infective endocarditis: Robyn Smith MD Nov 02, 2016 14:48
[2016-11-02 16:00] VITALS: BP 129/85; PULSE 62; RESP 16; TEMP 97.8; O2SAT 99
[2016-11-02 20:00] VITALS: BP 152/95; PULSE 67; RESP 16; TEMP 97.5; O2SAT 98
[2016-11-03] VITALS: BP 128/69; PULSE 63; RESP 16; TEMP 97.8; O2SAT 97
[2016-11-03] MEDS: ZOLPIDEM TARTRATE 5 MG TAB PO PRN
[2016-11-03] MEDS: VANCOMYCIN INJ 1,500 MG in SODIUM CHLORID 0.9% 500 ML INJ 500 ML IV SCH ×2 (00:01→12:24)
[2016-11-03] MEDS: HEPARIN SODIUM - SQ 10,000 UNITS/ML VIAL SQ SCH ×3 (05:32→22:00)
[2016-11-03 08:00] VITALS: BP 145/96; PULSE 74; RESP 20; TEMP 97.8; O2SAT 97
[2016-11-03] MEDS: REMOVE OLD PATCH T-DERMAL SCH (09:00)
[2016-11-03] MEDS: DOCUSATE SODIUM 50 MG/SENNA 8.6 MG TAB PO SCH ×2 (09:00→20:41)
[2016-11-03] MEDS: LISINOPRIL 20 MG TAB PO SCH ×2 (09:36→20:40)
[2016-11-03] MEDS: ALPRAZolam 0.25 MG TAB PO PRN ×2 (09:36→16:33)
[2016-11-03] MEDS: TAMSULOSIN HCL 0.4 MG CAP PO SCH (09:36)
[2016-11-03] MEDS: oxyCODONE/ACETAMINOPHEN 5 MG/325 MG TAB PO PRN ×3 (09:37→22:34)
[2016-11-03] MEDS: amLODIPine BESYLATE 5 MG TAB PO SCH (09:37)
[2016-11-03] MEDS: MORPHINE SULFATE 15 MG CONTROLLED RELEASE TAB PO SCH ×2 (09:38→20:40)
[2016-11-03] MEDS: SODIUM CHLORIDE 0.9% FLUSH 10 ML FLUSH IV FLUSH SCH ×2 (09:38→20:41)
[2016-11-03] MEDS: NICOTINE 21 MG/24 HR PATCH T-DERMAL SCH (09:38)
[2016-11-03 12:00] VITALS: BP 140/88; PULSE 69; RESP 20; TEMP 98.2; O2SAT 97
--- NOTE | 2016-11-03 14:51 | HHI.PR ---
Subjective Remarks No new issues. We discussed weaning down Narcotics. He wants to know how much time he will be in the hospital. Objective Vitals Vital Signs Date Time Temp Pulse Resp B/P (MAP) Pulse Ox O2 Delivery O2 Flow Rate FiO2 11/03/16 08:00 97.8 74 20 145/96 (112) 97 11/03/16 07:15 Room Air 11/03/16 04:00 Room Air 11/03/16 00:00 97.8 63 16 128/69 (88) 97 11/03/16 00:00 Room Air 11/02/16 20:00 97.5 67 16 152/95 (114) 98 11/02/16 20:00 Room Air 11/02/16 16:00 97.8 62 16 129/85 (100) 99 I/O 11/02/16 11/02/16 11/02/16 11/03/16 11/03/16 11/03/16 06:59 14:59 22:59 06:59 14:59 22:59 Intake Total 1595 ml 960 ml 515 ml Output Total 750 ml Balance 1595 ml 960 ml -235 ml Intake Oral 1080 ml 960 ml IV Total 515 ml 515 ml Output Urine Total 750 ml # Voids 4 3 # Bowel Movements 0 Result Diagram: 10/30/16 0811 11/01/16 0816 Objective Remarks GENERAL: This is a well-nourished, well-developed patient, in no apparent distress. CARDIOVASCULAR: Normal rate and regular rhythm without murmurs, gallops, or rubs. RESPIRATORY: Good respiratory efforts. Breath sounds equal and clear to auscultation bilaterally. GASTROINTESTINAL: Abdomen soft, non-tender, non-distended. Normal active bowel sounds MUSCULOSKELETAL: Patient complains of tenderness to palpation over the lumbar paraspinal region. NEURO: Alert & Oriented x4 to person, place, time, situation. Moves all ext x4 PSYCH: Calm today A/P Problem List: (1) Tobacco use ICD Code: Z72.0 - Tobacco use Status: Acute (2) IV drug abuse ICD Code: F19.10 - Intravenous drug abuse Status: Chronic (3) IVDU (intravenous drug user) ICD Code: F19.90 - Other psychoactive substance use, unspecified, uncomplicated Status: Chronic (4) Infective endocarditis ICD Code: I33.0 - Acute and subacute infective endocarditis Status: Acute (5) Hypertension ICD Code: I10 - Essential (primary) hypertension Status: Acute (6) Depressive disorder ICD Code: F32.9 - Depressive disorder Status: Acute (7) Back pain ICD Code: M54.9 - Dorsalgia, unspecified Status: Acute (8) Polysubstance dependence ICD Code: F19.20 - Polysubstance dependence Status: Chronic (9) Polysubstance (including opioids) dependence, daily use ICD Code: F19.20 - Other psychoactive substance dependence, uncomplicated Status: Chronic Assessment and Plan 45-year-old male admitted secondary to lower back pain and paraspinal abscess diagnosed with infective endocarditis based on echocardiogram findings and leukocytosis. No worsening signs of infection of lower back. Better pain control present through time. Patient was on 30 mg of MS Contin twice a day and 5 mg Percocets every 6 hours for breakthrough. He left the hospital AGAINST MEDICAL ADVICE the morning of 10/18/16 and returned the same afternoon because he reportedly had 2 take out his belongings from the residence he was being evicted from. Infective endocarditis History of IV drug abuse Pain medication seeking behavior - Infectious disease following. Continue Vanco - Repeat MRI on 10/18/16 "1. Slight decrease in abnormal enhancing and edematous tissues around the spinous processes of L3 and L4. Persistent mild canal stenosis at L4-5 and no evidence for discitis. 2. There are some edematous changes and enhancement in the marrow of the spinous processes of L3 and L4. Differential diagnosis includes reactive change. Cannot exclude osteomyelitis dorsally. - ID following. Plan to repeat imaging next week. Will discuss with ID if we can repeat imaging in 1-2 days since last MRI was 16 days ago. - Patient does exhibit pain medication seeking behavior. Continue with plan to wean him off all narcotics. Weaning plan will be based on objective findings and clinical indicators - Patient is currently on MS Contin 30 mg every 12 hours and Percocet every 6 hours as needed. Continue Oramorph to 15 mg twice a day. Dose was decreased on 10/30/16 - Plan is to continue to wean the patient off all Narcotics. DW patient to continue wean off Narcotics. Unfortunately he has no motivation for this. Hypertension Noncompliant. Stable Continue lisinopril Lumbar spine edema: Improving Continue antibiotics Follow clinically for improvement Noncompliance: - Patient left the hospital AMA on 10/17 in the morning and returned the same day in the afternoon. He denies using drugs during that time. He was strongly counseled to comply with medical treatment. DVT prophylaxis Lovenox Discharge Planning ID following, plan to repeat imaging suite. Continue to wean off Narcotics. Problem Qualifiers (1) Infective endocarditis: Robyn Smith MD Nov 03, 2016 14:51
[2016-11-03 16:00] VITALS: BP 141/77; PULSE 69; RESP 20; TEMP 97.6; O2SAT 98
[2016-11-03 20:00] VITALS: BP 122/95; PULSE 71; RESP 18; TEMP 97.3; O2SAT 98
[2016-11-04] VITALS: BP 121/81; PULSE 71; RESP 16; TEMP 97.2; O2SAT 98
[2016-11-04] MEDS: ZOLPIDEM TARTRATE 5 MG TAB PO PRN (00:09)
[2016-11-04] MEDS: VANCOMYCIN INJ 1,500 MG in SODIUM CHLORID 0.9% 500 ML INJ 500 ML IV SCH ×2 (00:09→12:17)
[2016-11-04] MEDS: HEPARIN SODIUM - SQ 10,000 UNITS/ML VIAL SQ SCH ×3 (06:00→20:28)
[2016-11-04] MEDS: ALPRAZolam 0.25 MG TAB PO PRN ×3 (06:04→18:44)
[2016-11-04] MEDS: oxyCODONE/ACETAMINOPHEN 5 MG/325 MG TAB PO PRN ×3 (06:05→18:44)
[2016-11-04 08:00] VITALS: BP 159/107; PULSE 71; RESP 20; TEMP 97.3; O2SAT 96
[2016-11-04] MEDS: DOCUSATE SODIUM 50 MG/SENNA 8.6 MG TAB PO SCH ×2 (09:00→20:25)
[2016-11-04] MEDS: REMOVE OLD PATCH T-DERMAL SCH (09:00)
[2016-11-04] MEDS: TAMSULOSIN HCL 0.4 MG CAP PO SCH (09:31)
[2016-11-04] MEDS: amLODIPine BESYLATE 5 MG TAB PO SCH (09:31)
[2016-11-04] MEDS: LISINOPRIL 20 MG TAB PO SCH ×2 (09:31→20:24)
[2016-11-04] MEDS: SODIUM CHLORIDE 0.9% FLUSH 10 ML FLUSH IV FLUSH SCH ×2 (09:31→20:23)
[2016-11-04] MEDS: NICOTINE 21 MG/24 HR PATCH T-DERMAL SCH (09:32)
[2016-11-04] MEDS: MORPHINE SULFATE 15 MG CONTROLLED RELEASE TAB PO SCH ×2 (09:32→20:24)
[2016-11-04] MEDS: METHOCARBAMOL 500 MG TAB PO PRN (09:43)
[2016-11-04 12:00] VITALS: BP 147/96; PULSE 84; RESP 20; TEMP 98; O2SAT 96
--- NOTE | 2016-11-04 13:37 | HHI.PR ---
Subjective Remarks No new complaints. Afebrile. Objective Vitals Vital Signs Date Time Temp Pulse Resp B/P (MAP) Pulse Ox O2 Delivery O2 Flow Rate FiO2 11/04/16 13:31 18 11/04/16 13:30 96 Room Air 11/04/16 12:00 98.0 84 20 147/96 (113) 96 11/04/16 08:00 97.3 71 20 159/107 (124) 96 11/04/16 04:00 Room Air 11/04/16 00:00 97.2 71 16 121/81 (94) 98 11/04/16 00:00 Room Air 11/03/16 20:00 97.3 71 18 122/95 (104) 98 11/03/16 20:00 Room Air 11/03/16 16:00 97.6 69 20 141/77 (98) 98 I/O 11/03/16 11/03/16 11/03/16 11/04/16 11/04/16 11/04/16 07:00 15:00 23:00 07:00 15:00 23:00 Intake Total 515 ml 960 ml 995 ml Output Total 750 ml 550 ml Balance -235 ml 410 ml 995 ml Intake Oral 960 ml 480 ml IV Total 515 ml 515 ml Output Urine Total 750 ml 550 ml # Voids 2 # Bowel Movements 0 Result Diagram: 11/04/16 0942 Objective Remarks GENERAL: This is a well-nourished, well-developed patient, in no apparent distress. CARDIOVASCULAR: Normal rate and regular rhythm without murmurs, gallops, or rubs. RESPIRATORY: Good respiratory efforts. Breath sounds equal and clear to auscultation bilaterally. GASTROINTESTINAL: Abdomen soft, non-tender, non-distended. Normal active bowel sounds MUSCULOSKELETAL: Patient complains of tenderness to palpation over the lumbar paraspinal region. NEURO: Alert & Oriented x4 to person, place, time, situation. Moves all ext x4 PSYCH: Calm today A/P Problem List: (1) Tobacco use ICD Code: Z72.0 - Tobacco use Status: Acute (2) IV drug abuse ICD Code: F19.10 - Intravenous drug abuse Status: Chronic (3) IVDU (intravenous drug user) ICD Code: F19.90 - Other psychoactive substance use, unspecified, uncomplicated Status: Chronic (4) Infective endocarditis ICD Code: I33.0 - Acute and subacute infective endocarditis Status: Acute (5) Hypertension ICD Code: I10 - Essential (primary) hypertension Status: Acute (6) Depressive disorder ICD Code: F32.9 - Depressive disorder Status: Acute (7) Back pain ICD Code: M54.9 - Dorsalgia, unspecified Status: Acute (8) Polysubstance dependence ICD Code: F19.20 - Polysubstance dependence Status: Chronic (9) Polysubstance (including opioids) dependence, daily use ICD Code: F19.20 - Other psychoactive substance dependence, uncomplicated Status: Chronic Assessment and Plan 45-year-old male admitted secondary to lower back pain and paraspinal abscess diagnosed with infective endocarditis based on echocardiogram findings and leukocytosis. No worsening signs of infection of lower back. Better pain control present through time. Patient was on 30 mg of MS Contin twice a day and 5 mg Percocets every 6 hours for breakthrough. He left the hospital AGAINST MEDICAL ADVICE the morning of 10/18/16 and returned the same afternoon because he reportedly had 2 take out his belongings from the residence he was being evicted from. Infective endocarditis History of IV drug abuse Pain medication seeking behavior - Infectious disease following. Continue Vanco - Repeat MRI on 10/18/16 "1. Slight decrease in abnormal enhancing and edematous tissues around the spinous processes of L3 and L4. Persistent mild canal stenosis at L4-5 and no evidence for discitis. 2. There are some edematous changes and enhancement in the marrow of the spinous processes of L3 and L4. Differential diagnosis includes reactive change. Cannot exclude osteomyelitis dorsally. - ID following. I discussed with ID. Plan to repeat imaging on . - Patient does exhibit pain medication seeking behavior. Continue with plan to wean him off all narcotics. Weaning plan will be based on objective findings and clinical indicators - Continue Oramorph to 15 mg twice a day. Percocet every 6 hours as needed. Dose was decreased on 10/30/16 - Plan is to continue to wean the patient off all Narcotics. DW patient to continue wean off Narcotics. Unfortunately he has no motivation for this. Hypertension Noncompliant. Stable Continue lisinopril Lumbar spine edema: Improving Continue antibiotics Follow clinically for improvement Noncompliance: - Patient left the hospital AMA on 10/17 in the morning and returned the same day in the afternoon. He denies using drugs during that time. He was strongly counseled to comply with medical treatment. DVT prophylaxis Lovenox Discharge Planning ID following, plan to repeat imaging . Continue to wean off Narcotics. Problem Qualifiers (1) Infective endocarditis: Robyn Smith MD Nov 04, 2016 13:37
[2016-11-04 16:00] VITALS: BP 136/95; PULSE 86; RESP 18; TEMP 97.6; O2SAT 98
[2016-11-04 21:53] VITALS: BP 144/95; PULSE 78; RESP 18; TEMP 98.1; O2SAT 97
[2016-11-05] MEDS: oxyCODONE/ACETAMINOPHEN 5 MG/325 MG TAB PO PRN ×3 (00:27→18:11)
[2016-11-05] MEDS: ALPRAZolam 0.25 MG TAB PO PRN ×3 (00:27→18:10)
[2016-11-05] MEDS: VANCOMYCIN INJ 1,500 MG in SODIUM CHLORID 0.9% 500 ML INJ 500 ML IV SCH ×2 (00:28→11:48)
[2016-11-05 01:30] VITALS: BP 124/81; PULSE 65; RESP 18; TEMP 98.2; O2SAT 97
[2016-11-05] MEDS: HEPARIN SODIUM - SQ 10,000 UNITS/ML VIAL SQ SCH ×3 (05:51→21:24)
[2016-11-05 08:09] VITALS: BP 160/93; PULSE 60; RESP 17; TEMP 97.2; O2SAT 98
[2016-11-05] MEDS: REMOVE OLD PATCH T-DERMAL SCH (09:00)
[2016-11-05] MEDS: TAMSULOSIN HCL 0.4 MG CAP PO SCH (09:39)
[2016-11-05] MEDS: NICOTINE 21 MG/24 HR PATCH T-DERMAL SCH (09:39)
[2016-11-05] MEDS: LISINOPRIL 20 MG TAB PO SCH ×2 (09:39→21:24)
[2016-11-05] MEDS: MORPHINE SULFATE 15 MG CONTROLLED RELEASE TAB PO SCH ×2 (09:39→21:24)
[2016-11-05] MEDS: DOCUSATE SODIUM 50 MG/SENNA 8.6 MG TAB PO SCH ×2 (09:39→21:23)
[2016-11-05] MEDS: amLODIPine BESYLATE 5 MG TAB PO SCH (09:40)
[2016-11-05] MEDS: SODIUM CHLORIDE 0.9% FLUSH 10 ML FLUSH IV FLUSH SCH ×2 (09:41→21:24)
--- NOTE | 2016-11-05 10:58 | HHI.PR ---
Subjective Remarks Patient has no new complaints. No fevers. Pain is unchanged. Objective Vitals Vital Signs Date Time Temp Pulse Resp B/P (MAP) Pulse Ox O2 Delivery O2 Flow Rate FiO2 11/05/16 08:09 97.2 60 17 160/93 (115) 98 11/05/16 01:30 98.2 65 18 124/81 (95) 97 11/04/16 21:53 98.1 78 18 144/95 (111) 97 11/04/16 20:29 Room Air 11/04/16 16:00 97.6 86 18 136/95 (109) 98 11/04/16 13:31 18 11/04/16 13:30 96 Room Air 11/04/16 12:00 98.0 84 20 147/96 (113) 96 I/O 11/04/16 11/04/16 11/04/16 11/05/16 11/05/16 11/05/16 06:59 14:59 22:59 06:59 14:59 22:59 Intake Total 995 ml 1820 ml 1235 ml Balance 995 ml 1820 ml 1235 ml Intake Oral 480 ml 1320 ml 720 ml IV Total 515 ml 500 ml 515 ml # Voids 2 3 3 # Bowel Movements 0 Result Diagram: 11/04/16 09 Objective Remarks GENERAL: This is a well-nourished, well-developed patient, in no apparent distress. CARDIOVASCULAR: Normal rate and regular rhythm without murmurs, gallops, or rubs. RESPIRATORY: Good respiratory efforts. Breath sounds equal and clear to auscultation bilaterally. GASTROINTESTINAL: Abdomen soft, non-tender, non-distended. Normal active bowel sounds MUSCULOSKELETAL: Patient complains of tenderness to palpation over the lumbar paraspinal region. NEURO: Alert & Oriented x4 to person, place, time, situation. Moves all ext x4 PSYCH: Calm today A/P Problem List: (1) Tobacco use ICD Code: Z72.0 - Tobacco use Status: Acute (2) IV drug abuse ICD Code: F19.10 - Intravenous drug abuse Status: Chronic (3) IVDU (intravenous drug user) ICD Code: F19.90 - Other psychoactive substance use, unspecified, uncomplicated Status: Chronic (4) Infective endocarditis ICD Code: I33.0 - Acute and subacute infective endocarditis Status: Acute (5) Hypertension ICD Code: I10 - Essential (primary) hypertension Status: Acute (6) Depressive disorder ICD Code: F32.9 - Depressive disorder Status: Acute (7) Back pain ICD Code: M54.9 - Dorsalgia, unspecified Status: Acute (8) Polysubstance dependence ICD Code: F19.20 - Polysubstance dependence Status: Chronic (9) Polysubstance (including opioids) dependence, daily use ICD Code: F19.20 - Other psychoactive substance dependence, uncomplicated Status: Chronic Assessment and Plan 45-year-old male admitted secondary to lower back pain and paraspinal abscess diagnosed with infective endocarditis based on echocardiogram findings and leukocytosis. No worsening signs of infection of lower back. Better pain control present through time. Patient was on 30 mg of MS Contin twice a day and 5 mg Percocets every 6 hours for breakthrough. He left the hospital AGAINST MEDICAL ADVICE the morning of 10/18/16 and returned the same afternoon because he reportedly had 2 take out his belongings from the residence he was being evicted from. Infective endocarditis History of IV drug abuse Pain medication seeking behavior - Infectious disease following. Continue Vanco - Repeat MRI on 10/18/16 "1. Slight decrease in abnormal enhancing and edematous tissues around the spinous processes of L3 and L4. Persistent mild canal stenosis at L4-5 and no evidence for discitis. 2. There are some edematous changes and enhancement in the marrow of the spinous processes of L3 and L4. Differential diagnosis includes reactive change. Cannot exclude osteomyelitis dorsally. - ID following. I discussed with ID. Plan to repeat imaging on . - Patient does exhibit pain medication seeking behavior. Continue with plan to wean him off all narcotics. Weaning plan will be based on objective findings and clinical indicators - Continue Oramorph to 15 mg twice a day. Percocet every 6 hours as needed. Dose was decreased on 10/30/16 - Plan is to continue to wean the patient off all Narcotics. DW patient to continue wean off Narcotics. Unfortunately he has no motivation for this. - Repeat labs in a.m. Hypertension Noncompliant. Stable Continue lisinopril Lumbar spine edema: Improving Continue antibiotics Follow clinically for improvement Noncompliance: - Patient left the hospital AMA on 10/17 in the morning and returned the same day in the afternoon. He denies using drugs during that time. He has been counseled to comply with medical treatment. DVT prophylaxis Lovenox Discharge Planning ID following, plan to repeat imaging . Continue to wean off Narcotics. Problem Qualifiers (1) Infective endocarditis: Robyn Smith MD Nov 05, 2016 10:57
[2016-11-05] MEDS ORDERED: PHARMACY ORDERED LAB ONE (11:45)
[2016-11-05 12:07] VITALS: BP 156/88; PULSE 64; RESP 17; TEMP 97.4; O2SAT 96
[2016-11-05 20:00] VITALS: BP 117/81; PULSE 83; RESP 20; TEMP 97.6; O2SAT 97
[2016-11-05] MEDS: ZOLPIDEM TARTRATE 5 MG TAB PO PRN (21:23)
[2016-11-06] VITALS: BP 128/82; PULSE 67; RESP 20; TEMP 97.4; O2SAT 98
[2016-11-06] MEDS: VANCOMYCIN INJ 1,500 MG in SODIUM CHLORID 0.9% 500 ML INJ 500 ML IV SCH ×2 (00:07→12:26)
[2016-11-06] MEDS: ALPRAZolam 0.25 MG TAB PO PRN ×4 (00:07→18:26)
[2016-11-06] MEDS: oxyCODONE/ACETAMINOPHEN 5 MG/325 MG TAB PO PRN ×4 (00:07→18:27)
[2016-11-06] MEDS: HEPARIN SODIUM - SQ 10,000 UNITS/ML VIAL SQ SCH ×3 (06:00→20:50)
[2016-11-06 08:00] VITALS: BP 114/88; PULSE 65; RESP 18; TEMP 97.5; O2SAT 98
[2016-11-06] MEDS: REMOVE OLD PATCH T-DERMAL SCH (09:00)
[2016-11-06] MEDS: SODIUM CHLORIDE 0.9% FLUSH 10 ML FLUSH IV FLUSH SCH ×2 (09:00→20:50)
[2016-11-06] MEDS: NICOTINE 21 MG/24 HR PATCH T-DERMAL SCH (09:24)
[2016-11-06] MEDS: amLODIPine BESYLATE 5 MG TAB PO SCH (09:25)
[2016-11-06] MEDS: TAMSULOSIN HCL 0.4 MG CAP PO SCH (09:25)
[2016-11-06] MEDS: LISINOPRIL 20 MG TAB PO SCH ×2 (09:25→20:49)
[2016-11-06] MEDS: DOCUSATE SODIUM 50 MG/SENNA 8.6 MG TAB PO SCH ×2 (09:25→20:49)
[2016-11-06] MEDS: MORPHINE SULFATE 15 MG CONTROLLED RELEASE TAB PO SCH ×2 (09:25→20:49)
[2016-11-06 12:00] VITALS: BP 116/69; PULSE 67; RESP 18; TEMP 97.8; O2SAT 97
[2016-11-06 12:09] LABS: HEMATOCRIT 42.6 % (39.0-51.0); MEAN CELL VOLUME 88.4 FL (80.0-100.0); MEAN CORPUSCULAR HEMOGLOBIN 29.2 PG (27.0-34.0); PLATELET COUNT 212 TH/MM3 (150-450); RED BLOOD COUNT 4.82 MIL/MM3 (4.50-5.90); RED CELL DISTRIBUTION WIDTH 13.9 % (11.6-17.2); REVIEW FLAG FINAL; WHITE BLOOD COUNT 6.8 TH/MM3 (4.0-11.0)
[2016-11-06 12:26] LABS: ANION GAP 7 MEQ/L (5-15); BICARBONATE 29.4 MEQ/L (21.0-32.0); BLOOD UREA NITROGEN 14 MG/DL (7-18); CHLORIDE 104 MEQ/L (98-107); GLOMERULAR FILTRATION RATE 105 ML/MIN (>89); POTASSIUM 4.4 MEQ/L (3.5-5.1); SODIUM (NA) 140 MEQ/L (136-145)
--- NOTE | 2016-11-06 14:09 | HHI.PR ---
Subjective Remarks Patient reports he is feeling okay. No new complaints. Objective Vitals Vital Signs Date Time Temp Pulse Resp B/P (MAP) Pulse Ox O2 Delivery O2 Flow Rate FiO2 11/06/16 12:00 97.8 67 18 116/69 (85) 97 11/06/16 08:00 97.5 65 18 114/88 (97) 98 11/06/16 00:00 Room Air 11/06/16 00:00 97.4 67 20 128/82 (97) 98 11/05/16 20:00 97.6 83 20 117/81 (93) 97 11/05/16 20:00 Room Air I/O 11/05/16 11/05/16 11/05/16 11/06/16 11/06/16 11/06/16 07:00 15:00 23:00 07:00 15:00 23:00 Intake Total 1235 ml 1415 ml 1045 ml Output Total 600 ml 500 ml Balance 1235 ml 815 ml 545 ml Intake Oral 720 ml 900 ml 500 ml IV Total 515 ml 515 ml 545 ml Output Urine Total 600 ml 500 ml # Voids 3 6 # Bowel Movements 2 0 Result Diagram: 11/06/16 1112 11/06/16 1112 Objective Remarks GENERAL: This is a well-nourished, well-developed patient, in no apparent distress. CARDIOVASCULAR: Normal rate and regular rhythm without murmurs, gallops, or rubs. RESPIRATORY: Good respiratory efforts. Breath sounds equal and clear to auscultation bilaterally. GASTROINTESTINAL: Abdomen soft, non-tender, non-distended. Normal active bowel sounds MUSCULOSKELETAL: Patient complains of tenderness to palpation over the lumbar paraspinal region. NEURO: Alert & Oriented x4 to person, place, time, situation. Moves all ext x4 PSYCH: Calm today A/P Problem List: (1) Tobacco use ICD Code: Z72.0 - Tobacco use Status: Acute (2) IV drug abuse ICD Code: F19.10 - Intravenous drug abuse Status: Chronic (3) IVDU (intravenous drug user) ICD Code: F19.90 - Other psychoactive substance use, unspecified, uncomplicated Status: Chronic (4) Infective endocarditis ICD Code: I33.0 - Acute and subacute infective endocarditis Status: Acute (5) Hypertension ICD Code: I10 - Essential (primary) hypertension Status: Acute (6) Depressive disorder ICD Code: F32.9 - Depressive disorder Status: Acute (7) Back pain ICD Code: M54.9 - Dorsalgia, unspecified Status: Acute (8) Polysubstance dependence ICD Code: F19.20 - Polysubstance dependence Status: Chronic (9) Polysubstance (including opioids) dependence, daily use ICD Code: F19.20 - Other psychoactive substance dependence, uncomplicated Status: Chronic Assessment and Plan 45-year-old male admitted secondary to lower back pain and paraspinal abscess diagnosed with infective endocarditis based on echocardiogram findings and leukocytosis. No worsening signs of infection of lower back. Better pain control present through time. Patient was on 30 mg of MS Contin twice a day and 5 mg Percocets every 6 hours for breakthrough. He left the hospital AGAINST MEDICAL ADVICE the morning of 10/18/16 and returned the same afternoon because he reportedly had 2 take out his belongings from the residence he was being evicted from. Infective endocarditis History of IV drug abuse Pain medication seeking behavior - Infectious disease following. Continue Vanco - Repeat MRI on 10/18/16 "1. Slight decrease in abnormal enhancing and edematous tissues around the spinous processes of L3 and L4. Persistent mild canal stenosis at L4-5 and no evidence for discitis. 2. There are some edematous changes and enhancement in the marrow of the spinous processes of L3 and L4. Differential diagnosis includes reactive change. Cannot exclude osteomyelitis dorsally. - ID following. Plan to repeat imaging tomorrow. Will ask ID if we need MRI vs CT. - Patient does exhibit pain medication seeking behavior. Continue with plan to wean him off all narcotics. Weaning plan will be based on objective findings and clinical indicators - Continue Oramorph to 15 mg twice a day. Percocet every 6 hours as needed. Dose was decreased on 10/30/16 - Plan is to continue to wean the patient off all Narcotics. DW patient to continue wean off Narcotics. Unfortunately he has no motivation for this. -Labs reassuring. No white count. CRP is normal. Obtain LFTs. Hypertension History of noncompliance. Stable Continue lisinopril Lumbar spine edema: Improving Continue antibiotics Follow clinically for improvement Noncompliance: - Patient left the hospital AMA on 10/17 in the morning and returned the same day in the afternoon. He denies using drugs during that time. He has been counseled to comply with medical treatment. DVT prophylaxis Lovenox Discharge Planning ID following, plan to repeat imaging tomorrow. Continue to wean off Narcotics. Problem Qualifiers (1) Infective endocarditis: Robyn Smith MD Nov 06, 2016 14:09
[2016-11-06 14:45] LABS: INDIRECT BILIRUBIN 0.3 MG/DL (0.0-0.8); TOTAL BILIRUBIN ADULT 0.4 MG/DL (0.2-1.0)
[2016-11-06 20:00] VITALS: BP 155/95; PULSE 73; RESP 20; TEMP 97.7; O2SAT 97
[2016-11-06] MEDS: METHOCARBAMOL 500 MG TAB PO PRN (20:54)
[2016-11-06] MEDS: ZOLPIDEM TARTRATE 5 MG TAB PO PRN (20:54)
[2016-11-07] VITALS: BP 115/64; PULSE 64; RESP 16; TEMP 97.3; O2SAT 96
[2016-11-07] MEDS: ALPRAZolam 0.25 MG TAB PO PRN ×5 (00:04→23:53)
[2016-11-07] MEDS: oxyCODONE/ACETAMINOPHEN 5 MG/325 MG TAB PO PRN ×5 (00:04→23:53)
[2016-11-07] MEDS: VANCOMYCIN INJ 1,500 MG in SODIUM CHLORID 0.9% 500 ML INJ 500 ML IV SCH ×3 (00:05→23:54)
[2016-11-07] MEDS: HEPARIN SODIUM - SQ 10,000 UNITS/ML VIAL SQ SCH ×3 (06:00→22:00)
[2016-11-07 08:00] VITALS: BP_SYST 131; BP_SYST 134; BP_DIAS 88; BP_DIAS 94; PULSE 102; PULSE 75; RESP 16; RESP 20; TEMP 97.3; TEMP 98.8; O2SAT 95; O2SAT 98
[2016-11-07] MEDS: MORPHINE SULFATE 15 MG CONTROLLED RELEASE TAB PO SCH ×2 (08:23→20:30)
[2016-11-07] MEDS: DOCUSATE SODIUM 50 MG/SENNA 8.6 MG TAB PO SCH ×2 (08:23→20:30)
[2016-11-07] MEDS: LISINOPRIL 20 MG TAB PO SCH ×2 (08:23→20:29)
[2016-11-07] MEDS: REMOVE OLD PATCH T-DERMAL SCH (08:23)
[2016-11-07] MEDS: NICOTINE 21 MG/24 HR PATCH T-DERMAL SCH (08:23)
[2016-11-07] MEDS: TAMSULOSIN HCL 0.4 MG CAP PO SCH (08:23)
[2016-11-07] MEDS: SODIUM CHLORIDE 0.9% FLUSH 10 ML FLUSH IV FLUSH SCH ×2 (08:24→21:00)
[2016-11-07] MEDS: amLODIPine BESYLATE 5 MG TAB PO SCH (08:24)
[2016-11-07 12:00] VITALS: BP_SYST 140; BP_SYST 141; BP_DIAS 75; BP_DIAS 84; PULSE 62; PULSE 93; RESP 18; RESP 20; TEMP 97.6; TEMP 98.1; O2SAT 96; O2SAT 99
--- NOTE | 2016-11-07 14:10 | HHI.PR ---
Subjective Remarks Patient has no new complaints today. Awaiting to have MRI today Objective Vitals Vital Signs Date Time Temp Pulse Resp B/P (MAP) Pulse Ox O2 Delivery O2 Flow Rate FiO2 11/07/16 12:00 Room Air 11/07/16 12:00 98.1 93 20 140/84 (102) 96 11/07/16 08:00 Room Air 11/07/16 08:00 98.8 102 20 134/88 (103) 95 11/07/16 05:07 Room Air 11/07/16 00:00 Room Air 11/07/16 00:00 97.3 64 16 115/64 (81) 96 11/06/16 20:00 Room Air 11/06/16 20:00 97.7 73 20 155/95 (115) 97 11/06/16 16:00 Room Air I/O 11/06/16 11/06/16 11/06/16 11/07/16 11/07/16 11/07/16 07:00 15:00 23:00 07:00 15:00 23:00 Intake Total 1045 ml 1038 ml Output Total 500 ml Balance 545 ml 1038 ml Intake Oral 500 ml 480 ml IV Total 545 ml 558 ml Output Urine Total 500 ml # Voids 2 # Bowel Movements 0 0 Result Diagram: 11/06/16 1112 11/06/16 1112 Objective Remarks GENERAL: This is a well-nourished, well-developed patient, in no apparent distress. CARDIOVASCULAR: Normal rate and regular rhythm without murmurs, gallops, or rubs. RESPIRATORY: Good respiratory efforts. Breath sounds equal and clear to auscultation bilaterally. GASTROINTESTINAL: Abdomen soft, non-tender, non-distended. Normal active bowel sounds MUSCULOSKELETAL: Patient complains of tenderness to palpation over the lumbar paraspinal region. NEURO: Alert & Oriented x4 to person, place, time, situation. Moves all ext x4 PSYCH: Calm today A/P Problem List: (1) Tobacco use ICD Code: Z72.0 - Tobacco use Status: Acute (2) IV drug abuse ICD Code: F19.10 - Intravenous drug abuse Status: Chronic (3) IVDU (intravenous drug user) ICD Code: F19.90 - Other psychoactive substance use, unspecified, uncomplicated Status: Chronic (4) Infective endocarditis ICD Code: I33.0 - Acute and subacute infective endocarditis Status: Acute (5) Hypertension ICD Code: I10 - Essential (primary) hypertension Status: Acute (6) Depressive disorder ICD Code: F32.9 - Depressive disorder Status: Acute (7) Back pain ICD Code: M54.9 - Dorsalgia, unspecified Status: Acute (8) Polysubstance dependence ICD Code: F19.20 - Polysubstance dependence Status: Chronic (9) Polysubstance (including opioids) dependence, daily use ICD Code: F19.20 - Other psychoactive substance dependence, uncomplicated Status: Chronic Assessment and Plan 45-year-old male admitted secondary to lower back pain and paraspinal abscess diagnosed with infective endocarditis based on echocardiogram findings and leukocytosis. No worsening signs of infection of lower back. Better pain control present through time. Patient was on 30 mg of MS Contin twice a day and 5 mg Percocets every 6 hours for breakthrough. He left the hospital AGAINST MEDICAL ADVICE the morning of 10/18/16 and returned the same afternoon because he reportedly had 2 take out his belongings from the residence he was being evicted from. Infective endocarditis History of IV drug abuse Pain medication seeking behavior - Infectious disease following. Continue Vanco - Repeat MRI on 10/18/16 "1. Slight decrease in abnormal enhancing and edematous tissues around the spinous processes of L3 and L4. Persistent mild canal stenosis at L4-5 and no evidence for discitis. 2. There are some edematous changes and enhancement in the marrow of the spinous processes of L3 and L4. Differential diagnosis includes reactive change. Cannot exclude osteomyelitis dorsally. -Discussed with ID today. Further plans will be based on repeat MRI findings. Follow-up results. - Patient does exhibit pain medication seeking behavior. Continue with plan to wean him off all narcotics. Weaning plan will be based on objective findings and clinical indicators - Continue Oramorph to 15 mg twice a day. Percocet every 6 hours as needed. Dose was decreased on 10/30/16 - Plan is to continue to wean the patient off all Narcotics. DW patient to continue wean off Narcotics. Unfortunately he has no motivation for this. - Labs reassuring. No white count. CRP is normal. LFTs much improved. Hypertension History of noncompliance. Stable Continue lisinopril Lumbar spine edema: Improving Continue antibiotics Follow clinically for improvement Noncompliance: - Patient left the hospital AMA on 10/17 in the morning and returned the same day in the afternoon. He denies using drugs during that time. He has been counseled to comply with medical treatment. DVT prophylaxis Lovenox Discharge Planning ID following, awaiting repeat imaging for further plans. Continue to wean off Narcotics. Problem Qualifiers (1) Infective endocarditis: Robyn Smith MD Nov 07, 2016 14:10
[2016-11-07 16:00] VITALS: BP 130/75; PULSE 68; RESP 16; TEMP 98.1; O2SAT 97
[2016-11-07 20:52] VITALS: BP 143/87; PULSE 75; RESP 19; TEMP 97.3; O2SAT 97
[2016-11-07] MEDS ORDERED: GADODIAMIDE PF 287 MG/ML 5 ML VIAL (for RAD MRI) IVCONTRAST ONE (20:59)
--- NOTE | 2016-11-07 23:04 | RADRPT ---
EXAM DATE/TIME: 11/07/2016 20:47 [facility] COMPARISON: WBC WB CERET[facility], October 07, 2016, 12:40. MRI LUMBAR SPINE W & W/O CONTRAST, Sep, 19:56. MRI LUMBAR SPINE W & W/O CONTRAST, October 18, 2016, 19:16. INDICATIONS : Osteomyelitis. CONTRAST: 15 cc Omniscan (gadodiamide) IV MEDICAL HISTORY : Hypertension. CVA. Endocarditis. SURGICAL HISTORY : Tonsillectomy. ENCOUNTER: Subsequent ACUITY: 1 month PAIN SCORE: 8/10 LOCATION: Lower back. TECHNIQUE: Multiplanar multisequence MRI of the lumbar spine was performed with and without contr ast. FINDINGS: The most caudal appearing lumbar vertebra is numbered as L5. VERTEBRAE: The lumbar vertebral bodies demonstrate normal signal and are normal in height. Again noted is the signal abnormality in the L3 and L4 spinous processes and in the soft tissues surroundi ng the spinous processes of L3 and L4. This appearance is not significantly changed. CONUS: Normal level and configuration. POST CONTRAST: There is enhancement of the spinous processes and the soft tissue around the spino us processes at L3 and L4. There is some enhancement in the more superficial fat over these regions. T12-L1: The thecal sac has a normal diameter. No evidence of disc bulge or protrusion. The neural foramina are patent bilaterally. L1-L2: The thecal sac has a normal diameter. No evidence of disc bulge or protrusion. The neural f oramina are patent bilaterally. L2-L3: The thecal sac has a normal diameter. No evidence of disc bulge or protrusion. The neural f oramina are patent bilaterally. L3-L4: The disc space is intact. Significant spinal stenosis is not appreciated. There is mild face t hypertrophy. Again noted are the changes at the L3 spinous process and in the soft tissues surroun ding the L3 spinous process. L4-L5: Disc demonstrates decreased signal. There is mild bulging. There is moderate facet hypertroph y. These changes lead to moderate stenosis with very little CSF seen around nerve roots. There is n arrowing of the neural foramina bilaterally being worse on the left. Again noted is the signal abnor mality and enhancement at the L4 spinous process and around the L4 spinous process in the soft tissue s. L5-S1: The disc demonstrates decreased signal. There is a minimal central disc protrusion. There d oes appear to be a focal annular tear. These changes cause minimal impression on the anterior epidura l space. Significant narrowing of the thecal sac is not seen. There is moderate to severe facet hyp ertrophy. The facet changes do cause mild narrowing of the neural foramina. CONCLUSION: 1. Abnormal signal at the L3 and L4 spinous processes and in the soft tissues surrounding these regio ns all concerning for inflammatory/infectious process. This is unchanged from the prior exam. 2. Moderate stenosis at the L4-L5 level caused by a combination of mild disc bulge and facet hypertro phy. There is narrowing of the neural foramina bilaterally at this level being worse on the left. 3. Minimal central disc protrusion at the L4-S1 level with an angular tear without significant narrow ing of the thecal sac. There is mild narrowing of the neural foramina at this level secondary to the facet hypertrophy. Obi Alvares MD on November 07, 2016 at 22:15 Board Certified Radiologist. This report was verified electronically.
[2016-11-07] MEDS: ZOLPIDEM TARTRATE 5 MG TAB PO PRN (23:53)
[2016-11-07] MEDS: SODIUM CHLORIDE 0.9% FLUSH 10 ML FLUSH IV FLUSH PRN (23:54)
[2016-11-08] VITALS: BP 128/72; PULSE 76; RESP 19; TEMP 97.2; O2SAT 99
[2016-11-08] MEDS: HEPARIN SODIUM - SQ 10,000 UNITS/ML VIAL SQ SCH ×3 (05:41→21:18)
[2016-11-08 08:00] VITALS: BP 136/82; PULSE 73; RESP 18; TEMP 97.6; O2SAT 97
[2016-11-08] MEDS: DOCUSATE SODIUM 50 MG/SENNA 8.6 MG TAB PO SCH ×2 (09:00→21:18)
[2016-11-08] MEDS: ALPRAZolam 0.25 MG TAB PO PRN ×3 (09:40→23:47)
[2016-11-08] MEDS: MORPHINE SULFATE 15 MG CONTROLLED RELEASE TAB PO SCH ×2 (09:41→21:17)
[2016-11-08] MEDS: TAMSULOSIN HCL 0.4 MG CAP PO SCH (09:42)
[2016-11-08] MEDS: amLODIPine BESYLATE 5 MG TAB PO SCH (09:42)
[2016-11-08] MEDS: NICOTINE 21 MG/24 HR PATCH T-DERMAL SCH (09:42)
[2016-11-08] MEDS: LISINOPRIL 20 MG TAB PO SCH ×2 (09:42→21:18)
[2016-11-08] MEDS: REMOVE OLD PATCH T-DERMAL SCH (09:46)
[2016-11-08] MEDS: SODIUM CHLORIDE 0.9% FLUSH 10 ML FLUSH IV FLUSH SCH ×2 (09:47→21:17)
[2016-11-08] MEDS: VANCOMYCIN INJ 1,500 MG in SODIUM CHLORID 0.9% 500 ML INJ 500 ML IV SCH ×2 (11:17→23:48)
[2016-11-08] MEDS: oxyCODONE/ACETAMINOPHEN 5 MG/325 MG TAB PO PRN ×3 (11:17→23:48)
[2016-11-08 12:00] VITALS: BP 119/83; PULSE 69; RESP 18; TEMP 98.4; O2SAT 97
[2016-11-08 16:00] VITALS: BP 142/87; PULSE 80; RESP 18; TEMP 98.3; O2SAT 97
[2016-11-08 20:00] VITALS: BP 149/94; PULSE 78; RESP 20; TEMP 97.8; O2SAT 96
--- NOTE | 2016-11-08 21:20 | HHI.PR ---
Subjective Remarks Late entry. Patient seen around 4PM He has no new complaints. Objective Vitals Vital Signs Date Time Temp Pulse Resp B/P (MAP) Pulse Ox O2 Delivery O2 Flow Rate FiO2 11/08/16 16:00 Room Air 11/08/16 16:00 98.3 80 18 142/87 (105) 97 11/08/16 12:00 Room Air 11/08/16 12:00 98.4 69 18 119/83 (95) 97 11/08/16 08:12 Room Air 11/08/16 08:00 97.6 73 18 136/82 (100) 97 11/08/16 03:24 Room Air 11/08/16 00:00 97.2 76 19 128/72 (90) 99 I/O 11/07/16 11/07/16 11/07/16 11/08/16 11/08/16 11/08/16 06:59 14:59 22:59 06:59 14:59 22:59 Intake Total 1038 ml 960 ml 500 ml 500 ml 2384 ml Output Total 950 ml 300 ml Balance 1038 ml 10 ml 200 ml 500 ml 2384 ml Intake Oral 480 ml 960 ml 1880 ml IV Total 558 ml 500 ml 500 ml 504 ml Output Urine Total 950 ml 300 ml # Voids 2 1 8 # Bowel Movements 0 0 0 Result Diagram: 11/06/16 1112 11/08/16 1002 Objective Remarks GENERAL: This is a well-nourished, well-developed patient, in no apparent distress. CARDIOVASCULAR: Normal rate and regular rhythm without murmurs, gallops, or rubs. RESPIRATORY: Good respiratory efforts. Breath sounds equal and clear to auscultation bilaterally. GASTROINTESTINAL: Abdomen soft, non-tender, non-distended. Normal active bowel sounds MUSCULOSKELETAL: Patient complains of tenderness to palpation over the lumbar paraspinal region. NEURO: Alert & Oriented x4 to person, place, time, situation. Moves all ext x4 PSYCH: Calm today A/P Problem List: (1) Tobacco use ICD Code: Z72.0 - Tobacco use Status: Acute (2) IV drug abuse ICD Code: F19.10 - Intravenous drug abuse Status: Chronic (3) IVDU (intravenous drug user) ICD Code: F19.90 - Other psychoactive substance use, unspecified, uncomplicated Status: Chronic (4) Infective endocarditis ICD Code: I33.0 - Acute and subacute infective endocarditis Status: Acute (5) Hypertension ICD Code: I10 - Essential (primary) hypertension Status: Acute (6) Depressive disorder ICD Code: F32.9 - Depressive disorder Status: Acute (7) Back pain ICD Code: M54.9 - Dorsalgia, unspecified Status: Acute (8) Polysubstance dependence ICD Code: F19.20 - Polysubstance dependence Status: Chronic (9) Polysubstance (including opioids) dependence, daily use ICD Code: F19.20 - Other psychoactive substance dependence, uncomplicated Status: Chronic Assessment and Plan 45-year-old male admitted secondary to lower back pain and paraspinal abscess diagnosed with infective endocarditis based on echocardiogram findings and leukocytosis. No worsening signs of infection of lower back. Better pain control present through time. Patient was on 30 mg of MS Contin twice a day and 5 mg Percocets every 6 hours for breakthrough. He left the hospital AGAINST MEDICAL ADVICE the morning of 10/18/16 and returned the same afternoon because he reportedly had 2 take out his belongings from the residence he was being evicted from. Infective endocarditis History of IV drug abuse Pain medication seeking behavior - Infectious disease following. Continue Vanco - Repeat MRI on 10/18/16 "1. Slight decrease in abnormal enhancing and edematous tissues around the spinous processes of L3 and L4. Persistent mild canal stenosis at L4-5 and no evidence for discitis. 2. There are some edematous changes and enhancement in the marrow of the spinous processes of L3 and L4. Differential diagnosis includes reactive change. Cannot exclude osteomyelitis dorsally. - Repeat MRI 11/07/16 No change. Clinically, patient is feeling better and labs normalized. - Further plans per ID. - Patient does exhibit pain medication seeking behavior. Continue with plan to wean him off all narcotics. Weaning plan will be based on objective findings and clinical indicators - Continue Oramorph to 15 mg twice a day. Percocet every 6 hours as needed. Dose was decreased on 10/30/16 - Plan is to continue to wean the patient off all Narcotics. DW patient to continue wean off Narcotics. Unfortunately he has no motivation for this. - Labs reassuring. No white count. CRP is normal. LFTs much improved. Hypertension History of noncompliance. Stable Continue lisinopril Lumbar spine edema: Improving Continue antibiotics Follow clinically for improvement Noncompliance: - Patient left the hospital AMA on 10/17 in the morning and returned the same day in the afternoon. He denies using drugs during that time. He has been counseled to comply with medical treatment. DVT prophylaxis Lovenox Discharge Planning ID following, further plans and recommendations per ID. Continue to wean off Narcotics. Problem Qualifiers (1) Infective endocarditis: Robyn Smith MD Nov 08, 2016 21:20
[2016-11-09 00:19] VITALS: BP 122/75; PULSE 82; RESP 20; TEMP 98.1; O2SAT 99
[2016-11-09] MEDS: ALPRAZolam 0.25 MG TAB PO PRN ×3 (06:07→18:10)
[2016-11-09] MEDS: HEPARIN SODIUM - SQ 10,000 UNITS/ML VIAL SQ SCH ×3 (06:07→21:16)
[2016-11-09] MEDS: oxyCODONE/ACETAMINOPHEN 5 MG/325 MG TAB PO PRN ×3 (06:07→18:10)
[2016-11-09 08:00] VITALS: BP 130/89; PULSE 75; RESP 16; TEMP 97.5; O2SAT 98
[2016-11-09] MEDS: REMOVE OLD PATCH T-DERMAL SCH (09:00)
[2016-11-09] MEDS: NICOTINE 21 MG/24 HR PATCH T-DERMAL SCH (09:00)
[2016-11-09] MEDS: DOCUSATE SODIUM 50 MG/SENNA 8.6 MG TAB PO SCH ×2 (09:00→21:14)
[2016-11-09] MEDS: TAMSULOSIN HCL 0.4 MG CAP PO SCH (10:01)
[2016-11-09] MEDS: LISINOPRIL 20 MG TAB PO SCH ×2 (10:01→21:14)
[2016-11-09] MEDS: amLODIPine BESYLATE 5 MG TAB PO SCH (10:01)
[2016-11-09] MEDS: MORPHINE SULFATE 15 MG CONTROLLED RELEASE TAB PO SCH ×2 (10:02→21:14)
[2016-11-09] MEDS: SODIUM CHLORIDE 0.9% FLUSH 10 ML FLUSH IV FLUSH SCH ×2 (10:08→21:15)
[2016-11-09 12:00] VITALS: BP 146/93; PULSE 65; RESP 17; TEMP 97.6; O2SAT 99
[2016-11-09] MEDS: VANCOMYCIN INJ 1,500 MG in SODIUM CHLORID 0.9% 500 ML INJ 500 ML IV SCH (12:07)
--- NOTE | 2016-11-09 12:57 | HHI.PR ---
Subjective Remarks No acute events overnight. Afebrile, vital signs stable. Patient with no complaints this morning. Objective Vitals Vital Signs Date Time Temp Pulse Resp B/P (MAP) Pulse Ox O2 Delivery O2 Flow Rate FiO2 11/09/16 12:00 97.6 65 17 146/93 (110) 99 11/09/16 08:00 97.5 75 16 130/89 (103) 98 11/09/16 04:00 Room Air 11/09/16 00:19 98.1 82 20 122/75 (91) 99 11/09/16 00:00 Room Air 11/08/16 20:00 97.8 78 20 149/94 (112) 96 11/08/16 20:00 Room Air 11/08/16 16:00 Room Air 11/08/16 16:00 98.3 80 18 142/87 (105) 97 I/O 11/08/16 11/08/16 11/08/16 11/09/16 11/09/16 11/09/16 07:00 15:00 23:00 07:00 15:00 23:00 Intake Total 500 ml 500 ml 2384 ml Output Total 300 ml Balance 200 ml 500 ml 2384 ml Intake Oral 1880 ml IV Total 500 ml 500 ml 504 ml Output Urine Total 300 ml # Voids 1 8 5 # Bowel Movements 0 0 Result Diagram: 11/06/16 1112 11/08/16 1002 Objective Remarks GENERAL: This is a well-nourished, well-developed patient, in no apparent distress. CARDIOVASCULAR: Normal rate and regular rhythm without murmurs, gallops, or rubs. RESPIRATORY: Good respiratory efforts. Breath sounds equal and clear to auscultation bilaterally. GASTROINTESTINAL: Abdomen soft, non-tender, non-distended. Normal active bowel sounds MUSCULOSKELETAL: Patient complains of tenderness to palpation over the lumbar paraspinal region. NEURO: Alert & Oriented x4 to person, place, time, situation. Moves all ext x4 PSYCH: Appropriate mood and affect A/P Problem List: (1) Tobacco use ICD Code: Z72.0 - Tobacco use Status: Acute (2) IV drug abuse ICD Code: F19.10 - Intravenous drug abuse Status: Chronic (3) IVDU (intravenous drug user) ICD Code: F19.90 - Other psychoactive substance use, unspecified, uncomplicated Status: Chronic (4) Infective endocarditis ICD Code: I33.0 - Acute and subacute infective endocarditis Status: Acute (5) Hypertension ICD Code: I10 - Essential (primary) hypertension Status: Acute (6) Depressive disorder ICD Code: F32.9 - Depressive disorder Status: Acute (7) Back pain ICD Code: M54.9 - Dorsalgia, unspecified Status: Acute (8) Polysubstance dependence ICD Code: F19.20 - Polysubstance dependence Status: Chronic (9) Polysubstance (including opioids) dependence, daily use ICD Code: F19.20 - Other psychoactive substance dependence, uncomplicated Status: Chronic Assessment and Plan Assessment and Plan 45-year-old male admitted secondary to lower back pain and paraspinal abscess diagnosed with infective endocarditis based on echocardiogram findings and leukocytosis. No worsening signs of infection of lower back. Better pain control present through time. Patient was on 30 mg of MS Contin twice a day and 5 mg Percocets every 6 hours for breakthrough. He left the hospital AGAINST MEDICAL ADVICE the morning of 10/18/16 and returned the same afternoon because he reportedly had 2 take out his belongings from the residence he was being evicted from. Infective endocarditis History of IV drug abuse Pain medication seeking behavior - Infectious disease following. Continue Vanco - Repeat MRI on 10/18/16 "1. Slight decrease in abnormal enhancing and edematous tissues around the spinous processes of L3 and L4. Persistent mild canal stenosis at L4-5 and no evidence for discitis. 2. There are some edematous changes and enhancement in the marrow of the spinous processes of L3 and L4. Differential diagnosis includes reactive change. Cannot exclude osteomyelitis dorsally. - Repeat MRI 11/07/16 No change. Clinically, patient is feeling better and labs normalized. - Further plans per ID. - Patient does exhibit pain medication seeking behavior. Continue with plan to wean him off all narcotics. Weaning plan will be based on objective findings and clinical indicators - Continue Oramorph to 15 mg twice a day. Percocet every 6 hours as needed. Dose was decreased on 10/30/16 - Plan is to continue to wean the patient off all Narcotics. DW patient to continue wean off Narcotics. Unfortunately he has no motivation for this. - Labs reassuring. No white count. CRP is normal. LFTs much improved. Hypertension History of noncompliance. Stable Continue lisinopril Lumbar spine edema: Improving Continue antibiotics Follow clinically for improvement Noncompliance: - Patient left the hospital AMA on 10/17 in the morning and returned the same day in the afternoon. He denies using drugs during that time. He has been counseled to comply with medical treatment. DVT prophylaxis Lovenox Discharge Planning ID following, further plans and recommendations per ID. Continue to wean off Narcotics. Problem Qualifiers (1) Infective endocarditis: Loretta Dee MD R3 Nov 09, 2016 12:57
[2016-11-09 16:00] VITALS: BP 144/90; PULSE 68; RESP 17; TEMP 98.1; O2SAT 98
[2016-11-09 20:00] VITALS: BP 125/79; PULSE 72; RESP 19; TEMP 97.2; O2SAT 98
[2016-11-10] VITALS: BP 147/87; PULSE 60; RESP 18; TEMP 97.3; O2SAT 98
[2016-11-10] MEDS: ZOLPIDEM TARTRATE 5 MG TAB PO PRN (00:53)
[2016-11-10] MEDS: METHOCARBAMOL 500 MG TAB PO PRN (00:53)
[2016-11-10] MEDS: ALPRAZolam 0.25 MG TAB PO PRN ×4 (00:53→21:24)
[2016-11-10] MEDS: oxyCODONE/ACETAMINOPHEN 5 MG/325 MG TAB PO PRN ×4 (00:54→21:25)
[2016-11-10] MEDS: VANCOMYCIN INJ 1,500 MG in SODIUM CHLORID 0.9% 500 ML INJ 500 ML IV SCH ×2 (00:55→12:01)
[2016-11-10] MEDS: HEPARIN SODIUM - SQ 10,000 UNITS/ML VIAL SQ SCH ×3 (06:00→20:36)
[2016-11-10 08:00] VITALS: BP 126/83; PULSE 84; RESP 20; TEMP 98.2; O2SAT 98
[2016-11-10] MEDS: TAMSULOSIN HCL 0.4 MG CAP PO SCH (08:38)
[2016-11-10] MEDS: LISINOPRIL 20 MG TAB PO SCH ×2 (08:38→20:35)
[2016-11-10] MEDS: DOCUSATE SODIUM 50 MG/SENNA 8.6 MG TAB PO SCH ×2 (08:38→20:36)
[2016-11-10] MEDS: amLODIPine BESYLATE 5 MG TAB PO SCH (08:38)
[2016-11-10] MEDS: MORPHINE SULFATE 15 MG CONTROLLED RELEASE TAB PO SCH ×2 (08:39→20:35)
[2016-11-10] MEDS: NICOTINE 21 MG/24 HR PATCH T-DERMAL SCH (08:42)
[2016-11-10] MEDS: SODIUM CHLORIDE 0.9% FLUSH 10 ML FLUSH IV FLUSH SCH ×2 (08:43→20:36)
[2016-11-10] MEDS: REMOVE OLD PATCH T-DERMAL SCH (09:00)
--- NOTE | 2016-11-10 11:47 | HHI.PR ---
Subjective Remarks No acute events overnight. Afebrile, vital signs stable. Patient with no complaints at this time. Objective Vitals Vital Signs Date Time Temp Pulse Resp B/P (MAP) Pulse Ox O2 Delivery O2 Flow Rate FiO2 11/10/16 08:00 98.2 84 20 126/83 (97) 98 11/10/16 04:00 Room Air 11/10/16 02:02 16 11/10/16 00:00 97.3 60 18 147/87 (107) 98 11/10/16 00:00 98 Room Air 11/09/16 21:15 Room Air 11/09/16 20:00 97.2 72 19 125/79 (94) 98 11/09/16 16:00 98.1 68 17 144/90 (108) 98 11/09/16 12:00 97.6 65 17 146/93 (110) 99 I/O 11/09/16 11/09/16 11/09/16 11/10/16 11/10/16 11/10/16 07:00 15:00 23:00 07:00 15:00 23:00 Intake Total 515 ml 1165 ml Balance 515 ml 1165 ml Intake Oral 650 ml IV Total 515 ml 515 ml # Voids 5 5 # Bowel Movements 0 Result Diagram: 11/06/16 1112 11/08/16 1002 Objective Remarks GENERAL: This is a well-nourished, well-developed patient, in no apparent distress. CARDIOVASCULAR: Normal rate and regular rhythm without murmurs, gallops, or rubs. RESPIRATORY: Good respiratory efforts. Breath sounds equal and clear to auscultation bilaterally. GASTROINTESTINAL: Abdomen soft, non-tender, non-distended. Normal active bowel sounds MUSCULOSKELETAL: Patient complains of tenderness to palpation over the lumbar paraspinal region. NEURO: Alert & Oriented x4 to person, place, time, situation. Moves all ext x4 PSYCH: Appropriate mood and affect A/P Problem List: (1) Tobacco use ICD Code: Z72.0 - Tobacco use Status: Acute (2) IV drug abuse ICD Code: F19.10 - Intravenous drug abuse Status: Chronic (3) IVDU (intravenous drug user) ICD Code: F19.90 - Other psychoactive substance use, unspecified, uncomplicated Status: Chronic (4) Infective endocarditis ICD Code: I33.0 - Acute and subacute infective endocarditis Status: Acute (5) Hypertension ICD Code: I10 - Essential (primary) hypertension Status: Acute (6) Depressive disorder ICD Code: F32.9 - Depressive disorder Status: Acute (7) Back pain ICD Code: M54.9 - Dorsalgia, unspecified Status: Acute (8) Polysubstance dependence ICD Code: F19.20 - Polysubstance dependence Status: Chronic (9) Polysubstance (including opioids) dependence, daily use ICD Code: F19.20 - Other psychoactive substance dependence, uncomplicated Status: Chronic Assessment and Plan Assessment and Plan 45-year-old male admitted secondary to lower back pain and paraspinal abscess diagnosed with infective endocarditis based on echocardiogram findings and leukocytosis. No worsening signs of infection of lower back. Better pain control present through time. Patient was on 30 mg of MS Contin twice a day and 5 mg Percocets every 6 hours for breakthrough. He left the hospital AGAINST MEDICAL ADVICE the morning of 10/18/16 and returned the same afternoon because he reportedly had 2 take out his belongings from the residence he was being evicted from. Infective endocarditis History of IV drug abuse Pain medication seeking behavior - Infectious disease following. Continue Vanco - Repeat MRI on 10/18/16 "1. Slight decrease in abnormal enhancing and edematous tissues around the spinous processes of L3 and L4. Persistent mild canal stenosis at L4-5 and no evidence for discitis. 2. There are some edematous changes and enhancement in the marrow of the spinous processes of L3 and L4. Differential diagnosis includes reactive change. Cannot exclude osteomyelitis dorsally. - Repeat MRI 11/07/16 No change. Clinically, patient is feeling better and labs normalized. - Further plans per ID. - Patient does exhibit pain medication seeking behavior. Continue with plan to wean him off all narcotics. Weaning plan will be based on objective findings and clinical indicators - Continue Oramorph to 15 mg twice a day. Percocet every 6 hours as needed. Dose was decreased on 10/30/16 - Plan is to continue to wean the patient off all Narcotics. DW patient to continue wean off Narcotics. Unfortunately he has no motivation for this. - Labs reassuring. No white count. CRP is normal. LFTs much improved. Hypertension History of noncompliance. Stable Continue lisinopril Lumbar spine edema: Improving Continue antibiotics Follow clinically for improvement Noncompliance: - Patient left the hospital AMA on 10/17 in the morning and returned the same day in the afternoon. He denies using drugs during that time. He has been counseled to comply with medical treatment. DVT prophylaxis Lovenox Discharge Planning ID following, further plans and recommendations per ID. Continue to wean off Narcotics. Problem Qualifiers (1) Infective endocarditis: Loretta Dee MD R3 Nov 10, 2016 11:47
[2016-11-10 12:00] VITALS: BP 139/83; PULSE 81; RESP 20; TEMP 97.7; O2SAT 99
[2016-11-10] MEDS ORDERED: LORazepam 2 MG/ML VIAL ONE (12:15)
--- NOTE | 2016-11-10 12:34 | HHI.PR ---
Addendum to Inpatient Note Addendum Reason: Additional Documentation Additional Information S: Edie called round 1210 for witnessed seizure. Nursing staff reports he is usually ambulating, oriented, verbal but became disoriented and then had 2 tonic /clonic seizures within a 5 minute period. Was no longer actively seizing by time residents arrived around 1218. Patient has known history of IVD use, endocarditis, paraspinal abscess. O: Vitals: BP 171/95, HR:111, RR 16-20, O2 98% on 3L, Glucose 107 Gen: Patient awake, confused and anxious. Small amount of blood noted on cheek, superficial laceration noted on lower lip with minimal bleeding. CV: RRR, no m/r/g Resp: CTAB, no wheezes, crackles Abd: NABS, soft nontender Neuro: Patient is intermittently conversant, oriented to place and person. Follows commands. CN 2-12 grossly intact, 4/5 muscle strength in BUE and BLE. Sensation intact bilaterally. A/P: 45 yo WM with witnessed tonic/clonic seizure. Currently not actively seizing and stable. -Discussed with Dr. Dee and collaborated on orders -CT head w/o contrast -CBC -EEG -BMP for electrolyte abnormalities -Neuro consult - new onset seizure with no history of seizure activity -EKG -Troponin -UDS -Ativan 2mg available PRN Seen and discussed with Dr. Graham, discussed over phone with Francisco Crocker MD R1 Nov 10, 2016 12:34
[2016-11-10] MEDS ORDERED: LORazepam 2 MG/ML VIAL IV PUSH PRN (12:45)
--- NOTE | 2016-11-10 15:19 | RADRPT ---
EXAM DATE/TIME: 11/10/2016 15:00 [facility] COMPARISON: CT BRAIN W/O CONTRAST, December 25, 2015, 22:04. INDICATIONS : Altered mental status. Endocarditis. RADIATION DOSE: 39.74 CTDIvol (mGy) MEDICAL HISTORY : Cardiovascular disease. Seizures. Hypertension.CVA SURGICAL HISTORY : Ear was reattached. ENCOUNTER: Initial ACUITY: 1 day PAIN SCALE: 0/10 LOCATION: cranial TECHNIQUE: Multiple contiguous axial images were obtained of the head. Using automated exposure control and adj ustment of the mA and/or kV according to patient size, radiation dose was kept as low as reasonably a chievable to obtain optimal diagnostic quality images. DICOM format image data is available electro nically for review and comparison. FINDINGS: CEREBRUM: The ventricles are normal for age. No evidence of midline shift, mass lesion, hemorrhage or acute in farction. No extra-axial fluid collections are seen. Old infarct left proximal region. POSTERIOR FOSSA: The cerebellum and brainstem are intact. The 4th ventricle is midline. The cerebellopontine angle i s unremarkable. EXTRACRANIAL: The visualized portion of the orbits is intact. SKULL: The calvaria is intact. No evidence of skull fracture. CONCLUSION: Negative for acute process. Rfaael Delaney MD FACR on November 10, 2016 at 15:17 Board Certified Radiologist. This report was verified electronically.
[2016-11-10 16:00] VITALS: BP 130/63; PULSE 71; RESP 20; TEMP 97.4; O2SAT 96
[2016-11-10 16:14] LABS: AUTOMATED NEUTROPHIL # 6.2 TH/MM3 (1.8-7.7); BASOPHIL # 0.1 TH/MM3 (0-0.2); BASOPHIL % 0.7 % (0.0-2.0); EOSINOPHIL # 0.1 TH/MM3 (0-0.4); HEMATOCRIT 40.5 % (39.0-51.0); HEMO FLAGS DIFF FINAL; LYMPH % 19.3 % (9.0-44.0); LYMPHOCYTE # 1.7 TH/MM3 (1.0-4.8); MEAN CELL VOLUME 86.8 FL (80.0-100.0); MEAN CORPUSCULAR HGB CONC 33.5 % (32.0-36.0); MONO % 8.4 % (0.0-8.0); NEUT % 70.6 % (16.0-70.0); PLATELET COUNT 224 TH/MM3 (150-450); RED BLOOD COUNT 4.67 MIL/MM3 (4.50-5.90); RED CELL DISTRIBUTION WIDTH 13.8 % (11.6-17.2); WHITE BLOOD COUNT 8.8 TH/MM3 (4.0-11.0)
[2016-11-10 16:31] LABS: ANION GAP 6 MEQ/L (5-15); BICARBONATE 29.7 MEQ/L (21.0-32.0); BLOOD UREA NITROGEN 12 MG/DL (7-18); CHLORIDE 103 MEQ/L (98-107); GLOMERULAR FILTRATION RATE 91 ML/MIN (>89); POTASSIUM 4.1 MEQ/L (3.5-5.1); SODIUM (NA) 139 MEQ/L (136-145)
[2016-11-10] MEDS ORDERED: LORazepam 2 MG/ML VIAL IV PUSH ONE (17:15)
--- NOTE | 2016-11-10 18:51 | MB ---
cc: PAVITHRA HALLMAN M.D. DATE OF 1970 DATE OF CONSULTATION 11/10/2016 REASON FOR CONSULTATION New onset seizure. HISTORY OF THE PRESENT ILLNESS The patient is a 45-year-old man with a history of anxiety, hypertension, IV drug abuse. He has been here in the hospital for some time now for infectious endocarditis and paraspinal abscess on IV antibiotics. Today apparently he had what they described as a witnessed seizure. He started having some visual issues and then all of the sudden head turned to the right gaze deviation and had a seizure. He was given some Ativan I believe and now he is stable. The patient states that it happened to him in the past a couple of other times but never was started on medicine. He states that he has a history of hemorrhagic stroke in the past. PHYSICAL EXAMINATION VITAL SIGNS: On exam his vitals are stable 98.2, pulse 84, respiratory rate 20, blood pressure 126/83. NEUROLOGIC: He is awake, alert. He is fluent. His pupils reactive. His face symmetrical. Does have a laceration/abrasion of the lower lip. Motor dudley no drift or leg lag. Gait he has been ambulating around the [facility] and the room for days while he has been here. LABORATORY DATA Labs are reviewed. IMAGING They did a stat CT of the head that was unremarkable. Looking back at all of his admissions I do not see any brain imaging. IMPRESSION Seizure may be secondary to his history of a hemorrhage in the past. However, he has had a couple of seizures he states before being in the hospital. Recommend getting an MRI of the brain for completion and EEG and we will start him on Keppra 500 mg twice a day. MD MICHELE Kumari/PAUL /5:06 PM /6:38 PM
[2016-11-10 20:00] VITALS: BP 125/89; PULSE 87; RESP 18; TEMP 98.8; O2SAT 98
[2016-11-10] MEDS: levETIRAcetam 500 MG TAB PO SCH (20:35)
--- NOTE | 2016-11-10 20:54 | MG ---
cc: PAVITHRA HALLMAN M.D. Lab No: Date: 11/10/2016 Age: Sex: M Race: DATE OF 1970, 45 years old EEG NUMBER [id number] Colon. ROOM 1436 INDICATION Hyperventilation, photic stimulation done. Awake, drowsy, asleep study. CT negative. EEG in 2015 normal. A 45-year-old man with generalized tonic clonic seizure times two, now back to baseline. History of IV drug use with endocarditis and paraspinal abscess. History of cerebellar hemorrhage in 2015. MEDICATIONS On: 1. Vancomycin. 2. And other medications. Xanax. 3. Percocet. DESCRIPTION OF RECORD The patient had some faster frequency waves, looks like theta waves may be from medication effect but overall symmetrical. Beta frequency. Fairly well-organized. No appreciable epileptic activity seen. Photic stimulation with a good posterior driving response. EKG is artifactual. Hyperventilation was symmetrical. IMPRESSION Overall normal-appearing EEG except for a beta frequency, possibly due to medicine effect such as a benzodiazepine. Clinical correlation. MD MICHELE Kumari/PAUL /8:21 PM /8:46 PM
[2016-11-11] VITALS: BP 116/91; PULSE 87; RESP 18; TEMP 97.7; O2SAT 97
[2016-11-11] MEDS: ZOLPIDEM TARTRATE 5 MG TAB PO PRN (00:18)
[2016-11-11] MEDS: VANCOMYCIN INJ 1,500 MG in SODIUM CHLORID 0.9% 500 ML INJ 500 ML IV SCH ×2 (00:18→12:29)
[2016-11-11] MEDS: METHOCARBAMOL 500 MG TAB PO PRN (00:18)
[2016-11-11] MEDS: LACTULOSE SYRUP 20 GM/30 ML CUP PO PRN (00:56)
[2016-11-11] MEDS: ALPRAZolam 0.25 MG TAB PO PRN ×3 (05:28→18:23)
[2016-11-11] MEDS: oxyCODONE/ACETAMINOPHEN 5 MG/325 MG TAB PO PRN ×3 (05:28→18:23)
[2016-11-11] MEDS: HEPARIN SODIUM - SQ 10,000 UNITS/ML VIAL SQ SCH ×3 (05:39→21:27)
[2016-11-11 08:00] VITALS: BP 99/75; PULSE 66; RESP 18; TEMP 97.6; O2SAT 96
[2016-11-11] MEDS: REMOVE OLD PATCH T-DERMAL SCH (09:00)
[2016-11-11] MEDS: DOCUSATE SODIUM 50 MG/SENNA 8.6 MG TAB PO SCH ×2 (09:43→21:26)
[2016-11-11] MEDS: levETIRAcetam 500 MG TAB PO SCH ×2 (09:43→21:26)
[2016-11-11] MEDS: LISINOPRIL 20 MG TAB PO SCH ×2 (09:44→21:26)
[2016-11-11] MEDS: amLODIPine BESYLATE 5 MG TAB PO SCH (09:44)
[2016-11-11] MEDS: MORPHINE SULFATE 15 MG CONTROLLED RELEASE TAB PO SCH ×2 (09:44→21:26)
[2016-11-11] MEDS: TAMSULOSIN HCL 0.4 MG CAP PO SCH (09:44)
[2016-11-11] MEDS: NICOTINE 21 MG/24 HR PATCH T-DERMAL SCH (09:45)
--- NOTE | 2016-11-11 09:47 | HHI.PR ---
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 Patient was being treated with IV vancomycin while in hospital. All BCX were negative then. Plan was to repeat MRI and if improving to discharge him on IV Telavancin once a day in clinic. He left the hospital AGAINST MEDICAL ADVICE. He reports he had to leave to take out his belongings from his residence because he was getting evicted. He came back with complaint of persistent low back pain. He denies any drug use since leaving the hospital. 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 Yesterday at noon, He needed to be Halicat due to witnessed seizure disorder, recommended for CT brain, Laboratory, ECG Cardiac Enzymes, Drug screen and Neurology consulted. seen by Doctor Sonali Torres Seizure may be secondary to his history of Hemorrhage in the past, recommended MRI, EEG, started on Keppra 500 mg BID. Seen in his bedroom in the presence of his Mother, no new issues. Objective Vital Signs Date Time Temp Pulse Resp B/P (MAP) Pulse Ox O2 Delivery O2 Flow Rate FiO2 11/11/16 08:00 97.6 66 18 99/75 (83) 96 11/11/16 07:18 18 11/11/16 04:00 Room Air 11/11/16 00:00 97.7 87 18 116/91 (99) 97 11/11/16 00:00 Room Air 11/10/16 20:35 Room Air 11/10/16 20:00 98.8 87 18 125/89 (101) 98 11/10/16 16:00 97.4 71 20 130/63 (85) 96 11/10/16 12:00 97.7 81 20 139/83 (101) 99 I/O 11/10/16 11/10/16 11/10/16 11/11/16 11/11/16 11/11/16 07:00 15:00 23:00 07:00 15:00 23:00 Intake Total 1165 ml 515 ml 960 ml 1135 ml Balance 1165 ml 515 ml 960 ml 1135 ml Intake Oral 650 ml 960 ml 620 ml IV Total 515 ml 515 ml 515 ml # Voids 5 3 2 # Bowel Movements 1 Result Diagram: 11/10/16 1542 11/10/16 1542 Imaging Last Impressions Head CT 11/10/16 0000 Signed Impressions: Service Date/Time: Thursday, November 10, 2016 15:00 - CONCLUSION: Negative for acute process. Rafael Delaney MD FACR Lumbar Spine MRI 11/07/16 0000 Signed Impressions: Service Date/Time: October 20:47 - CONCLUSION: 1. Abnormal signal at the L3 and L4 spinous processes and in the soft tissues surrounding these regions all concerning for inflammatory/infectious process. This is unchanged from the prior exam. 2. Moderate stenosis at the L4-L5 level caused by a combination of mild disc bulge and facet hypertrophy. There is narrowing of the neural foramina bilaterally at this level being worse on the left. 3. Minimal central disc protrusion at the L4-S1 level with an angular tear without significant narrowing of the thecal sac. There is mild narrowing of the neural foramina at this level secondary to the facet hypertrophy. Obi Alvares MD Other Results Laboratory Tests Test 10/17/16 14:00 10/30/16 08:11 11/05/16 10:20 11/06/16 11:12 Urine Opiates Screen POS Urine Barbiturates Screen NEG Urine Amphetamines Screen NEG Urine Benzodiazepines Screen POS Urine Cocaine Screen NEG Urine Cannabinoids Screen NEG Blood Urea Nitrogen 12 MG/DL Creatinine 0.78 MG/DL Random Glucose 85 MG/DL Total Protein 7.2 GM/DL 7.8 GM/DL Albumin 3.1 GM/DL 3.5 GM/DL Calcium Level 9.3 MG/DL Phosphorus Level 3.9 MG/DL Magnesium Level 2.0 MG/DL Alkaline Phosphatase 114 U/L 110 U/L Aspartate Amino Transf (AST/SGOT) 44 U/L 37 U/L Alanine Aminotransferase (ALT/SGPT) 105 U/L 94 U/L Total Bilirubin 0.3 MG/DL 0.4 MG/DL Sodium Level 140 MEQ/L Potassium Level 4.4 MEQ/L Chloride Level 106 MEQ/L Carbon Dioxide Level 30.0 MEQ/L Vancomycin Level Trough 18.8 MCG/ML Direct Bilirubin 0.1 MG/DL Indirect Bilirubin 0.3 MG/DL C-Reactive Protein LESS THAN 0.29 MG/DL Test 11/10/16 15:42 White Blood Count 8.8 TH/MM3 Red Blood Count 4.67 MIL/MM3 Hemoglobin 13.6 GM/DL Hematocrit 40.5 % Mean Corpuscular Volume 86.8 FL Mean Corpuscular Hemoglobin 29.0 PG Mean Corpuscular Hemoglobin Concent 33.5 % Red Cell Distribution Width 13.8 % Platelet Count 224 TH/MM3 Mean Platelet Volume 8.1 FL Neutrophils (%) (Auto) 70.6 % Lymphocytes (%) (Auto) 19.3 % Monocytes (%) (Auto) 8.4 % Eosinophils (%) (Auto) 1.0 % Basophils (%) (Auto) 0.7 % Neutrophils # (Auto) 6.2 TH/MM3 Lymphocytes # (Auto) 1.7 TH/MM3 Monocytes # (Auto) 0.7 TH/MM3 Eosinophils # (Auto) 0.1 TH/MM3 Basophils # (Auto) 0.1 TH/MM3 CBC Comment DIFF FINAL Differential Comment Blood Urea Nitrogen 12 MG/DL Creatinine 0.90 MG/DL Random Glucose 94 MG/DL Calcium Level 8.6 MG/DL Sodium Level 139 MEQ/L Potassium Level 4.1 MEQ/L Chloride Level 103 MEQ/L Carbon Dioxide Level 29.7 MEQ/L Anion Gap 6 MEQ/L Estimat Glomerular Filtration Rate 91 ML/MIN Troponin I LESS THAN 0.02 NG/ML Objective Remarks GENERAL: This is a well-nourished, well-developed patient, in no apparent distress. CARDIOVASCULAR: Normal rate and regular rhythm without murmurs, gallops, or rubs. RESPIRATORY: Good respiratory efforts. Breath sounds equal and clear to auscultation bilaterally. GASTROINTESTINAL: Abdomen soft, non-tender, non-distended. Normal active bowel sounds MUSCULOSKELETAL: Patient complains of tenderness to palpation over the lumbar paraspinal region. NEURO: Alert & Oriented x4 to person, place, time, situation. Moves all ext x4 PSYCH: Appropriate mood and affect Medications and IVs Current Medications Medications (Trade) Dose Ordered Sig/Emerita Route Start Time Stop Time Status Last Admin (Xanax) 0.25 mg Q6H PRN PO 10/17/16 13:30 11/11/16 05:28 (Prinivil) 20 mg BID PO 10/17/16 21:00 11/10/16 20:35 (Flomax) 0.4 mg DAILY PO 10/18/16 09:00 11/10/16 08:38 (Percocet 5-325 Mg) 1 tab Q6H PRN PO 10/17/16 13:30 11/11/16 05:28 (Ambien) 5 mg HS PRN PO 10/17/16 13:30 11/11/16 00:18 (Maribel-Colace) 1 tab BID PO 10/17/16 21:00 11/10/16 20:36 (NS Flush) 2 ml UNSCH PRN IV FLUSH 10/17/16 13:45 11/07/16 23:54 (NS Flush) 2 ml BID IV FLUSH 10/17/16 21:00 11/10/16 20:36 (Tylenol) 650 mg Q4H PRN PO 10/17/16 13:45 (Zofran Inj) 4 mg Q6H PRN IVP 10/17/16 13:45 (Heparin Inj) 5,000 units Q8H SQ 10/17/16 14:00 11/09/16 06:07 (Narcan Inj) 0.4 mg UNSCH PRN IV 10/17/16 13:45 (Milk Of Magnesia Liq) 30 ml Q12H PRN PO 10/17/16 13:45 (Senokot) 17.2 mg Q12H PRN PO 10/17/16 13:45 (Dulcolax Supp) 10 mg DAILY PRN RECTAL 10/17/16 13:45 (Lactulose Liq) 30 ml DAILY PRN PO 10/17/16 13:45 11/11/16 00:56 Pharmacy Profile Note 0 ml @ 0 mls/hr UNSCH OTHER 10/17/16 13:45 Vancomycin HCl 1500 mg/Sodium Chloride 515 ml @ 250 mls/hr Q12H IV 10/18/16 00:00 11/11/16 00:18 (Habitrol 21 Mg Patch.24 Hr) 1 patch DAILY T-DERMAL 10/19/16 16:00 11/10/16 08:42 Miscellaneous Information 1 DAILY T-DERMAL 10/20/16 09:00 9/1/17 09:46 (Norvasc) 5 mg DAILY PO 10/23/16 09:00 11/10/16 08:38 (Robaxin) 1,000 mg Q8HR PRN PO 10/26/16 12:30 11/11/16 00:18 (Oramorph Sr) 15 mg Q12HR PO 10/30/16 21:00 11/10/16 20:35 (Keppra) 500 mg Q12HR PO 11/10/16 21:00 11/10/16 20:35 A/P Assessment and Plan 45-year-old male admitted secondary to lower back pain and paraspinal abscess diagnosed with infective endocarditis based on echocardiogram findings and leukocytosis. No worsening signs of infection of lower back. Better pain control present through time. Patient was on 30 mg of MS Contin twice a day and 5 mg Percocets every 6 hours for breakthrough. He left the hospital AGAINST MEDICAL ADVICE the morning of 10/18/16 and returned the same afternoon because he reportedly had 2 take out his belongings from the residence he was being evicted from. Infective endocarditis History of IV drug abuse Pain medication seeking behavior - Infectious disease following. Continue Vanco - Repeat MRI on 10/18/16 "1. Slight decrease in abnormal enhancing and edematous tissues around the spinous processes of L3 and L4. Persistent mild canal stenosis at L4-5 and no evidence for discitis. 2. There are some edematous changes and enhancement in the marrow of the spinous processes of L3 and L4. Differential diagnosis includes reactive change. Cannot exclude osteomyelitis dorsally. - Repeat MRI 11/07/16 No change. Clinically, patient is feeling better and labs normalized. - Further plans per ID. - Patient does exhibit pain medication seeking behavior. Continue with plan to wean him off all narcotics. Weaning plan will be based on objective findings and clinical indicators - Continue Oramorph to 15 mg twice a day. Percocet every 6 hours as needed. Dose was decreased on 10/30/16 - Plan is to continue to wean the patient off all Narcotics. DW patient to continue wean off Narcotics. Unfortunately he has no motivation for this. - Labs reassuring. No white count. CRP is normal. LFTs much improved. Hypertension History of noncompliance. Stable Continue lisinopril Lumbar spine edema: Improving Continue antibiotics Follow clinically for improvement Noncompliance: - Patient left the hospital AMA on 10/17 in the morning and returned the same day in the afternoon. He denies using drugs during that time. He has been counseled to comply with medical treatment. Seizure disorder Started on Keppra 500 mg BID as per Neurology specialist and following, EEG. CT brain negative. DVT prophylaxis Lovenox Discharge Planning ID following, further plans and recommendations per ID. Continue to wean off Narcotics. Leodan Cash MD Nov 11, 2016 09:47
[2016-11-11] MEDS: SODIUM CHLORIDE 0.9% FLUSH 10 ML FLUSH IV FLUSH SCH ×2 (09:48→21:27)
[2016-11-11 12:00] VITALS: BP 139/86; PULSE 77; RESP 18; TEMP 97.9; O2SAT 97
[2016-11-11] MEDS: SODIUM CHLORIDE 0.9% FLUSH 10 ML FLUSH IV FLUSH PRN (12:30)
--- NOTE | 2016-11-11 15:12 | HHI.IDPN ---
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 Patient was being treated with IV vancomycin while in hospital. All BCX were negative then. Plan was to repeat MRI and if improving to discharge him on IV Telavancin once a day in clinic. He left the hospital AGAINST MEDICAL ADVICE. He reports he had to leave to take out his belongings from his residence because he was getting evicted. He came back with complaint of persistent low back pain. He denies any drug use since leaving the hospital. Patient denies any fevers or night sweats after signing off AMA from hospital. Overnight events reviewed. No fevers No rash No diarrhea Was walking in hallways on Friday. Reports having ? seizure yday. EEG ok. CT brain normal. MRI brain ordered. Neurology following. Antibiotics Vanco IV Lines Line sites with no e.o infection Past Medical History Past Medical History Anxiety Hypertension but does not take any medications IV drug use ? History of hemorrhagic stroke Past Surgical History Right ear surgery Tonsillectomy Allergies: Coded Allergies: No Known Allergies (Verified , 10/17/16) Objective . Vital Signs Date Time Temp Pulse Resp B/P (MAP) Pulse Ox O2 Delivery O2 Flow Rate FiO2 11/11/16 12:00 97.9 77 18 139/86 (103) 97 11/11/16 08:00 97.6 66 18 99/75 (83) 96 11/11/16 07:18 18 11/11/16 04:00 Room Air 11/11/16 00:00 97.7 87 18 116/91 (99) 97 11/11/16 00:00 Room Air 11/10/16 20:35 Room Air 11/10/16 20:00 98.8 87 18 125/89 (101) 98 11/10/16 16:00 97.4 71 20 130/63 (85) 96 11/11/16 11/11/16 11/12/16 14:59 22:59 06:59 Intake Total 515 ml Balance 515 ml IV Total 515 ml . Laboratory Tests Test 11/10/16 15:42 White Blood Count 8.8 TH/MM3 Red Blood Count 4.67 MIL/MM3 Hemoglobin 13.6 GM/DL Hematocrit 40.5 % Mean Corpuscular Volume 86.8 FL Mean Corpuscular Hemoglobin 29.0 PG Mean Corpuscular Hemoglobin Concent 33.5 % Red Cell Distribution Width 13.8 % Platelet Count 224 TH/MM3 Mean Platelet Volume 8.1 FL Neutrophils (%) (Auto) 70.6 % Lymphocytes (%) (Auto) 19.3 % Monocytes (%) (Auto) 8.4 % Eosinophils (%) (Auto) 1.0 % Basophils (%) (Auto) 0.7 % Neutrophils # (Auto) 6.2 TH/MM3 Lymphocytes # (Auto) 1.7 TH/MM3 Monocytes # (Auto) 0.7 TH/MM3 Eosinophils # (Auto) 0.1 TH/MM3 Basophils # (Auto) 0.1 TH/MM3 CBC Comment DIFF FINAL Differential Comment Laboratory Tests Test 11/10/16 15:42 Blood Urea Nitrogen 12 MG/DL Creatinine 0.90 MG/DL Random Glucose 94 MG/DL Calcium Level 8.6 MG/DL Sodium Level 139 MEQ/L Potassium Level 4.1 MEQ/L Chloride Level 103 MEQ/L Carbon Dioxide Level 29.7 MEQ/L Anion Gap 6 MEQ/L Estimat Glomerular Filtration Rate 91 ML/MIN Troponin I LESS THAN 0.02 NG/ML Imaging Last Impressions Lumbar Spine MRI 10/18/16 0000 Signed Impressions: Service Date/Time: Tuesday, October 18, 2016 19:16 - CONCLUSION: 1. Slight decrease in abnormal enhancing and edematous tissues around the spinous processes of L3 and L4. Enhancement extends into the dorsal dural surface of L3 and L4 but without epidural abscess or significant thecal sac compression. Persistent mild canal stenosis at L4-5 and no evidence for discitis. 2. There are some edematous changes and enhancement in the marrow of the spinous processes of L3 and L4. Differential diagnosis includes reactive change. Cannot exclude osteomyelitis dorsally. Leroy Quintero MD Physical Exam GENERAL: This is a well-nourished, well-developed patient, in no apparent distress. SKIN: No rashes, ecchymoses or lesions. Cool and dry. HEAD: Atraumatic. Normocephalic. No temporal or scalp tenderness. EYES: Pupils equal round and reactive. Extraocular motions intact. No scleral icterus. No injection or drainage. ENT: Nose without bleeding, purulent drainage or septal hematoma. Throat without erythema, tonsillar hypertrophy or exudate. Uvula midline. Airway patent. NECK: Trachea midline. No JVD or lymphadenopathy. Supple, nontender, no meningeal signs. CARDIOVASCULAR: Regular rate and rhythm without murmurs, gallops, or rubs. RESPIRATORY: Clear to auscultation. Breath sounds equal bilaterally. No wheezes , rales, or rhonchi. GASTROINTESTINAL: Abdomen soft, non-tender, nondistended. No hepato-splenomegaly , or palpable masses. No guarding. MUSCULOSKELETAL: Extremities without clubbing, cyanosis, or edema. No joint tenderness, effusion, or edema noted. No calf tenderness. Negative Homans sign bilaterally. NEUROLOGICAL: Awake and alert. Cranial nerves II through XII intact. Motor and sensory grossly within normal limits. Five out of 5 muscle strength in all muscle groups. Normal speech. Psych cooperative IV line sites with no e.o infection Assessment & Plan Remarks Culture negative endocarditis. Lumbar paraspinal abscess. Possible MSSA, MRSA or Strep. pain medicine seeking behavior. Seizure: reports prior h/o seizures after stroke. Recs: Continue Vanco IV (target 15-20) CBC with diff, CR, LFTs to be ordered and followed by hospitalist. Reviewed MRI. CRP normalized. Clinically no fever, normal WBC, walking in hallways. Seizure: ? post stroke related scarring. Await MRI Paul. Follow cultures Follow clinically. Please call me once cleared by Neuro. Possible DC on oral antibiotics if no new infectious process identified. Zena Slater MD Nov 11, 2016 15:12
[2016-11-11 16:00] VITALS: BP 137/101; PULSE 72; RESP 18; TEMP 98.2; O2SAT 99
[2016-11-11 20:00] VITALS: BP 161/87; PULSE 84; RESP 18; TEMP 97.7; O2SAT 99
--- NOTE | 2016-11-11 20:17 | EKG ---
Date Performed: 11/10/2016 Time Performed: 13:21:54 PTAGE: 45 years EKG: Sinus tachycardia. Possible inferior infarct - age undetermined Possible anteroseptal infar ct - age undetermined Abnormal ECG NO PREVIOUS TRACING DOCTOR: Kyara Man Interpretating Date/Time 11/11/2016 20:13:54
[2016-11-11] MEDS ORDERED: [UNRECOGNIZED DRUG - OTHER] ONE (23:45)
[2016-11-12] VITALS: BP 111/54; PULSE 103; RESP 18; TEMP 98.3; O2SAT 94
[2016-11-12] MEDS: oxyCODONE/ACETAMINOPHEN 5 MG/325 MG TAB PO PRN ×3 (00:01→12:28)
[2016-11-12] MEDS: VANCOMYCIN INJ 1,500 MG in SODIUM CHLORID 0.9% 500 ML INJ 500 ML IV SCH ×2 (00:01→12:28)
[2016-11-12] MEDS: ALPRAZolam 0.25 MG TAB PO PRN ×3 (00:01→12:28)
[2016-11-12] MEDS: ZOLPIDEM TARTRATE 5 MG TAB PO PRN (00:10)
[2016-11-12] MEDS: HEPARIN SODIUM - SQ 10,000 UNITS/ML VIAL SQ SCH ×2 (06:00→12:28)
[2016-11-12 08:00] VITALS: BP 122/75; PULSE 78; RESP 18; TEMP 98.2; O2SAT 95
[2016-11-12] MEDS: MORPHINE SULFATE 15 MG CONTROLLED RELEASE TAB PO SCH (08:09)
[2016-11-12] MEDS: TAMSULOSIN HCL 0.4 MG CAP PO SCH (08:09)
[2016-11-12] MEDS: levETIRAcetam 500 MG TAB PO SCH (08:09)
[2016-11-12] MEDS: LISINOPRIL 20 MG TAB PO SCH (08:10)
[2016-11-12] MEDS: amLODIPine BESYLATE 5 MG TAB PO SCH (08:10)
[2016-11-12] MEDS: NICOTINE 21 MG/24 HR PATCH T-DERMAL SCH (08:11)
[2016-11-12] MEDS: DOCUSATE SODIUM 50 MG/SENNA 8.6 MG TAB PO SCH (08:12)
[2016-11-12] MEDS: REMOVE OLD PATCH T-DERMAL SCH (08:12)
[2016-11-12] MEDS: SODIUM CHLORIDE 0.9% FLUSH 10 ML FLUSH IV FLUSH SCH (08:12)
--- NOTE | 2016-11-12 09:28 | RADRPT ---
EXAM DATE/TIME: 11/12/2016 08:42 [facility] COMPARISON: MRI BRAIN W & W/O CONTRAST, July 29, 2014, 8:59. CT BRAIN W/O CONTRAST, November 10, 2016, 15:00. INDICATIONS : Seizures. MEDICAL HISTORY : Stroke Hypertension. Endocarditis. SURGICAL HISTORY : Tonsillectomy. Plastic surgery on ear. ENCOUNTER: Initial ACUITY: 2 day PAIN SCORE: 0/10 LOCATION: head TECHNIQUE: Multiplanar, multisequence MRI of the brain was performed without contrast. FINDINGS: CEREBRUM: The ventricles are normal for age. No evidence of midline shift, mass lesion, hemorrhage or acute in farction. No extraaxial fluid collections are seen. The pituitary gland and suprasellar cistern are normal in configuration. WHITE MATTER: Mild periventricular chronic appearing flair signal abnormality in the white matter of the left tempo ral lobe and with evidence of old hemosiderin deposition compatible with old trauma. POSTERIOR FOSSA: The cerebellum and brainstem are intact. The 4th ventricle is midline. The cerebellopontine angle is unremarkable. The cerebellar tonsils are normal in position. DIFFUSION IMAGING: No focal areas of restricted diffusion are seen. No evidence of acute infarction. EXTRACRANIAL: The visualized portions of the orbits and paranasal sinuses are unremarkable. CONCLUSION: 1. No acute intracranial abnormality. 2. 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 Obi Lisa MD on November 12, 2016 at 9:19 Board Certified Radiologist. This report was verified electronically.
--- NOTE | 2016-11-12 10:21 | HHI.PR ---
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 Patient was being treated with IV vancomycin while in hospital. All BCX were negative then. Plan was to repeat MRI and if improving to discharge him on IV Telavancin once a day in clinic. He left the hospital AGAINST MEDICAL ADVICE. He reports he had to leave to take out his belongings from his residence because he was getting evicted. He came back with complaint of persistent low back pain. He denies any drug use since leaving the hospital. 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 Yesterday at noon, He needed to be Halicat due to witnessed seizure disorder, recommended for CT brain, Laboratory, ECG Cardiac Enzymes, Drug screen and Neurology consulted. seen by Doctor Sonali Torres Seizure may be secondary to his history of Hemorrhage in the past, recommended MRI, EEG, started on Keppra 500 mg BID. ID following recommended to continue Vancomycin, MRI, CRP normalized, thinking in by mouth antibiotics at discharge. 11/12: Seen in his bedroom discussed with him and his mother, also with Doctor Nohemy garcia to discharge from her standpoint on Doxycycline for two months. No nausea, vomit or diarrhea, his EEG had overall normal appearance with some Beta frequency but no appreciable epileptic activity. Objective Vital Signs Date Time Temp Pulse Resp B/P (MAP) Pulse Ox O2 Delivery O2 Flow Rate FiO2 11/12/16 08:00 Room Air 11/12/16 08:00 98.2 78 18 122/75 (91) 95 11/12/16 04:00 Room Air 11/12/16 00:00 98.3 103 18 111/54 (73) 94 11/12/16 00:00 Room Air 11/11/16 20:00 97.7 84 18 161/87 (111) 99 11/11/16 20:00 Room Air 11/11/16 16:00 98.2 72 18 137/101 (113) 99 11/11/16 12:00 97.9 77 18 139/86 (103) 97 I/O 11/11/16 11/11/16 11/11/16 11/12/16 11/12/16 11/12/16 07:00 15:00 23:00 07:00 15:00 23:00 Intake Total 1135 ml 515 ml 500 ml 1715 ml Output Total 325 ml Balance 1135 ml 515 ml 500 ml 1390 ml Intake Oral 620 ml 1200 ml IV Total 515 ml 515 ml 500 ml 515 ml Output Urine Total 325 ml # Voids 2 3 # Bowel Movements 1 Result Diagram: 11/10/16 1542 11/10/16 1542 Imaging Last Impressions Brain MRI 11/12/16 0000 Signed Impressions: Service Date/Time: Saturday, November 12, 2016 08:42 - CONCLUSION: 1. No acute intracranial abnormality. 2. 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 Obi Lisa MD Head CT 11/10/16 0000 Signed Impressions: Service Date/Time: Thursday, November 10, 2016 15:00 - CONCLUSION: Negative for acute process. Rafael Delaney MD FACR Lumbar Spine MRI 11/07/16 0000 Signed Impressions: Service Date/Time: October 20:47 - CONCLUSION: 1. Abnormal signal at the L3 and L4 spinous processes and in the soft tissues surrounding these regions all concerning for inflammatory/infectious process. This is unchanged from the prior exam. 2. Moderate stenosis at the L4-L5 level caused by a combination of mild disc bulge and facet hypertrophy. There is narrowing of the neural foramina bilaterally at this level being worse on the left. 3. Minimal central disc protrusion at the L4-S1 level with an angular tear without significant narrowing of the thecal sac. There is mild narrowing of the neural foramina at this level secondary to the facet hypertrophy. Obi Alvares MD Other Results Laboratory Tests Test 10/17/16 14:00 10/30/16 08:11 11/06/16 11:12 11/10/16 15:42 Urine Opiates Screen POS Urine Barbiturates Screen NEG Urine Amphetamines Screen NEG Urine Benzodiazepines Screen POS Urine Cocaine Screen NEG Urine Cannabinoids Screen NEG Blood Urea Nitrogen 12 MG/DL 12 MG/DL Creatinine 0.78 MG/DL 0.90 MG/DL Random Glucose 85 MG/DL 94 MG/DL Total Protein 7.2 GM/DL 7.8 GM/DL Albumin 3.1 GM/DL 3.5 GM/DL Calcium Level 9.3 MG/DL 8.6 MG/DL Phosphorus Level 3.9 MG/DL Magnesium Level 2.0 MG/DL Alkaline Phosphatase 114 U/L 110 U/L Aspartate Amino Transf (AST/SGOT) 44 U/L 37 U/L Alanine Aminotransferase (ALT/SGPT) 105 U/L 94 U/L Total Bilirubin 0.3 MG/DL 0.4 MG/DL Sodium Level 140 MEQ/L 139 MEQ/L Potassium Level 4.4 MEQ/L 4.1 MEQ/L Chloride Level 106 MEQ/L 103 MEQ/L Carbon Dioxide Level 30.0 MEQ/L 29.7 MEQ/L Direct Bilirubin 0.1 MG/DL Indirect Bilirubin 0.3 MG/DL C-Reactive Protein LESS THAN 0.29 MG/DL White Blood Count 8.8 TH/MM3 Red Blood Count 4.67 MIL/MM3 Hemoglobin 13.6 GM/DL Hematocrit 40.5 % Mean Corpuscular Volume 86.8 FL Mean Corpuscular Hemoglobin 29.0 PG Mean Corpuscular Hemoglobin Concent 33.5 % Red Cell Distribution Width 13.8 % Platelet Count 224 TH/MM3 Mean Platelet Volume 8.1 FL Neutrophils (%) (Auto) 70.6 % Lymphocytes (%) (Auto) 19.3 % Monocytes (%) (Auto) 8.4 % Eosinophils (%) (Auto) 1.0 % Basophils (%) (Auto) 0.7 % Neutrophils # (Auto) 6.2 TH/MM3 Lymphocytes # (Auto) 1.7 TH/MM3 Monocytes # (Auto) 0.7 TH/MM3 Eosinophils # (Auto) 0.1 TH/MM3 Basophils # (Auto) 0.1 TH/MM3 CBC Comment DIFF FINAL Differential Comment Anion Gap 6 MEQ/L Estimat Glomerular Filtration Rate 91 ML/MIN Troponin I LESS THAN 0.02 NG/ML Test 11/11/16 23:55 Vancomycin Level Trough 17.6 MCG/ML Objective Remarks GENERAL: This is a well-nourished, well-developed patient, in no apparent distress. CARDIOVASCULAR: Normal rate and regular rhythm without murmurs, gallops, or rubs. RESPIRATORY: Good respiratory efforts. Breath sounds equal and clear to auscultation bilaterally. GASTROINTESTINAL: Abdomen soft, non-tender, non-distended. Normal active bowel sounds MUSCULOSKELETAL: Patient complains of tenderness to palpation over the lumbar paraspinal region. NEURO: Alert & Oriented x4 to person, place, time, situation. Moves all ext x4 PSYCH: Appropriate mood and affect Medications and IVs Current Medications Medications (Trade) Dose Ordered Sig/Emerita Route Start Time Stop Time Status Last Admin (Xanax) 0.25 mg Q6H PRN PO 10/17/16 13:30 11/12/16 06:36 (Prinivil) 20 mg BID PO 10/17/16 21:00 11/12/16 08:10 (Flomax) 0.4 mg DAILY PO 10/18/16 09:00 11/12/16 08:09 (Percocet 5-325 Mg) 1 tab Q6H PRN PO 10/17/16 13:30 11/12/16 06:36 (Ambien) 5 mg HS PRN PO 10/17/16 13:30 11/12/16 00:10 (Maribel-Colace) 1 tab BID PO 10/17/16 21:00 11/11/16 21:26 (NS Flush) 2 ml UNSCH PRN IV FLUSH 10/17/16 13:45 11/11/16 12:30 (NS Flush) 2 ml BID IV FLUSH 10/17/16 21:00 11/12/16 08:12 (Tylenol) 650 mg Q4H PRN PO 10/17/16 13:45 (Zofran Inj) 4 mg Q6H PRN IVP 10/17/16 13:45 (Heparin Inj) 5,000 units Q8H SQ 10/17/16 14:00 11/09/16 06:07 (Narcan Inj) 0.4 mg UNSCH PRN IV 10/17/16 13:45 (Milk Of Magnesia Liq) 30 ml Q12H PRN PO 10/17/16 13:45 (Senokot) 17.2 mg Q12H PRN PO 10/17/16 13:45 (Dulcolax Supp) 10 mg DAILY PRN RECTAL 10/17/16 13:45 (Lactulose Liq) 30 ml DAILY PRN PO 10/17/16 13:45 11/11/16 00:56 Pharmacy Profile Note 0 ml @ 0 mls/hr UNSCH OTHER 10/17/16 13:45 Vancomycin HCl 1500 mg/Sodium Chloride 515 ml @ 250 mls/hr Q12H IV 10/18/16 00:00 11/12/16 00:01 (Habitrol 21 Mg Patch.24 Hr) 1 patch DAILY T-DERMAL 10/19/16 16:00 11/12/16 08:11 Miscellaneous Information 1 DAILY T-DERMAL 10/20/16 09:00 11/12/16 08:12 (Norvasc) 5 mg DAILY PO 10/23/16 09:00 11/12/16 08:10 (Robaxin) 1,000 mg Q8HR PRN PO 10/26/16 12:30 11/11/16 00:18 (Oramorph Sr) 15 mg Q12HR PO 10/30/16 21:00 11/12/16 08:09 (Keppra) 500 mg Q12HR PO 11/10/16 21:00 11/12/16 08:09 A/P Assessment and Plan 45-year-old male admitted secondary to lower back pain and paraspinal abscess diagnosed with infective endocarditis based on echocardiogram findings and leukocytosis. No worsening signs of infection of lower back. Better pain control present through time. Patient was on 30 mg of MS Contin twice a day and 5 mg Percocets every 6 hours for breakthrough. He left the hospital AGAINST MEDICAL ADVICE the morning of 10/18/16 and returned the same afternoon because he reportedly had 2 take out his belongings from the residence he was being evicted from. Infective endocarditis History of IV drug abuse Pain medication seeking behavior - Infectious disease following. Continue Vanco - Repeat MRI on 10/18/16 "1. Slight decrease in abnormal enhancing and edematous tissues around the spinous processes of L3 and L4. Persistent mild canal stenosis at L4-5 and no evidence for discitis. 2. There are some edematous changes and enhancement in the marrow of the spinous processes of L3 and L4. Differential diagnosis includes reactive change. Cannot exclude osteomyelitis dorsally. - Repeat MRI 11/07/16 No change. Clinically, patient is feeling better and labs normalized. - Further plans per ID. - Patient does exhibit pain medication seeking behavior. Continue with plan to wean him off all narcotics. Weaning plan will be based on objective findings and clinical indicators - Continue Oramorph to 15 mg twice a day. Percocet every 6 hours as needed. Dose was decreased on 10/30/16 - Plan is to continue to wean the patient off all Narcotics. DW patient to continue wean off Narcotics. Unfortunately he has no motivation for this. - Labs reassuring. No white count. CRP is normal. LFTs much improved. at this time recommended by ID specialist discharge on by mouth Doxycycline 100 mg BID for two months. Hypertension History of noncompliance. Stable Continue lisinopril adn Amlodipine. Lumbar spine edema: Improving Continue antibiotics Follow clinically for improvement Noncompliance: - Patient left the hospital AMA on 10/17 in the morning and returned the same day in the afternoon. He denies using drugs during that time. He has been counseled to comply with medical treatment. Seizure disorder Started on Keppra 500 mg BID as per Neurology specialist and following, EEG. CT brain negative. EEG negative will continue medicine started by Neurology and follow up as outpatient. DVT prophylaxis Lovenox Discharge Planning Discharge now discussed with patient and his Mother in the room. Leodan Cash MD Nov 12, 2016 10:21
[2016-11-12 12:00] VITALS: BP 116/81; PULSE 78; RESP 18; TEMP 98.2; O2SAT 98
[2016-11-12] MEDS ORDERED: DOXY100C PO (13:10)
--- NOTE | 2016-11-12 13:16 | HHI.PR ---
Addendum to Inpatient Note Addendum Reason: Additional Documentation Additional Information d/w : If cleared by Neurosurgery ok to discharge from my standpoint. Doxy 100 mg po bid for 2 months. Outpt follow up with [facility]. Needs CBC with diff, CMP while on Oral Doxy Counseled pt yday about Doxy pill esophagitis and Doxy sun sensitivity. Will sign off please call back if any change in clinical condition or questions. Zena Slater MD Nov 12, 2016 13:16
[2016-11-12] MEDS ORDERED: DOXYCYCLINE HYCLATE 100 MG TAB PO SCH (14:00)
[2016-11-12] MEDS ORDERED: METH500T3 PO (14:52)
[2016-11-12] MEDS ORDERED: ALPR.25 PO (14:52)
[2016-11-12] MEDS ORDERED: NICO21DI25 T-DERMAL (14:52)
[2016-11-12] MEDS ORDERED: OXYC1TAB63 PO (14:52)
[2016-11-12] MEDS ORDERED: AMLO5 PO (14:52)
[2016-11-12] MEDS ORDERED: TAMS5CAP PO (14:52)
[2016-11-12] MEDS ORDERED: LEVE500 PO (14:52)
--- NOTE | 2016-11-12 15:05 | HHI.DS ---
Discharge Summary Admission Date Oct 17, 2016 at 13:25 Discharge Date: Nov 12, 2016 Admitting Diagnosis Endocarditis, paraspinal muscle abscess (1) Tobacco use ICD Code: Z72.0 - Tobacco use Diagnosis: Secondary Status: Acute (2) IV drug abuse ICD Code: F19.10 - Intravenous drug abuse Diagnosis: Principal Status: Chronic (3) IVDU (intravenous drug user) ICD Code: F19.90 - Other psychoactive substance use, unspecified, uncomplicated Diagnosis: Principal Status: Chronic (4) Infective endocarditis ICD Code: I33.0 - Acute and subacute infective endocarditis Diagnosis: Principal Status: Acute (5) Hypertension ICD Code: I10 - Essential (primary) hypertension Diagnosis: Secondary Status: Acute (6) Depressive disorder ICD Code: F32.9 - Depressive disorder Diagnosis: Secondary Status: Acute (7) Back pain ICD Code: M54.9 - Dorsalgia, unspecified Diagnosis: Secondary Status: Acute (8) Polysubstance dependence ICD Code: F19.20 - Polysubstance dependence Diagnosis: Principal Status: Chronic (9) Polysubstance (including opioids) dependence, daily use ICD Code: F19.20 - Other psychoactive substance dependence, uncomplicated Diagnosis: Principal Status: Chronic Procedures None. Brief History - From Admission 45-year-old male with a medical history significant for anxiety, hypertension but no medications, IV drug abuse who was being treated in the hospital for probable infectious endocarditis and treatment of paraspinal abscess. Patient was being treated with IV vancomycin. He left the hospital AGAINST MEDICAL ADVICE earlier this morning. He reports he had to leave to take out his belongings from his residence because he was getting evicted. He came back with complaint of persistent low back pain. He denies any drug use since leaving the hospital. CBC/BMP: 11/10/16 1542 11/10/16 1542 Significant Findings Laboratory Tests Test 11/10/16 15:42 11/11/16 23:55 Neutrophils (%) (Auto) 70.6 % (16.0-70.0) Monocytes (%) (Auto) 8.4 % (0.0-8.0) Troponin I LESS THAN 0.02 NG/ML Vancomycin Level Trough 17.6 MCG/ML (5.0-10.0) Imaging Last Impressions Brain MRI 11/12/16 0000 Signed Impressions: Service Date/Time: Saturday, November 12, 2016 08:42 - CONCLUSION: 1. No acute intracranial abnormality. 2. 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 Obi Lisa MD Head CT 11/10/16 0000 Signed Impressions: Service Date/Time: Thursday, November 10, 2016 15:00 - CONCLUSION: Negative for acute process. Rafael Delaney MD FACR Lumbar Spine MRI 11/07/16 0000 Signed Impressions: Service Date/Time: October 20:47 - CONCLUSION: 1. Abnormal signal at the L3 and L4 spinous processes and in the soft tissues surrounding these regions all concerning for inflammatory/infectious process. This is unchanged from the prior exam. 2. Moderate stenosis at the L4-L5 level caused by a combination of mild disc bulge and facet hypertrophy. There is narrowing of the neural foramina bilaterally at this level being worse on the left. 3. Minimal central disc protrusion at the L4-S1 level with an angular tear without significant narrowing of the thecal sac. There is mild narrowing of the neural foramina at this level secondary to the facet hypertrophy. Obi Alvares MD PE at Discharge GENERAL: This is a well-nourished, well-developed patient, in no apparent distress. CARDIOVASCULAR: Normal rate and regular rhythm without murmurs, gallops, or rubs. RESPIRATORY: Good respiratory efforts. Breath sounds equal and clear to auscultation bilaterally. GASTROINTESTINAL: Abdomen soft, non-tender, non-distended. Normal active bowel sounds MUSCULOSKELETAL: Patient complains of tenderness to palpation over the lumbar paraspinal region. NEURO: Alert & Oriented x4 to person, place, time, situation. Moves all ext x4 PSYCH: Appropriate mood and affect Hospital Course This is a pleasant 45 y/o Male with Anxiety disorder, Hypertension, History of IV drug abuse, being treated in the hospital for probable infectious endocarditis and treatment of paraspinal abscess. 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 Patient was being treated with IV vancomycin while in hospital. All BCX were negative then. Plan was to repeat MRI and if improving to discharge him on IV Telavancin once a day in clinic. He left the hospital AGAINST MEDICAL ADVICE. He reports he had to leave to take out his belongings from his residence because he was getting evicted. He came back with complaint of persistent low back pain. He denies any drug use since leaving the hospital. 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 Yesterday at noon, He needed to be Halicat due to witnessed seizure disorder, recommended for CT brain, Laboratory, ECG Cardiac Enzymes, Drug screen and Neurology consulted. seen by Doctor Sonali Torres Seizure may be secondary to his history of Hemorrhage in the past, recommended MRI, EEG, started on Keppra 500 mg BID. ID following recommended to continue Vancomycin, MRI, CRP normalized, thinking in by mouth antibiotics at discharge. 11/12: Seen in his bedroom discussed with him and his mother, also with Doctor Nohemy garcia to discharge from her standpoint on Doxycycline for two months. No nausea, vomit or diarrhea, his EEG had overall normal appearance with some Beta frequency but no appreciable epileptic activity. Assessment and Plan 45-year-old male admitted secondary to lower back pain and paraspinal abscess diagnosed with infective endocarditis based on echocardiogram findings and leukocytosis. No worsening signs of infection of lower back. Better pain control present through time. Patient was on 30 mg of MS Contin twice a day and 5 mg Percocets every 6 hours for breakthrough. He left the hospital AGAINST MEDICAL ADVICE the morning of 10/18/16 and returned the same afternoon because he reportedly had 2 take out his belongings from the residence he was being evicted from. Infective endocarditis History of IV drug abuse Pain medication seeking behavior - Infectious disease following. Continue Vanco - Repeat MRI on 10/18/16 "1. Slight decrease in abnormal enhancing and edematous tissues around the spinous processes of L3 and L4. Persistent mild canal stenosis at L4-5 and no evidence for discitis. 2. There are some edematous changes and enhancement in the marrow of the spinous processes of L3 and L4. Differential diagnosis includes reactive change. Cannot exclude osteomyelitis dorsally. - Repeat MRI 11/07/16 No change. Clinically, patient is feeling better and labs normalized. - Further plans per ID. - Patient does exhibit pain medication seeking behavior. Continue with plan to wean him off all narcotics. Weaning plan will be based on objective findings and clinical indicators - Continue Oramorph to 15 mg twice a day. Percocet every 6 hours as needed. Dose was decreased on 10/30/16 - Plan is to continue to wean the patient off all Narcotics. DW patient to continue wean off Narcotics. Unfortunately he has no motivation for this. - Labs reassuring. No white count. CRP is normal. LFTs much improved. at this time recommended by ID specialist discharge on by mouth Doxycycline 100 mg BID for two months. Hypertension History of noncompliance. Stable Continue lisinopril adn Amlodipine. Lumbar spine edema: Improving Continue antibiotics Follow clinically for improvement Noncompliance: - Patient left the hospital AMA on 10/17 in the morning and returned the same day in the afternoon. He denies using drugs during that time. He has been counseled to comply with medical treatment. Seizure disorder Started on Keppra 500 mg BID as per Neurology specialist and following, EEG. CT brain negative. EEG negative will continue medicine started by Neurology and follow up as outpatient. DVT prophylaxis Lovenox Discharge Planning Discharge now discussed with patient and his Mother in the room. Pt Condition on Discharge: Good Discharge Disposition: Discharge Home Discharge Time: > 30 minutes Discharge Instructions DIET: Follow Instructions for: As Tolerated, No Restrictions Activities you can perform: Regular-No Restrictions Leodan Cash MD Nov 12, 2016 15:05
[2016-11-12 16:00] VITALS: BP 121/74; PULSE 84; RESP 18; TEMP 99; O2SAT 98
== END 2016-11-12 16:27 | disposition home or self-care (01) | DRG 94 ==
LOC: NEPC 12:35 → NEDA 13:25 → N04A 19:53
PROVIDERS: ADMIT Internal Medicine; ATTEND Internal Medicine
DX: G06.1 Intraspinal abscess and granuloma (principal); I33.0 Acute and subacute infective endocarditis; F11.20 Opioid dependence, uncomplicated; G40.89 Other seizures; I10 Essential (primary) hypertension; F41.9 Anxiety disorder, unspecified; F17.210 Nicotine dependence, cigarettes, uncomplicated; F12.90 Cannabis use, unspecified, uncomplicated; F19.10 Other psychoactive substance abuse, uncomplicated; F32.9 Major depressive disorder, single episode, unspecified; Z91.19 Patient's noncompliance with other medical treatment and regimen; Z76.5 Malingerer [conscious simulation]
CPT/HCPCS: 70450; 70551; 72158; 76937; 80048; 80053; 80076; 80202; 80307; 82565; 83735; 84100; 84484; 85025; 85027; 86140; 93005; 95819; A9579; J1644; J2060; J3370; J7040; J7050